=== PATIENT | male | born 1975 | race Caucasian/White ===

== ENCOUNTER → 2019-08-23 10:28 | Outpatient (BNVA) | payer MEDICARE, MEDICAID, SELFPAY | PROVIDERS: Family Provider Family Medicine; PCP Family Medicine; Visit Provider Psychiatry & Neurology Psychiatry | DX: F33.2 Major depressive disorder, recurrent severe without psychotic features (principal); F41.1 Generalized anxiety disorder | CPT/HCPCS: 99214; 99215 ==

== ENCOUNTER → 2019-12-20 08:34 | Outpatient (BNVA) | payer MEDICARE, MEDICAID, SELFPAY | PROVIDERS: Family Provider Family Medicine; PCP Family Medicine; Visit Provider Psychiatry & Neurology Psychiatry | DX: F33.2 Major depressive disorder, recurrent severe without psychotic features (principal); F41.1 Generalized anxiety disorder | CPT/HCPCS: 99213 ==

== ENCOUNTER → 2020-03-25 08:32 | Outpatient (BNVA) | payer MEDICARE, MEDICAID, SELFPAY | PROVIDERS: Family Provider Family Medicine; PCP Family Medicine; Visit Provider Psychiatry & Neurology Psychiatry | DX: F41.1 Generalized anxiety disorder (principal); F33.2 Major depressive disorder, recurrent severe without psychotic features | CPT/HCPCS: 99213 ==

== ENCOUNTER → 2020-06-10 07:44 | Outpatient (BNVA) | payer MEDICARE, MEDICAID, SELFPAY | PROVIDERS: Family Provider Family Medicine; PCP Family Medicine; Visit Provider Psychiatry & Neurology Psychiatry | DX: F41.1 Generalized anxiety disorder (principal); F33.2 Major depressive disorder, recurrent severe without psychotic features | CPT/HCPCS: 99213 ==

== ENCOUNTER → 2020-09-02 09:03 | Outpatient (BNVA) | payer MEDICARE, MEDICAID, SELFPAY | PROVIDERS: Family Provider Family Medicine; PCP Family Medicine; Visit Provider Psychiatry & Neurology Psychiatry | DX: F41.1 Generalized anxiety disorder (principal); F33.2 Major depressive disorder, recurrent severe without psychotic features | CPT/HCPCS: 99213 ==

== ENCOUNTER → 2020-11-25 07:53 | Outpatient (BNVA) | payer MEDICARE, MEDICAID, SELFPAY | PROVIDERS: Family Provider Family Medicine; PCP Family Medicine; Visit Provider Psychiatry & Neurology Psychiatry | DX: F41.1 Generalized anxiety disorder (principal); F33.2 Major depressive disorder, recurrent severe without psychotic features | CPT/HCPCS: 99213 ==

== ENCOUNTER → 2021-02-24 10:33 | Outpatient (BNVA) | payer MEDICARE, MEDICAID, SELFPAY | PROVIDERS: Family Provider Family Medicine; PCP Family Medicine; Visit Provider Psychiatry & Neurology Psychiatry | DX: F41.1 Generalized anxiety disorder (principal); F33.2 Major depressive disorder, recurrent severe without psychotic features | CPT/HCPCS: 99213 ==

== ENCOUNTER → 2021-03-03 07:41 | Outpatient (BNVA) | payer MEDICARE, MEDICAID, SELFPAY | PROVIDERS: Family Provider Family Medicine; PCP Family Medicine; Visit Provider Social Worker | DX: F41.1 Generalized anxiety disorder (principal); F33.2 Major depressive disorder, recurrent severe without psychotic features | CPT/HCPCS: 90834 ==

== ENCOUNTER → 2021-03-17 09:46 | Outpatient (BNVA) | payer MEDICARE, MEDICAID, SELFPAY | PROVIDERS: Family Provider Family Medicine; PCP Family Medicine; Visit Provider Social Worker | DX: F41.1 Generalized anxiety disorder (principal); F33.2 Major depressive disorder, recurrent severe without psychotic features | CPT/HCPCS: 90834 ==

== ENCOUNTER → 2021-03-31 09:35 | Outpatient (BNVA) | payer MEDICARE, MEDICAID, SELFPAY | PROVIDERS: Family Provider Family Medicine; PCP Family Medicine; Visit Provider Social Worker | DX: F41.1 Generalized anxiety disorder (principal); F33.2 Major depressive disorder, recurrent severe without psychotic features | CPT/HCPCS: 90834 ==

== ENCOUNTER → 2021-04-14 09:16 | Outpatient (BNVA) | payer MEDICARE, MEDICAID, SELFPAY | PROVIDERS: Family Provider Family Medicine; PCP Family Medicine; Visit Provider Social Worker | DX: F41.1 Generalized anxiety disorder (principal); F33.2 Major depressive disorder, recurrent severe without psychotic features | CPT/HCPCS: 90834 ==

== ENCOUNTER → 2021-05-12 09:33 | Outpatient (BNVA) | payer MEDICARE, MEDICAID, SELFPAY | PROVIDERS: Family Provider Family Medicine; PCP Family Medicine; Visit Provider Social Worker | DX: F41.1 Generalized anxiety disorder (principal); F33.2 Major depressive disorder, recurrent severe without psychotic features | CPT/HCPCS: 90834 ==

== ENCOUNTER → 2021-05-26 09:48 | Outpatient (BNVA) | payer MEDICARE, MEDICAID, SELFPAY | PROVIDERS: Family Provider Family Medicine; PCP Family Medicine; Visit Provider Social Worker | DX: F41.1 Generalized anxiety disorder (principal); F33.2 Major depressive disorder, recurrent severe without psychotic features | CPT/HCPCS: 90834 ==

== ENCOUNTER → 2021-06-03 11:56 | Outpatient (BNVA) | payer MEDICARE, MEDICAID, SELFPAY | PROVIDERS: Family Provider Family Medicine; PCP Family Medicine; Visit Provider Social Worker | DX: F41.1 Generalized anxiety disorder (principal); F33.2 Major depressive disorder, recurrent severe without psychotic features | CPT/HCPCS: 90834 ==

== ENCOUNTER → 2021-06-17 09:00 | Outpatient (BNVA) | payer MEDICARE, MEDICAID, SELFPAY | PROVIDERS: Family Provider Family Medicine; PCP Family Medicine; Visit Provider Social Worker | DX: F41.1 Generalized anxiety disorder (principal); F33.2 Major depressive disorder, recurrent severe without psychotic features | CPT/HCPCS: 90837; 90834 ==

== ENCOUNTER → 2021-06-24 14:37 | Outpatient (BNVA) | payer MEDICARE, MEDICAID, SELFPAY | PROVIDERS: Family Provider Family Medicine; PCP Family Medicine; Visit Provider Psychiatry & Neurology Psychiatry | DX: F41.1 Generalized anxiety disorder (principal); F33.2 Major depressive disorder, recurrent severe without psychotic features | CPT/HCPCS: 99214 ==

== ENCOUNTER → 2021-07-18 10:02 | Outpatient (BNVA) | payer MEDICARE, MEDICAID, SELFPAY | PROVIDERS: Family Provider Family Medicine; PCP Family Medicine; Visit Provider Social Worker | DX: F41.1 Generalized anxiety disorder (principal); F33.2 Major depressive disorder, recurrent severe without psychotic features | CPT/HCPCS: 90837; 90834 ==

== ENCOUNTER → 2021-08-01 08:27 | Outpatient (BNVA) | payer MEDICARE, MEDICAID, SELFPAY | PROVIDERS: Family Provider Family Medicine; PCP Family Medicine; Visit Provider Social Worker | DX: F41.1 Generalized anxiety disorder (principal); F33.2 Major depressive disorder, recurrent severe without psychotic features | CPT/HCPCS: 90837; 90834 ==

== ENCOUNTER → 2021-08-14 11:19 | Outpatient (BNVA) | payer MEDICARE, MEDICAID, SELFPAY | PROVIDERS: Family Provider Family Medicine; PCP Family Medicine; Visit Provider Social Worker | DX: F41.1 Generalized anxiety disorder (principal); F33.2 Major depressive disorder, recurrent severe without psychotic features | CPT/HCPCS: 90837; 90834 ==

== ENCOUNTER → 2021-08-26 11:21 | Outpatient (BNVA) | payer MEDICARE, MEDICAID, SELFPAY | PROVIDERS: Family Provider Family Medicine; PCP Family Medicine; Visit Provider Social Worker | DX: F41.1 Generalized anxiety disorder (principal); F33.2 Major depressive disorder, recurrent severe without psychotic features | CPT/HCPCS: 90837; 90834 ==

== ENCOUNTER → 2021-09-11 08:57 | Outpatient (BNVA) | payer MEDICARE, MEDICAID, SELFPAY | PROVIDERS: Family Provider Family Medicine; PCP Family Medicine; Visit Provider Social Worker | DX: F41.1 Generalized anxiety disorder (principal); F33.2 Major depressive disorder, recurrent severe without psychotic features | CPT/HCPCS: 90834 ==

== ENCOUNTER → 2021-10-15 07:52 | Outpatient (BNVA) | payer MEDICARE, MEDICAID, SELFPAY | PROVIDERS: Family Provider Family Medicine; PCP Family Medicine; Visit Provider Social Worker | DX: F41.1 Generalized anxiety disorder (principal); F33.2 Major depressive disorder, recurrent severe without psychotic features | CPT/HCPCS: 90834 ==

== ENCOUNTER → 2021-10-29 07:34 | Outpatient (BNVA) | payer MEDICARE, MEDICAID, SELFPAY | PROVIDERS: Family Provider Family Medicine; PCP Family Medicine; Visit Provider Psychiatry & Neurology Psychiatry | DX: F41.1 Generalized anxiety disorder (principal); F33.2 Major depressive disorder, recurrent severe without psychotic features | CPT/HCPCS: 99214 ==

== ENCOUNTER 2021-10-29 13:19 | Inpatient (IN) | payer MEDICARE, MEDICAID, SELFPAY ==
[2021-10-29] VITALS (22 sets, daily range): BP systolic 76–125; BP diastolic 40–82; PULSE 70–153; RESP 12–33; TEMP 36.8; O2SAT 86–96; BMI 65.9
--- NOTE | 2021-10-29 13:41 | ECG_ITS ---
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 Measurements Intervals [place] Rate: 153 P: WA: QRS: 110 QRSD: 110 T: 61 QT: 307 QTc: 490 Interpretive Statements ATRIAL FIBRILLATION WITH RAPID VENTRICULAR RESPONSE POSSIBLE RIGHT VENTRICULAR HYPERTROPHY [SOME/ALL OF: PROMINENT R IN V1, LATE TRANSITION, RAD, RUBINA, SSS] POSSIBLE ANTERIOR MYOCARDIAL INFARCTION , PROBABLY OLD [30 ms Q WAVE IN V3/V4, OR R < 0.2 mV IN V4] No previous ECG available for comparison Electronically Signed On 10-29-2021 18:41:38 CDT by Azeem Weinstein M.D. [id number] allison
[2021-10-29 13:56] LABS: Basophils % 0.5 %; Eosinophils % 0.5 %; Hematocrit 54.4 % (42.0-52.0); Hemoglobin 16.4 g/dL (11.7-16.6); Lymphocytes # 0.9 10^3/uL (0.8-4.8); Lymphocytes % 10.9 %; Mean Corpuscular HGB Conc 30.1 g/dL (30.0-36.0); Mean Corpuscular Volume 102.8 fl (80-94); Mean Platelet Volume 11.7 fL (7.4-10.4); Monocytes # 0.7 10^3/uL (0.2-0.9); Monocytes % 8.7 %; Neutrophils # 6.37 10^3/uL (1.8-7.7); Neutrophils % 79.2 %; Nucleated Red Blood Cells % 0 %; Platelet Count 148 10^3/cmm (130-400); Red Blood Count 5.29 10^6/uL (4.1-5.3); Red Cell Distribution Width 17.9 % (12.1-15.1); White Blood Count 8.1 10^3/uL (4.0-10.0)
--- NOTE | 2021-10-29 14:00 | ED_ITS ---
HPI - Abdominal Pain General: Chief Complaint: Abdominal Pain Stated Complaint: BOWEL OBSTRUCTION Time Seen by Provider: 10/29/21 13:23 Source: patient Mode of arrival: EMS Limitations: no limitations History of Present Illness: 46-year-old male presents emergency room complaining of abdominal pain with distention. Patient is super morbidly obese with a BMI of 66. He is that a large distended abdomen with significant anasarca. He is extremely tachycardic as well he states he has no known history of atrial fibrillation he is not on any anticoagulants. The abdominal pain is been present for 3 months and has had abnormal stools he denies any medication on hematemesis coffee-ground emesis. He is not having any chest pain at this time he is laying flat in bed and is a little bit tachypneic and is requiring 3 L by nasal cannula. He states he normally does not use oxygen but is chronically short of breath. No vomiting. MD elicited complaint: abdominal pain Onset (ago): day(s) Pain Consistency: constant Location: Diffuse Severity: moderate Quality: cramping Radiation: none Migration to: no migration Exacerbating factors: movement Relieving factors: rest Associated Symptoms: Reports bloating, GI cramping, nausea and poor appetite; Denies anorexia, belching, change in bowel habits, change in stool character, chills, coffee ground emesis, constipation, diarrhea, dyspepsia, dysuria, excessive flatus, fever(s), heartburn, hematochezia, hematuria, hematemesis, fecal incontinence, loose stools, melena, syncope and vomiting Review of Systems Const: Denies: fever(s) or chills ENMT: Denies: throat pain, ear or mastoid pain, nasal discharge or nasal congestion Card: Denies: syncope Resp: Denies: dyspnea, productive cough or non-productive cough GI: Reports: abdominal pain, nausea, bloating and GI cramping; Denies: vomiting, hematemesis, coffee ground emesis, heartburn, diarrhea, co nstipation, belching, excessive flatus, fecal incontinence, change in bowel habits, change in stool character, hematochezia or melena : Denies: dysuria or hematuria Skin/Breast: Denies: rash or pruritus PFS ED PFSH: Medical History Anxiety Bipolar 1 disorder Depression Dyslipidemia Gout Hypertension BONITA (obstructive sleep apnea) Psychiatric care Restrictive lung disease Surgical History No significant past surgical history Family History Other Cancer Dementia Diabetes Psychiatric illness Social History Smoking and tobacco status: former smoker Quit status (tobacco): has quit using tobacco Year quit tobacco: 2002 Second hand smoke exposure: No Smoking risk assessment/counseling performed?: No Alcohol intake: current Alcohol intake frequency: holidays/special occasions only Adopted: No 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) Lives independently: Yes Household members: none Housing: Manufactured/Mobile home Marital status: Single Number of children: 0 Number of grandchildren: 0 Highest education level completed: 12th Grade, No Diploma service: No Current occupational status: disabled Current occupational exposures/hazards: No Pets and animals: No History of recent travel: No Leisure activites: reading and other Leisure activities details: watches TV Sexually active: No Current gender identity: Male Jayne/Hoahaoism: None Special jayne needs: No Agree to transfusion: Yes Financial difficulty paying for basics: Somewhat Hard Physical Exam Const: COMMON NORMALS: no acute distress GENERAL APPEARANCE: cooperative and comfortable ORIENTATION/CONSCIOUSNESS: Yes awake, Yes oriented to person, Yes oriented to place and Yes oriented to time HENMT: COMMON NORMALS: normocephalic, atraumatic and hearing grossly normal bilaterally HEAD & SCALP: normocephalic and atraumatic Resp: COMMON NORMALS: No retractions and No use of accessory muscles AUSCULTATION: crackles and wheezes Cardio: RATE: tachycardic RHYTHM: abnormal rhythm irregularly irregular GI: COMMON NORMALS: No hepatosplenomegaly present AUSCULTATION: Yes normoactive bowel sounds PALPATION: Yes Tenderness to palpation present (GI) (Diffuse abdominal pain. Anasarca to the lower portion of the abdomen wall), No Guarding due to palpation present (GI) and Yes No hepatosplenomegaly present OTHER: Examination of the groin crease patient has significant excoriation in the groin and scrotal areas with superficial redness with no induration. Extremity: COMMON NORMALS: normal to inspection, capillary refill normal, no clubbing, cyanosis or edema, no calf tenderness and no pedal edema Neuro: SENSORIUM/ORIENTATION: Yes oriented to person, Yes oriented to place and Yes oriented to time Skin: COMMON NORMALS: no rashes or lesions noted GENERAL SKIN EXAM: no rashes or lesions noted Course Vital Signs: Vital signs: Vital Signs Temperature 96.9 F L 11/03/21 07:07 Pulse Rate 124 H 11/03/21 07:07 Respiratory Rate 18 11/03/21 07:07 Blood Pressure 158/124 11/03/21 07:07 Pulse Oximetry 95 11/03/21 07:07 MDM - Abdominal Pain Medical Decision Making Patient in A. felicity with RVR appears to be in congestive heart failure significant obesity he also has some superficial candidal infection in the groin creases due to poor hygiene. He was given Lasix he is also been started on Cardizem and t hen traded to esmolol for rate control and Cardizem failed. Discussed with hospitalist orders written hospitalist request CTA chest abdomen and pelvis which was negative. Medical Records I reviewed the patient's medical records. Lab Data I reviewed the patient's lab results. : 11/03/21 05:53 11/03/21 05:53 Labs/Radiology: Radiology Impressions Chest/Abdomen/Pelvis CT 10/29/21 16:14 IMPRESSION: 1. Negative for pulmonary embolus. 2. Cardiomegaly. 3. Moderate bilateral right greater left pleural effusions. 4. Bilateral dependent atelectasis versus minimal infiltrate. IMPRESSION: 1. Negative for focal acute inflammatory process in the abdomen or pelvis. 2. Large amount of ascites in the abdomen. 3. Right kidney cyst, negative for follow-up advised. 4. Left kidney lower pole punctate nonobstructing renal calyceal stone. Laboratory Results WBC 8.1 10^3/uL (4.0-10.0) 10/29/21 13:45 RBC 5.29 10^6/uL (4.1-5.3) 10/29/21 13:45 Hgb 16.4 g/dL (11.7-16.6) 10/29/21 13:45 Hct 54.4 % (42.0-52.0) H 10/29/21 13:45 MCV 102.8 fl (80-94) H 10/29/21 13:45 MCH 31.0 pg (28.0-34.0) 10/29/21 13:45 MCHC 30.1 g/dL (30.0-36.0) 10/29/21 13:45 RDW 17.9 % (12.1-15.1) H 10/29/21 13:45 Plt Count 148 10^3/cmm (130-400) 10/29/21 13:45 MPV 11.7 fL (7.4-10.4) H 10/29/21 13:45 Neut % (Auto) 79.2 % 10/29/21 13:45 Lymph % (Auto) 10.9 % 10/29/21 13:45 [place] % (Auto) 8.7 % 10/29/21 13:45 Eos % (Auto) 0.5 % 10/29/21 13:45 Baso % (Auto) 0.5 % 10/29/21 13:45 Neut # (Auto) 6.37 10^3/uL (1.8-7.7) 10/29/21 13:45 Lymph # (Auto) 0.9 10^3/uL (0.8-4.8) 10/29/21 13:45 [place] # (Auto) 0.7 10^3/uL (0.2-0.9) 10/29/21 13:45 Eos # (Auto) 0.0 10^3/uL (0.0-0.8) 10/29/21 13:45 Baso # (Auto) 0.0 10^3/uL (0.0-0.1) 10/29/21 13:45 Nucleated RBC % (auto) 0 % 10/29/21 13:45 Nucleated RBCs # 0.0 /100WBC 10/29/21 13:45 D-Dimer 7.73 ug/mIFEU (0-0.59) H 10/29/21 13:45 Sodium 139 mmol/L (136-145) 10/29/21 13:45 Potassium 3.9 mmol/L (3.5-5.1) 10/29/21 13:45 Chloride 92 mmol/L (98-107) L 10/29/21 13:45 Carbon Dioxide 34 mmol/L (22-29) H 10/29/21 13:45 Anion Gap 16.9 (5-19) 10/29/21 13:45 BUN 23 mg/dL (6-20) H 10/29/21 13:45 Creatinine 1.2 mg/dL (0.7-1.2) 10/29/21 13:45 GFR Calculation 64.9 mL/min (90-130) L 10/29/21 13:45 Glucose 95 mg/dL (65-115) 10/29/21 13:45 Calculated Osmolality 291 mOsm/kg (285-295) 10/29/21 13:45 Lactic Acid 2.0 mmol/L (0.5-2.2) 10/29/21 13:45 Uric Acid 9.4 mg/dL (3.4-7.0) H 10/29/21 13:45 Calcium 9.3 mg/dL (8.5-10.5) 10/29/21 13:45 Total Bilirubin 1.4 mg/dL (0.15-1.2) H 10/29/21 13:45 AST 23 U/L (0-40) 10/29/21 13:45 ALT 14 U/L (0-41) 10/29/21 13:45 Alkaline Phosphatase 86 IU/L (40-130) 10/29/21 13:45 Troponin T Baseline 43 ng/L (0-15) H 10/29/21 13:45 Troponin T 120 Minute 50.29 ng/L (0-15) H 10/29/21 15:38 Delta Troponin T 7.29 ABS# (0-10) 10/29/21 15:38 NT-Pro-B Natriuret Pep 4347 pg/mL (0-125) H 10/29/21 13:45 Total Protein 7.1 g/dL (6.6-8.7) 10/29/21 13:45 Albumin 3.7 g/dL (3.5-5.2) 10/29/21 13:45 Globulin 3.4 g/dL (1.3-4.6) 10/29/21 13:45 Triglycerides 89 mg/dL (0-150) 10/29/21 13:45 TSH 3.85 uIU/mL (0.27-4.20) 10/29/21 13:45 Urine Color Yellow (Yellow) 10/29/21 14:32 Urine Appearance Hazy (CLEAR) A 10/29/21 14:32 Urine pH 5 (5-7) 10/29/21 14:32 Ur Specific [place] 1.020 (1.005-1.030) 10/29/21 14:32 Urine Protein Neg (Negative) 10/29/21 14:32 Urine Glucose (UA) Norm (Normal) 10/29/21 14:32 Urine Ketones Negative (Negative) 10/29/21 14:32 Urine Blood Neg (Negative) 10/29/21 14:32 Urine Nitrate Negative (Negative) 10/29/21 14:32 Urine Bilirubin 1+ (Negative) H 10/29/21 14:32 Urine Urobilinogen 4 mg/dL (Negative) H 10/29/21 14:32 Ur Leukocyte Esterase Negative (Negative) 10/29/21 14:32 Urine RBC 0-4 /hpf (0-2) H 10/29/21 14:32 Urine WBC 0-4 /hpf (0-5) H 10/29/21 14:32 Ur Squamous Epith Cells 0-4 /hpf (0-5) H 10/29/21 14:32 Amorphous Sediment Not Reportable 10/29/21 14:32 Urine Bacteria Trace /hpf (NONE) 10/29/21 14:32 Critical Care Time Critical Care Time: Critical Care Time: Yes Total Critical Care Time: 40 Attestation: The high probability of a clinically significant, sudden or life threatening deterioration of the patient's cardiovascular/respiratory system(s) required my full and direct attention, intervention and personal management. The critical care time is as shown. 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
[2021-10-29 14:31] LABS: Troponin(5th) Baseline 43 ng/L (0-15)
[2021-10-29 14:39] LABS: Alanine Aminotransferase 14 U/L (0-41); Albumin Level 3.7 g/dL (3.5-5.2); Alkaline Phosphatase 86 IU/L (40-130); Anion Gap 16.9 (5-19); Aspartate Amino Transferase 23 U/L (0-40); Blood Urea Nitrogen 23 mg/dL (6-20); Calcium 9.3 mg/dL (8.5-10.5); Carbon Dioxide 34 mmol/L (22-29); Chloride 92 mmol/L (98-107); Creatinine Clr Calc Pharmacy 149.2504; Globulin 3.4 g/dL (1.3-4.6); Glomerular Filtration Rate 64.9 mL/min (90-130); Glucose 95 mg/dL (65-115); NT Pro B Type Natriuretic Pept 4347 pg/mL (0-125); Osmolality Calculated 291 mOsm/kg (285-295); Potassium 3.9 mmol/L (3.5-5.1); Sodium 139 mmol/L (136-145); Total Bilirubin 1.4 mg/dL (0.15-1.2); Total Protein 7.1 g/dL (6.6-8.7)
[2021-10-29 15:39] LABS: Add Urine Microscopic? YES; Bilirubin Urine 1+ (Negative); Blood Urine Neg (Negative); Glucose Urine UA Norm (Normal); Ketones Urine Negative (Negative); Leukocyte Esterase Urine Negative (Negative); Nitrate Urine Negative (Negative); Protein Urine Neg (Negative); RBC Urine 0-4 /hpf (0-2); Squamous Epithelial Cell Urine 0-4 /hpf (0-5); Urine Appearance Hazy (CLEAR); Urine Color Yellow (Yellow); Urobilinogen Urine 4 mg/dL (Negative); WBC Urine 0-4 /hpf (0-5); pH Urine 5 (5-7)
[2021-10-29 15:41] LABS: Bacteria Urine TRACE /hpf
--- NOTE | 2021-10-29 15:41 | ECG_ITS ---
[facility] Test Date: 2021-10-29 Pat Name: Robert Juarez Department: Room: Gender: Male Hospitalist Physician: : 1975 Requested By: Connor Joe Order Number: [id number] Shawanda MD: Azeem Weinstein M.D. Measurements Intervals [place] Rate: P: MT: QRS: QRSD: T: QT: QTc: Interpretive Statements ATRIAL FIBRILLATION Compared to ECG 10/29/2021 12:50:13 Atrial abnormality no longer present Myocardial infarct finding no longer present Electronically Signed On 10-29-2021 18:51:20 CDT by Azeem Weinstein M.D. [id number]
[2021-10-29 16:07] LABS: Troponin 5 2HR 50.29 ng/L (0-15)
[2021-10-29 16:08] LABS: Troponin 5 2HR Delta 7.29 ABS# (0-10)
--- NOTE | 2021-10-29 16:14 | CTR_ITS ---
PROCEDURE INFORMATION: Exam: CTA Chest With Contrast Exam date and time: 10/29/2021 4:14 PM Age: 46 years old Clinical indication: Nausea and vomiting; Shortness of breath; Additional info: Dyspnea/abd pain TECHNIQUE: Imaging protocol: Computed tomographic angiography of the chest with contrast. 3D rendering (Not supervised by radiologist): MIP and/or 3D reconstructed images were created by the technologist. Radiation optimization: All CT scans at this facility use at least one of these dose optimization techniques: automated exposure control; mA and/or kV adjustment per patient size (includes targeted exams where dose is matched to clinical indication); or iterative reconstruction. Contrast material: OMNI 350; Contrast volume: 140 ml; Contrast route: INTRAVENOUS (IV); COMPARISON: CR Chest 2 views* [id number] 04/06/2017 3:17 PM RADIATION DOSE METRICS: Total DLP (mGy-cm): 2500 FINDINGS: Pulmonary arteries: Normal. No pulmonary emboli. Aorta: Unremarkable. No aortic aneurysm. No aortic dissection. Lungs: Bilateral dependent atelectasis versus minimal infiltrate. Pleural spaces: Moderate bilateral right greater left pleural effusions. Heart: Cardiomegaly. Lymph nodes: Unremarkable. No enlarged lymph nodes. Bones/joints: Unremarkable. No acute fracture. Soft tissues: Unremarkable. PROCEDURE INFORMATION: Exam: CT Abdomen And Pelvis With Contrast Exam date and time: 10/29/2021 4:14 PM Age: 46 years old Clinical indication: Nausea and vomiting; Shortness of breath; Additional info: Dyspnea/abd pain TECHNIQUE: Imaging protocol: Computed tomography of the abdomen and pelvis with contrast. Radiation optimization: All CT scans at this facility use at least one of these dose optimization techniques: automated exposure control; mA and/or kV adjustment per patient size (includes targeted exams where dose is matched to clinical indication); or iterative reconstruction. Contrast material: OMNI 350; Contrast volume: 140 ml; Contrast route: INTRAVENOUS (IV); COMPARISON: CR Chest 2 views* [id number] 04/06/2017 3:17 PM RADIATION DOSE METRICS: Total DLP (mGy-cm): 2500 FINDINGS: Liver: Normal. No mass. Gallbladder and bile ducts: Normal. No calcified stones. No ductal dilation. Pancreas: Normal. No ductal dilation. Spleen: Normal. No splenomegaly. Adrenal glands: Normal. No mass. Kidneys and ureters: Right kidney cyst, negative for follow-up advised. Left kidney lower pole punctate nonobstructing renal calyceal stone. Stomach and bowel: Unremarkable. No obstruction. No mucosal thickening. Appendix: No evidence of appendicitis. Intraperitoneal space: Large amount of ascites in the abdomen. Vasculature: Unremarkable. No abdominal aortic aneurysm. Lymph nodes: Unremarkable. No enlarged lymph nodes. Urinary bladder: Unremarkable as visualized. Reproductive: Unremarkable as visualized. Bones/joints: Unremarkable. No acute fracture. Soft tissues: Unremarkable. CT/CT angio chest w abd pel w con IMPRESSION: 1. Negative for pulmonary embolus. 2. Cardiomegaly. 3. Moderate bilateral right greater left pleural effusions. 4. Bilateral dependent atelectasis versus minimal infiltrate. IMPRESSION: 1. Negative for focal acute inflammatory process in the abdomen or pelvis. 2. Large amount of ascites in the abdomen. 3. Right kidney cyst, negative for follow-up advised. 4. Left kidney lower pole punctate nonobstructing renal calyceal stone.
[2021-10-29] MEDS: esmolol drip 2,500 MG/250 ML PREMIX 68.04 MG IV (16:28)
[2021-10-29] MEDS: iohexol 350 mg/mL 100 mL Btl IV ×2 (17:26)
--- NOTE | 2021-10-29 17:53 | P.HP_ITS ---
Providers/Chief Complaint Admitting Physician: Elida Greene MD Primary Care Provider: DOUG Joaquin Chief Complaint: BOWEL OBSTRUCTION History of Present Illness Robert Juarez is a 46 year old male who carries history of hypertension, sleep apnea, does not use CPAP at home oxygen, presented to the hospital for worsening of abdominal bloating or weight gain. Patient is stating that he has never been diagnosed with MD or CHF. He has been experiencing orthopnea, PND sh ortness of breath and excessive weight gain. He has not experienced any chest discomfort, fever, diarrhea. Patient lives alone. Does not smoke or drink alcohol. In the ER he was diagnosed with new onset A. fib RVR with CHF exacerbation. He was started on Cardizem drip which was later changed to esmolol because of RVR. I requested ER physician to change his esmolol to amiodarone because of hypotension at the time of my evaluation. Patient is not experiencing any active chest pain, he is on 3 L nasal cannula Initially he wanted to leave AGAINST MEDICAL ADVICE however decided to stay after counseling I requested CTA chest abdomen pelvis, it did not show any PE or any signs of mesenteric ischemia Review of Systems Const: Reports: body aches and change in appetite Eyes: Denies: change in vision ENMT: Denies: throat pain Card: Reports: palpitations, irregular heart rhythm, swelling of feet/ankles, dyspnea on exertion, orthopnea and acrocyanosis; Denies: chest pain Resp: Reports: dyspnea GI: Reports: abdominal pain, nausea, early satiety and bloating : Reports: difficulty urinating Musc: Denies: neck pain Skin/Breast: Reports: erythema, skin swelling, sores and lesions Neuro: Denies: headache(s) Psych: Reports: anxiety, depression and mood swings Endo: Denies: polyuria Kishan/Lymph: Denies: easy bruising All/Imm: Denies: urticaria Medications/Allergies Home Medications Medication Instructions Recorded Confirmed Last Taken Type indapamide 2.5 mg tablet 2.5 mg PO QAM 06/24/21 10/29/21 10/29/21 History lisinopril 20 mg tablet 20 mg PO DAILY 06/24/21 10/29/21 10/29/21 History duloxetine 30 mg capsule,delayed 30 mg PO DAILY #90 cap 10/29/21 10/29/21 10/29/21 Rx release duloxetine 60 mg capsule,delayed 60 mg PO DAILY #90 cap 10/29/21 10/29/21 10/29/21 Rx release Allergies Allergy/AdvReac Type Severity Reaction Status Date / Time No Known Allergies Allergy Verified 10/29/21 14:55 PFSH Acute PFSH: Medical History Anxiety Bipolar 1 disorder Depression Dyslipidemia Gout Hypertension BONITA (obstructive sleep apnea) Psychiatric care Restrictive lung disease Surgical History No significant past surgical history Family History Other Cancer Dementia Diabetes Psychiatric illness Social History Smoking and tobacco status: former smoker Quit status (tobacco): has quit using tobacco Year quit tobacco: 2002 Second hand smoke exposure: No Smoking risk assessment/counseling performed?: No Alcohol intake: current Alcohol intake frequency: holidays/special occasions only Adopted: No 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) Lives independently: Yes Household members: none Housing: Manufactured/Mobile home Marital status: Single Number of children: 0 Number of grandchildren: 0 Highest education level completed: 12th Grade, No Diploma service: No Current occupational status: disabled Current occupational exposures/hazards: No Pets and animals: No History of recent travel: No Leisure activites: reading and other Leisure activities details: watches TV Sexually active: No Current gender identity: Male Jayne/Rastafari: None Special jayne needs: No Agree to transfusion: Yes Financial difficulty paying for basics: Somewhat Hard Vitals/I&O/Wt Last Vital Signs Temp 98.2 F 10/29/21 13:33 Pulse 152 H 10/29/21 15:36 Resp 20 H 10/29/21 15:36 BP 125/69 10/29/21 15:36 Pulse Ox 96 10/29/21 15:36 10/29/21 10/29/21 10/29/21 06:59 14:59 22:59 Intake Total 4.167 / 4.167 9.833 / 14.000 Balance 4.167 / 4.167 9.833 / 14.000 Weight last 48 hrs Weight 226.796 kg Physical Exam Narrative: Morbid obese male Currently on 3 L cannula Awake and alert Nonfocal neuro exam Generalized anasarca Venous stasis dermatitis Bluish tinge to the skin of anterior mendez No active ischemic ulcers 3+ pitting edema extending up to his abdominal wall Abdominal pannus with nonpurulent cellulitis Fungal rash Abdomen is soft Variable S1-S2 Nonfocal neuro exam Able to cooperate for the exam Urinary Catheter Management: Fisher: Cath Placed During This Visit: yes Urinary Catheter Date of Insertion: 10/29/21 Urinary Catheter Time of Insertion: 14:35 Data : 10/29/21 13:45 10/29/21 13:45 A&P Assessment and plan (1) New onset of congestive heart failure: Status: Acute (2) A-fib: Status: Acute (3) Anasarca: Status: Acute Plan New onset CHF secondary to tachyarrhythmia RVRafib new onset Patient is hypotensive on esmolol We will give amiodarone 150 mg IV push and start amiodarone drip Admit to ICU Check magnesium level Potassium is 3.9 Check TSH D-dimer CTA chest abdomen pelvis unremarkable for acute event Generalized anasarca with congestive hepatopathy Not a candidate to start diuresis because of low blood pressure, will request echo Start diuresis once his pressure is better We will keep him on BiPAP overnight Patient had a history of sleep apnea however does not use CPAP or BiPAP at home We will keep him on clear liquid for now in case he deteriorates further Monitor in ICU Troponin without significant delta Fisher cath was placed in the ER Nystatin for his fungal intertrigo Full code DVT prophylaxis, currently on therapeutic Lovenox Attestations Medical Necessity Statement*: More than 2 midnights anticipated Time Spent in Patient Care: 35min Coding Level of Care Code Acute Pack Changer for Chg Fwd Diagnoses New onset of congestive heart failure I50.9 A-fib I48.91 Anasarca R60.1
--- NOTE | 2021-10-29 19:41 | ECG_ITS ---
[facility] Test Date: 2021-10-29 Pat Name: Robert Juarez Department: Room: ICU02 Gender: Male Patient Case Manager: : 1975 Requested By: Connor Joe Order Number: [id number] Shawanda MD: Azeem Weinstein M.D. Measurements Intervals [place] Rate: 110 P: [place]: QRS: 145 QRSD: 106 T: 0 QT: 371 QTc: 502 Interpretive Statements ATRIAL FLUTTER/TACHYCARDIA WITH RAPID VENTRICULAR RESPONSE POSSIBLE RIGHT VENTRICULAR HYPERTROPHY [SOME/ALL OF: PROMINENT R IN V1, LATE TRANSITION, RAD, RUBINA, SSS] POSSIBLE ANTERIOR MYOCARDIAL INFARCTION , PROBABLY OLD [30 ms Q WAVE IN V3/V4, OR R < 0.2 mV IN V4] Compared to ECG 10/29/2021 14:46:56 Myocardial infarct finding now present Atrial fibrillation no longer present Electronically Signed On 10-29-2021 23:05:59 CDT by Azeem Weinstein M.D. [id number]
[2021-10-29 19:47] LABS: D Dimer 7.73 ug/mIFEU (0-0.59)
[2021-10-29 19:50] LABS: Thyroid Stimulating Hormone 3.85 uIU/mL (0.27-4.20); Triglycerides 89 mg/dL (0-150); Uric Acid 9.4 mg/dL (3.4-7.0)
[2021-10-29 20:21] LABS: Troponin 5 6HR 74.31 ng/L (0-15)
[2021-10-29 20:27] LABS: Troponin 5 6HR Delta 31.31 ng/L (0-12)
[2021-10-29 20:28] LABS: Partial Thromboplastin Time 33.2 SECONDS (23.9-36.7)
[2021-10-29] MEDS: heparin drip 25,000 UNIT/500 ML PREMIX 36 UNIT IV (21:34)
[2021-10-29 22:19] LABS: Glucose Point of Care 91 mg/dL (70-110)
[2021-10-30] VITALS (65 sets, daily range): BP systolic 80–152; BP diastolic 64–107; PULSE 100–142; RESP 11–33; TEMP 36.4–37.2; O2SAT 78–98
--- NOTE | 2021-10-30 00:35 | USCV_ITS ---
Robert Juarez Age: 46 Gender: M : 1975 Exam Date: 10/30/2021 12:30 Ordering Phys: Elida Greene MD Technologist: Ramos Vaughan Exam Location: [facility] – [place] Indication: afib BP: / HR: Rhythm: Sinus Technical Quality: MEASUREMENTS (Male / Female) Normal Values FINDINGS Left Ventricle Right Ventricle Right Atrium Left Atrium Mitral Valve Aortic Valve Tricuspid Valve Pulmonic Valve Pericardium Aorta CONCLUSIONS No echocardiographic windows were found. Unable to assess because of no visualization of cardiac structures. Comparison with prior echocardiogram not possible because of lack of visualization. Azeem Weinstein MD (Electronically Signed) Final Date: 30 October 2021 12:43 S
[2021-10-30] MEDS: digoxin 250 mcg/ml INJ 2 mL IVP ×2 (02:57→13:14)
[2021-10-30 04:13] LABS: Basophils % 0.2 %; Eosinophils % 0.3 %; Hematocrit 50.5 % (42.0-52.0); Hemoglobin 14.5 g/dL (11.7-16.6); Lymphocytes # 0.7 10^3/uL (0.8-4.8); Lymphocytes % 7.2 %; Mean Corpuscular HGB Conc 28.7 g/dL (30.0-36.0); Mean Corpuscular Hemoglobin 30.4 pg (28.0-34.0); Mean Corpuscular Volume 105.9 fl (80-94); Mean Platelet Volume 11.2 fL (7.4-10.4); Monocytes % 10.2 %; Neutrophils # 7.59 10^3/uL (1.8-7.7); Neutrophils % 81.8 %; Nucleated Red Blood Cells % 0 %; Platelet Count 154 10^3/cmm (130-400); Red Blood Count 4.77 10^6/uL (4.1-5.3); White Blood Count 9.3 10^3/uL (4.0-10.0)
[2021-10-30 04:34] LABS: Partial Thromboplastin Time 73.8 SECONDS (23.9-36.7)
[2021-10-30 04:40] LABS: Alanine Aminotransferase 14 U/L (0-41); Albumin Level 3.3 g/dL (3.5-5.2); Alkaline Phosphatase 77 IU/L (40-130); Aspartate Amino Transferase 23 U/L (0-40); Blood Urea Nitrogen 26 mg/dL (6-20); Calcium 8.8 mg/dL (8.5-10.5); Carbon Dioxide 31 mmol/L (22-29); Chloride 94 mmol/L (98-107); Globulin 3.2 g/dL (1.3-4.6); Glomerular Filtration Rate 50.2 mL/min (90-130); Glucose 85 mg/dL (65-115); Magnesium 1.4 mg/dL (1.7-2.3); Osmolality Calculated 288 mOsm/kg (285-295); Sodium 137 mmol/L (136-145); Total Bilirubin 1.4 mg/dL (0.15-1.2); Total Protein 6.5 g/dL (6.6-8.7)
[2021-10-30 05:04] LABS: Anion Gap 16.4 (5-19); Potassium 4.4 mmol/L (3.5-5.1)
[2021-10-30] MEDS: sennosides-docusate Tablet 1 TAB PO (07:57)
[2021-10-30] MEDS: FUROsemide 10 mg/mL SDV 2mL 20 MG IVP (07:58)
[2021-10-30] MEDS: duloxetine 30 mg Capsule PO (07:58)
[2021-10-30] MEDS: magnesium sulfate premix 2 GM/50 ML PIGGYBACK IV (07:59)
[2021-10-30 10:41] LABS: Partial Thromboplastin Time 57.5 SECONDS (23.9-36.7)
[2021-10-30 12:09] LABS: Glucose Point of Care 85 mg/dL (70-110)
[2021-10-30 12:11] LABS: Glucose Point of Care 92 mg/dL (70-110)
--- NOTE | 2021-10-30 12:26 | P.PN_ITS ---
Subjective Subjective: A. fib RVR He was given digoxin last night I have replenish his magnesium with 2 g IV No active chest pain D-dimer 7.7 Currently on 3 L nasal cannula No signs of PE on CTA He refuses BiPAP overnight I will start Lasix today blood pressure is stable Vitals/I&O/Wt Last Vital Signs Temp 97.5 F L 10/30/21 08:00 Pulse 115 H 10/30/21 10:30 Resp 24 H 10/30/21 10:30 BP 134/104 10/30/21 10:30 Pulse Ox 90 10/30/21 10:30 10/29/21 10/30/21 10/30/21 22:59 06:59 14:59 Intake Total 256.163 / 342.742 9666.505 / 1656.835 600 / 600 Output Total 200 / 200 100 / 300 Balance 56.163 / 60.330 1296.505 / 1356.835 600 / 600 Weight last 48 hrs Weight 252.9 kg Weight 226.796 kg Physical Exam Narrative: Morbidly obese male Awake and alert He refuses BiPAP overnight Currently on 3 L nasal cannula Saturating well A. fib RVR Blood pressure stable Nonfocal neuro exam Intertrigo Renasys dermatitis Left leg ulcer without any active signs of infection Venous stasis dermatitis Genital edema Anasarca Knott facies Urinary Catheter Management: Fisher: Cath Placed During This Visit: yes Reason for Continuing Indwelling Catheter: Accurate Measurement of Urinary Output in Critically Ill Patients Urinary Catheter Date of Insertion: 10/29/21 Urinary Catheter Time of Insertion: 14:35 Data : 10/30/21 04:00 10/30/21 04:00 A&P Assessment and plan (1) Anasarca: Status: Acute (2) New onset of congestive heart failure: Status: Acute (3) A-fib: Status: Acute (4) Psychiatric care: Status: Acute (5) Generalized anxiety disorder: Status: Acute (6) Hypomagnesemia: Status: Acute Plan New onset congestive heart failure EF unknown, secondary to tachyarrhythmia Patient will need outpatient sleep study Most likely etiology is underlying sleep apnea Troponin delta noted No active chest pain No signs of ischemic or infarctive changes on EKG We will follow up on echo He might benefit from a stress test once his A. fib RVR is better, target heart rate at least below 110 Currently on amiodarone, switch to p.o. regimen after 24 hours, will give him low-dose of digoxin, he was given albumin, 250 mcg of digoxin overnight I will give him another 250 mcg of digoxin today Continue heparin drip NSTEMI: Continue heparin drip, aspirin, Plavix, atorvastatin Full code Consistent carbohydrate diet CHF exacerbation EF is unknown, started low-dose Lasix, he is diuretic na?ve, blood pressure was soft that is why choosing low-dose for now Anasarca with intertrigo Nystatin powder, doxycycline Attestations Medical Necessity Statement*: Continue medical management Time Spent in Patient Care: 35mins Coding Level of Care Code 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
[2021-10-30 13:04] LABS: Estmated Average Glucose 123; Hemoglobin A1C 5.9 % (4.0-6.0)
[2021-10-30] MEDS: heparin drip 25,000 UNIT/500 ML PREMIX 36 UNIT IV (13:13)
[2021-10-30 16:33] LABS: Partial Thromboplastin Time 68.7 SECONDS (23.9-36.7)
[2021-10-30] MEDS: amiodarone 200 mg Tablet 400 MG PO (17:35)
[2021-10-30] MEDS: doxycycline 100 mg Tablet PO (17:35)
[2021-10-30 17:41] LABS: Glucose Point of Care 86 mg/dL (70-110)
--- NOTE | 2021-10-30 18:08 | PC.NURSE ---
Pt resting in bed, amio and heparin gtts infusing per protocol. PTT orders in for 2200. Pt denies any issues. Remains very edematous. Repositioned q2h and prn. Able to make all needs known. VSS. Will monitor.
--- NOTE | 2021-10-30 19:48 | PC.NURSE ---
Patient was able to tell me his name, but not able to give birthday or answer other questions. When asked different questions like birthday he would say better , or shake head yes. 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 Not able to give thumbs up or follow any other command.
[2021-10-30] MEDS: atorvastatin 40 mg Tablet 80 MG PO (21:03)
[2021-10-30] MEDS: metoprolol tartrate 25 mg Tablet 12.5 MG PO (21:03)
[2021-10-30 22:15] LABS: Partial Thromboplastin Time 61.6 SECONDS (23.9-36.7)
[2021-10-31] VITALS (50 sets, daily range): BP systolic 96–160; BP diastolic 68–136; PULSE 92–130; RESP 9–28; TEMP 36.4–36.8; O2SAT 81–96
[2021-10-31 04:55] LABS: Basophils % 0.5 %; Eosinophils # 0.2 10^3/uL (0.0-0.8); Hematocrit 48.3 % (42.0-52.0); Lymphocytes # 0.7 10^3/uL (0.8-4.8); Lymphocytes % 9.2 %; Mean Corpuscular Hemoglobin 30.8 pg (28.0-34.0); Mean Corpuscular Volume 106.4 fl (80-94); Mean Platelet Volume 11.9 fL (7.4-10.4); Monocytes # 0.8 10^3/uL (0.2-0.9); Monocytes % 10.2 %; Neutrophils # 5.71 10^3/uL (1.8-7.7); Neutrophils % 77.6 %; Nucleated Red Blood Cells % 0.3 %; Platelet Count 133 10^3/cmm (130-400); Red Blood Count 4.54 10^6/uL (4.1-5.3); Red Cell Distribution Width 17.8 % (12.1-15.1); White Blood Count 7.4 10^3/uL (4.0-10.0)
[2021-10-31 05:09] LABS: Partial Thromboplastin Time 55.9 SECONDS (23.9-36.7)
[2021-10-31 05:17] LABS: Anion Gap 12.1 (5-19); Blood Urea Nitrogen 27 mg/dL (6-20); Carbon Dioxide 36 mmol/L (22-29); Chloride 92 mmol/L (98-107); Glomerular Filtration Rate 46.6 mL/min (90-130); Glucose 89 mg/dL (65-115); Osmolality Calculated 287 mOsm/kg (285-295); Potassium 4.1 mmol/L (3.5-5.1); Sodium 136 mmol/L (136-145)
[2021-10-31 05:54] LABS: Slide Review Slide Review Perform
[2021-10-31] MEDS: heparin drip 25,000 UNIT/500 ML PREMIX 36 UNIT IV (06:25)
[2021-10-31] MEDS: FUROsemide 10 mg/mL SDV 2mL 20 MG IVP (06:27)
[2021-10-31] MEDS: amiodarone 200 mg Tablet 400 MG PO ×2 (09:06→17:06)
[2021-10-31] MEDS: apixaban 5 mg Tablet PO ×2 (09:07→20:20)
[2021-10-31] MEDS: doxycycline 100 mg Tablet PO ×2 (09:07→17:06)
[2021-10-31] MEDS: duloxetine 30 mg Capsule PO (09:07)
[2021-10-31] MEDS: clopidogrel 75 mg Tablet PO (09:07)
[2021-10-31] MEDS: metoprolol tartrate 25 mg Tablet 12.5 MG PO ×2 (09:08→20:20)
[2021-10-31] MEDS: sennosides-docusate Tablet 1 TAB PO (09:08)
[2021-10-31 09:31] LABS: Glucose Point of Care 71 mg/dL (70-110)
--- NOTE | 2021-10-31 10:23 | PC.CHAP ---
Pastoral Care Encounter/Spiritual Assessment Type of Contact [] Declined seafood processor visit [] Patient/Family/Request visit [] Outpatient visit [] Follow-up visit [] Physician referral [] Code/Alert [x] Routine visit [] Staff referral [] Actively dying [] Patient sleeping [] Family support [] [] Out of room [] Palliative care [] [] Receiving care in room [] Pre-surgical visit [] Trauma [] Long length of stay [x] ICU visit [] Other: Relational/Emotional Strength [] Patient feels connected with others/family/visitors/staff [] Distress [] Loneliness/isolation [] Abandonment Spirituality of Patient [] Person of Jayne [] Attends Jain of their Jayne [] Believes in Prayer [] Reads Bible or Muslim materials [] There are Spiritual issues to be addressed 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 [x] Prayer [x] Active listening [x] Non-anxious presence [x] Spiritual/emotional support [] Crisis/trauma care [] Spiritual counseling [] Bereavement support [] Provided bereavement packet [] Provided Bible/devotional materials [] Provided toy/stuffed animal, coloring book to patient or family member [] Provided Communion [] Anointing/[place] [] Salvation [x] Completed spiritual assessment [] Other: Impact on Illness or Injury [] Angry [] Fearful [] Anxious [] Often cries [] Exhaustion [] Unable to work [] Unable to attend jew [] Unable to walk/stand [] Unable to read [] Unable to drive [] Unable to eat/drink [] Unable to sleep [] Unable to be with family [] Patient intubated [] Other: Summary prayed for comfort.. and strength Time spent with patient 10 min
[2021-10-31 12:16] LABS: Glucose Point of Care 87 mg/dL (70-110)
--- NOTE | 2021-10-31 13:08 | P.PN_ITS ---
Subjective Subjective: Patient was seen this morning, he tells me that he lives near [place], he lives by himself, he has Blanc at home, he tells me that normally he ambulates by himself, he does not use a walker, does not use a wheelchair, he can help cook and clean for himself, get groceries, he is fairly independent, denies any cardiovascular history, he does have history of sleep apnea, but has not used a sleep machine in some time, no cardiovascular history, no history of COPD, denies any chest pain, no palpitations, currently is on amiodarone drip, continues to have 1+ pitting edema bilateral extremities, has not gotten up out of bed here Vitals/I&O/Wt Last Vital Signs Temp 97.5 F L 10/31/21 09:00 Pulse 100 10/31/21 09:30 Resp 20 H 10/31/21 09:30 BP 138/96 10/31/21 09:30 Pulse Ox 81 L 10/31/21 09:30 10/30/21 10/31/21 10/31/21 22:59 06:59 14:59 Intake Total 338.165 / 1678.165 500 / 2178.165 400 / 400 Output Total 1025 / 1025 250 / 1275 950 / 950 Balance -686.835 / 653.165 250 / 903.165 -550 / -550 Weight last 48 hrs Weight 252.9 kg Weight 226.796 kg Physical Exam Const: COMMON NORMALS: no acute distress and patient oriented x3 Neck/C-Spine: COMMON NORMALS: no JVD Resp: COMMON NORMALS: normal respiratory effort, No retractions, No use of accessory muscles and clear to auscultation bilaterally AUSCULTATION: clear to auscultation bilaterally Cardio: COMMON NORMALS: no JVD, regular rate, regular rhythm, S1 normal heart sound present and S2 normal heart sound present RATE: regular rate RHYTHM: regular rhythm HEART SOUNDS: S1 normal heart sound present and S2 normal heart sound present GI: COMMON NORMALS: Normal to inspection, nondistended, normoactive bowel sounds present, Soft to palpation and non-tender PALPATION: Yes Soft to palpation Extremity: COMMON NORMALS: no pedal edema Neuro: COMMON NORMALS: patient oriented x3 Psych: COMMON NORMALS: mental status grossly normal Urinary Catheter Management: Fisher: Cath Placed During This Visit: yes Reason for Continuing Indwelling Catheter: Accurate Measurement of Urinary Output in Critically Ill Patients Urinary Catheter Date of Insertion: 10/29/21 Urinary Catheter Time of Insertion: 14:35 Data : 10/31/21 04:35 10/31/21 04:35 A&P Assessment and plan (1) Anasarca: Status: Acute (2) New onset of congestive heart failure: Status: Acute (3) A-fib: Status: Acute (4) Psychiatric care: Status: Acute (5) Generalized anxiety disorder: Status: Acute (6) Hypomagnesemia: Status: Acute Plan New onset atrial fibrillation, Eliquis, metoprolol, amiodarone, moved to cardiac stepdown unit New onset congestive heart failure EF unknown, secondary to tachyarrhythmia Patient will need outpatient sleep study Most likely etiology is underlying sleep apnea Troponin delta noted No active chest pain No signs of ischemic or infarctive changes on EKG Echocardiogram poor quality study given body habitus Will consider stress test on Wednesday Transition off amiodarone drip, amiodarone 400 twice daily Metoprolol 12.5 twice daily Has been loaded with full digoxin Transition off heparin drip, to Eliquis NSTEMI: Continue Eliquis, Plavix, atorvastatin Full code Consistent carbohydrate diet BONITA, obesity hypoventilation syndrome, continue CPAP Morbid obesity, PT OT, get up out of bed, normally ambulatory at baseline CHF exacerbation EF is unknown, creatinine up to 1.7, hold off on Lasix for today, continue to mobilize Anasarca with intertrigo Nystatin powder, doxycycline Attestations Medical Necessity Statement*: Patient requires hospitalization for A. 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
--- NOTE | 2021-10-31 15:48 | PC.NURSE ---
At beggining of shift, patient is alert to person, place, time, and situation. Dr guevara at bedside. recieved orders to Hold iv amiodarone for now.
--- NOTE | 2021-10-31 15:49 | PC.NURSE ---
SInce stopping IV amiodarone, patient's heart rate has increased to 130 and is consistently there. Nurse alerted Dr guevara and received order to restart amiodarone.
[2021-10-31] MEDS: TRAMadol 50 mg Tablet PO (15:57)
[2021-10-31 17:58] LABS: Glucose Point of Care 109 mg/dL (70-110)
--- NOTE | 2021-10-31 19:03 | PC.NURSE ---
Shift SUmmary: Overall, uneventful shift. Patient was up to a hair for about 7 hours today. Amiodarone was turned off in the AM since he was switched over to PO yesterday, but due to tachycardia (130's) amiodarone was restarted, see OCT. Patient has complaints of pain to the scrotum due to swelling and excoriation, often times relieved by positioning. ALert and oriented to person, place, time, and situation.
--- NOTE | 2021-10-31 19:05 | PC.NURSE ---
Report given to TERRY connell in CSU. Patient is to be transferred after shift change when nursing staff is available in [facility].
[2021-10-31] MEDS: atorvastatin 40 mg Tablet 80 MG PO (20:20)
[2021-10-31 20:28] LABS: Glucose Point of Care 108 mg/dL (70-110)
--- NOTE | 2021-10-31 22:12 | PC.NURSE ---
[facility] Patient transported via bed to [facility] 105. All patient belongings accounted for and with patient in new room. Receiving nurse at bedside upon moving. Patient tolerated transport well, all vitals stable.
[2021-11-01] VITALS (17 sets, daily range): BP systolic 96–160; BP diastolic 58–118; PULSE 89–121; RESP 18–20; TEMP 36.4–36.7; O2SAT 70–98
[2021-11-01 05:15] LABS: Basophils % 0.3 %; Eosinophils # 0.1 10^3/uL (0.0-0.8); Hematocrit 50.9 % (42.0-52.0); Hemoglobin 14.5 g/dL (11.7-16.6); Lymphocytes # 0.6 10^3/uL (0.8-4.8); Lymphocytes % 8.5 %; Mean Corpuscular HGB Conc 28.5 g/dL (30.0-36.0); Mean Corpuscular Hemoglobin 30.7 pg (28.0-34.0); Mean Corpuscular Volume 107.6 fl (80-94); Monocytes # 0.9 10^3/uL (0.2-0.9); Monocytes % 12.4 %; Neutrophils # 5.56 10^3/uL (1.8-7.7); Neutrophils % 77.1 %; Nucleated Red Blood Cells % 0 %; Platelet Count 118 10^3/cmm (130-400); Red Blood Count 4.73 10^6/uL (4.1-5.3); Red Cell Distribution Width 17.5 % (12.1-15.1); White Blood Count 7.2 10^3/uL (4.0-10.0)
[2021-11-01 05:42] LABS: NT Pro B Type Natriuretic Pept 4468 pg/mL (0-125); Procalcitonin 0.04 ng/mL (0-0.5)
[2021-11-01 05:54] LABS: Alanine Aminotransferase 13 U/L (0-41); Albumin Level 3.5 g/dL (3.5-5.2); Alkaline Phosphatase 79 IU/L (40-130); Anion Gap 13.4 (5-19); Aspartate Amino Transferase 17 U/L (0-40); Blood Urea Nitrogen 27 mg/dL (6-20); C Reactive Protein 16.3 mg/L (0.0-4.9); Calcium 9.4 mg/dL (8.5-10.5); Carbon Dioxide 36 mmol/L (22-29); Chloride 93 mmol/L (98-107); Globulin 3.6 g/dL (1.3-4.6); Glomerular Filtration Rate 54.3 mL/min (90-130); Glucose 101 mg/dL (65-115); Magnesium 1.5 mg/dL (1.7-2.3); Osmolality Calculated 291 mOsm/kg (285-295); Phosphorus 4.6 mg/dL (2.5-4.5); Potassium 4.4 mmol/L (3.5-5.1); Sodium 138 mmol/L (136-145); Total Bilirubin 1.2 mg/dL (0.15-1.2); Total Protein 7.1 g/dL (6.6-8.7)
[2021-11-01 06:22] LABS: Glucose Point of Care 92 mg/dL (70-110)
--- NOTE | 2021-11-01 07:46 | PC.NURSE ---
received report, reviewed poc and assumed care of patient. no needs identified at this time.
[2021-11-01] MEDS: apixaban 5 mg Tablet PO ×2 (08:21→20:40)
[2021-11-01] MEDS: amiodarone 200 mg Tablet 400 MG PO ×2 (08:21→18:44)
[2021-11-01] MEDS: clopidogrel 75 mg Tablet PO (08:21)
[2021-11-01] MEDS: doxycycline 100 mg Tablet PO ×2 (08:21→18:44)
[2021-11-01] MEDS: metoprolol tartrate 25 mg Tablet PO ×2 (08:21→20:39)
[2021-11-01] MEDS: potassium chloride ER 20 mEq Tablet PO (08:21)
[2021-11-01] MEDS: duloxetine 30 mg Capsule PO (08:21)
[2021-11-01] MEDS: FUROsemide 10 mg/mL SDV 4mL 40 MG IVP (08:22)
[2021-11-01] MEDS: sennosides-docusate Tablet 1 TAB PO (08:22)
--- NOTE | 2021-11-01 09:10 | P.PN_ITS ---
Subjective Subjective: Patient was seen this morning, he is currently sitting up in a chair, sleeping, he is awake and, is a bit drowsy, but takes a few seconds before he is alert oriented x3, he tells me that he had a good night, he tolerated the CPAP overnight, still has lower extremity edema, wants to get up and move, remains on amiodarone Vitals/I&O/Wt Last Vital Signs Temp 98.0 F 11/01/21 04:00 Pulse 120 H 11/01/21 08:55 Resp 18 11/01/21 08:55 BP 136/96 11/01/21 04:00 Pulse Ox 98 11/01/21 08:55 10/31/21 11/01/21 11/01/21 22:59 06:59 14:59 Intake Total 400 / 1145.43 150 / 1295.43 265.57 / 265.57 Output Total 250 / 1750 600 / 2350 Balance 150 / -604.57 -450 / -1054.57 265.57 / 265.57 Physical Exam Const: COMMON NORMALS: no acute distress and patient oriented x3 Resp: COMMON NORMALS: normal respiratory effort, No retractions, No use of accessory muscles and clear to auscultation bilaterally AUSCULTATION: clear to auscultation bilaterally Cardio: COMMON NORMALS: regular rate, regular rhythm, S1 normal heart sound pr esent and S2 normal heart sound present RATE: regular rate RHYTHM: regular rhythm HEART SOUNDS: S1 normal heart sound present and S2 normal heart sound present GI: COMMON NORMALS: Normal to inspection, nondistended, normoactive bowel sounds present, Soft to palpation, non-tender and No hepatosplenomegaly present PALPATION: Yes Soft to palpation and Yes No hepatosplenomegaly present Extremity: COMMON NORMALS: no pedal edema Neuro: COMMON NORMALS: patient oriented x3 Psych: COMMON NORMALS: mental status grossly normal Skin: NARRATIVE SKIN EXAM: 2+ pitting edema bilateral Urinary Catheter Management: Fisher: Cath Placed During This Visit: yes Reason for Continuing Indwelling Catheter: Accurate Measurement of Urinary Output in Critically Ill Patients Urinary Catheter Date of Insertion: 10/29/21 Urinary Catheter Time of Insertion: 14:35 Data : 11/01/21 04:50 11/01/21 04:50 A&P Assessment and plan (1) Anasarca: Status: Acute (2) New onset of congestive heart failure: Status: Acute (3) A-fib: Status: Acute (4) Psychiatric care: Status: Acute (5) Generalized anxiety disorder: Status: Acute (6) Hypomagnesemia: Status: Acute Plan New onset atrial fibrillation, Eliquis, increase to 25 mg twice daily m etoprolol, remains on amiodarone drip, transition off amiodarone, to amiodarone 400 twice daily New onset congestive heart failure EF unknown, secondary to tachyarrhythmia Patient will need outpatient sleep study Most likely etiology is underlying sleep apnea Troponin delta noted No active chest pain No signs of ischemic or infarctive changes on EKG Echocardiogram poor quality study given body habitus Will consider stress test on Wednesday Transition off amiodarone drip, amiodarone 400 twice daily Metoprolol 12.5 twice daily Has been loaded with full digoxin Transition off heparin drip, to Eliquis NSTEMI: Continue Eliquis, Plavix, atorvastatin Full code Consistent carbohydrate diet BONITA, obesity hypoventilation syndrome, continue CPAP Morbid obesity, PT OT, get up out of bed, normally ambulatory at baseline CHF exacerbation EF is unknown, creatinine up to 1.4, 40 mg Lasix and potassium placement Anasarca with intertrigo Nystatin powder, doxycycline Attestations Medical Necessity Statement*: Patient requires hospitalization for diastolic CHF exacerbation, bilateral extremity edema, hypomagnesemia, A. 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
[2021-11-01] MEDS: magnesium sulfate premix 4 GM/100 ML PREMIX IV (09:50)
[2021-11-01 11:13] LABS: Glucose Point of Care 114 mg/dL (70-110)
--- NOTE | 2021-11-01 13:02 | PC.SOCIAL ---
IMM Update pg 2 of IMM updated and reviewed w/ patient. Copy provided and Copy placed in chart.
[2021-11-01] MEDS: atorvastatin 40 mg Tablet 80 MG PO (20:39)
[2021-11-01] MEDS: nystatin powder 15 gm Btl 1 APPLIC TOPICAL (20:40)
[2021-11-02] VITALS (15 sets, daily range): BP systolic 119–178; BP diastolic 52–126; PULSE 90–123; RESP 18–26; TEMP 36.1–36.6; O2SAT 91–96
[2021-11-02 04:33] LABS: Basophils % 0.4 %; Eosinophils # 0.1 10^3/uL (0.0-0.8); Eosinophils % 1.7 %; Hematocrit 51.3 % (42.0-52.0); Lymphocytes # 0.6 10^3/uL (0.8-4.8); Lymphocytes % 8.4 %; Mean Corpuscular HGB Conc 29.2 g/dL (30.0-36.0); Mean Corpuscular Hemoglobin 31.6 pg (28.0-34.0); Mean Platelet Volume 11.4 fL (7.4-10.4); Monocytes # 0.8 10^3/uL (0.2-0.9); Monocytes % 11.8 %; Neutrophils # 5.42 10^3/uL (1.8-7.7); Neutrophils % 77.3 %; Nucleated Red Blood Cells % 0 %; Platelet Count 110 10^3/cmm (130-400); Red Blood Count 4.75 10^6/uL (4.1-5.3); Red Cell Distribution Width 17.7 % (12.1-15.1)
[2021-11-02 06:12] LABS: Glucose Point of Care 81 mg/dL (70-110)
--- NOTE | 2021-11-02 06:47 | PC.NURSE ---
pt rested intermittently throughout shift. Pain controlled. VSS. Pt remained in afib. Pt on air mattress and repositioned frequently. Linen changed. Bath and burrell care done. Burrell patent. Adequate UOP. Hourly rounding done. All needs met.
[2021-11-02 07:54] LABS: NT Pro B Type Natriuretic Pept 4384 pg/mL (0-125); Procalcitonin 0.04 ng/mL (0-0.5)
[2021-11-02 08:05] LABS: Alanine Aminotransferase 13 U/L (0-41); Albumin Level 3.4 g/dL (3.5-5.2); Alkaline Phosphatase 78 IU/L (40-130); Aspartate Amino Transferase 18 U/L (0-40); Blood Urea Nitrogen 24 mg/dL (6-20); Calcium 9.7 mg/dL (8.5-10.5); Carbon Dioxide 40 mmol/L (22-29); Chloride 93 mmol/L (98-107); Globulin 3.4 g/dL (1.3-4.6); Glomerular Filtration Rate 64.9 mL/min (90-130); Glucose 92 mg/dL (65-115); Magnesium 1.6 mg/dL (1.7-2.3); Osmolality Calculated 290 mOsm/kg (285-295); Phosphorus 3.3 mg/dL (2.5-4.5); Sodium 138 mmol/L (136-145); Total Bilirubin 1.1 mg/dL (0.15-1.2); Total Protein 6.8 g/dL (6.6-8.7)
[2021-11-02 08:09] LABS: Anion Gap 9.8 (5-19); Potassium 4.8 mmol/L (3.5-5.1)
[2021-11-02] MEDS: FUROsemide 10 mg/mL SDV 4mL 40 MG IVP (08:57)
[2021-11-02] MEDS: duloxetine 30 mg Capsule PO (08:58)
[2021-11-02] MEDS: amiodarone 200 mg Tablet 400 MG PO ×2 (08:58→17:59)
[2021-11-02] MEDS: clopidogrel 75 mg Tablet PO (08:58)
[2021-11-02] MEDS: metOLazone 5 MG Tablet PO ×2 (08:58→10:22)
[2021-11-02] MEDS: doxycycline 100 mg Tablet PO ×2 (08:59→17:59)
[2021-11-02] MEDS: sennosides-docusate Tablet 1 TAB PO (08:59)
[2021-11-02] MEDS: metoprolol tartrate 25 mg Tablet PO (09:02)
[2021-11-02] MEDS: apixaban 5 mg Tablet PO ×2 (09:02→21:48)
[2021-11-02] MEDS: magnesium sulfate premix 4 GM/100 ML PREMIX IV (10:27)
--- NOTE | 2021-11-02 11:09 | PM.PN ---
Vitals/I&O/Wt Last Vital Signs Temp 98 F 11/02/21 06:00 Pulse 116 H 11/02/21 09:28 Resp 18 11/02/21 09:28 BP 129/102 11/02/21 06:00 Pulse Ox 94 11/02/21 09:28 11/01/21 11/02/21 11/02/21 22:59 06:59 14:59 Intake Total 300 / 665.57 100 / 765.57 240 / 240 Output Total 2800 / 2800 950 / 3750 1950 / 1950 Balance -2500 / -2134.43 -850 / -2984.43 -1710 / -1710 Weight last 48 hrs Weight 247.5 kg Physical Exam Const: COMMON NORMALS: no acute distress and patient oriented x3 Resp: COMMON NORMALS: normal respiratory effort, No retractions, No use of accessory muscles and clear to auscultation bilaterally AUSCULTATION: clear to auscultation bilaterally Cardio: COMMON NORMALS: regular rate, regular rhythm, S1 normal heart sound present and S2 normal heart sound present RATE: regular rate RHYTHM: regular rhythm HEART SOUNDS: S1 normal heart sound present and S2 normal heart sound present GI: COMMON NORMALS: Normal to inspection, nondistended, normoactive bowel sounds present, Soft to palpation, non-tender and No hepatosplenomegaly present PALPATION: Yes Soft to palpation and Yes No hepatosplenomegaly present Extremity: NARRATIVE EXTREMITY EXAM: 1+ edema Neuro: COMMON NORMALS: patient oriented x3 Psych: COMMON NORMALS: mental status grossly normal Urinary Catheter Management: Fisher: Cath Placed During This Visit: yes Reason for Continuing Indwelling Catheter: Accurate Measurement of Urinary Output in Critically Ill Patients Urinary Catheter Date of Insertion: 10/29/21 Urinary Catheter Time of Insertion: 14:35 Data : 11/02/21 03:17 11/02/21 07:01 A&P Assessment and plan (1) Anasarca: Status: Acute (2) New onset of congestive heart failure: Status: Acute (3) A-fib: Status: Acute (4) Psychiatric care: Status: Acute (5) Generalized anxiety disorder: Status: Acute (6) Hypomagnesemia: Status: Acute Plan New onset atrial fibrillation, Eliquis, increase to 25 mg twice daily metoprolol, remains on amiodarone drip, increase amiodarone 400 twice daily New onset congestive heart failure EF unknown, secondary to tachyarrhythmia Patient will need outpatient sleep study Most likely etiology is underlying sleep apnea Troponin delta noted No active chest pain No signs of ischemic or infarctive changes on EKG Echocardiogram poor quality study given body habitus N.p.o. midnight, stress test tomorrow morning amiodarone 400 twice daily Metroprolol 25 daily Has been loaded with full digoxin Continue Eliquis NSTEMI: Continue Eliquis, Plavix, atorvastatin Full code Consistent carbohydrate diet BONITA, obesity hypoventilation syndrome, continue CPAP Morbid obesity, PT OT, get up out of bed, normally ambulatory at baseline CHF exacerbation EF is unknown, creatinine up to 1.2, 40 mg Lasix and metolazone Anasarca with intertrigo Nystatin powder, doxycycline Attestations Medical Necessity Statement*: Patient requires hospitalization for fluid overload, pulmonary edema, bilateral from edema Coding 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
[2021-11-02 12:17] LABS: Glucose Point of Care 101 mg/dL (70-110)
[2021-11-02] MEDS: eye irrigation 30 mL Btl EYE-BOTH (13:34)
--- NOTE | 2021-11-02 14:07 | PC.NURSE ---
pt's bp elevated this morning...144/119,178/126...dr amin notified.he instructed to give morning meds and contine to observe.bp did decrease to 152/94
[2021-11-02 16:38] LABS: Glucose Point of Care 99 mg/dL (70-110)
[2021-11-02] MEDS: metoprolol tartrate 50 mg Tablet PO (16:48)
[2021-11-02 19:51] LABS: Glucose Point of Care 149 mg/dL (70-110)
[2021-11-02] MEDS: atorvastatin 40 mg Tablet 80 MG PO (21:47)
[2021-11-03] VITALS (14 sets, daily range): BP systolic 108–158; BP diastolic 79–124; PULSE 72–124; RESP 18–28; TEMP 35.8–36.6; O2SAT 90–95
--- NOTE | 2021-11-03 00:23 | PC.NURSE ---
Pt presents lying in bed resting and talking to staff. Pt on 3 Lpm via NC, increased to 5 Lpm per resp therapy sats from 86 to 91%. Pt refuses c-pap. Pt has episodes of brief resp apnea. Pt education was given on the importance of wearing c-pap. Continues to refuse C-pap. Pts burrell patent and clear. Pts scrotum swollen and red. Pt c/o itching and burning in swollen scrotal area. Swollen area weeping and wet. Pts bed pad around scrotum area changed and pt dried. Nystatin powder applied to Pts scrotal area. Pt had no further c/o pain or discomfort at the present time. No needs voiced further. Call light in reach. Will continue to monitor.
[2021-11-03 06:08] LABS: Basophils % 0.5 %; Eosinophils # 0.2 10^3/uL (0.0-0.8); Eosinophils % 2.5 %; Hematocrit 50.1 % (42.0-52.0); Hemoglobin 14.6 g/dL (11.7-16.6); Lymphocytes # 0.6 10^3/uL (0.8-4.8); Lymphocytes % 8.9 %; Mean Corpuscular HGB Conc 29.1 g/dL (30.0-36.0); Mean Corpuscular Hemoglobin 31.1 pg (28.0-34.0); Mean Corpuscular Volume 106.6 fl (80-94); Mean Platelet Volume 11.3 fL (7.4-10.4); Monocytes # 0.8 10^3/uL (0.2-0.9); Monocytes % 12.5 %; Neutrophils % 75.3 %; Nucleated Red Blood Cells % 0 %; Platelet Count 126 10^3/cmm (130-400); Red Cell Distribution Width 17.5 % (12.1-15.1); White Blood Count 6.4 10^3/uL (4.0-10.0)
[2021-11-03 06:22] LABS: Alanine Aminotransferase 13 U/L (0-41); Albumin Level 3.3 g/dL (3.5-5.2); Alkaline Phosphatase 74 IU/L (40-130); Aspartate Amino Transferase 17 U/L (0-40); Blood Urea Nitrogen 20 mg/dL (6-20); C Reactive Protein 9.7 mg/L (0.0-4.9); Calcium 9.7 mg/dL (8.5-10.5); Chloride 87 mmol/L (98-107); Globulin 3.4 g/dL (1.3-4.6); Glomerular Filtration Rate 80.1 mL/min (90-130); Glucose 92 mg/dL (65-115); Magnesium 1.7 mg/dL (1.7-2.3); Osmolality Calculated 274 mOsm/kg (285-295); Phosphorus 3.7 mg/dL (2.5-4.5); Sodium 131 mmol/L (136-145); Total Bilirubin 1.2 mg/dL (0.15-1.2); Total Protein 6.7 g/dL (6.6-8.7)
[2021-11-03 06:25] LABS: Anion Gap 7.2 (5-19); Carbon Dioxide 41 mmol/L (22-29); Potassium 4.2 mmol/L (3.5-5.1)
[2021-11-03 06:32] LABS: NT Pro B Type Natriuretic Pept 5952 pg/mL (0-125); Procalcitonin 0.04 ng/mL (0-0.5)
[2021-11-03 06:38] LABS: Glucose Point of Care 79 mg/dL (70-110)
[2021-11-03] MEDS: doxycycline 100 mg Tablet PO ×2 (08:00→18:10)
[2021-11-03] MEDS: apixaban 5 mg Tablet PO ×2 (08:01→21:02)
[2021-11-03] MEDS: clopidogrel 75 mg Tablet PO (08:01)
[2021-11-03] MEDS: duloxetine 30 mg Capsule PO (08:01)
[2021-11-03] MEDS: metoprolol tartrate 50 mg Tablet PO ×2 (08:01→09:12)
[2021-11-03] MEDS: sennosides-docusate Tablet 1 TAB PO (08:01)
[2021-11-03] MEDS: amiodarone 200 mg Tablet 400 MG PO ×2 (08:01→18:11)
--- NOTE | 2021-11-03 08:43 | PC.SOCIAL ---
IMM Update Pg. 2 of IMM updated and reviewed with patient, who verbalized understanding. Copy provided.
[2021-11-03] MEDS: FUROsemide 10 mg/mL SDV 4mL 40 MG IVP (09:12)
[2021-11-03] MEDS: dilTIAZem 30 mg Tablet PO ×4 (09:12→21:02)
--- NOTE | 2021-11-03 09:24 | USCV_ITS ---
Robert Juarez Age: 46 Gender: M : 1975 Exam Date: 11/03/2021 09:44 Ordering Phys: Hayden Ayala MD Technologist: Exam Location: [facility] [place] Indication: lt arm swelling PROCEDURES: Venous duplex imaging was performed in only the left upper extremity. The following venous structures were evaluated: internal jugular vein, subclavian vein, axillary vein, and brachial veins. In addition, the basilic vein, cephalic vein, radial vein, and ulnar vein. FINDINGS: No evidence of deep vein thrombosis or superficial thrombophlebitis in the left upper extremity. The veins were found to be easily compressible with spontaneous flow. CONCLUSIONS No evidence of venous thrombosis in the above-mentioned identifiable veins Dr Carmel Darby MD [facility] (Electronically Signed) Final Date: 04 November 2021 23:12 S
[2021-11-03] MEDS: acetaZOLAMIDE 250 mg Tablet PO (10:02)
[2021-11-03 10:09] LABS: Chol HDL Ratio 2.95 mg/dL (1.0-5.00); Cholesterol 115 mg/dL (0-200); HDL Cholesterol 39 mg/dL (60-100); Iron 64 ug/dL (59-158); LDL Cholesterol Calculated 62 mg/dL (50-129); Percent Saturation 19.8 % (20-50); Total Iron Binding Capacity 322 mcg/dl; Triglycerides 71 mg/dL (0-150); Unsaturated Iron Binding 258 ug/dL (112-347); VLDL Cholestrol Calculation 14 mg/dL (0-30)
[2021-11-03 10:25] LABS: Vitamin B12 715 pg/mL (232-1245)
[2021-11-03 11:49] LABS: D Dimer 17.03 ug/mIFEU (0-0.59)
[2021-11-03 12:02] LABS: Folate Level 7.4 ng/mL (4.5-32.2)
--- NOTE | 2021-11-03 13:19 | PM.PN ---
Subjective Subjective: No acute events overnight. Hospital course appreciated. Examination patient lying comfortably in bed. On 2 L nasal cannula saturating 92%. Blood pressure elevated. Heart rate on review has been more than 120s during hospitalization. Patient's denies any palpitations. Complaining of scrotal discomfort because of swelling. States at home he is able to ambulate by himself. Lives by himself. Wants to go back home. Does not want to go to SNF. States he rather wobbly on his feet right now because of scrotal swelling. Vitals/I&O/Wt Last Vital Signs Temp 96.6 F L 11/03/21 12:00 Pulse 87 11/03/21 12:00 Resp 18 11/03/21 12:00 BP 141/95 11/03/21 12:00 Pulse Ox 91 11/03/21 12:00 11/02/21 11/03/21 11/03/21 22:59 06:59 14:59 Intake Total 0 / 340 120 / 120 Output Total 1000 / 3800 1200 / 5000 2700 / 2700 Balance -1000 / -3460 -1200 / -4660 -2580 / -2580 Weight last 48 hrs Weight 243.126 kg Weight 243.398 kg Weight 247.5 kg Physical Exam Const: COMMON NORMALS: no acute distress and patient oriented x3 Neck/C-Spine: COMMON NORMALS: no JVD Resp: COMMON NORMALS: normal respiratory effort, No retractions, No use of accessory muscles and clear to auscultation bilaterally AUSCULTATION: clear to auscultation bilaterally Cardio: COMMON NORMALS: no JVD, regular rate, regular rhythm, S1 normal heart sound present and S2 normal heart sound present RATE: regular rate RHYTHM: regular rhythm HEART SOUNDS: S1 normal heart sound present and S2 normal heart sound present GI: COMMON NORMALS: Normal to inspection, nondistended, normoactive bowel sounds present, Soft to palpation, non-tender and No hepatosplenomegaly present PALPATION: Yes Soft to palpation and Yes No hepatosplenomegaly present Extremity: COMMON NORMALS: no pedal edema NARRATIVE EXTREMITY EXAM: 1+ edema Neuro: COMMON NORMALS: patient oriented x3 Psych: COMMON NORMALS: mental status grossly normal Skin: NARRATIVE SKIN EXAM: 2+ pitting edema bilateral Urinary Catheter Management: Fisher: Cath Placed During This Visit: yes Reason for Continuing Indwelling Catheter: Accurate Measurement of Urinary Output in Critically Ill Patients Urinary Catheter Date of Insertion: 10/29/21 Urinary Catheter Time of Insertion: 14:35 Data : 11/03/21 05:53 11/03/21 05:53 A&P Assessment and plan (1) A-fib: Status: Acute Qualifiers: Atrial fibrillation type: permanent Qualified Code(s): I48.21 - Permanent atrial fibrillation (2) New onset of congestive heart failure: Status: Acute (3) BONITA (obstructive sleep apnea): Status: Acute (4) Anasarca: Status: Acute (5) Psychiatric care: Status: Acute (6) Generalized anxiety disorder: Status: Acute (7) Hypomagnesemia: Status: Acute (8) Morbid obesity with BMI of 70 and over, adult: Status: Acute Plan Atrial fibrillation with rapid ventricular response: Uncontrolled. Continue with amiodarone 400 twice daily. Increase metoprolol to 100 mg twice daily. Add Cardizem 30 mg 4 times daily. Will uptitrate if not able to get to goal heart rate of less than 100. Eliquis 5 mg twice daily for anticoagulation. Check digoxin levels. Congestive heart failure of unknown type: Echocardiogram could not be done because of poor windows. Evidence of cardiomegaly on CT chest. Strict input output charting, daily weights. Patient is net 9 L negative since admission. Given body weight fluid restriction up to 2 L. IV Lasix 40 mg stat. Will redose depending on urine output. Contraction alkalosis: Most likely secondary to diuresis along with baseline obstructive sleep apnea. Start on acetazolamide to 50 mg oral daily. Obstructive sleep apnea: Diagnosed. Chronic. Cannot tolerate BiPAP. Scrotal swelling: Dependent along with secondary to hypervolemia. Diuresis as above. Lymphedema wrap if possible. Frequent repositioning. Out of bed to chair if possible. A1c 5.9. Check lipid panel. Check vitamin B12, folate level. Iron panel. Stop insulin sliding scale. Intertrigo: Fluconazole 100 mg daily for 5 days. Left upper limb swelling: Check D-dimer. Upper limb duplex. Full code. Cardiac diet. Suffice for DVT prophylaxis. Famotidine for PUD prophylaxis PT/OT evaluation again. Discharge planning: Patient wants to go home. Discussed in detail about safe discharge planning. Denied SNF placement. 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
[2021-11-03 14:41] LABS: Digoxin 0.6 ng/mL (0.6-1.2)
[2021-11-03] MEDS: fluconazole 100 mg Tablet PO (14:49)
[2021-11-03] MEDS: atorvastatin 40 mg Tablet 20 MG PO (21:02)
[2021-11-03] MEDS: metoprolol tartrate 50 mg Tablet 100 MG PO (21:02)
[2021-11-04] VITALS (16 sets, daily range): BP systolic 125–148; BP diastolic 84–106; PULSE 72–92; RESP 16–93; TEMP 35.6–36.8; O2SAT 91–97
[2021-11-04 04:02] LABS: Basophils # 0.1 10^3/uL (0.0-0.1); Basophils % 0.8 %; Eosinophils # 0.2 10^3/uL (0.0-0.8); Eosinophils % 3.8 %; Hematocrit 48.5 % (42.0-52.0); Hemoglobin 14.4 g/dL (11.7-16.6); Lymphocytes # 0.5 10^3/uL (0.8-4.8); Lymphocytes % 8.9 %; Mean Corpuscular HGB Conc 29.7 g/dL (30.0-36.0); Mean Corpuscular Hemoglobin 31.2 pg (28.0-34.0); Mean Corpuscular Volume 105.2 fl (80-94); Mean Platelet Volume 11.4 fL (7.4-10.4); Monocytes # 0.8 10^3/uL (0.2-0.9); Monocytes % 13.9 %; Neutrophils # 4.37 10^3/uL (1.8-7.7); Neutrophils % 72.1 %; Nucleated Red Blood Cells % 0 %; Platelet Count 128 10^3/cmm (130-400); Red Blood Count 4.61 10^6/uL (4.1-5.3); Red Cell Distribution Width 17.2 % (12.1-15.1); White Blood Count 6.1 10^3/uL (4.0-10.0)
--- NOTE | 2021-11-04 04:17 | PC.NURSE ---
Pt rested quietly throughout shift. VSS. No complaints of pain. Fisher patent. Adequate UOP. Pt frequently turned self independently. Lymphedema wrap intact with small amount of drainage. Hourly rounding done. All needs med.
[2021-11-04 04:23] LABS: Alanine Aminotransferase 11 U/L (0-41); Albumin Level 3.3 g/dL (3.5-5.2); Alkaline Phosphatase 76 IU/L (40-130); Anion Gap 9.9 (5-19); Aspartate Amino Transferase 20 U/L (0-40); Blood Urea Nitrogen 19 mg/dL (6-20); Calcium 9.8 mg/dL (8.5-10.5); Chloride 91 mmol/L (98-107); Globulin 3.4 g/dL (1.3-4.6); Glomerular Filtration Rate 80.1 mL/min (90-130); Glucose 90 mg/dL (65-115); Osmolality Calculated 296 mOsm/kg (285-295); Potassium 3.9 mmol/L (3.5-5.1); Sodium 142 mmol/L (136-145); Total Bilirubin 1.2 mg/dL (0.15-1.2); Total Protein 6.7 g/dL (6.6-8.7)
[2021-11-04 04:32] LABS: Carbon Dioxide 45 mmol/L (22-29)
[2021-11-04] MEDS: doxycycline 100 mg Tablet PO ×2 (08:37→18:15)
[2021-11-04] MEDS: apixaban 5 mg Tablet PO ×2 (08:37→20:15)
[2021-11-04] MEDS: amiodarone 200 mg Tablet 400 MG PO ×2 (08:37→18:16)
[2021-11-04] MEDS: dilTIAZem 30 mg Tablet PO (08:37)
[2021-11-04] MEDS: acetaZOLAMIDE 250 mg Tablet PO (08:37)
[2021-11-04] MEDS: duloxetine 30 mg Capsule PO (08:38)
[2021-11-04] MEDS: fluconazole 100 mg Tablet PO (08:38)
[2021-11-04] MEDS: metoprolol tartrate 50 mg Tablet 100 MG PO ×2 (08:38→20:15)
[2021-11-04] MEDS: sennosides-docusate Tablet 1 TAB PO (08:38)
[2021-11-04] MEDS: FUROsemide 40 mg Tablet 60 MG PO (09:52)
--- NOTE | 2021-11-04 13:07 | P.PN_ITS ---
Subjective Subjective: No acute events overnight. Patient states he is feeling okay. Laying comfortably in bed. Sat up in chair for most of the day yesterday. Documented urine output of around 4.5 L yesterday with a net negative of 3.7 L. Overall over 10 L negative since admission. Heart rate better controlled. On 2 to 3 L of oxygen supplementation. Vitals/I&O/Wt Last Vital Signs Temp 96.1 F L 11/04/21 07:00 Pulse 84 11/04/21 11:26 Resp 18 11/04/21 11:26 BP 125/84 11/04/21 11:26 Pulse Ox 92 11/04/21 11:26 11/03/21 11/04/21 11/04/21 22:59 06:59 14:59 Intake Total 400 / 620 100 / 720 360 / 360 Output Total 645 / 3345 1100 / 4445 350 / 350 Balance -245 / -2725 -1000 / -3725 10 Weight last 48 hrs Weight 242.536 kg Weight 243.126 kg Weight 243.398 kg Physical Exam Const: COMMON NORMALS: no acute distress and patient oriented x3 Neck/C-Spine: COMMON NORMALS: no JVD Resp: COMMON NORMALS: normal respiratory effort, No retractions, No use of accessory muscles and clear to auscultation bilaterally AUSCULTATION: clear to auscultation bilaterally Cardio: COMMON NORMALS: no JVD, regular rate, regular rhythm, S1 normal heart sound present and S2 normal heart sound present RATE: regular rate RHYTHM: regular rhythm HEART SOUNDS: S1 normal heart sound present and S2 normal heart sound present GI: COMMON NORMALS: Normal to inspection, nondistended, normoactive bowel sounds present, Soft to palpation, non-tender and No hepatosplenomegaly present PALPATION: Yes Soft to palpation and Yes No hepatosplenomegaly present Extremity: COMMON NORMALS: no pedal edema NARRATIVE EXTREMITY EXAM: 1+ edema Neuro: COMMON NORMALS: patient oriented x3 Psych: COMMON NORMALS: mental status grossly normal Skin: NARRATIVE SKIN EXAM: 2+ pitting edema bilateral, scrotal edema present. Urinary Catheter Management: Fisher: Cath Placed During This Visit: yes Reason for Continuing Indwelling Catheter: Accurate Measurement of Urinary Output in Critically Ill Patients Urinary Catheter Date of Insertion: 10/29/21 Urinary Catheter Time of Insertion: 14:35 Data : 11/04/21 03:35 11/04/21 03:35 A&P Assessment and plan (1) A-fib: Status: Acute Qualifiers: Atrial fibrillation type: permanent Qualified Code(s): I48.21 - Permanent atrial fibrillation (2) New onset of congestive heart failure: Status: Acute (3) BONITA (obstructive sleep apnea): Status: Acute (4) Anasarca: Status: Acute (5) Psychiatric care: Status: Acute (6) Generalized anxiety disorder: Status: Acute (7) Hypomagnesemia: Status: Acute (8) Morbid obesity with BMI of 70 and over, adult: Status: Acute Plan Atrial fibrillation with rapid ventricular response: Better controlled today. Continue with amiodarone 400 twice daily. Plan to titrate down weekly with a base dose of 200 mg daily. Continue with metoprolol 100 mg twice daily. Change Cardizem to 180 mg sustained-release. Eliquis 5 mg twice daily for anticoagulation. Congestive heart failure of unknown type: Echocardiogram could not be done b ecause of poor windows. Evidence of cardiomegaly on CT chest. Most likely congestive heart failure with preserved ejection fraction. Strict input output charting, daily weights. Patient is net more than 10 L negative since admission. Given body weight fluid restriction up to 2 L. 60 mg oral Lasix. Contraction alkalosis: Most likely secondary to diuresis along with baseline obstructive sleep apnea. Start on acetazolamide 250 mg oral daily. Oral Lasix as above. Obstructive sleep apnea: Diagnosed. Chronic. Noncompliant with BiPAP. Scrotal swelling: Dependent along with secondary to hypervolemia. Diuresis as above. Lymphedema wrap if possible. Frequent repositioning. Out of bed to chair if possible. A1c 5.9. Lipid panel, B12, folate, iron levels appreciated. Intertrigo: Fluconazole 100 mg daily for 5 days. Left upper limb swelling: Check D-dimer. Upper limb duplex done and results awaited. Full code. Cardiac diet. Eliquis will suffice for DVT prophylaxis. Famotidine for PUD prophylaxis PT/OT evaluation again. Discharge planning: Patient wants to go home. Discussed in detail about safe discharge planning. Denied SNF placement. Plan for discharge in next 24 hours with home health. 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
[2021-11-04] MEDS: dilTIAZem ER (24HR) 180 mg Capsule PO (13:22)
[2021-11-04] MEDS: atorvastatin 40 mg Tablet 20 MG PO (20:15)
[2021-11-05 03:00] VITALS: BP 121/94; PULSE 59; RESP 24; TEMP 36.6; O2SAT 95
[2021-11-05 05:04] VITALS: PULSE 58
[2021-11-05 07:22] VITALS: BP 140/84; PULSE 68; RESP 94; TEMP 36.4; O2SAT 94
--- NOTE | 2021-11-05 07:44 | PM.DCS ---
Discharge Providers Date of Admission: 10/29/21 19:18 Date of Discharge: November 05, 2021 Attending Provider at Admission: Elida Greene MD Attending Provider at Discharge: Hayden Ayala MD Primary Care Provider: DOUG Joaquin Diagnoses at Discharge Discharge Diagnosis (1) A-fib: Status: Acute Qualifiers: Atrial fibrillation type: permanent Qualified Code(s): I48.21 - Permanent atrial fibrillation (2) New onset of congestive heart failure: Status: Acute (3) BONITA (obstructive sleep apnea): Status: Acute (4) Anasarca: Status: Acute (5) Psychiatric care: Status: Acute (6) Generalized anxiety disorder: Status: Acute (7) Hypomagnesemia: Status: Acute (8) Morbid obesity with BMI of 70 and over, adult: Status: Acute Reason for Visit Reason for Visit: BOWEL OBSTRUCTION Brief History: History as per HPI: Robert Juarez is a 46 year old male who carries history of hypertension, sleep apnea, does not use CPAP at home oxygen, presented to the hospital for worsening of abdominal bloating or weight gain.? Patient is stating that he has never been diagnosed with VT or CHF.? He has been experiencing orthopnea, PND shortness of breath and excessive weight gain.? He has not experienced any chest discomfort, fever, diarrhea. Patient lives alone.? Does not smoke or drink alcohol.? In the ER he was diagnosed with new onset A. fib RVR with CHF exacerbation.? He was started on Cardizem drip which was later changed to esmolol because of RVR.? I requested ER physician to change his esmolol to amiodarone because of hypotension at the time of my evaluation. Patient is not experiencing any active chest pain, he is on 3 L nasal cannula Initially he wanted to leave AGAINST MEDICAL ADVICE however decided to stay after counseling Hospital Course Hospital Course Patient was admitted to CCU for further management of atrial fibrillation with rapid ventricular response, generalized anasarca and congestive heart failure. PE was ruled out on admission by negative CTA. His heart rate was difficult to control and required multiple medications. Currently his heart rate has been well controlled on oral amiodarone, metoprolol and Cardizem. He was started on IV diuresis and he is net 11 L negative by the day of discharge. His lower limb swelling and scrotal edema has been improving. During hospitalization while on diuresis he developed contraction alkalosis secondary to combination of diuresis and severe sleep apnea for which he remains noncompliant to CPAP for which acetazolamide was started. Echocardiogram was done but unfortunately because of body habitus no good windows were available. It is believed patient has at least diastolic heart failure given dilated heart on CT chest. Patient had physical therapy evaluation. Safe discharge plan were discussed in detail with the patient and he was adamant on being discharged to home rather than going to SNF for further rehabitation. He is been discharged in hemodynamically stable condition with continued home health services. He is to take Eliquis 5 mg twice daily, Cardizem 240 mg once daily, metoprolol 100 mg twice daily, Lasix 60 mg once daily, acetazolamide 125 mg once daily. He is also to take amiodarone 200 mg twice daily for next 7 days followed by 200 mg daily. Advised to follow-up with his primary care provider within next 1 week. It was discussed in detail multiple times to be more compliant to BiPAP/CPAP given obstructive sleep apnea and morbid obesity. He is to have repeat sleep study as an outpatient if he decides to be compliant. Physical Exam Const: COMMON NORMALS: no acute distress and patient oriented x3 Neck/C-Spine: COMMON NORMALS: no JVD Resp: COMMON NORMALS: normal respiratory effort, No retractions, No use of accessory muscles and clear to auscultation bilaterally AUSCULTATION: clear to auscultation bilaterally Cardio: COMMON NORMALS: no JVD, regular rate, regular rhythm, S1 normal heart sound present and S2 normal heart sound present RATE: regular rate RHYTHM: regular rhythm HEART SOUNDS: S1 normal heart sound present and S2 normal heart sound present GI: COMMON NORMALS: Normal to inspection, nondistended, normoactive bowel sounds present, Soft to palpation, non-tender and No hepatosplenomegaly present PALPATION: Yes Soft to palpation and Yes No hepatosplenomegaly present Extremity: COMMON NORMALS: no pedal edema NARRATIVE EXTREMITY EXAM: 1+ edema Neuro: COMMON NORMALS: patient oriented x3 Psych: COMMON NORMALS: mental status grossly normal Skin: NARRATIVE SKIN EXAM: 2+ pitting edema bilateral, scrotal edema present. Urinary Catheter Management: Fisher: Cath Placed During This Visit: yes Reason for Continuing Indwelling Catheter: Accurate Measurement of Urinary Output in Critically Ill Patients Urinary Catheter Date of Insertion: 10/29/21 Urinary Catheter Time of Insertion: 14:35 Discharge Data Studies Completed and Pending Completed Studies During Hospitalization Category Date Time Status CTA chest CT abdomen pelvis [CT angio chest w abd pel w Cat Scan 10/29/21 16:14 Completed con] Stat CV. echo complete* [id number] Routine Ultrasound 10/30/21 00:35 Completed US venous duplex upper extremity LT [CV venous duplex Ultrasound 11/03/21 09:24 [place] [id number]] Routine Pending at discharge Category Date Time Status Sestamibi Stress Test Request Routine Exams 11/02/21 11:16 Ordered Comprehensive Metabolic Panel Routine Lab 11/05/21 07:44 Ordered Radiology Impressions Chest/Abdomen/Pelvis CT 10/29/21 16:14 IMPRESSION: 1. Negative for pulmonary embolus. 2. Cardiomegaly. 3. Moderate bilateral right greater left pleural effusions. 4. Bilateral dependent atelectasis versus minimal infiltrate. IMPRESSION: 1. Negative for focal acute inflammatory process in the abdomen or pelvis. 2. Large amount of ascites in the abdomen. 3. Right kidney cyst, negative for follow-up advised. 4. Left kidney lower pole punctate nonobstructing renal calyceal stone. Laboratory Results WBC 6.1 10^3/uL (4.0-10.0) 11/04/21 03:35 RBC 4.61 10^6/uL (4.1-5.3) 11/04/21 03:35 Hgb 14.4 g/dL (11.7-16.6) 11/04/21 03:35 Hct 48.5 % (42.0-52.0) 11/04/21 03:35 MCV 105.2 fl (80-94) H 11/04/21 03:35 MCH 31.2 pg (28.0-34.0) 11/04/21 03:35 MCHC 29.7 g/dL (30.0-36.0) L 11/04/21 03:35 RDW 17.2 % (12.1-15.1) H 11/04/21 03:35 Plt Count 128 10^3/cmm (130-400) L 11/04/21 03:35 MPV 11.4 fL (7.4-10.4) H 11/04/21 03:35 Neut % (Auto) 72.1 % 11/04/21 03:35 Lymph % (Auto) 8.9 % 11/04/21 03:35 [place] % (Auto) 13.9 % 11/04/21 03:35 Eos % (Auto) 3.8 % 11/04/21 03:35 Baso % (Auto) 0.8 % 11/04/21 03:35 Neut # (Auto) 4.37 10^3/uL (1.8-7.7) 11/04/21 03:35 Lymph # (Auto) 0.5 10^3/uL (0.8-4.8) L 11/04/21 03:35 [place] # (Auto) 0.8 10^3/uL (0.2-0.9) 11/04/21 03:35 Eos # (Auto) 0.2 10^3/uL (0.0-0.8) 11/04/21 03:35 Baso # (Auto) 0.1 10^3/uL (0.0-0.1) 11/04/21 03:35 Nucleated RBC % (auto) 0 % 11/04/21 03:35 Nucleated RBCs # 0.0 /100WBC 11/04/21 03:35 APTT 55.9 SECONDS (23.9-36.7) H 10/31/21 04:35 D-Dimer 17.03 ug/mIFEU (0-0.59) H 11/03/21 11:00 Sodium 142 mmol/L (136-145) 11/04/21 03:35 Potassium 3.9 mmol/L (3.5-5.1) 11/04/21 03:35 Chloride 91 mmol/L (98-107) L 11/04/21 03:35 Carbon Dioxide 45 mmol/L (22-29) H* 11/04/21 03:35 Anion Gap 9.9 (5-19) 11/04/21 03:35 BUN 19 mg/dL (6-20) 11/04/21 03:35 Creatinine 1.0 mg/dL (0.7-1.2) 11/04/21 03:35 GFR Calculation 80.1 mL/min (90-130) L 11/04/21 03:35 Glucose 90 mg/dL (65-115) 11/04/21 03:35 POC Glucose 79 mg/dL (70-110) 11/03/21 06:32 Estimat Average Glucose 123 10/30/21 04:00 Hemoglobin A1c 5.9 % (4.0-6.0) 10/30/21 04:00 Calculated Osmolality 296 mOsm/kg (285-295) H 11/04/21 03:35 Lactic Acid 2.0 mmol/L (0.5-2.2) 10/29/21 13:45 Uric Acid 9.4 mg/dL (3.4-7.0) H 10/29/21 13:45 Calcium 9.8 mg/dL (8.5-10.5) 11/04/21 03:35 Phosphorus 3.7 mg/dL (2.5-4.5) 11/03/21 05:53 Magnesium 1.7 mg/dL (1.7-2.3) 11/03/21 05:53 Iron 64 ug/dL (59-158) 11/03/21 05:53 TIBC 322 mcg/dl 11/03/21 05:53 % Saturation 19.8 % (20-50) L 11/03/21 05:53 Unsat Iron Binding 258 ug/dL (112-347) 11/03/21 05:53 Total Bilirubin 1.2 mg/dL (0.15-1.2) 11/04/21 03:35 AST 20 U/L (0-40) 11/04/21 03:35 ALT 11 U/L (0-41) 11/04/21 03:35 Alkaline Phosphatase 76 IU/L (40-130) 11/04/21 03:35 Troponin T Baseline 43 ng/L (0-15) H 10/29/21 13:45 Troponin T 120 Minute 50.29 ng/L (0-15) H 10/29/21 15:38 Delta Troponin T 7.29 ABS# (0-10) 10/29/21 15:38 Troponin T Hi Sens 6Hr 74.31 ng/L (0-15) H 10/29/21 19:46 Troponin T Hi Sens 6Hr Delta 31.31 ng/L (0-12) H* 10/29/21 19:46 C-Reactive Protein 9.7 mg/L (0.0-4.9) H 11/03/21 05:53 NT-Pro-B Natriuret Pep 5952 pg/mL (0-125) H 11/03/21 05:53 Total Protein 6.7 g/dL (6.6-8.7) 11/04/21 03:35 Albumin 3.3 g/dL (3.5-5.2) L 11/04/21 03:35 Globulin 3.4 g/dL (1.3-4.6) 11/04/21 03:35 Triglycerides 71 mg/dL (0-150) 11/03/21 05:53 Cholesterol 115 mg/dL (0-200) 11/03/21 05:53 LDL Cholesterol, Calc 62 mg/dL (50-129) 11/03/21 05:53 Total VLDL Cholesterol 14 mg/dL (0-30) 11/03/21 05:53 HDL Cholesterol 39 mg/dL (60-100) L 11/03/21 05:53 Cholesterol/HDL Ratio 2.95 mg/dL (1.0-5.00) 11/03/21 05:53 Vitamin B12 715 pg/mL (232-1245) 11/03/21 05:53 Folate 7.4 ng/mL (4.5-32.2) 11/03/21 11:00 Procalcitonin 0.04 ng/mL (0-0.5) 11/03/21 05:53 TSH 3.85 uIU/mL (0.27-4.20) 10/29/21 13:45 Urine Color Yellow (Yellow) 10/29/21 14:32 Urine Appearance Hazy (CLEAR) A 10/29/21 14:32 Urine pH 5 (5-7) 10/29/21 14:32 Ur Specific [place] 1.020 (1.005-1.030) 10/29/21 14:32 Urine Protein Neg (Negative) 10/29/21 14:32 Urine Glucose (UA) Norm (Normal) 10/29/21 14:32 Urine Ketones Negative (Negative) 10/29/21 14:32 Urine Blood Neg (Negative) 10/29/21 14:32 Urine Nitrate Negative (Negative) 10/29/21 14:32 Urine Bilirubin 1+ (Negative) H 10/29/21 14:32 Urine Urobilinogen 4 mg/dL (Negative) H 10/29/21 14:32 Ur Leukocyte Esterase Negative (Negative) 10/29/21 14:32 Urine RBC 0-4 /hpf (0-2) H 10/29/21 14:32 Urine WBC 0-4 /hpf (0-5) H 10/29/21 14:32 Ur Squamous Epith Cells 0-4 /hpf (0-5) H 10/29/21 14:32 Amorphous Sediment Not Reportable 10/29/21 14:32 Urine Bacteria Trace /hpf (NONE) 10/29/21 14:32 Digoxin 0.6 ng/mL (0.6-1.2) 11/03/21 05:53 Vitals Last Vital Signs Temp 97.6 F 11/05/21 07:22 Pulse 68 11/05/21 07:22 Resp 94 H 11/05/21 07:22 BP 140/84 11/05/21 07:22 Pulse Ox 94 11/05/21 07:22 Discharge Plan Discharge Patient Disposition: Home Health Service Condition: Stable Prescriptions: New fluconazole 100 mg Tablet 100 mg PO DAILY Qty: 3 0RF atorvastatin 40 mg Tablet 20 mg PO BEDTIME Qty: 30 0RF acetazolamide 250 mg Tablet 125 mg PO DAILY Qty: 30 0RF metoprolol tartrate 50 mg Tablet 100 mg PO BID@0900,2100 30 Days Qty: 120 0RF Eliquis 5 mg Tablet 5 mg PO BID@0900,2100 30 Days Qty: 60 0RF Lasix 40 mg tablet 60 mg PO DAILY Qty: 60 0RF Cardizem CD 240 mg capsule,extended release 24hr 240 mg PO DAILY Qty: 30 0RF amiodarone 200 mg tablet 200 mg PO DAILY Qty: 37 0RF Continued duloxetine 30 mg capsule,delayed release(DR/EC) 30 mg PO DAILY Qty: 90 0RF Rx Instructions: To be taken with 60 mg cap for total of 90 mg daily Discontinued indapamide 2.5 mg tablet 2.5 mg PO QAM 0RF lisinopril 20 mg tablet 20 mg PO DAILY 0RF duloxetine 60 mg capsule,delayed release(DR/EC) 60 mg PO DAILY Qty: 90 0RF Discharge Orders: Discharge Order (Routine); Ordered 11/05/21 Ordered By: Hayden Ayala Other Ambulatory Orders: DME: Oxygen (Order) Location: None Selected Ordered By: Hayden Ayala Referrals: [facility] [Outside] Amaris Daniel FNP [Primary Care Provider] - 1 week (Please follow-up with Amaris CAMACHO on November 13 at 10:30A.M. If you have any questions or need to reschedule. Please call ) Discharge Diet: Cardiac Discharge Activity: Resume usual activity and Increase activity as tolerated Patient Instructions: Acetazolamide (By mouth), Metoprolol (By mouth) (Lopressor, Toprol XL), Diltiazem (By mouth) (Cardizem, Cardizem CD, Cardizem LA, Cardizem SR), Furosemide (By mouth) (Lasix), Amiodarone (By mouth) (Cordarone, Pacerone), Fluconazole (By mouth) (Diflucan), Atorvastatin (By mouth) (Lipitor), Apixaban (By mouth) (Eliquis), Heart Failure (DC), A-fib (Atrial Fibrillation) (DC), Edema (DC), CHF Stoplight, Opioid Safety, Obstructive Sleep Apnea Activity Restrictions/Additional Instructions: Please take amiodarone 200 mg twice daily for next 1 week followed by 200 mg daily. Multiple medications have been added. Take metoprolol 100 mg 2 times a day, Eliquis which is a blood thinner 5 mg 2 times a day, Cardizem to 40 mg 1 times a day. You are on 2 diuretics/water pills. Take Lasix 60 mg daily and acetazolamide 125 mg oral daily. BMP should be repeated in the next 1 week. To be followed up with primary care provider. Fluid restriction up to 2 L. Restrict salt intake up to 2 g. Discharge Attestations Time Spent in Discharge Care*: greater than 30 min Specific Discharge Activities: educating patient, discussing with rn case management/social workers/dc planners, documenting/other paperwork and evaluating patient/reviewing data Status at Discharge: Cognitive status at discharge: cognitively intact, Behavioral status at discharge: cooperative, Functional status at discharge: other assisted ambulation, Overall status at discharge: patient is back to baseline Quality Metrics Clinical Quality Measures [ No reported AMI, CVA or VTE this stay] Coding Level of Care Code Acute Chg FW DC note History Comprehensive Exam Detailed Medical Decision Making High Complexity Diagnoses A-fib I48.21 Atrial fibrillation type: permanent New onset of congestive heart failure I50.9 BONITA (obstructive sleep apnea) G47.33 Anasarca R60.1 Psychiatric care Generalized anxiety disorder F41.1 Hypomagnesemia E83.42 Morbid obesity with BMI of 70 and over, adult E66.01; Z68.45
--- NOTE | 2021-11-05 07:45 | US_ITS ---
WS: [id number] SCROTAL ULTRASOUND EXAMINATION CLINICAL INFORMATION: swelling COMPARISON: None. FINDINGS: TESTES Normal in size and echotexture, without focal lesion. Color Doppler: Normal color Doppler flow pattern. Right testes size: 3.6 cm x 2.6 cm x 1.9 cm. Left testes size: 3.5 cm x 2.4 cm x 2.5 cm. EPIDIDYMIDES Normal in size and echotexture, without focal lesion. Color Doppler: Normal color Doppler flow pattern. Right epididymis size: 4.3 cm x 1.5 cm x 1.5 cm. Left epididymitis size: 3.4 cm x 1.5 cm x 1.4 cm. HYDROCELE Moderate bilateral hydroceles Additional lobulated fluid collection in the RIGHT scrotal skin inferior to the hydrocele measuring 2 .3 x 1.2 x 2.3 cm likely benign. VARICOCELE None. OTHER FINDINGS None. US/US scrotum [id number] IMPRESSION: 1. Diffuse scrotal skin thickening. 2. Moderate bilateral hydroceles measuring approximately 10 cc. 3. Testicles are normal in size and echotexture. Normal vascularity. 4. Additional lobulated fluid collection in the RIGHT scrotal skin inferior an d separate from the hydrocele measuring 2.3 x 1.2 x 2.3 cm likely benign fluid.
[2021-11-05 08:41] VITALS: O2SAT 86; O2SAT 94
[2021-11-05 08:45] LABS: Alanine Aminotransferase 13 U/L (0-41); Albumin Level 3.3 g/dL (3.5-5.2); Alkaline Phosphatase 80 IU/L (40-130); Anion Gap 8.6 (5-19); Aspartate Amino Transferase 17 U/L (0-40); Blood Urea Nitrogen 22 mg/dL (6-20); Calcium 9.4 mg/dL (8.5-10.5); Chloride 91 mmol/L (98-107); Globulin 3.3 g/dL (1.3-4.6); Glomerular Filtration Rate 90.4 mL/min (90-130); Glucose 101 mg/dL (65-115); Osmolality Calculated 295 mOsm/kg (285-295); Potassium 3.6 mmol/L (3.5-5.1); Sodium 141 mmol/L (136-145); Total Protein 6.6 g/dL (6.6-8.7)
[2021-11-05 08:48] LABS: Carbon Dioxide 45 mmol/L (22-29)
[2021-11-05] MEDS: duloxetine 30 mg Capsule PO (08:55)
[2021-11-05] MEDS: amiodarone 200 mg Tablet 400 MG PO (08:55)
[2021-11-05] MEDS: acetaZOLAMIDE 250 mg Tablet PO (08:55)
[2021-11-05] MEDS: doxycycline 100 mg Tablet PO (08:55)
[2021-11-05] MEDS: sennosides-docusate Tablet 1 TAB PO (08:56)
[2021-11-05] MEDS: apixaban 5 mg Tablet PO (08:56)
[2021-11-05] MEDS: fluconazole 100 mg Tablet PO (08:56)
[2021-11-05] MEDS: dilTIAZem ER (24HR) 180 mg Capsule PO (08:56)
[2021-11-05] MEDS: metoprolol tartrate 50 mg Tablet 100 MG PO (08:58)
--- NOTE | 2021-11-05 09:07 | PC.SOCIAL ---
IMM Update Pg. 2 of IMM updated and reviewed with patient, who verbalized understanding. Copy provided.
[2021-11-05 12:00] VITALS: BP 130/88; PULSE 79; RESP 18; TEMP 36.7; O2SAT 93
[2021-11-05 14:00] VITALS: PULSE 80
== END 2021-11-05 15:00 | disposition home or self-care (01) | DRG 291 ==
LOC: ER 14:26 → ICU 18:02 → CSU 10-31 22:06
PROVIDERS: Family Medicine; Internal Medicine; Admitting Provider Internal Medicine; Emergency Provider Family Medicine; PCP Nurse Practitioner; Visit Provider Student in an Organized Health Care Education/Training Program
DX: I11.0 Hypertensive heart disease with heart failure (principal); I50.31 Acute diastolic (congestive) heart failure; I48.21 Permanent atrial fibrillation; Z68.44 Body mass index [BMI] 60.0-69.9, adult; E66.2 Morbid (severe) obesity with alveolar hypoventilation; E87.3 Alkalosis; I95.9 Hypotension, unspecified; F41.1 Generalized anxiety disorder; E83.42 Hypomagnesemia; E78.5 Hyperlipidemia, unspecified; B37.2 Candidiasis of skin and nail; M79.89 Other specified soft tissue disorders; Z91.19 Patient's noncompliance with other medical treatment and regimen; Z87.891 Personal history of nicotine dependence
CPT/HCPCS: 36415; 36416; 51702; 71275; 74177; 76870; 80048; 80053; 80061; 80162; 81001; 82607; 82746; 82962; 83036; 83540; 83550; 83605; 83735; 83880; 84100; 84145; 84443; 84478; 84484; 84550; 85025; 85378; 85730; 86140; 93005; 93306; 93971; 94660; 94760; 96365; 96366; 96367; 96375; 96376; 97110; 97161; 97165; 97530; 99214; 99285; J0282; J1160; J1644; J1940; J3475; J3490; J7060; Q9967

== ENCOUNTER 2021-11-06 16:12 | Emergency (ER) | payer MEDICARE, MEDICAID, SELFPAY ==
[2021-11-06 16:26] VITALS: BP 139/105; PULSE 91; RESP 16; TEMP 36.4; O2SAT 94; BMI 77.8
[2021-11-06 16:35] VITALS: BP 139/105; PULSE 91; RESP 16; TEMP 36.4; O2SAT 94
--- NOTE | 2021-11-06 17:00 | W.ED.MALEGU ---
Documented by User: Oli Munson 11/06/21 17:13 HPI - Male Genitourinary General: Chief complaint: Urogenital-Male Stated complaint: GENERAL WEAKNESS, INCONTINENCE Time Seen by Provider: 11/06/21 16:31 History of Present Illness: 46-year-old male presents emergency department chief complaint of incontinence and voiding difficulty patient was recently released in the hospital had a Fisher catheter placed approximately last 1 week. He reports upon removal of Fisher catheter he has been incontinent he reports he does not require Fisher catheter past. The patient reports no history of back or other issues reports that he has had no pre-existing urinary tract infections he does have a known onset of atrial fibrillation and new onset congestive heart failure, as well as morbid obesity. Associated symptoms: Reports urinary incontinence; Deny nausea or vomiting Review of Systems General: Reports: 10 or more systems reviewed and unremarkable except in HPI and below Const: Denies: fever(s), chills, fatigue or malaise Eyes: Denies: change in vision or blurry vision Card: Denies: chest pain or palpitations Resp: Denies: dyspnea or productive cough GI: Denies: abdominal pain, nausea or vomiting : Reports: difficulty urinating, urinary frequency and urinary incontinence Musc: Denies: extremity pain or extremity swelling Skin/Breast: Denies: rash or pruritus Neuro: Denies: headache(s) Psych: Denies: anxiety or depression Kishan/Lymph: Denies: easy bleeding All/Imm: Denies: urticaria, throat swelling or facial swelling PFSH ED PFSH: Medical History (Updated 11/06/21 @ 21:22 by Genaro Padron MD) Anxiety Bipolar 1 disorder Candidal skin infection Depression Dyslipidemia Generalized anxiety disorder Gout Hypertension Major depressive disorder, recurrent severe without psychotic features Morbid obesity with BMI of 70 and over, adult BONITA (obstructive sleep apnea) Psychiatric care Restrictive lung disease Surgical History No significant past surgical history Family History Other Cancer Dementia Diabetes Psychiatric illness Social History Smoking and tobacco status: former smoker Quit status (tobacco): has quit using tobacco Year quit tobacco: 2002 Second hand smoke exposure: No Smoking risk assessment/counseling performed?: No Alcohol intake: current Alcohol intake frequency: holidays/special occasions only Adopted: No Caregiver/support person: Yes ([facility] care chaplain) Lives independently: Yes Household members: none Housing: Manufactured/Mobile home Marital status: Single Number of children: 0 Number of grandchildren: 0 Highest education level completed: 12th Grade, No Diploma service: No Current occupational status: disabled Current occupational exposures/hazards: No Pets and animals: No History of recent travel: No Leisure activites: reading and other Leisure activities details: watches TV Sexually active: No Current gender identity: Male Jayne/Roman Catholic: None Special jayne needs: No Agree to transfusion: Yes Financial difficulty paying for basics: Somewhat Hard Physical Exam Const: COMMON NORMALS: no acute distress, patient oriented x3 and healthy appearing HENMT: COMMON NORMALS: normocephalic and atraumatic HEAD & SCALP: normocephalic and atraumatic Eye: COMMON NORMALS: Equal, round and reactive pupils present and EOMs intact bilaterally PUPIL: Yes Equal, round and reactive pupils present Neck/C-Spine: COMMON NORMALS: full ROM, supple and no JVD Lymph: LYMPHATIC: no lymphadenopathy noted Chest: COMMONS NORMALS: normal inspection of the chest and normal palpation of entire chest wall Resp: COMMON NORMALS: normal respiratory effort, No retractions and clear to auscultation bilaterally EFFORT & INSPECTION: Yes able to speak in complete sentences and Yes symmetric chest movement AUSCULTATION: clear to auscultation bilaterally Cardio: COMMON NORMALS: no JVD, regular rate and regular rhythm RATE: regular rate RHYTHM: regular rhythm GI: COMMON NORMALS: Normal to inspection, nondistended, normoactive bowel sounds present, Soft to palpation and non-tender INSPECTION: Yes normal to inspection PALPATION: Yes Soft to palpation : COMMON NORMALS: Yes no CVA tenderness BLADDER/KIDNEY EXAM: Yes no CVA tenderness OTHER: No obvious external trauma injury noted to the meatus or to the penis. Back/Pelvis: COMMON NORMALS: no CVA tenderness Extremity: COMMON NORMALS: normal to inspection and full ROM Neuro: COMMON NORMALS: patient oriented x3, CN's II-XII intact bilaterally, moves all extremities and no focal motor deficits OTHER: No focal neuro deficits appreciated no foot drop or muscle weakness to either leg noted Psych: COMMON NORMALS: mental status grossly normal, Normal thought process present, cooperative and normal affect THOUGHT PROCESS: Normal thought process present Skin: COMMON NORMALS: no rashes or lesions noted GENERAL SKIN EXAM: no rashes or lesions noted Course Vital Signs: Vital signs: Vital Signs Temperature 97.5 F L 11/06/21 16:35 Pulse Rate 83 11/06/21 21:48 Respiratory Rate 16 11/06/21 21:48 Blood Pressure 142/99 11/06/21 21:48 Pulse Oximetry 95 11/06/21 21:28 MDM - Male Medical Decision Making Due to the patient's symptom condition lab work and imaging will be obtained we will continue to follow will attempt to do a bladder scanner to see if he is having any overflow incontinence. Lab Data : 11/06/21 17:03 11/06/21 17:03 Radiology Impressions Abdomen/Pelvis CT 11/06/21 18:09 IMPRESSION: 1. 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 This is considered age indeterminate but favored more subacute or chronic in etiology. 2. Small volume abdominal/pelvic ascites. Moderate volume right and small volume left pleural effusions. 3. There is a 5.7 cm low-attenuation lesion noted off the inferior pole of the right kidney. This is suspected to represent a cyst with the attenuation measurements do not measure simple fluid. Would suggest follow-up ultrasound to ensure cystic nature. 4. Punctate nonobstructing stone noted in the inferior pole of the left kidney. 5. Skin thickening and subcutaneous edema noted along the lower abdominal wall suggestive of cellulitis. COMMENTS: Consistent with the [employer]'s Incidental Findings Committee white paper (J Am Danica Radiol 2018): Any incidental renal lesion less than 1 cm or classified as too small to characterize, or any incidental cystic renal lesion characterized as simple-appearing, is likely benign. No follow-up imaging is recommended for these lesions per consensus recommendations based on imaging criteria. ADDENDUM: 11/06/212029 Findings were discussed with Dr. Padron at 11/06/2021 8:28 PM CDT. Lumbar Spine CT 11/06/21 18:09 IMPRESSION: Degenerative disc disease at L2-L3 and L3-L4. There is disc protrusion at L3-L4 and what appears to be severe spinal canal stenosis at this level. MRI would help further delineate the degree of spinal canal stenosis and signs of any nerve root compression. Laboratory Results WBC 7.5 10^3/uL (4.0-10.0) 11/06/21 17:03 RBC 5.11 10^6/uL (4.1-5.3) 11/06/21 17:03 Hgb 15.9 g/dL (11.7-16.6) 11/06/21 17:03 Hct 53.0 % (42.0-52.0) H 11/06/21 17:03 MCV 103.7 fl (80-94) H 11/06/21 17:03 MCH 31.1 pg (28.0-34.0) 11/06/21 17:03 MCHC 30.0 g/dL (30.0-36.0) 11/06/21 17:03 RDW 16.8 % (12.1-15.1) H 11/06/21 17:03 Plt Count 147 10^3/cmm (130-400) 11/06/21 17:03 MPV 11.0 fL (7.4-10.4) H 11/06/21 17:03 Neut % (Auto) 78.9 % 11/06/21 17:03 Lymph % (Auto) 9.3 % 11/06/21 17:03 Elmore % (Auto) 10.1 % 11/06/21 17:03 Eos % (Auto) 0.9 % 11/06/21 17:03 Baso % (Auto) 0.5 % 11/06/21 17:03 Neut # (Auto) 5.94 10^3/uL (1.8-7.7) 11/06/21 17:03 Lymph # (Auto) 0.7 10^3/uL (0.8-4.8) L 11/06/21 17:03 Elmore # (Auto) 0.8 10^3/uL (0.2-0.9) 11/06/21 17:03 Eos # (Auto) 0.1 10^3/uL (0.0-0.8) 11/06/21 17:03 Baso # (Auto) 0.0 10^3/uL (0.0-0.1) 11/06/21 17:03 Nucleated RBC % (auto) 0 % 11/06/21 17:03 Nucleated RBCs # 0.0 /100WBC 11/06/21 17:03 PT 21.00 SECONDS (12.1-14.9) H 11/06/21 20:58 INR 1.77 (0.8-1.2) H 11/06/21 20:58 Sodium 142 mmol/L (136-145) 11/06/21 17:03 Potassium 3.6 mmol/L (3.5-5.1) 11/06/21 17:03 Chloride 89 mmol/L (98-107) L 11/06/21 17:03 Carbon Dioxide 43 mmol/L (22-29) H* 11/06/21 17:03 Anion Gap 13.6 (5-19) 11/06/21 17:03 BUN 21 mg/dL (6-20) H 11/06/21 17:03 Creatinine 0.9 mg/dL (0.7-1.2) 11/06/21 17:03 GFR Calculation 90.4 mL/min (90-130) 11/06/21 17:03 Glucose 87 mg/dL (65-115) 11/06/21 17:03 Calculated Osmolality 296 mOsm/kg (285-295) H 11/06/21 17:03 Calcium 9.9 mg/dL (8.5-10.5) 11/06/21 17:03 Total Bilirubin 1.1 mg/dL (0.15-1.2) 11/06/21 17:03 AST 24 U/L (0-40) 11/06/21 17:03 ALT 16 U/L (0-41) 11/06/21 17:03 Alkaline Phosphatase 87 IU/L (40-130) 11/06/21 17:03 Total Protein 7.7 g/dL (6.6-8.7) 11/06/21 17:03 Albumin 3.5 g/dL (3.5-5.2) 11/06/21 17:03 Globulin 4.2 g/dL (1.3-4.6) 11/06/21 17:03 Discharge Plan Discharge Patient Disposition: Home Clinical Impression: Urinary bladder incontinence, Aneurysm artery, iliac common Condition: Stable Prescriptions: No Action duloxetine 30 mg capsule,delayed release(DR/EC) 30 mg PO DAILY Qty: 90 0RF Rx Instructions: To be taken with 60 mg cap for total of 90 mg daily fluconazole 100 mg Tablet 100 mg PO DAILY Qty: 3 0RF atorvastatin 40 mg Tablet 20 mg PO BEDTIME Qty: 30 0RF acetazolamide 250 mg Tablet 125 mg PO DAILY Qty: 30 0RF metoprolol tartrate 50 mg Tablet 100 mg PO BID@0900,2100 30 Days Qty: 120 0RF Eliquis 5 mg Tablet 5 mg PO BID@0900,2100 30 Days Qty: 60 0RF furosemide [Lasix] 40 mg tablet 60 mg PO DAILY Qty: 60 0RF diltiazem HCl [Cardizem CD] 240 mg capsule,extended release 24hr 240 mg PO DAILY Qty: 30 0RF amiodarone 200 mg tablet 200 mg PO DAILY Qty: 37 0RF indapamide 2.5 mg tablet 2.5 mg PO DAILY 0RF lisinopril 20 mg tablet 20 mg PO DAILY 0RF duloxetine 60 mg capsule,delayed release(DR/EC) 60 mg PO DAILY 0RF Discharge Orders: Discharge ED (Routine); Ordered 11/06/21 Ordered By: Genaro Padron Referrals: morgan rosado [Other] - 1-3 days Erickson Crenshaw MD [Physician] - 1-3 days Amaris Daniel FNP [Primary Care Provider] - Discharge Diet: Advance as tolerated Discharge Activity: Resume usual activity Patient Instructions: Urinary Incontinence (ED) Coding Level of Care Code ED Electronics Research Engineer for Chg Fwd Exam Comprehensive Documented by User: Genaro Padron MD 11/06/21 22:01 HPI - Male Genitourinary General: Chief complaint: Urogenital-Male Stated complaint: GENERAL WEAKNESS, INCONTINENCE Time Seen by Provider: 11/06/21 16:31 PFS ED PFSH: Medical History (Updated 11/06/21 @ 21:22 by Genaro Padron MD) Anxiety Bipolar 1 disorder Candidal skin infection Depression Dyslipidemia Generalized anxiety disorder Gout Hypertension Major depressive disorder, recurrent severe without psychotic features Morbid obesity with BMI of 70 and over, adult BONITA (obstructive sleep apnea) Psychiatric care Restrictive lung disease Surgical History No significant past surgical history Family History Other Cancer Dementia Diabetes Psychiatric illness Social History Smoking and tobacco status: former smoker Quit status (tobacco): has quit using tobacco Year quit tobacco: 2002 Second hand smoke exposure: No Smoking risk assessment/counseling performed?: No Alcohol intake: current Alcohol intake frequency: holidays/special occasions only Adopted: No Caregiver/support person: Yes ([facility] home care chaplain) Lives independently: Yes Household members: none Housing: Manufactured/Mobile home Marital status: Single Number of children: 0 Number of grandchildren: 0 Highest education level completed: 12th Grade, No Diploma service: No Current occupational status: disabled Current occupational exposures/hazards: No Pets and animals: No History of recent travel: No Leisure activites: reading and other Leisure activities details: watches TV Sexually active: No Current gender identity: Male Jayne/Roman Catholic: None Special jayne needs: No Agree to transfusion: Yes Financial difficulty paying for basics: Somewhat Hard Course Vital Signs: Vital signs: Vital Signs Temperature 97.5 F L 11/06/21 16:35 Pulse Rate 83 11/06/21 21:48 Respiratory Rate 16 11/06/21 21:48 Blood Pressure 142/99 11/06/21 21:48 Pulse Oximetry 95 11/06/21 21:28 MDM - Male Medical Decision Making Due to the patient's symptom condition lab work and imaging will be obtained we will continue to follow will attempt to do a bladder scanner to see if he is having any overflow incontinence. Patient presents with incontinence he has no signs of cord compression no weakness in his extremities. He did have incidental finding of common iliac dissection with an aneurysm I spoke to vascular surgeon at [facility] he does not require emergent transfer he is going to follow him up in clinic in 2 to 4 days he is return if worsening. Lab Data : 11/06/21 17:03 11/06/21 17:03 Radiology Impressions Abdomen/Pelvis CT 11/06/21 18:09 IMPRESSION: 1. 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 This is considered age indeterminate but favored more subacute or chronic in etiology. 2. Small volume abdominal/pelvic ascites. Moderate volume right and small volume left pleural effusions. 3. There is a 5.7 cm low-attenuation lesion noted off the inferior pole of the right kidney. This is suspected to represent a cyst with the attenuation measurements do not measure simple fluid. Would suggest follow-up ultrasound to ensure cystic nature. 4. Punctate nonobstructing stone noted in the inferior pole of the left kidney. 5. Skin thickening and subcutaneous edema noted along the lower abdominal wall suggestive of cellulitis. COMMENTS: Consistent with the [employer]'s Incidental Findings Committee white paper (J Am Danica Radiol 2018): Any incidental renal lesion less than 1 cm or classified as too small to characterize, or any incidental cystic renal lesion characterized as simple-appearing, is likely benign. No follow-up imaging is recommended for these lesions per consensus recommendations based on imaging criteria. ADDENDUM: 11/06/21 2030 Findings were discussed with Dr. Padron at 11/06/2021 8:28 PM CDT. Lumbar Spine CT 11/06/21 18:09
[2021-11-06 17:12] LABS: Basophils % 0.5 %; Eosinophils # 0.1 10^3/uL (0.0-0.8); Eosinophils % 0.9 %; Hemoglobin 15.9 g/dL (11.7-16.6); Lymphocytes # 0.7 10^3/uL (0.8-4.8); Lymphocytes % 9.3 %; Mean Corpuscular Hemoglobin 31.1 pg (28.0-34.0); Mean Corpuscular Volume 103.7 fl (80-94); Monocytes # 0.8 10^3/uL (0.2-0.9); Monocytes % 10.1 %; Neutrophils # 5.94 10^3/uL (1.8-7.7); Neutrophils % 78.9 %; Nucleated Red Blood Cells % 0 %; Platelet Count 147 10^3/cmm (130-400); Red Blood Count 5.11 10^6/uL (4.1-5.3); Red Cell Distribution Width 16.8 % (12.1-15.1); White Blood Count 7.5 10^3/uL (4.0-10.0)
[2021-11-06 17:27] VITALS: BP 144/103; PULSE 83; RESP 16; O2SAT 94
[2021-11-06 17:34] LABS: Alanine Aminotransferase 16 U/L (0-41); Albumin Level 3.5 g/dL (3.5-5.2); Alkaline Phosphatase 87 IU/L (40-130); Anion Gap 13.6 (5-19); Aspartate Amino Transferase 24 U/L (0-40); Blood Urea Nitrogen 21 mg/dL (6-20); Calcium 9.9 mg/dL (8.5-10.5); Chloride 89 mmol/L (98-107); Globulin 4.2 g/dL (1.3-4.6); Glomerular Filtration Rate 90.4 mL/min (90-130); Glucose 87 mg/dL (65-115); Osmolality Calculated 296 mOsm/kg (285-295); Potassium 3.6 mmol/L (3.5-5.1); Sodium 142 mmol/L (136-145); Total Bilirubin 1.1 mg/dL (0.15-1.2); Total Protein 7.7 g/dL (6.6-8.7)
[2021-11-06 17:36] LABS: Carbon Dioxide 43 mmol/L (22-29)
--- NOTE | 2021-11-06 18:09 | CTR_ITS ---
PROCEDURE INFORMATION: Exam: CT Lumbar Spine Without Contrast Exam date and time: 11/06/2021 6:47 PM Age: 46 years old Clinical indication: Low back pain; Additional info: Incontinence TECHNIQUE: Imaging protocol: Computed tomography images of the lumbar spine without contrast. Radiation optimization: All CT scans at this facility use at least one of these dose optimization techniques: automated exposure control; mA and/or kV adjustment per patient size (includes targeted exams where dose is matched to clinical indication); or iterative reconstruction. COMPARISON: CR Lumbar Spine 2-3 views* [id number] 04/16/2015 11:00 AM RADIATION DOSE METRICS: Total DLP (mGy-cm): 1981.63 FINDINGS: Vertebrae: No acute fracture. Normal alignment. Discs/Spinal canal/Neural foramina: Degenerative disc disease seen L2-L3 and L3-L4. There is disc protrusion at L3-L4 and significant spinal canal stenosis at this level. Soft tissues: Unremarkable. CT/CT lumbar spine wo con* [id number] IMPRESSION: Degenerative disc disease at L2-L3 and L3-L4. There is disc protrusion at L3-L4 and what appears to be severe spinal canal stenosis at this level. MRI would help further delineate the degree of spinal canal stenosis and signs of any nerve root compression.
--- NOTE | 2021-11-06 18:09 | CTR_ITS ---
PROCEDURE INFORMATION: Exam: CT Abdomen And Pelvis With Contrast Exam date and time: 11/06/2021 6:56 PM Age: 46 years old Clinical indication: Abdominal pain; Localized; Lower; Additional info: Incontinence TECHNIQUE: Imaging protocol: Computed tomography of the abdomen and pelvis with contrast. Radiation optimization: All CT scans at this facility use at least one of these dose optimization techniques: automated exposure control; mA and/or kV adjustment per patient size (includes targeted exams where dose is matched to clinical indication); or iterative reconstruction. Contrast material: OMNI 350; Contrast volume: 140 ml; Contrast route: INTRAVENOUS (IV); COMPARISON: CT angio chest w abd pel w con 10/29/2021 5:06 PM RADIATION DOSE METRICS: Total DLP (mGy-cm): 1955.5 FINDINGS: Pleural spaces: Moderate volume right and small volume left pleural effusion. Liver: Normal. No mass. Gallbladder and bile ducts: Normal. No calcified stones. No ductal dilation. Pancreas: Normal. No ductal dilation. Spleen: Normal. No splenomegaly. Adrenal glands: Normal. No mass. Kidneys and ureters: 5.7 cm low-attenuation lesion noted off of the inferior pole of the right kidney. This appears cystic but does not measure simple fluid. 2 cm cyst noted off of the inferior pole of the left kidney. Punctate nonobstructing stone in the lower pole the left kidney best seen on series 6 image 53. No hydronephrosis. Stomach and bowel: No obstruction. No mucosal thickening. Appendix: No evidence of appendicitis. Intraperitoneal space: Small volume abdominal/pelvic ascites. No free air. Vasculature: Appearance of a small focal dissection flap within the left common iliac artery as best seen on coronal sequences series 6, image 49. 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 This is age indeterminate but suspected to be more subacute or chronic. No aortic dissection or aneurysm. Lymph nodes: No enlarged lymph nodes. Urinary bladder: Unremarkable as visualized. Reproductive: Unremarkable as visualized. Bones/joints: No acute fracture. Soft tissues: Skin thickening noted along the lower abdominal wall with subcutaneous edema. CT/CT abdomen pelvis w con* [id number] IMPRESSION: 1. 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 This is considered age indeterminate but favored more subacute or chronic in etiology. 2. Small volume abdominal/pelvic ascites. Moderate volume right and small volume left pleural effusions. 3. There is a 5.7 cm low-attenuation lesion noted off the inferior pole of the right kidney. This is suspected to represent a cyst with the attenuation measurements do not measure simple fluid. Would suggest follow-up ultrasound to ensure cystic nature. 4. Punctate nonobstructing stone noted in the inferior pole of the left kidney. 5. Skin thickening and subcutaneous edema noted along the lower abdominal wall suggestive of cellulitis. COMMENTS: Consistent with the [employer]'s Incidental Findings Committee white paper (J Am Danica Radiol 2018): Any incidental renal lesion less than 1 cm or classified as too small to characterize, or any incidental cystic renal lesion characterized as simple-appearing, is likely benign. No follow-up imaging is recommended for these lesions per consensus recommendations based on imaging criteria.
--- NOTE | 2021-11-06 19:11 | PC.NURSE ---
assumed care of pt at this time, pt resting at this time
[2021-11-06] MEDS: iodixanol 320 mg/mL 100mL Btl IV (19:26)
[2021-11-06] MEDS: iohexol 350 mg/mL 100 mL Btl IV (19:31)
[2021-11-06 21:21] LABS: INR 1.77 (0.8-1.2)
[2021-11-06 21:28] VITALS: BP 142/99; O2SAT 95
[2021-11-06 21:48] VITALS: BP 142/99; PULSE 83; RESP 16
--- NOTE | 2021-11-07 10:24 | DCPLANNER ---
Addendum entered by Mag Morales 12/04/21 12:43: Patient had a follow up appointment scheduled for 11.24.[address] Crenshaw - patient did not attend appointment. Addendum entered by Mag Morales 11/10/21 08:48: Patient has a follow up appointment scheduled for Wednesday, November 24, 2021 at 7:45 with Claudia Drew in the office of Dr. Crenshaw. Clinic will call patient with appointment information. Original Note: games manager had message to schedule a follow up appointment for patient with Dr. Crenshaw. games manager sent patients information to the office of Dr. Crenshaw thru [employer] system. Patients information will be printed and reviewed. Clinic will call patient with appointment information.
== END 2021-11-06 21:52 | disposition home or self-care (01) ==
PROVIDERS: Emergency Medicine; Emergency Provider Emergency Medicine; PCP Nurse Practitioner
DX: R32 Unspecified urinary incontinence (principal); I72.3 Aneurysm of iliac artery; Z79.01 Long term (current) use of anticoagulants; E78.5 Hyperlipidemia, unspecified; I10 Essential (primary) hypertension; Z87.891 Personal history of nicotine dependence
CPT/HCPCS: 72131; 74177; 80053; 85025; 85610; 99284; Q9967

== ENCOUNTER → 2021-12-08 07:43 | Outpatient (BNVA) | payer MEDICARE, MEDICAID, SELFPAY | PROVIDERS: PCP Nurse Practitioner; Visit Provider Social Worker | DX: F41.1 Generalized anxiety disorder (principal); F33.2 Major depressive disorder, recurrent severe without psychotic features | CPT/HCPCS: 90837; 90834 ==

== ENCOUNTER → 2022-01-29 12:43 | Outpatient (BNVA) | payer MEDICARE, MEDICAID, SELFPAY | PROVIDERS: PCP Nurse Practitioner Family; Visit Provider Internal Medicine Cardiovascular Disease | DX: I48.21 Permanent atrial fibrillation (principal); I11.0 Hypertensive heart disease with heart failure; I50.9 Heart failure, unspecified; E78.5 Hyperlipidemia, unspecified; G47.33 Obstructive sleep apnea (adult) (pediatric); E66.01 Morbid (severe) obesity due to excess calories; Z68.43 Body mass index [BMI] 50.0-59.9, adult; Z91.89 Other specified personal risk factors, not elsewhere classified | CPT/HCPCS: 80053; 83735; 83880; 84439; 84443; 84481; 85025; 99204 ==

== ENCOUNTER → 2022-02-03 08:13 | Outpatient (BNVA) | payer MEDICARE, MEDICAID, SELFPAY | PROVIDERS: PCP Nurse Practitioner Family; Visit Provider Social Worker | DX: F43.12 Post-traumatic stress disorder, chronic (principal); F31.9 Bipolar disorder, unspecified; F32.A Depression, unspecified | CPT/HCPCS: 90837; 90834 ==

== ENCOUNTER → 2022-04-02 13:54 | Outpatient (BNVA) | payer MEDICARE, MEDICAID, SELFPAY | PROVIDERS: PCP Family Medicine; Visit Provider Internal Medicine Cardiovascular Disease | DX: I48.21 Permanent atrial fibrillation (principal); Z79.01 Long term (current) use of anticoagulants; I11.0 Hypertensive heart disease with heart failure; I50.9 Heart failure, unspecified; E78.5 Hyperlipidemia, unspecified; E66.01 Morbid (severe) obesity due to excess calories; Z68.45 Body mass index [BMI] 70 or greater, adult; Z87.891 Personal history of nicotine dependence | CPT/HCPCS: 99214 ==

== ENCOUNTER → 2022-07-14 10:25 | Outpatient (BNVA) | payer OTHER, SELFPAY | PROVIDERS: PCP Family Medicine; Visit Provider Psychiatry & Neurology Psychiatry | DX: F41.1 Generalized anxiety disorder (principal) | CPT/HCPCS: 80061; 83036 ==

== ENCOUNTER → 2022-10-07 15:00 | Outpatient (BNVA) | payer MEDICARE, MEDICAID, OTHER, SELFPAY ==
[2022-07-30 15:39] VITALS: BP 132/87; BMI 60.8
== END ==
PROVIDERS: PCP Family Medicine; Visit Provider Nurse Practitioner Family
DX: I48.91 Unspecified atrial fibrillation (principal); I11.0 Hypertensive heart disease with heart failure; I50.9 Heart failure, unspecified; Z87.891 Personal history of nicotine dependence
CPT/HCPCS: 99214

== ENCOUNTER 2022-11-25 20:00 | Outpatient (CLI) | payer MEDICARE, SELFPAY ==
[2022-07-30 15:39] VITALS: BP 132/87; BMI 60.8
[2022-10-22 14:48] VITALS: BP 132/87; BMI 60.8
== END 2022-11-25 20:01 | disposition home or self-care (01) ==
LOC: SLEEP 11-26 05:43
PROVIDERS: PCP Family Medicine; Visit Provider Internal Medicine Cardiovascular Disease
DX: G47.33 Obstructive sleep apnea (adult) (pediatric) (principal)
CPT/HCPCS: 95811

== ENCOUNTER 2023-09-16 23:23 | Inpatient (IN) | payer MEDICARE, MEDICAID, SELFPAY ==
[2023-07-12 08:16] VITALS: BP 132/87; BMI 60.8
[2023-09-16 23:24] VITALS: BP 165/109; PULSE 143; RESP 24; TEMP 37.1; O2SAT 90; BMI 69.7
--- NOTE | 2023-09-16 23:28 | XRR_ITS ---
PROCEDURE INFORMATION: Exam: XR Chest Exam date and time: 09/16/2023 11:44 PM Age: 47 years old Clinical indication: Tachypnea; Additional info: Tachycardia TECHNIQUE: Imaging protocol: Radiologic exam of the chest. Views: 1 view. COMPARISON: CT angio chest w abd pel w con 10/29/2021 5:06 PM FINDINGS: Lungs: Unremarkable. No consolidation. Pleural spaces: Unremarkable. No pleural effusion. No pneumothorax. Heart/Mediastinum: Cardiomegaly and pulmonary vascular congestion with patchy ground-glass airspace opacities greatest in the left upper lobe may reflect alveolar edema and/or pneumonic infiltrates. Bones/joints: Unremarkable. XR/XR chest 1V portable [id number] IMPRESSION: Cardiomegaly and pulmonary vascular congestion with patchy ground-glass airspace opacities greatest in the left upper lobe may reflect alveolar edema and/or pneumonic infiltrates.
--- NOTE | 2023-09-16 23:28 | ECG_ITS ---
[facility] Test Date: 2023-09-16 Pat Name: Robert Juarez Department: Room: 105 Gender: Male Chief Technician: : 1975 Requested By: Joshua Graham Order Number: [id number] [place] MD: Azeem Weinstein M.D. Measurements Intervals [place] Rate: 135 P: 0 [place]: 0 QRS: 120 QRSD: 145 T: -9 QT: 360 QTc: 540 Interpretive Statements ATRIAL FIBRILLATION WITH RAPID VENTRICULAR RESPONSE INTRAVENTRICULAR CONDUCTION DELAY [130+ ms QRS DURATION] Compared to ECG 10/29/2021 20:53:15 Intraventricular conduction delay now present Atrial flutter no longer present Atrial abnormality no longer present Myocardial infarct finding no longer present Electronically Signed On 09-18-2023 23:17:51 LIVING COACH by Azeem Weinstein M.D. [id number]
--- NOTE | 2023-09-16 23:31 | ED_ITS ---
HPI - Arrhythmia/Palpitations 2 General: Chief Complaint: Arrhythmia/Palpitations Stated Complaint: resp distress Time Seen by Provider: 09/16/23 23:28 History of Present Illness: Patient presents to the ER with complaints of fast heart rate and shortness of breath. Patient states this been going on for about 4 days. Patient does have a history of A-fib, hypertension, does wear 3 L of oxygen at all times. Patient states he is noncompliant with his medicine. Patient used to see Dr. Khalil but is trying to get into see Dr. Darby now. Patient does have a history of A-fib and should be on amiodarone and Eliquis. Upon further questioning patient says he ran out of his amiodarone a couple weeks ago. Patient denies any chest pain, nausea vomiting, diaphoresis, Review of Systems 2 General: Reports: 10 or more systems reviewed and unremarkable except in HPI and below PFSH ED 2 PFSH: Medical History Lower urinary tract symptoms (LUTS) Morbid obesity with BMI of 70 and over, adult Candidal skin infection BONITA (obstructive sleep apnea) Hypertension Depression Anxiety Bipolar 1 disorder Restrictive lung disease Gout Dyslipidemia Psychiatric care Generalized anxiety disorder Major depressive disorder, recurrent severe without psychotic features Surgical History No significant past surgical history Family History Mother Myocardial infarct Stroke Father Myocardial infarct Diabetes Other Cancer Dementia Hypertension Psychiatric illness Social History Smoking and tobacco/nicotine status: former use of tobacco/nicotine Quit status (tobacco/nicotine): has quit using Year quit tobacco: 2002 Second hand smoke exposure: No Alcohol intake: former Year of sobriety/quit date alcohol: 2019 Substance/Drug Use: never Adopted: No Caregiver/support person: Yes ([facility] at in home caregiver 3 days per week 2.5 hours and a nurse once per week) Lives independently: No Household members: significant other Housing: Manufactured/Mobile home Marital status: Life Partner Number of children: 0 Number of grandchildren: 0 Highest education level completed: 12th Grade, No Diploma service: No Current occupational status: disabled Current occupational exposures/hazards: No Pets and animals: No Leisure activites: music, reading and other Leisure activities details: watches TV Sexually active: No Do you think of yourself as: Lesbian/Jacobsen/Homosexual Current gender identity: Male Jayne/Roman Catholic: None Special jayne needs: No Agree to transfusion: No Physical Exam 2 Const: COMMON NORMALS: no acute distress, average body habitus, patient oriented x3, no limitations, healthy appearing, alert and well nourished HENMT: COMMON NORMALS: normocephalic, atraumatic, hearing grossly normal bilaterally, external ears normal, Normal external nose present, moist oral mucous membranes and oropharynx normal HEAD & SCALP: normocephalic and atraumatic NOSE: Normal external nose present EXTERNAL EAR: Yes external ears normal Eye: COMMON NORMALS: Equal, round and reactive pupils present, EOMs intact bilaterally, conjunctivae normal and no scleral icterus CONJUNCTIVA: Yes conjunctivae normal PUPIL: Yes Equal, round and reactive pupils present Neck/C-Spine: COMMON NORMALS: full ROM, no lymphadenopathy, supple, no meningeal signs, no JVD and Thyroid normal THYROID: Thyroid normal Chest: COMMONS NORMALS: normal inspection of the chest and normal palpation of entire chest wall Resp: COMMON NORMALS: normal respiratory effort, No retractions, No use of accessory muscles and clear to auscultation bilaterally AUSCULTATION: clear to auscultation bilaterally Cardio: COMMON NORMALS: no JVD, S1 normal heart sound present, S2 normal heart sound present, No gallops present (Cardio), No clicks present (Cardio), No murmurs present (Cardio) and No rub (Cardio); negative for regular rate (Irregularly irregular tachycardic rhythm) and negative for regular rhythm RATE: abnormal rate (Irregularly irregular tachycardic rhythm) RHYTHM: abnormal rhythm HEART SOUNDS: S1 normal heart sound present and S2 normal heart sound present GI: COMMON NORMALS: Normal to inspection, nondistended, normoactive bowel sounds present, Soft to palpation, non-tender, No hepatosplenomegaly present and no masses PALPATION: Yes Soft to palpation and Yes No hepatosplenomegaly present Extremity: NARRATIVE EXTREMITY EXAM: Venous stasis, 1+ pitting edema bilateral lower extremities Neuro: COMMON NORMALS: patient oriented x3 SENSORIUM/ORIENTATION: Yes alert MENINGEAL SIGNS: Yes no meningeal signs Course 2 Vital Signs: Vital signs: Vital Signs Temperature 98.7 F 09/16/23 23:24 Pulse Rate 117 H 09/17/23 00:26 Respiratory Rate 29 H 09/17/23 00:26 Blood Pressure 122/87 09/17/23 00:26 Pulse Oximetry 90 09/17/23 00:26 Oxygen Delivery Me thod Nasal Cannula 09/17/23 00:26 Oxygen Flow Rate 4 09/16/23 23:38 MDM - Arrhythmia/Palpitations Medical Decision Making Patient appeared quite tachycardic and hypoxic. Patient was placed on 6 L of oxygen to keep sat above 90% or more patient's heart rate was approximate 140 beats a minute EKG was obtained showed A-fib with RVR. Patient blood pressure was stable. Patient was given a 20 mg dose of Cardizem IVP which slowed his heart rate down about 20 bpm but then it started going right back up. Patient was giving a loading dose of amiodarone and placed on amiodarone drip. Lab work was obtained as well as chest x-ray. Chest x-ray showed pulmonary vascular congestion and possible left upper lobe infiltrate or edema. BNP is slightly elevated at 2631, BUN/creatinine 17 and 1.3. Patient was given [address] Decker was consulted who agreed to place patient in [facility] for further evaluation and treatment. He did request an ABG. Which was ordered. Differential Diagnosis Likely artial fibrillation Medical Records I reviewed the patient's medical records. Lab Data I reviewed the patient's lab results. 09/16/23 23:31 09/16/23 23:31 Radiology Impressions Chest X-Ray 09/16/23 23:28 IMPRESSION: Cardiomegaly and pulmonary vascular congestion with patchy ground-glass airspace opacities greatest in the left upper lobe may reflect alveolar edema and/or pneumonic infiltrates. Laboratory Results WBC 11.21 10^3/uL (3.29-11.43) 09/16/23 23:31 RBC 4.50 10^6/uL (3.85-5.65) 09/16/23 23:31 Hgb 13.40 g/dL (11.27-16.99) 09/16/23 23:31 Hct 44.5 % (37-53) 09/16/23 23:31 MCV 98.9 fl (82-101) 09/16/23 23: MCH 29.8 pg (27-33) 09/16/23 23: MCHC 30.1 g/dL (30-55) 09/16/23 23: RDW 13.9 % (12.1-15.1) 09/16/23 23: Plt Count 283 10^3/cmm (157-399) 09/16/23 23: MPV 10.5 fL (7.4-10.4) H 09/16/23 23:31 Neut % (Auto) 76.3 % 09/16/23 23: Lymph % (Auto) 13.0 % 09/16/23 23:31 [place] % (Auto) 9.4 % 09/16/23 23: Eos % (Auto) 0.5 % 09/16/23 23: Baso % (Auto) 0.4 % 09/16/23 23: Neut # (Auto) 8.56 10^3/uL (1.8-7.7) H 09/16/23 23: Lymph # (Auto) 1.5 10^3/uL (0.8-4.8) 09/16/23 23:31 [place] # (Auto) 1.1 10^3/uL (0.2-0.9) H 09/16/23 23:31 Eos # (Auto) 0.1 10^3/uL (0.0-0.8) 09/16/23 23: Baso # (Auto) 0.0 10^3/uL (0.0-0.1) 09/16/23 23: Nucleated RBC % (auto) 0.2 % 09/16/23 23: Nucleated RBCs # 0.0 /100WBC 09/16/23 23:31 PT 18.50 SECONDS (12.1-14.9) H 09/16/23 23:31 INR 1.49 (0.8-1.2) H 09/16/23 23:31 Sodium 138 mmol/L (136-145) 09/16/23 23:31 Potassium 3.7 mmol/L (3.5-5.1) 09/16/23 23: Chloride 96 mmol/L (98-107) L 02/01/24 23:31 Carbon Dioxide 30 mmol/L (22-29) H 09/16/23 23:31 Anion Gap 15.7 (5-19) 09/16/23 23:31 BUN 17 mg/dL (6-20) 09/16/23 23:31 Creatinine 1.3 mg/dL (0.7-1.2) H 09/16/23 23:31 GFR Calculation 58.9 mL/min (90-130) L 09/16/23 23:31 Glucose 116 mg/dL (65-115) H 09/16/23 23:31 Calculated Osmolality 289 mOsm/kg (285-295) 09/16/23 23:31 Calcium 9.6 mg/dL (8.5-10.5) 09/16/23 23:31 Magnesium 1.9 mg/dL (1.7-2.3) 09/16/23 23:31 Total Bilirubin 0.7 mg/dL (0.15-1.2) 09/16/23 23:31 AST 22 U/L (0-40) 09/16/23 23:31 ALT 16 U/L (0-41) 09/16/23 23:31 Alkaline Phosphatase 84 U/L (40-130) 09/16/23 23:31 Troponin T Baseline 25 ng/L (0-15) H 09/16/23 23:31 NT-Pro-B Natriuret Pep 2631 pg/mL (0-125) H 09/16/23 23:31 Total Protein 7.6 g/dL (6.6-8.7) 09/16/23 23:31 Albumin 3.8 g/dL (3.5-5.2) 09/16/23 23:31 Globulin 3.8 g/dL (1.3-4.6) 09/16/23 23:31 TSH 1.03 uIU/mL (0.27-4.20) 09/16/23 23:31 All radiology interpretation(s) finalized by discharge EKG Data EKG 1: I personally reviewed and interpreted this EKG as follows: EKG interpretation date: 09/16/23 EKG interpretation time: 23:27 Prior EKG tracings: available for review Interpretation: EKG showed ventricular rate 135 beats minute, QRS duration 145, QTc of 439, atrial fibrillation with rapid ventricular response, intraventricular conduction delay Other EKG comments: Chest X-Ray 09/16/23 23:28 IMPRESSION: Cardiomegaly and pulmonary vascular congestion with patchy ground-glass airspace opacities greatest in the left upper lobe may reflect alveolar edema and/or pneumonic infiltrates. Discharge Plan Discharge Patient Disposition: Admitted As Inpatient Clinical Impression: Non-compliance, Atrial fibrillation with rapid ventricular response Acute CHF Qualifiers: Heart failure type: unspecified Qualified Code(s): I50.9 - Heart failure, unspecified Acute respiratory failure Qualifiers: Respiratory failure complication: unspecified whether with hypoxia or hypercapnia Qualified Code(s): J96.00 - Acute respiratory failure, unspecified whether with hypoxia or hypercapnia Pulmonary edema Qualifiers: Chronicity: acute Qualified Code(s): J81.0 - Acute pulmonary edema Condition: Stable Coding Level of Care Code ED Skip Locator for Francisco Javier Ely
[2023-09-16] MEDS: dilTIAZem 5 mg/mL SDV 5 mL 20 MG IVP (23:37)
[2023-09-16 23:38] VITALS: BP 144/110; PULSE 122; RESP 21; O2SAT 89
[2023-09-16 23:40] LABS: Basophils % 0.4 %; Eosinophils # 0.1 10^3/uL (0.0-0.8); Eosinophils % 0.5 %; Hematocrit 44.5 % (37-53); Lymphocytes # 1.5 10^3/uL (0.8-4.8); Mean Corpuscular HGB Conc 30.1 g/dL (30-55); Mean Corpuscular Hemoglobin 29.8 pg (27-33); Mean Corpuscular Volume 98.9 fl (82-101); Mean Platelet Volume 10.5 fL (7.4-10.4); Monocytes # 1.1 10^3/uL (0.2-0.9); Monocytes % 9.4 %; Neutrophils # 8.56 10^3/uL (1.8-7.7); Neutrophils % 76.3 %; Nucleated Red Blood Cells % 0.2 %; Platelet Count 283 10^3/cmm (157-399); Red Cell Distribution Width 13.9 % (12.1-15.1); White Blood Count 11.21 10^3/uL (3.29-11.43)
[2023-09-17] VITALS (13 sets, daily range): BP systolic 122–168; BP diastolic 87–134; PULSE 113–134; RESP 18–33; TEMP 36.4–37.4; O2SAT 90–96
[2023-09-17 00:05] LABS: Troponin(5th) Baseline 25 ng/L (0-15)
[2023-09-17] MEDS: amiodarone 150 MG/100 ML PREMIX 400 MG IV (00:06)
[2023-09-17 00:08] LABS: INR 1.49 (0.8-1.2)
[2023-09-17] MEDS: FUROsemide 10 mg/mL SDV 10mL 60 MG IVP (00:23)
[2023-09-17 00:30] LABS: Alanine Aminotransferase 16 U/L (0-41); Albumin Level 3.8 g/dL (3.5-5.2); Alkaline Phosphatase 84 U/L (40-130); Anion Gap 15.7 (5-19); Aspartate Amino Transferase 22 U/L (0-40); Blood Urea Nitrogen 17 mg/dL (6-20); Calcium 9.6 mg/dL (8.5-10.5); Carbon Dioxide 30 mmol/L (22-29); Chloride 96 mmol/L (98-107); Globulin 3.8 g/dL (1.3-4.6); Glomerular Filtration Rate 58.9 mL/min (90-130); Glucose 116 mg/dL (65-115); Magnesium 1.9 mg/dL (1.7-2.3); NT Pro B Type Natriuretic Pept 2631 pg/mL (0-125); Osmolality Calculated 289 mOsm/kg (285-295); Potassium 3.7 mmol/L (3.5-5.1); Sodium 138 mmol/L (136-145); Thyroid Stimulating Hormone 1.03 uIU/mL (0.27-4.20); Total Bilirubin 0.7 mg/dL (0.15-1.2); Total Protein 7.6 g/dL (6.6-8.7)
[2023-09-17 01:11] LABS: ABG PCO2 51.1 mmHg (35-45); Arterial Blood Gas Hematocrit 42.7 % (42-52); Blood Gas Allen Test Pos; Blood Gas Sample Site Radial, right; Blood Gas Sample Type Arterial; Carboxyhemoglobin 1.6 %THgb (0.4-20.1); HCO3 ABG 31.2 mmol/L (22-26); HGB O2 Sat 92.7 % (95-100); Ionized Calcium Level - ABG 1.2 mmol/L (1.1-1.4); Methemoglobin 0.4 % (0.4-1.5); Oxygen Device NC; Oxygen Saturation ABG 94.6; PO2 ABG 71.9 mmHg (80.0-100.0); Potassium Level - ABG 4.1 mmol/L (3.5-5.0); Total Hemoglobin 13.9 g/dL (14-18)
--- NOTE | 2023-09-17 01:36 | P.HP_ITS ---
Providers/Chief Complaint 2 Admitting Physician: Zander Manriquez MD Primary Care Provider: Cornel Fuentes MD Chief Complaint: resp distress History of Present Illness Robert Juarez is a 47 year old male with a past medical history of atrial fibrillation, hypertension, hyperlipidemia, morbid obesity, who presents to [facility] due to chest palpitations and shortness of breath. Patient tells me that he has been developing increased bilateral extremity, increased shortness of breath with exertion, he is missed his amiodarone doses, for the last week as he ran out of his medication for years using his Eliquis and his Lasix medication, no chest pain, no fevers, no cough Review of Systems 2 Card: Denies: chest pain Resp: Reports: dyspnea Medications/Allergies Home Medications Medication Instructions Recorded Confirmed Last Taken Type amiodarone 200 mg tablet 200 mg PO DAILY #37 tabs 11/05/21 08/23/23 11/06/21 Rx atorvastatin 40 mg tablet 20 mg (1/2 x 40 mg) PO BEDTIME #30 11/05/21 08/23/23 11/06/21 Rx tabs diltiazem HCl 240 mg 240 mg PO DAILY #30 caps 11/05/21 08/23/23 11/06/21 Rx capsule,extended release 24 hr (Cardizem CD) apixaban 5 mg tablet (Eliquis) 5 mg PO BID 01/29/22 08/23/23 Unknown History magnesium oxide 400 mg PO DAILY 01/29/22 08/23/23 Unknown History metoprolol tartrate 100 mg tablet 100 mg PO BID 01/29/22 08/23/23 Unknown History melatonin 5 mg tablet 5 mg PO .HS PRN sleep 02/17/22 08/23/23 Unknown History potassium gluconate 600 mg (99 mg) 600 mg PO DAILY 04/02/22 08/23/23 Unknown History tablet furosemide 40 mg tablet (Lasix) 40 mg PO DAILY #60 tabs 10/07/22 08/23/23 Unknown Rx lisinopril 20 mg tablet 20 mg PO DAILY 10/07/22 08/23/23 Unknown History multivitamin with minerals-folic tab PO 10/07/22 08/23/23 Unknown History acid 120 mcg chewable tablet (Centrum Adult 50 Plus Fresh-Fruity) spironolactone 25 mg tablet 12.5 mg (1/2 x 25 mg) PO DAILY #90 10/07/22 08/23/23 Unknown Rx tabs buspirone 30 mg tablet 30 mg PO BID #60 tabs 11/06/22 08/23/23 Unknown Rx duloxetine 60 mg capsule,delayed 120 mg (2 x 60 mg) PO DAILY #180 11/06/22 08/23/23 Unknown Rx release caps metolazone 2.5 mg tablet 2.5 mg PO .every other day #3 tabs 11/30/22 08/23/23 Unknown Rx potassium chloride 20 mEq 20 meq PO .every other day #3 tabs 11/30/22 08/23/23 Unknown Rx tablet,extended release(part/cryst) (Klor-Con M) Allergies Allergy/AdvReac Type Severity Reaction Status Date / Time No Known Allergies Allergy Verified 11/16/22 10:44 PFSH Acute 2 PFSH: Medical History Lower urinary tract symptoms (LUTS) Morbid obesity with BMI of 70 and over, adult Candidal skin infection BONITA (obstructive sleep apnea) Hypertension Depression Anxiety Bipolar 1 disorder Restrictive lung disease Gout Dyslipidemia Psychiatric care Generalized anxiety disorder Major depressive disorder, recurrent severe without psychotic features Surgical History No significant past surgical history Family History Mother Myocardial infarct Stroke Father Myocardial infarct Diabetes Other Cancer Dementia Hypertension Psychiatric illness Social History Smoking and tobacco/nicotine status: former use of tobacco/nicotine Quit status (tobacco/nicotine): has quit using Year quit tobacco: 2002 Second hand smoke exposure: No Alcohol intake: former Year of sobriety/quit date alcohol: 2019 Substance/Drug Use: never Adopted: No Caregiver/support person: Yes ([facility] at home health clinician 3 days per week 2.5 hours and a nurse once per week) Lives independently: No Household members: significant other Housing: Manufactured/Mobile home Marital status: Life Partner Number of children: 0 Number of grandchildren: 0 Highest education level completed: 12th Grade, No Diploma service: No Current occupational status: disabled Current occupational exposures/hazards: No Pets and animals: No Leisure activites: music, reading and other Leisure activities details: watches TV Sexually active: No Do you think of yourself as: Lesbian/Jacobsen/Homosexual Current gender identity: Male Jayne/Oriental Orthodox: None Special jayne needs: No Agree to transfusion: No Vitals/I&O/Wt Last Vital Signs Temp 98.7 F 09/16/23 23:24 Pulse 117 H 09/17/23 00:26 Resp 29 H 09/17/23 00:26 BP 122/87 09/17/23 00:26 Pulse Ox 90 09/17/23 00:26 O2 Del Method Nasal Cannula 09/17/23 00:26 O2 Flow Rate 4 09/16/23 23:38 09/16/23 09/16/23 09/17/23 14:59 22:59 06:59 Intake Total 100 / 100 Balance 100 / 100 Weight last 48 hrs Weight 226.796 kg Physical Exam 2 Const: COMMON NORMALS: no acute distress and patient oriented x3 HENMT: COMMON NORMALS: normocephalic HEAD & SCALP: normocephalic Eye: COMMON NORMALS: Equal, round and reactive pupils present and EOMs intact bilaterally Neck/C-Spine: COMMON NORMALS: no JVD Lymph: LYMPHATIC: no lymphadenopathy noted Resp: COMMON NORMALS: normal respiratory effort, No retractions and No use of accessory muscles OTHER: Crackles in all lung cotter Cardio: COMMON NORMALS: regular rate, regular rhythm, S1 normal heart sound present and S2 normal heart sound present RATE: tachycardic RHYTHM: a bnormal rhythm irregularly irregular HEART SOUNDS: S1 normal heart sound present and S2 normal heart sound present GI: COMMON NORMALS: Normal to inspection, nondistended, normoactive bowel sounds present, Soft to palpation and non-tender Extremity: NARRATIVE EXTREMITY EXAM: 2+ pitting edema Neuro: COMMON NORMALS: patient oriented x3 Psych: COMMON NORMALS: mental status grossly normal Data 09/16/23 23:31 09/16/23 23:31 A&P Assessment and plan (1) Atrial fibrillation with rapid ventricular response: (2) Acute hypoxemic respiratory failure: (3) Morbid obesity with BMI of 70 and over, adult: (4) Acute CHF: Qualifiers: Heart failure type: unspecified Qualified Code(s): I50.9 - Heart failure, unspecified Plan Acute hypoxic respiratory failure, likely secondary to acute systolic diastolic CHF exacerbation ? Secondary to fluid overload, ? Lasix 40 mg IV twice daily ? Monitor creatinine, traumatic, monitor potassium ? Fluid restrictions at 1000 cc ?cardiac echo ? Chest x-ray mentioned patchy groundglass opacities in the left upper lobe, CRP, Pro-Matthew, respiratory viral panel, denies any fevers, no chills, no cough A-fib with RVR, ? Continue amiodarone drip, ? Metoprolol 50 twice daily, next ?Eliquis 5 mg twice daily Full code Eliquis for DVT prophylaxis Attestations 2 Medical Necessity Statement*: Patient requires hospitalization, inpatient, greater than 2 midnights, for acute hypoxic respiratory failure, acute CHF, morbid obesity, A-fib with RVR Diagnoses Atrial fibrillation with rapid ventricular response I48.91 Acute hypoxemic respiratory failure J96.01 Morbid obesity with BMI of 70 and over, adult E66.01; Z68.45 Acute CHF I50.9 Heart failure type: unspecified
--- NOTE | 2023-09-17 01:36 | USCV_ITS ---
Robert Juarez Age: 47 Gender: M : 1975 Exam Date: 09/17/2023 15:52 Ordering Phys: Zander Manriquez MD Technologist: Vazquez Martinez [place] [facility] [place]: sob BP: 154 / 107 HR: Rhythm: Sinus Technical Quality: Poor because of body habitus MEASUREMENTS (Male / Female) Normal Values DOPPLER Right Atrial Pressure 8.0 mmHg FINDINGS Left Ventricle Right Ventricle Right Atrium Left Atrium Mitral Valve Aortic Valve Tricuspid Valve Pulmonic Valve Pericardium Aorta IVC CONCLUSIONS This is very limited quality echocardiogram. Cardiac structures are not well-visualized. Azeem Weinstein MD (Electronically Signed) Final Date: 18 September 2023 12:44 S
[2023-09-17 02:35] LABS: Add Urine Microscopic? NO; Charge for UA Resulting for Rev
[2023-09-17 02:40] LABS: Bilirubin Urine Neg (Negative); Blood Urine Neg (Negative); Glucose Urine UA Norm (Normal); Ketones Urine Negative (Negative); Leukocyte Esterase Urine Negative (Negative); Nitrate Urine Negative (Negative); Protein Urine Neg (Negative); Specific Gravity, Urine 1.015 (1.005-1.030); Urine Appearance Clear (CLEAR); Urine Color Colorless (Yellow); Urobilinogen Urine Neg (Negative); pH Urine 6 (5-7)
[2023-09-17 02:50] LABS: Estmated Average Glucose 120; Hemoglobin A1C 5.8 % (4.0-6.0)
[2023-09-17 02:53] LABS: Lactic Sepsis W/Reflex 1.5 mmol/L (0.5-2.2); Troponin 5 2HR 22.32 ng/L (0-15)
[2023-09-17 02:54] LABS: Troponin 5 2HR Delta -2.68 ABS# (0-10)
[2023-09-17 03:07] LABS: Procalcitonin 0.04 ng/mL (0-0.5); Thyroid Stimulating Hormone 0.76 uIU/mL (0.27-4.20)
[2023-09-17 03:18] LABS: Chol HDL Ratio 3.16 mg/dL (1.0-5.00); Cholesterol 117 mg/dL (0-200); HDL Cholesterol 37 mg/dL (60-100); LDL Cholesterol Calculated 62 mg/dL (50-129); LDL HDL Ratio 1.68 RATIO (0.00-3.22); Triglycerides 88 mg/dL (0-150)
[2023-09-17 04:39] LABS: Adenovirus Not Detected (NOT DETECT); Chlamydia Pneumoniae Not Detected (NOT DETECT); Coronavirus 229E,HKU1,NL63,OC4 Not Detected (NOT DETECT); Human Metapneumovirus Not Detected (NOT DETECT); Human Rhinovirus/Enterovirus Not Detected (NOT DETECT); Influenza A Not Detected (NOT DETECT); Influenza A H1 Not Detected (NOT DETECT); Influenza A H1-2009 Not Detected (NOT DETECT); Influenza A H3 Not Detected (NOT DETECT); Influenza B Not Detected (NOT DETECT); Mycoplasma Pneumoniae Not Detected (NOT DETECT); Parainfluenza Virus Type 1 Not Detected (NOT DETECT); Parainfluenza Virus Type 2 Not Detected (NOT DETECT); Parainfluenza Virus Type 3 Not Detected (NOT DETECT); Parainfluenza Virus Type 4 Not Detected (NOT DETECT); Respiratory Syncytial Virus A Not Detected (NOT DETECT); Respiratory Syncytial Virus B Not Detected (NOT DETECT); SARS-COV-2 Not Detected (NOT DETECT)
--- NOTE | 2023-09-17 05:28 | ECG_ITS ---
[facility] Test Date: 2023-09-17 Pat Name: Robert Juarez Department: Room: 105 Gender: Male Skiver Blockers: : 1975 Requested By: Joshua Graham Order Number: [id number] [place] MD: Azeem Weinstein M.D. Measurements Intervals [place] Rate: 122 P: 0 SD: 0 QRS: 144 QRSD: 162 T: 43 QT: 385 QTc: 551 Interpretive Statements ATRIAL FIBRILLATION WITH RAPID VENTRICULAR RESPONSE RIGHT AXIS DEVIATION [QRS AXIS > 100] INTRAVENTRICULAR CONDUCTION DELAY [130+ ms QRS DURATION] Compared to ECG 09/16/2023 23:27:31 Right-axis deviation now present Electronically Signed On 09-18-2023 23:28:40 SOFA BACK UPHOLSTERER by Azeem Weinstein M.D. [id number]
[2023-09-17 07:36] LABS: Troponin 5 6HR 21.33 ng/L (0-15)
[2023-09-17 07:39] LABS: Anion Gap 14.1 (5-19); Blood Urea Nitrogen 16 mg/dL (6-20); Calcium 9.5 mg/dL (8.5-10.5); Carbon Dioxide 33 mmol/L (22-29); Chloride 96 mmol/L (98-107); Glomerular Filtration Rate 54.1 mL/min (90-130); Glucose 117 mg/dL (65-115); Osmolality Calculated 290 mOsm/kg (285-295); Potassium 4.1 mmol/L (3.5-5.1); Sodium 139 mmol/L (136-145); Troponin 5 6HR Delta -3.67 ng/L (0-12)
[2023-09-17] MEDS: apixaban 5 mg Tablet PO ×2 (09:45→18:21)
[2023-09-17] MEDS: FUROsemide 10 mg/mL SDV 4mL 40 MG IVP ×2 (09:45→20:56)
[2023-09-17] MEDS: metoprolol tartrate 50 mg Tablet PO ×2 (09:45→18:21)
[2023-09-17] MEDS: amiodarone 200 mg Tablet PO (09:46)
[2023-09-17] MEDS: spironolactone 25 mg Tablet 12.5 MG PO (09:46)
[2023-09-17] MEDS: duloxetine 60 mg Capsule 120 MG PO (09:47)
[2023-09-17] MEDS: aspirin 81 mg EC Tablet PO (09:47)
[2023-09-17] MEDS: pantoprazole 40 mg SDV IVP (09:53)
--- NOTE | 2023-09-17 13:03 | PM.MISC ---
Miscellaneous Note Note: Seen this morning. Continue plan as per assessment plan at this time. Patient is comfortable. Currently on amiodarone drip. Takes Eliquis at home. Does not offer any complaints at this time says he is feeling slightly better than yesterday.
[2023-09-17] MEDS: BuSPIRONE 10 mg Tablet 30 MG PO ×2 (13:06→18:21)
[2023-09-17] MEDS: atorvastatin 40 mg Tablet 20 MG PO (20:56)
[2023-09-18] VITALS (8 sets, daily range): BP systolic 122–166; BP diastolic 91–105; PULSE 92–110; RESP 17–24; TEMP 36.5–37; O2SAT 93–100
[2023-09-18 05:57] LABS: Basophils # 0.1 10^3/uL (0.0-0.1); Basophils % 0.4 %; Eosinophils # 0.1 10^3/uL (0.0-0.8); Eosinophils % 0.5 %; Hematocrit 43.5 % (37-53); Lymphocytes # 1.1 10^3/uL (0.8-4.8); Lymphocytes % 8.9 %; Mean Corpuscular HGB Conc 29.2 g/dL (30-55); Mean Corpuscular Hemoglobin 29.3 pg (27-33); Mean Corpuscular Volume 100.5 fl (82-101); Monocytes # 1.1 10^3/uL (0.2-0.9); Monocytes % 8.9 %; Neutrophils # 9.63 10^3/uL (1.8-7.7); Neutrophils % 80.9 %; Nucleated Red Blood Cells % 0 %; Platelet Count 254 10^3/cmm (157-399); Red Blood Count 4.33 10^6/uL (3.85-5.65); Red Cell Distribution Width 13.7 % (12.1-15.1); White Blood Count 11.91 10^3/uL (3.29-11.43)
[2023-09-18 06:17] LABS: Anion Gap 11.2 (5-19); Blood Urea Nitrogen 20 mg/dL (6-20); Calcium 8.9 mg/dL (8.5-10.5); Carbon Dioxide 34 mmol/L (22-29); Chloride 99 mmol/L (98-107); Glomerular Filtration Rate 54.1 mL/min (90-130); Glucose 109 mg/dL (65-115); Osmolality Calculated 293 mOsm/kg (285-295); Potassium 4.2 mmol/L (3.5-5.1); Sodium 140 mmol/L (136-145)
[2023-09-18] MEDS: apixaban 5 mg Tablet PO ×2 (07:56→17:42)
[2023-09-18] MEDS: BuSPIRONE 10 mg Tablet 30 MG PO ×2 (07:56→17:42)
[2023-09-18] MEDS: aspirin 81 mg EC Tablet PO (07:56)
[2023-09-18] MEDS: amiodarone 200 mg Tablet PO (07:57)
[2023-09-18] MEDS: duloxetine 60 mg Capsule 120 MG PO (07:57)
[2023-09-18] MEDS: metoprolol tartrate 50 mg Tablet PO ×2 (07:57→17:42)
[2023-09-18] MEDS: spironolactone 25 mg Tablet 12.5 MG PO (07:57)
[2023-09-18] MEDS: FUROsemide 10 mg/mL SDV 4mL 40 MG IVP (07:58)
[2023-09-18] MEDS: pantoprazole 40 mg SDV IVP (08:04)
[2023-09-18] MEDS: dilTIAZem 60 mg Tablet PO ×3 (09:39→21:32)
[2023-09-18] MEDS: FUROsemide 40 mg Tablet PO (17:42)
[2023-09-18] MEDS: atorvastatin 40 mg Tablet 20 MG PO (21:32)
[2023-09-19] VITALS: BP 98/66; PULSE 98; RESP 17; O2SAT 89
[2023-09-19 03:54] LABS: Basophils % 0.3 %; Eosinophils # 0.1 10^3/uL (0.0-0.8); Eosinophils % 0.7 %; Hematocrit 43.1 % (37-53); Lymphocytes # 0.9 10^3/uL (0.8-4.8); Lymphocytes % 7.7 %; Mean Corpuscular HGB Conc 28.8 g/dL (30-55); Mean Corpuscular Volume 100.9 fl (82-101); Mean Platelet Volume 11.1 fL (7.4-10.4); Monocytes % 8.5 %; Neutrophils # 9.83 10^3/uL (1.8-7.7); Neutrophils % 82.3 %; Nucleated Red Blood Cells % 0 %; Platelet Count 228 10^3/cmm (157-399); Red Blood Count 4.27 10^6/uL (3.85-5.65); Red Cell Distribution Width 13.7 % (12.1-15.1); White Blood Count 11.94 10^3/uL (3.29-11.43)
[2023-09-19 04:00] VITALS: BP 136/96; PULSE 96; RESP 17; TEMP 36.4; O2SAT 94
[2023-09-19 04:10] LABS: Blood Urea Nitrogen 24 mg/dL (6-20); Calcium 8.9 mg/dL (8.5-10.5); Carbon Dioxide 37 mmol/L (22-29); Chloride 100 mmol/L (98-107); Glomerular Filtration Rate 58.9 mL/min (90-130); Glucose 135 mg/dL (65-115); Magnesium 2.1 mg/dL (1.7-2.3); Osmolality Calculated 300 mOsm/kg (285-295); Sodium 142 mmol/L (136-145)
[2023-09-19 04:11] LABS: Anion Gap 9.4 (5-19); Potassium 4.4 mmol/L (3.5-5.1)
[2023-09-19] MEDS: dilTIAZem 60 mg Tablet PO ×2 (04:22→10:51)
[2023-09-19 04:51] VITALS: PULSE 91
[2023-09-19 07:18] VITALS: BP 135/102; PULSE 99; RESP 17; TEMP 36.4; O2SAT 94
[2023-09-19] MEDS: BuSPIRONE 10 mg Tablet 30 MG PO (08:42)
[2023-09-19] MEDS: duloxetine 60 mg Capsule 120 MG PO (08:42)
[2023-09-19] MEDS: apixaban 5 mg Tablet PO (08:43)
[2023-09-19] MEDS: spironolactone 25 mg Tablet 12.5 MG PO (08:43)
[2023-09-19] MEDS: metoprolol tartrate 50 mg Tablet PO (08:44)
[2023-09-19] MEDS: aspirin 81 mg EC Tablet PO (08:44)
[2023-09-19] MEDS: FUROsemide 40 mg Tablet PO (08:44)
[2023-09-19] MEDS: pantoprazole 40 mg SDV IVP (10:51)
[2023-09-19 11:12] VITALS: BP 108/88; PULSE 90; RESP 20; TEMP 36.7; O2SAT 97
--- NOTE | 2023-09-19 12:21 | P.DS_ITS ---
Discharge Providers Date of Admission: 09/17/23 00:58 Date of Discharge: September 19, 2023 Attending Provider at Admission: Zander Manriquez MD Attending Provider at Discharge: Nicole Stephens MD Primary Care Provider: Cornel Fuentes MD Diagnoses at Discharge Discharge Diagnosis (1) Atrial fibrillation with rapid ventricular response: Status: Acute (2) Acute hypoxemic respiratory failure: Status: Acute (3) Morbid obesity with BMI of 70 and over, adult: Status: Acute (4) Acute CHF: Status: Acute Qualifiers: Heart failure type: unspecified Qualified Code(s): I50.9 - Heart failure, unspecified Reason for Visit Reason for Visit: resp distress Hospital Course Hospital Course Patient was admitted for mild fluid overload increasing shortness of breath and A-fib with RVR. He stated that he ran out of his medication that he has been using for years. There is also history of noncompliance of medication listed in chart otherwise. Patient remained on amiodarone drip and was diuresed with Lasix. He was transition back to his home medications and now on 4 L nasal cannula. He also states at home he is supposed to be on 3 but does better when he is on a little bit of higher oxygen. He states he does wear his BiPAP at night however takes marijuana to help keep it on otherwise he gets too anxious. Patient was sent home with newly increased oxygen requirements with refill of all his home medications. He was also set up with cardiology as an outpatient. We have requested for appointment with cardiology. 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 Patient verbalized understanding of above and will be discharged home in stable condition today. All questions answered to patient satisfaction. He states he is feeling that he is back to baseline. Physical Exam Const: COMMON NORMALS: no acute distress and patient oriented x3 HENMT: COMMON NORMALS: normocephalic HEAD & SCALP: normocephalic Eye: COMMON NORMALS: Equal, round and reactive pupils present and EOMs intact bilaterally PUPIL: Yes Equal, round and reactive pupils present Neck/C-Spine: COMMON NORMALS: no JVD Lymph: LYMPHATIC: no lymphadenopathy noted Resp: COMMON NORMALS: normal respiratory effort, No retractions and No use of accessory muscles OTHER: Crackles in all lung cotter Cardio: COMMON NORMALS: no JVD, regular rate, regular rhythm, S1 normal heart sound present and S2 normal heart sound present RATE: regular rate and tachycardic RHYTHM: regular rhythm and abnormal rhythm irregularly irregular HEART SOUNDS: S1 normal heart sound present and S2 normal heart sound present GI: COMMON NORMALS: Normal to inspection, nondistended, normoactive bowel sounds present, Soft to palpation and non-tender PALPATION: Yes Soft to palpation Extremity: NARRATIVE EXTREMITY EXAM: 1+ pitting edema Neuro: COMMON NORMALS: patient oriented x3 Psych: COMMON NORMALS: mental status grossly normal Urinary Catheter Management: Fisher: Cath Placed During This Visit: yes Reason for Continuing Indwelling Catheter: Acute Urinary Retention or Obstruction Urinary Catheter Date of Insertion: 09/17/23 Urinary Catheter Time of Insertion: 02:08 Discharge Data Studies Completed and Pending Completed Studies During Hospitalization Category Date Time Status XR chest 1V portable [id number] Stat Exams 09/16/23 23:28 Completed CV. echo complete* [id number] Routine Ultrasound 09/17/23 01:36 Completed Radiology Impressions Chest X-Ray 09/16/23 23:28 IMPRESSION: Cardiomegaly and pulmonary vascular congestion with patchy ground-glass airspace opacities greatest in the left upper lobe may reflect alveolar edema and/or pneumonic infiltrates. Laboratory Results WBC 11.94 10^3/uL (3.29-11.43) H 09/19/23 03:25 RBC 4.27 10^6/uL (3.85-5.65) 09/19/23 03:25 Hgb 12.40 g/dL (11.27-16.99) 09/19/23 03:25 Hct 43.1 % (37-53) 09/19/23 03:25 MCV 100.9 fl (82-101) 09/19/23 03:25 MCH 29.0 pg (27-33) 09/19/23 03:25 MCHC 28.8 g/dL (30-55) L 09/19/23 03:25 RDW 13.7 % (12.1-15.1) 09/19/23 03:25 Plt Count 228 10^3/cmm (157-399) 09/19/23 03:25 MPV 11.1 fL (7.4-10.4) H 09/19/23 03:25 Neut % (Auto) 82.3 % 09/19/23 03:25 Lymph % (Auto) 7.7 % 09/19/23 03:25 [place] % (Auto) 8.5 % 09/19/23 03:25 Eos % (Auto) 0.7 % 09/19/23 03:25 Baso % (Auto) 0.3 % 09/19/23 03:25 Neut # (Auto) 9.83 10^3/uL (1.8-7.7) H 09/19/23 03:25 Lymph # (Auto) 0.9 10^3/uL (0.8-4.8) 09/19/23 03:25 [place] # (Auto) 1.0 10^3/uL (0.2-0.9) H 09/19/23 03:25 Eos # (Auto) 0.1 10^3/uL (0.0-0.8) 09/19/23 03:25 Baso # (Auto) 0.0 10^3/uL (0.0-0.1) 09/19/23 03:25 Nucleated RBC % (auto) 0 % 09/19/23 03:25 Nucleated RBCs # 0.0 /100WBC 09/19/23 03:25 PT 18.50 SECONDS (12.1-14.9) H 09/16/23 23:31 INR 1.49 (0.8-1.2) H 09/16/23 23:31 Specimen Type Arterial 09/17/23 01:00 Sample Site Radial, right 09/17/23 01:00 ABG pH 7.40 (7.35-7.45) 09/17/23 01:00 ABG pCO2 51.1 mmHg (35-45) H 09/17/23 01:00 ABG pO2 71.9 mmHg (80.0-100.0) L 09/17/23 01:00 ABG HCO3 31.2 mmol/L (22-26) H 09/17/23 01:00 ABG O2 Saturation 94.6 09/17/23 01:00 ABG Base Excess 5.0 mmol/L (-2.0-2.0) H 09/17/23 01:00 Joseph Test Pos 09/17/23 01:00 A-a O2 Gradient 2.0 mmHg (5-10) L 09/17/23 01:00 Hematocrit 42.7 % (42-52) 09/17/23 01:00 Hgb O2 Saturation 92.7 % (95-100) L 09/17/23 01:00 Carboxyhemoglobin 1.6 %THgb (0.4-20.1) 09/17/23 01:00 Methemoglobin 0.4 % (0.4-1.5) 09/17/23 01:00 Total Hemoglobin 13.9 g/dL (14-18) L 09/17/23 01:00 Sodium 140.0 mmol/L (131-143) 09/17/23 01:00 Potassium 4.1 mmol/L (3.5-5.0) 09/17/23 01:00 Glucose 124.0 mg/dL (70-115) H 09/17/23 01:00 Ionized Calcium 1.2 mmol/L (1.1-1.4) 09/17/23 01:00 O2 Delivery Device Nc 09/17/23 01:00 O2 Liters/Min 5.0 % 09/17/23 01:00 Credit Clerk ID [email or web address] 09/17/23 01:00 Sodium 142 mmol/L (136-145) 09/19/23 03:25 Potassium 4.4 mmol/L (3.5-5.1) 09/19/23 03:25 Chloride 100 mmol/L (98-107) 09/19/23 03:25 Carbon Dioxide 37 mmol/L (22-29) H 09/19/23 03:25 Anion Gap 9.4 (5-19) 09/19/23 03:25 BUN 24 mg/dL (6-20) H 09/19/23 03:25 Creatinine 1.3 mg/dL (0.7-1.2) H 09/19/23 03:25 GFR Calculation 58.9 mL/min (90-130) L 09/19/23 03:25 Glucose 135 mg/dL (65-115) H 09/19/23 03:25 Estimat Average Glucose 120 09/17/23 02:26 Hemoglobin A1c 5.8 % (4.0-6.0) 09/17/23 02:26 Calculated Osmolality 300 mOsm/kg (285-295) H 09/19/23 03:25 Lactic Acid 1.5 mmol/L (0.5-2.2) 09/17/23 02:26 Calcium 8.9 mg/dL (8.5-10.5) 09/19/23 03:25 Magnesium 2.1 mg/dL (1.7-2.3) 09/19/23 03:25 Total Bilirubin 0.7 mg/dL (0.15-1.2) 09/16/23 23:31 AST 22 U/L (0-40) 09/16/23 23:31 ALT 16 U/L (0-41) 09/16/23 23:31 Alkaline Phosphatase 84 U/L (40-130) 09/16/23 23:31 Troponin T Baseline 25 ng/L (0-15) H 09/16/23 23:31 Troponin T 120 Minute 22.32 ng/L (0-15) H 09/17/23 02:26 Delta Troponin T -2.68 ABS# (0-10) L 09/17/23 02:26 Troponin T Hi Sens 6Hr 21.33 ng/L (0-15) H 09/17/23 06:51 Troponin T Hi Sens 6Hr Delta -3.67 ng/L (0-12) L 09/17/23 06:51 NT-Pro-B Natriuret Pep 2631 pg/mL (0-125) H 09/16/23 23:31 Total Protein 7.6 g/dL (6.6-8.7) 09/16/23 23:31 Albumin 3.8 g/dL (3.5-5.2) 09/16/23 23:31 Globulin 3.8 g/dL (1.3-4.6) 09/16/23 23:31 Triglycerides 88 mg/dL (0-150) 09/17/23 02:26 Cholesterol 117 mg/dL (0-200) 09/17/23 02:26 LDL Cholesterol, Calc 62 mg/dL (50-129) 09/17/23 02:26 HDL Cholesterol 37 mg/dL (60-100) L 09/17/23 02:26 LDL/HDL Ratio 1.68 RATIO (0.00-3.22) 09/17/23 02: Cholesterol/HDL Ratio 3.16 mg/dL (1.0-5.00) 09/17/23 02:26 Procalcitonin 0.04 ng/mL (0-0.5) 09/17/23: TSH 0.76 uIU/mL (0.27-4.20) 09/17/23: Urine Color Colorless (Yellow) 09/17/23 02: Urine Appearance Clear (CLEAR) 09/17/23 02:25 Urine pH 6 (5-7) 09/17/23 02: Ur Specific [place] 1.015 (1.005-1.030) 09/17/23: Urine Protein Neg (Negative) 09/17/23:25 Urine Glucose (UA) Norm (Normal) 09/17/23 02: Urine Ketones Negative (Negative) 09/17/23: Urine Blood Neg (Negative) 09/17/23: Urine Nitrate Negative (Negative) 09/17/23: Urine Bilirubin Neg (Negative) 09/17/23: Urine Urobilinogen Neg mg/dL (Negative) 09/17/23: Ur Leukocyte Esterase Negative (Negative) 09/17/23:25 Adenovirus (PCR) Not detected (NOT DETECT) 09/17/23 02:25 C. pneumoniae DNA (PCR) Not detected (NOT DETECT) 09/17/23 02: Coronavirus 229E (PCR) Not detected (NOT DETECT) 09/17/23 02: Human Metapneumovir PCR Not detected (NOT DETECT) 09/17/23 02:25 Influenza A (H1) PCR Not detected (NOT DETECT) 09/17/23 02: Influ A (H1/09) PCR Not detected (NOT DETECT) 09/17/23: Influenza A (H3) PCR Not detected (NOT DETECT) 09/17/23 02:25 Influenza Type A (PCR) Not detected (NOT DETECT) 09/17/23 02:25 Influenza Type B (PCR) Not detected (NOT DETECT) 09/17/23:25 M. pneumoniae (PCR) Not detected (NOT DETECT) 09/17/23: Parainfluenza 1 (PCR) Not detected (NOT DETECT) 09/17/23 02:25 Parainfluenza 2 (PCR) Not detected (NOT DETECT) 09/17/23: Parainfluenza 3 (PCR) Not detected (NOT DETECT) 09/17/23 02:25 Parainfluenza 4 (PCR) Not detected (NOT DETECT) 09/17/23 02:25 RSV Type A (PCR) Not detected (NOT DETECT) 09/17/23 02:25 RSV Type B (PCR) Not detected (NOT DETECT) 09/17/23 02:25 Entero/Rhino (PCR) Not detected (NOT DETECT) 09/17/23 02:25 SARS-CoV-2 (PCR) Not detected (NOT DETECT) 09/17/23 02:25 Vitals Last Vital Signs Temp 98.0 F 09/19/23 11:12 Pulse 90 09/19/23 11:12 Resp 20 H 09/19/23 11:12 BP 108/88 09/19/23 11:12 Pulse Ox 97 09/19/23 11:12 O2 Del Method Nasal Cannula 09/19/23 11:12 O2 Flow Rate 5 09/19/23 04:00 Discharge Plan Discharge Patient Disposition: Home Condition: Stable Prescriptions: New doxycycline hyclate 100 mg capsule 100 mg PO Q12H 7 Days Qty: 14 0RF Continued potassium gluconate 600 mg (99 mg) tablet 600 mg PO DAILY potassium chloride [Klor-Con M20] 20 mEq tablet,ER particles/crystals 20 meq PO .every other day Qty: 3 0RF Rx Instructions: take only on days with metolazone Centrum Adult 50 Fresh-Fruity 120 mcg tablet,chewable 1 tab PO DAILY melatonin 5 mg tablet 5 mg PO .HS PRN (Reason: sleep) atorvastatin 40 mg Tablet 20 mg PO BEDTIME Qty: 30 0RF metoprolol tartrate 100 mg tablet 100 mg PO BID Qty: 60 0RF amiodarone 200 mg tablet 200 mg PO DAILY Qty: 37 0RF diltiazem HCl [Cardizem CD] 240 mg capsule,extended release 24hr 240 mg PO DAILY Qty: 30 0RF spironolactone 25 mg tablet 12.5 mg PO DAILY Qty: 90 3RF buspirone 30 mg tablet 30 mg PO BID Qty: 60 2RF furosemide 20 mg tablet 40 mg PO BID Qty: 120 0RF duloxetine 60 mg capsule,delayed release(DR/EC) 120 mg PO DAILY Qty: 180 0RF magnesium oxide 400 mg magnesium capsule 400 mg PO DAILY Qty: 30 0RF Eliquis 5 mg tablet 5 mg PO BID Qty: 60 0RF Held lisinopril 20 mg tablet 20 mg PO DAILY Hold Instructions: see pcp Discharge Orders: Discharge Order (Routine); Ordered 09/19/23 Ordered By: Nicole Stephens Referrals: Carmel Darby MD [Physician] - 7-10 days (We have notified your physician's clinic of the need for a follow-up appointment to be scheduled. If you have not heard from them within the next 2 business days, please call them directly. ) Kinjal Ornelas DO [Referring] - 1 week (Please call for for follow-up appointment within 4 to 7 days. ) Discharge Diet: Cardiac Discharge Activity: Resume usual activity and Oxygen as instructed Patient Instructions: Doxycycline (By mouth), A-fib (Atrial Fibrillation) (DC), Pulmonary Edema (DC), Acute Respiratory Failure (GEN), CHF Stoplight, Opioid Safety Discharge Attestations Time Spent in Discharge Care*: greater than 30 min Status at Discharge: Cognitive status at discharge: cognitively intact , Behavioral status at discharge: cooperative , Quality Metrics Clinical Quality Measures [ No reported AMI, CVA or VTE this stay] Coding Level of Care Code 89709 Total time (in minutes) for Discharge: 35 Diagnoses Atrial fibrillation with rapid ventricular response I48.91 Acute hypoxemic respiratory failure J96.01 Morbid obesity with BMI of 70 and over, adult E66.01; Z68.45 Acute CHF I50.9 Heart failure type: unspecified
[2023-09-19 13:58] VITALS: O2SAT 84; O2SAT 93
== END 2023-09-19 16:29 | disposition home or self-care (01) | DRG 308 ==
LOC: ER 09-17 00:51 → CSU 09-17 00:59
PROVIDERS: Admitting Provider Family Medicine; Emergency Provider Emergency Medicine; PCP Family Medicine; Visit Provider Internal Medicine
DX: I48.91 Unspecified atrial fibrillation (principal); I50.21 Acute systolic (congestive) heart failure; J96.01 Acute respiratory failure with hypoxia; Z68.45 Body mass index [BMI] 70 or greater, adult; F33.2 Major depressive disorder, recurrent severe without psychotic features; I11.0 Hypertensive heart disease with heart failure; E78.5 Hyperlipidemia, unspecified; E66.01 Morbid (severe) obesity due to excess calories; G47.33 Obstructive sleep apnea (adult) (pediatric); F41.1 Generalized anxiety disorder; M10.9 Gout, unspecified; Z79.01 Long term (current) use of anticoagulants; Z87.891 Personal history of nicotine dependence; Z91.128 Patient's intentional underdosing of medication regimen for other reason; Z11.52 Encounter for screening for COVID-19; Z99.81 Dependence on supplemental oxygen
CPT/HCPCS: 36415; 36600; 51702; 71045; 80048; 80051; 80053; 80061; 81003; 82330; 82805; 83036; 83605; 83735; 83880; 84145; 84443; 84484; 85025; 85610; 87486; 87581; 87633; 93005; 93306; 94760; 96365; 96366; 96375; 96376; 99285; C9113; J0283; J1940; J3490

== ENCOUNTER → 2023-11-02 16:15 | Outpatient (BNVA) | payer MEDICARE, SELFPAY ==
[2023-07-12 08:16] VITALS: BP 132/87; BMI 60.8
== END ==
PROVIDERS: PCP Family Medicine; Visit Provider Internal Medicine Cardiovascular Disease
DX: R06.02 Shortness of breath (principal)
CPT/HCPCS: 80048; 83880; 99214

== ENCOUNTER 2024-05-06 18:18 | Inpatient (IN) | payer MEDICARE, MEDICAID, SELFPAY ==
[2023-07-12 08:16] VITALS: BP 132/87; BMI 60.8
[2024-05-06] VITALS (10 sets, daily range): BP systolic 122–138; BP diastolic 88–107; PULSE 99–122; RESP 18–28; TEMP 36.4–37.1; O2SAT 91–99; BMI 64.6
--- NOTE | 2024-05-06 18:36 | XRR_ITS ---
PROCEDURE INFORMATION: Exam: XR Chest Exam date and time: 05/06/2024 6:55 PM Age: 48 years old Clinical indication: Chest pressure; Patient HX: C/O chest pain TECHNIQUE: Imaging protocol: Radiologic exam of the chest. Views: 1 view. COMPARISON: CR XR chest 1V portable [id number] 09/16/2023 11:44 PM FINDINGS: Lungs: Increased bronchovascular markings and possible airspace opacity in the lower lung cotter without focal consolidation. Pleural spaces: No pneumothorax or pleural effusion. Heart/Mediastinum: Cardiomegaly, likely accentuated by portable technique. Bones/joints: Regional osseous structures are unremarkable. XR/XR chest 1V portable [id number] IMPRESSION: 1. Nonspecific bronchovascular prominence and mild opacity in the lower lungs. This may be artifactual from low lung volume with bronchovascular crowding or this could represent congestion/mild edema, less likely infiltrate. No focal consolidation suggested.
--- NOTE | 2024-05-06 18:40 | ECG_ITS ---
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 Measurements Intervals [place] Rate: 122 P: 0 SC: 0 QRS: 112 QRSD: 168 T: -25 QT: 366 QTc: 522 Interpretive Statements ATRIAL FIBRILLATION WITH RAPID VENTRICULAR RESPONSE INTRAVENTRICULAR CONDUCTION DELAY [130+ ms QRS DURATION] Compared to ECG 09/17/2023 06:04:52 Right-axis deviation no longer present Electronically Signed On 05-06-2024 20:06:33 CDT by Carmel Darby M.D. [id number]
[2024-05-06 18:46] LABS: Basophils # 0.1 10^3/uL (0.0-0.1); Basophils % 0.5 %; Eosinophils % 0.3 %; Hematocrit 42.7 % (37-53); Lymphocytes # 0.9 10^3/uL (0.8-4.8); Lymphocytes % 8.4 %; Mean Corpuscular HGB Conc 28.3 g/dL (30-55); Mean Corpuscular Hemoglobin 25.7 pg (27-33); Mean Corpuscular Volume 90.7 fl (82-101); Mean Platelet Volume 11.4 fL (7.4-10.4); Monocytes # 1.7 10^3/uL (0.2-0.9); Monocytes % 15.5 %; Neutrophils # 8.04 10^3/uL (1.8-7.7); Neutrophils % 74.7 %; Nucleated Red Blood Cells # 0.1 /100WBC; Nucleated Red Blood Cells % 1.2 %; Platelet Count 155 10^3/cmm (157-399); Red Blood Count 4.71 10^6/uL (3.85-5.65); Red Cell Distribution Width 14.7 % (12.1-15.1); White Blood Count 10.74 10^3/uL (3.29-11.43)
--- NOTE | 2024-05-06 18:46 | ECG_ITS ---
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 Measurements Intervals [place] Rate: 116 P: 0 [place]: 0 QRS: 112 QRSD: 170 T: -34 QT: 357 QTc: 497 Interpretive Statements ATRIAL FIBRILLATION WITH RAPID VENTRICULAR RESPONSE INTRAVENTRICULAR CONDUCTION DELAY [130+ ms QRS DURATION] Compared to ECG 05/06/2024 18:40:27 No significant changes Electronically Signed On 05-06-2024 19:54:09 CDT by Carmel Darby M.D. [id number]
[2024-05-06] MEDS: dilTIAZem 5 mg/mL SDV 5 mL 20 MG IVP (19:00)
[2024-05-06 19:01] LABS: INR 2.08 (0.8-1.2)
[2024-05-06 19:02] LABS: Partial Thromboplastin Time 35.1 SECONDS (23.9-36.7)
[2024-05-06 19:08] LABS: Troponin(5th) Baseline 35 ng/L (0-15)
[2024-05-06 19:16] LABS: Alanine Aminotransferase 491 U/L (0-41); Albumin Level 3.9 g/dL (3.5-5.2); Alkaline Phosphatase 164 U/L (40-130); Anion Gap 17.8 (5-19); Aspartate Amino Transferase 295 U/L (0-40); Blood Urea Nitrogen 28 mg/dL (6-20); Calcium 8.9 mg/dL (8.5-10.5); Carbon Dioxide 25 mmol/L (22-29); Chloride 96 mmol/L (98-107); Globulin 3.1 g/dL (1.3-4.6); Glomerular Filtration Rate 43.1 mL/min (90-130); Glucose 100 mg/dL (65-115); Lipase 32 U/L (13-60); NT Pro B Type Natriuretic Pept 2574 pg/mL (0-125); Osmolality Calculated 286 mOsm/kg (285-295); Potassium 3.8 mmol/L (3.5-5.1); Sodium 135 mmol/L (136-145); Total Bilirubin 1.3 mg/dL (0.15-1.2)
[2024-05-06 19:17] LABS: Creatinine Clr Calc Pharmacy 101.7386
[2024-05-06] MEDS: dilTIAZem 5 mg/mL SDV 5 mL 10 MG IVP (19:41)
--- NOTE | 2024-05-06 19:42 | ED_ITS ---
HPI - Chest Pain 2 General: Chief Complaint: Chest Pain Stated Complaint: chest pain Time Seen by Provider: 05/06/24 18:19 History of Present Illness: 48-year-old male presents to the emergen cy department chief complaint having intermittent chest pain with palpitations he has a known history of atrial fibrillation and that he is supposed be taking Cardizem Eliquis and amiodarone for there is concerns of compliance issues that he has not been taking his Cardizem as prescribed patient Dors that he has had some midsternal chest pain with no radiation he denies any recent swelling in the legs or edema more than normal patient endorses also no recent water weight gain he does report that the pain is midsternal unrelated activity or exertion or breathing patient presents to the ER for further assessment and management. Associated symptoms: Reports palpitations; Deny abdominal pain, dyspnea, fever(s), nausea or vomiting Related Data Home Medications Medication Instructions Recorded Confirmed multivitamin with minerals-folic 1 tab PO DAILY 10/07/22 09/17/23 acid 120 mcg chewable tablet (Centrum Adult 50 Plus Fresh-Fruity) acetazolamide 250 mg tablet 250 mg PO DAILY 11/02/23 Previous Rx's Medication Instructions Recorded diltiazem HCl 240 mg 240 mg PO DAILY #30 caps 09/19/23 capsule,extended release 24 hr (Cardizem CD) duloxetine 60 mg capsule,delayed 120 mg (2 x 60 mg) PO DAILY #180 09/19/23 release caps furosemide 20 mg tablet 40 mg (2 x 20 mg) PO BID #120 tabs 09/19/23 spironolactone 25 mg tablet 12.5 mg (1/2 x 25 mg) PO DAILY #90 11/19/23 tabs amiodarone 200 mg tablet See Rx Instructions .Route 02/14/24 .COMPLEX #37 tabs atorvastatin 40 mg tablet See Rx Instructions .Route 02/23/24 .COMPLEX #30 tabs apixaban 5 mg tablet (Eliquis) See Rx Instructions .Route 04/18/24 .COMPLEX #180 tabs Allergies Allergy/AdvReac Type Severity Reaction Status Date / Time No Known Allergies Allergy Verified 11/02/23 14:55 Review of Systems 2 General: Reports: 10 or more systems reviewed and unremarkable except in HPI and below Const: Denies: fever(s), chills, fatigue or malaise Eyes: Denies: change in vision or blurry vision Card: Reports: chest pain, palpitations and irregular heart rhythm Resp: Denies: dyspnea or productive cough GI: Denies: abdominal pain, nausea or vomiting : Denies: flank pain Musc: Denies: extremity pain or extremity swelling Skin/Breast: Denies: rash or pruritus Neuro: Denies: headache(s) Psych: Denies: anxiety or depression Kishan/Lymph: Denies: easy bleeding All/Imm: Denies: urticaria, throat swelling or facial swelling PFSH ED 2 PFSH: Medical History Lower urinary tract symptoms (LUTS) Morbid obesity with BMI of 70 and over, adult Candidal skin infection BONITA (obstructive sleep apnea) Hypertension Depression Anxiety Bipolar 1 disorder Restrictive lung disease Gout Dyslipidemia Psychiatric care Generalized anxiety disorder Major depressive disorder, recurrent severe without psychotic features Surgical History No significant past surgical history Family History Mother Myocardial infarct Stroke Father Myocardial infarct Diabetes Other Cancer Dementia Hypertension Psychiatric illness Social History Smoking and tobacco/nicotine status: former use of tobacco/nicotine Quit status (tobacco/nicotine): has quit using Year quit tobacco: 2002 Second hand smoke exposure: No Alcohol intake: former Year of sobriety/quit date alcohol: 2019 Substance/Drug Use: never Adopted: No Caregiver/support person: Yes ([employer] 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 hours and a nurse once per week) Lives independently: No Household members: significant other Housing: Manufactured/Mobile home Marital status: Life Partner Number of children: 0 Number of grandchildren: 0 Highest education level completed: 12th Grade, No Diploma service: No Current occupational status: disabled Current occupational exposures/hazards: No Pets and animals: No Leisure activites: music, reading and other Leisure activities details: watches TV Sexually active: No Do you think of yourself as: Lesbian/Jacobsen/Homosexual Current gender identity: Male Jayne/Congregational: None Special jayne needs: No Agree to transfusion: No Physical Exam 2 Const: COMMON NORMALS: no acute distress, patient oriented x3 and healthy appearing OTHER: Appears somewhat anxious on exam however appears in no obvious acute distress. HENMT: COMMON NORMALS: normocephalic and atraumatic HEAD & SCALP: n ormocephalic and atraumatic Eye: COMMON NORMALS: Equal, round and reactive pupils present and EOMs intact bilaterally PUPIL: Yes Equal, round and reactive pupils present Neck/C-Spine: COMMON NORMALS: full ROM, supple and no JVD Lymph: LYMPHATIC: no lymphadenopathy noted Chest: COMMONS NORMALS: normal inspection of the chest and normal palpation of entire chest wall Resp: COMMON NORMALS: normal respiratory effort, No retractions and clear to auscultation bilaterally EFFORT & INSPECTION: Yes able to speak in complete sentences and Yes symmetric chest movement AUSCULTATION: clear to auscultation bilaterally Cardio: COMMON NORMALS: no JVD; negative for regular rate and negative for regular rhythm RATE: abnormal rate RHYTHM: abnormal rhythm OTHER: Patient found to be in A-fib with RVR with a ventricular rate of 120-130 GI: COMMON NORMALS: Normal to inspection, nondistended, normoactive bowel sounds present, Soft to palpation and non-tender INSPECTION: Yes normal to inspection PALPATION: Yes Soft to palpation : COMMON NORMALS: Yes no CVA tenderness BLADDER/KIDNEY EXAM: Yes no CVA tenderness Back/Pelvis: COMMON NORMALS: no CVA tenderness Extremity: COMMON NORMALS: normal to inspection and full ROM Neuro: COMMON NORMALS: patient oriented x3, CN's II-XII intact bilaterally, moves all extremities and no focal motor deficits Psych: COMMON NORMALS: mental status grossly normal, Normal thought process present, cooperative and normal affect THOUGHT PROCESS: Normal thought process present Skin: COMMON NORMALS: no rashes or lesions noted GENERAL SKIN EXAM: no rashes or lesions noted Course 2 Vital Signs: Vital signs: Vital Signs Temperature 98.7 F 05/06/24 18:20 Pulse Rate 101 H 05/06/24 20:21 Respiratory Rate 20 H 05/06/24 19:46 Blood Pressure 136/91 05/06/24 20:21 Pulse Oximetry 94 05/06/24 20:21 Oxygen Delivery Me thod Nasal Cannula 05/06/24 20:21 Oxygen Flow Rate 4 05/06/24 20:21 MDM - Chest Pain Medical Decision Making Due to patient's symptoms and condition Cardizem will be provided will continue to follow anticipate probable need for admission underlying concerns of possible heart failure is prominent. Discussed the patient's case with Dr. Manriquez on-call hospitalist is granted acceptance however pending CT angiogram the chest to further rule out pulmonary embolism as well as a CTA of the abdomen pelvis due to concerns of elevated liver enzymes. Currently this test is pending patient will be signed out to my colleague Dr. Padron at 2200 Lab Data 05/06/24 18:05 05/06/24 18:05 Radiology Impressions Chest X-Ray 05/06/24 18:36 IMPRESSION: 1. Nonspecific bronchovascular prominence and mild opacity in the lower lungs. This may be artifactual from low lung volume with bronchovascular crowding or this could represent congestion/mild edema, less likely infiltrate. No focal consolidation suggested. Laboratory Results WBC 10.74 10^3/uL (3.29-11.43) 05/06/24 18:05 RBC 4.71 10^6/uL (3.85-5.65) 05/06/24 18:05 Hgb 12.10 g/dL (11.27-16.99) 05/06/24 18:05 Hct 42.7 % (37-53) 05/06/24 18:05 MCV 90.7 fl (82-101) 05/06/24 18:05 MCH 25.7 pg (27-33) L 05/06/24 18:05 MCHC 28.3 g/dL (30-55) L 05/06/24 18:05 RDW 14.7 % (12.1-15.1) 05/06/24 18:05 Plt Count 155 10^3/cmm (157-399) L 05/06/24 18:05 MPV 11.4 fL (7.4-10.4) H 05/06/24 18:05 Neut % (Auto) 74.7 % 05/06/24 18:05 Lymph % (Auto) 8.4 % 05/06/24 18:05 [place] % (Auto) 15.5 % 05/06/24 18:05 Eos % (Auto) 0.3 % 05/06/24 18:05 Baso % (Auto) 0.5 % 05/06/24 18:05 Neut # (Auto) 8.04 10^3/uL (1.8-7.7) H 05/06/24 18:05 Lymph # (Auto) 0.9 10^3/uL (0.8-4.8) 05/06/24 18:05 [place] # (Auto) 1.7 10^3/uL (0.2-0.9) H 05/06/24 18:05 Eos # (Auto) 0.0 10^3/uL (0.0-0.8) 05/06/24 18:05 Baso # (Auto) 0.1 10^3/uL (0.0-0.1) 05/06/24 18:05 Nucleated RBC % (auto) 1.2 % 05/06/24 18:05 Nucleated RBCs # 0.1 /100WBC 05/06/24 18:05 PT 24.20 SECONDS (12.1-14.9) H 05/06/24 18:05 INR 2.08 (0.8-1.2) H 05/06/24 18:05 APTT 35.1 SECONDS (23.9-36.7) 05/06/24 18:05 Sodium 135 mmol/L (136-145) L 05/06/24 18:05 Potassium 3.8 mmol/L (3.5-5.1) 05/06/24 18:05 Chloride 96 mmol/L (98-107) L 05/06/24 18:05 Carbon Dioxide 25 mmol/L (22-29) 05/06/24 18:05 Anion Gap 17.8 (5-19) 05/06/24 18:05 BUN 28 mg/dL (6-20) H 05/06/24 18:05 Creatinine 1.7 mg/dL (0.7-1.2) H 05/06/24 18:05 GFR Calculation 43.1 mL/min (90-130) L 05/06/24 18:05 Glucose 100 mg/dL (65-115) 05/06/24 18:05 Calculated Osmolality 286 mOsm/kg (285-295) 05/06/24 18:05 Calcium 8.9 mg/dL (8.5-10.5) 05/06/24 18:05 Total Bilirubin 1.3 mg/dL (0.15-1.2) H 05/06/24 18:05 AST 295 U/L (0-40) H 05/06/24 18:05 ALT 491 U/L (0-41) H 05/06/24 18:05 Alkaline Phosphatase 164 U/L (40-130) H 05/06/24 18:05 Troponin T Baseline 35 ng/L (0-15) H 05/06/24 18:05 Troponin T 120 Minute 31.77 ng/L (0-15) H 05/06/24 20:05 Delta Troponin T -3.23 ABS# (0-10) L 05/06/24 20:05 NT-Pro-B Natriuret Pep 2574 pg/mL (0-125) H 05/06/24 18:05 Total Protein 7.0 g/dL (6.6-8.7) 05/06/24 18:05 Albumin 3.9 g/dL (3.5-5.2) 05/06/24 18:05 Globulin 3.1 g/dL (1.3-4.6) 05/06/24 18:05 Lipase 32 U/L (13-60) 05/06/24 18:05 All radiology interpretation(s) finalized by discharge Discharge Plan Discharge Patient Disposition: Admitted As Inpatient Clinical Impression: Atrial fibrillation with RVR, Acute exacerbation of CHF (congestive heart failure), Chest pain, pleuritic, Elevated liver enzymes Condition: Stable Prescriptions: No Action Centrum Adult 50 Fresh-Fruity 120 mcg tablet,chewable 1 tab PO DAILY acetazolamide 250 mg tablet 250 mg PO DAILY Patient Comments: 1/2 tab daily spironolactone 25 mg tablet 12.5 mg PO DAILY Qty: 90 3RF amiodarone 200 mg tablet See Rx Instructions .ROUTE .COMPLEX Qty: 37 6RF Dose Instruction: Take 1 tablet by mouth once daily Rx Instructions: Take 1 tablet by mouth once daily atorvastatin 40 mg tablet See Rx Instructions .ROUTE .COMPLEX Qty: 30 0RF Dose Instruction: TAKE ONE-HALF TABLET BY MOUTH AT BEDTIME Rx Instructions: TAKE ONE-HALF TABLET BY MOUTH AT BEDTIME Eliquis 5 mg tablet See Rx Instructions .ROUTE .COMPLEX Qty: 180 3RF Dose Instruction: Take 1 tablet by mouth twice daily Rx Instructions: Take 1 tablet by mouth twice daily Cardizem CD 240 mg capsule,extended release 24hr 240 mg PO DAILY Qty: 30 0RF furosemide 20 mg tablet 40 mg PO BID Qty: 120 0RF duloxetine 60 mg capsule,delayed release(DR/EC) 120 mg PO DAILY Qty: 180 0RF Referrals: Cornel Fuentes MD [Primary Care Provider] - Coding Level of Care Code ED Airport Representative for [facility] Ely
[2024-05-06] MEDS: dilTIAZem 100 MG in sodium chloride 0.9% (add-van) 100 ML IV (19:43)
[2024-05-06] MEDS: FUROsemide 10 mg/mL SDV 10mL 60 MG IVP (20:19)
--- NOTE | 2024-05-06 20:28 | CTR_ITS ---
PROCEDURE INFORMATION: Exam: CTA Chest With Contrast Exam date and time: 05/06/2024 9:10 PM Age: 48 years old Clinical indication: Pain and abnormal findings; Abnormal lab test; Elevated liver enzymes; Other: N/a; Shortness of breath; Chest pressure; Patient HX: C/O chest pain with SOB and hypoxia. Afib on monitor. Elevated lfts. History of chf and left iliac aterial aneurysm. ; Additional info: Pleuritic chest pain with afib/elevated lfts TECHNIQUE: Imaging protocol: Computed tomographic angiography of the chest with contrast. Exam focused on the arteries. 3D rendering (Not supervised by radiologist): MIP and/or 3D reconstructed images were created by the technologist. Radiation optimization: All CT scans at this facility use at least one of these dose optimization techniques: automated exposure control; mA and/or kV adjustment per patient size (includes targeted exams where dose is matched to clinical indication); or iterative reconstruction. Contrast material: OMNI 350; Contrast volume: 100 ml; Contrast route: INTRAVENOUS (IV); COMPARISON: CT angio chest w abd pel w con 10/29/2021 5:06 PM RADIATION DOSE METRICS: Total DLP (mGy-cm): 2032.28 FINDINGS: Pulmonary arteries: There is a filling defect suggesting a pulmonary embolism within a left lower lobe segmental pulmonary artery (image 68, series 11) no additional discrete pulmonary emboli are seen. Aorta: Unremarkable thoracic aorta without aneurysm. Lungs: There is patchy opacity concerning for infiltrate in the left lower lobe and minimally in the right lung base. The opacity in the left lung base has a somewhat masslike quality measuring approximately 3 cm. Incidental granulomatous calcification in the left lung base. Pleural spaces: Bilateral pleural effusions, right greater than left. No pneumothorax. Heart: Cardiomegaly. No pericardial effusion. No evidence of right heart strain. With RV/LV ratio of approximately 0.9. Lymph nodes: Small mediastinal lymph nodes without pathologic enlargement. Bones/joints: Mild scattered degenerative changes of the visualized spine. No aggressive osseous lesion or fracture is seen. Soft tissues: Moderate bilateral gynecomastia. DARRELL WHEATLEY at 9:58 PM CDT on 05/06/2024. The findings were acknowledged and understood. PROCEDURE INFORMATION: Exam: CT Abdomen And Pelvis With Contrast Exam date and time: 05/06/2024 9:10 PM Age: 48 years old Clinical indication: Pain and abnormal findings; Abnormal lab test; Elevated liver enzymes; Other: N/a; Shortness of breath; Chest pressure; Patient HX: C/O chest pain with SOB and hypoxia. Afib on monitor. Elevated lfts. History of chf and left iliac aterial aneurysm. ; Additional info: Pleuritic chest pain with afib/elevated lfts TECHNIQUE: Imaging protocol: Computed tomography of the abdomen and pelvis with contrast. Radiation optimization: All CT scans at this facility use at least one of these dose optimization techniques: automated exposure control; mA and/or kV adjustment per patient size (includes targeted exams where dose is matched to clinical indication); or iterative reconstruction. Contrast material: OMNI 350; Contrast volume: 100 ml; Contrast route: INTRAVENOUS (IV); COMPARISON: CT abdomen pelvis w con* [id number] 11/06/2021 6:56 PM RADIATION DOSE METRICS: Total DLP (mGy-cm): FINDINGS: Liver: Normal appearance of the liver. Gallbladder and biliary ducts: Normal appearance of the gallbladder. No radiopaque cholelithiasis. Pancreas: Normal appearance of the pancreas. No ductal dilation. Spleen: Normal appearance of the spleen. Small splenule. Adrenal glands: Normal appearance of both adrenal glands. Kidneys and ureters: Bilateral simple renal cysts, largest on the lower pole of the right kidney measuring approximately 5.3 cm. Incidental punctate nonobstructing stone in the lower pole of the left kidney. No hydronephrosis or obstructing stone bilaterally. Stomach and bowel: Normal appearance of the stomach. Normal appearance of the small bowel without luminal dilation suggested. Minimal proximal colonic stool. Appendix: No evidence of appendicitis. Intraperitoneal space: Minimal nonspecific mesenteric ground-glass opacity in the central abdomen on right (image 58, series 5 and image 58 series 14). Vasculature: There is aneurysmal dilation of the left common iliac artery measuring approximately 3 cm in diameter. Minimal aortic and iliac atherosclerosis. Lymph nodes: Unremarkable. No enlarged lymph nodes. Urinary bladder: Normal appearance of the urinary bladder. No intravesicular stone. Reproductive: Unremarkable as visualized. Bones/joints: Moderate degenerative changes of the visualized spine. No fracture or aggressive osseous lesion is seen. Soft tissues: Tiny fatty right inguinal hernia suggested. There is dermal thickening along the lower anterior abdominal wall. CT/CT angio chest w abd pel w con IMPRESSION: 1. Segmental pulmonary embolism in the left lower lobe anteriorly. No additional pulmonary emboli are seen. No evidence of right heart strain. 2. Bilateral pleural effusions. 3. Patchy opacity in the left greater than right lung bases concerning for pneumonia. Note, the left lung base opacity does have a somewhat masslike appearance. Recommend follow-up imaging following treatment to ensure resolution. 4. Other chronic findings as above. THIS REPORT CONTAINS FINDINGS THAT MAY BE CRITICAL TO PATIENT CARE. The findings were verbally communicated by me via telephone conference to IMPRESSION: 1. No evidence of acute intra-abdominal or pelvic pathology. 2. Nonspecific focal ground-glass opacity in the mid right abdominal mesentery. This could represent a focal area of inflammation. A small mesenteric mass is not excluded. No evidence of mass effect or desmoplastic reaction to suggest a carcinoid. Consider follow-up at the same time as above recommended CT chest following treatment to ensure resolution or document stability. 3. 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 4. Other chronic and incidental findings as above. COMMENTS: Consistent with the [employer]'s Incidental Findings Committee white paper (J Am Danica Radiol 2018): Any incidental renal lesion less than 1 cm or classified as too small to characterize, or any incidental cystic renal lesion characterized as simple-appearing, is likely benign. No follow-up imaging is recommended for these lesions per consensus recommendations based on imaging criteria. THIS REPORT CONTAINS FINDINGS THAT MAY BE CRITICAL TO PATIENT CARE. The findings were verbally communicated by me via telephone conference to DARRELL WHEATLEY at 9:58 PM CDT on 05/06/2024. The findings were acknowledged and understood.
[2024-05-06 20:32] LABS: Troponin 5 2HR 31.77 ng/L (0-15)
[2024-05-06 20:34] LABS: Troponin 5 2HR Delta -3.23 ABS# (0-10)
--- NOTE | 2024-05-06 20:53 | ECG_ITS ---
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 Measurements Intervals [place] Rate: 112 P: 0 AR: 0 QRS: 114 QRSD: 167 T: -26 QT: 393 QTc: 537 Interpretive Statements ATRIAL FIBRILLATION WITH RAPID VENTRICULAR RESPONSE INTRAVENTRICULAR CONDUCTION DELAY [130+ ms QRS DURATION] Compared to ECG 05/06/2024 18:46:30 No significant changes Electronically Signed On 05-07-2024 19:32:46 CDT by Carmel Darby M.D. [id number]
[2024-05-06] MEDS: iohexol 350 mg/mL 500 mL Btl (per mL) IV (21:12)
[2024-05-06 21:51] LABS: ABG PH Result 7.34 (7.35-7.45); Alveolar-Arterial Oxygen Gradi 3.5 mmHg (5-10); Arterial Blood Gas Hematocrit 37.2 % (42-52); Base Excess ABG -0.7 mmol/L (-2.0-2.0); Blood Gas Allen Test Pos; Blood Gas Operator Identificat SAM; Blood Gas Sample Site Radial, right; Blood Gas Sample Type Arterial; Carboxyhemoglobin 1.7 %THgb (0.4-20.1); HCO3 ABG 25.4 mmol/L (22-26); HGB O2 Sat 88.6 % (95-100); Ionized Calcium Level - ABG 1.2 mmol/L (1.1-1.4); Oxygen Device NC; Oxygen Saturation ABG 90.1; PO2 ABG 64.6 mmHg (80.0-100.0); Potassium Level - ABG 3.5 mmol/L (3.5-5.0); Total Hemoglobin 12.1 g/dL (14-18)
[2024-05-06 22:37] LABS: Bilirubin Urine Negative (Negative); Blood Urine Negative (Negative); Glucose Urine UA Negative (Normal); Ketones Urine Negative (Negative); Leukocyte Esterase Urine Negative (Negative); Nitrate Urine Negative (Negative); Protein Urine Negative (Negative); Specific Gravity, Urine 1.023 (1.005-1.030); Urine Appearance Clear (CLEAR); Urine Color Yellow (Yellow)
--- NOTE | 2024-05-06 22:37 | P.HP_ITS ---
Providers/Chief Complaint 2 Primary Care Provider: Cornel Fuentes MD Chief Complaint: chest pain History of Present Illness Robert Juarez is a 48 year old male Review of Systems 2 Const: Reports: fatigue; Denies: fever(s) or chills Card: Denies: chest pain Resp: Reports: dyspnea and non-productive cough GI: Denies: abdominal pain Neuro: Denies: headache(s) Medications/Allergies Home Medications Medication Instructions Recorded Confirmed Last Taken Type multivitamin with minerals-folic 1 tab PO DAILY 10/07/22 09/17/23 Unknown History acid 120 mcg chewable tablet (Centrum Adult 50 Plus Fresh-Fruity) diltiazem HCl 240 mg 240 mg PO DAILY #30 caps 09/19/23 Unknown Rx capsule,extended release 24 hr (Cardizem CD) duloxetine 60 mg capsule,delayed 120 mg (2 x 60 mg) PO DAILY #180 09/19/23 Unknown Rx release caps furosemide 20 mg tablet 40 mg (2 x 20 mg) PO BID #120 tabs 09/19/23 Unknown Rx acetazolamide 250 mg tablet 250 mg PO DAILY 11/02/23 Unknown History spironolactone 25 mg tablet 12.5 mg (1/2 x 25 mg) PO DAILY #90 11/19/23 Unknown Rx tabs amiodarone 200 mg tablet See Rx Instructions .Route 02/14/24 Unknown Rx .COMPLEX #37 tabs atorvastatin 40 mg tablet See Rx Instructions .Route 02/23/24 Unknown Rx .COMPLEX #30 tabs apixaban 5 mg tablet (Eliquis) See Rx Instructions .Route 04/18/24 Unknown Rx .COMPLEX #180 tabs Allergies Allergy/AdvReac Type Severity Reaction Status Date / Time No Known Allergies Allergy Verified 11/02/23 14:55 PFSH Acute 2 PFSH: Medical History Lower urinary tract symptoms (LUTS) Morbid obesity with BMI of 70 and over, adult Candidal skin infection BONITA (obstructive sleep apnea) Hypertension Depression Anxiety Bipolar 1 disorder Restrictive lung disease Gout Dyslipidemia Psychiatric care Generalized anxiety disorder Major depressive disorder, recurrent severe without psychotic features Surgical History No significant past surgical history Family History Mother Myocardial infarct Stroke Father Myocardial infarct Diabetes Other Cancer Dementia Hypertension Psychiatric illness Social History Smoking and tobacco/nicotine status: former use of tobacco/nicotine Quit status (tobacco/nicotine): has quit using Year quit tobacco: 2002 Second hand smoke exposure: No Alcohol intake: former Year of sobriety/quit date alcohol: 2019 Substance/Drug Use: never Adopted: No Caregiver/support person: Yes (Blanc at [facility] 3 days per week 2.5 hours and a nurse once per week) Lives independently: No Household members: significant other Housing: Manufactured/Mobile home Marital status: Life Partner Number of children: 0 Number of grandchildren: 0 Highest education level completed: 12th Grade, No Diploma service: No Current occupational status: disabled Current occupational exposures/hazards: No Pets and animals: No Leisure activites: music, reading and other Leisure activities details: watches TV Sexually active: No Do you think of yourself as: Lesbian/Jacobsen/Homosexual Current gender identity: Male Jayne/Mormonism: None Special jayne needs: No Agree to transfusion: No Vitals/I&O/Wt Last Vital Signs Temp 98.7 F 05/06/24 18:20 Pulse 116 H 05/06/24 22:28 Resp 20 H 05/06/24 22:28 BP 122/91 05/06/24 22:28 Pulse Ox 93 05/06/24 22:28 O2 Del Method Nasal Cannula 05/06/24 22:28 O2 Flow Rate 4 05/06/24 22:28 05/06/24 05/06/24 05/06/24 06:59 14:59 22:59 Intake Total 2.583 / 2.583 Balance 2.583 / 2.583 Weight last 48 hrs Weight 222.26 kg Physical Exam 2 Const: COMMON NORMALS: no acute distress and patient oriented x3 Resp: COMMON NORMALS: normal respiratory effort, No retractions, No use of accessory muscles and clear to auscultation bilaterally AUSCULTATION: c rackles and rales Cardio: COMMON NORMALS: no JVD, regular rate, regular rhythm, S1 normal heart sound present and S2 normal heart sound present RATE: tachycardic RHYTHM: abnormal rhythm HEART SOUNDS: S1 normal heart sound present and S2 normal heart sound present GI: COMMON NORMALS: Normal to inspection, nondistended, normoactive bowel sounds present, Soft to palpation and non-tender Extremity: NARRATIVE EXTREMITY EXAM: 1+ edema Neuro: COMMON NORMALS: patient oriented x3, CN's II-XII intact bilaterally and moves all extremities Psych: COMMON NORMALS: mental status grossly normal Data 05/06/24 18:05 05/06/24 18:05 A&P Assessment and plan (1) Acute exacerbation of CHF (congestive heart failure): Qualifiers: Heart failure type: systolic Qualified Code(s): I50.23 - Acute on chronic systolic (congestive) heart failure (2) Atrial fibrillation with RVR: (3) Morbid obesity with BMI of 70 and over, adult: (4) Elevated liver enzymes: (5) Acute hypoxemic respiratory failure: (6) Chest pain, pleuritic: (7) BONITA (obstructive sleep apnea): (8) PNA (pneumonia): (9) DILLAN (acute kidney injury): Plan Acute hypoxic respiratory failure ? Multifactorial - Secondary to CHF ? Pulmonary embolism ? Pneumonia 1. Segmental pulmonary embolism in the left lower lobe anteriorly. No additional pulmonary emboli are seen. No evidence of right heart strain. 2. Bilateral pleural effusions. 3. Patchy opacity in the left greater than right lung bases concerning for pneumonia. Note, the left lung base opacity does have a somewhat masslike appearance. Recommend follow-up imaging following treatment to ensure resolution. Plan ? Monitor in CSU ? BiPAP therapy ? Heparin drip, question of failure of anticoagulation as patient is on Eliquis? Question about compliance ? Continue Rocephin ? Continue Zithromycin ? Has received Lasix in the emergency room, start Lasix 40 mg IV push every 24 hours ? Place Fisher catheter -Monitor urine output -Monitor creatinine, A-fib with RVR -Continue heparin drip -Continue Cardizem drip -Monitor in CCU Transaminitis -Potentially related to heart failure -CT scan no acute findings -Acute hep panel CT scan shows 2. Nonspecific focal ground-glass opacity in the mid right abdominal mesentery. This could represent a focal area of inflammation. A small mesenteric mass is not excluded. No evidence of mass effect or desmoplastic reaction to suggest a carcinoid. Consider follow-up at the same time as above recommended CT chest following treatment to ensure resolution or document stability. ? No abdominal pain complaints ? Monitor Chest pain, NSTEMI -Likely related to segmental PE as above -Serial EKGs, serial troponins, telemetry monitoring Morbid obesity Full code Heparin drip for DVT prophylaxis Protonix for GI prophylaxis Attestations 2 Medical Necessity Statement*: Patient requires hospitalization, inpatient, greater than 2 midnights, for acute hypoxic respiratory failure secondary to pulmonary embolism, CHF, atrial fibrillation, pneumonia, transaminitis, NSTEMI Diagnoses Acute exacerbation of CHF (congestive heart failure) I50.23 Heart failure type: systolic Atrial fibrillation with RVR I48.91 Morbid obesity with BMI of 70 and over, adult E66.01; Z68.45 Elevated liver enzymes R74.8 Acute hypoxemic respiratory failure J96.01 Chest pain, pleuritic R07.81 BONITA (obstructive sleep apnea) G47.33 PNA (pneumonia) J18.9 DILLAN (acute kidney injury) N17.9
[2024-05-06 22:42] LABS: Add Urine Microscopic? YES; Bacteria Urine None Seen /hpf; Hyaline Casts Urine 10.73 /lpf; RBC Urine 0-2 /hpf (0-2); Squamous Epithelial Cell Urine 0-5 /hpf (0-5); Universal Test for UA Present (0); WBC Urine 0-5 /hpf (0-5)
[2024-05-06] MEDS: azithromycin 250 MG in sodium chloride 0.9% 250 ML IV (23:08)
[2024-05-06] MEDS: cefTRIAXone 1,000 mg SDV 1000 MG IVP (23:09)
[2024-05-06 23:22] LABS: Covid PCR NEGATIVE (Negative); Influenza A NEGATIVE (Negative); Influenza B NEGATIVE (Negative); Respiratory Syncytial Virus Ce NEGATIVE (Negative)
[2024-05-06 23:23] LABS: Hepatitis A Antibody IgM Non-Reactive (Nonreactive); Hepatitis B Core IgM Non-Reactive (Nonreactive); Hepatitis B Surface Antigen Non-Reactive (Nonreactive); Hepatitis C Virus Antibody Non-Reactive (Nonreactive)
[2024-05-06] MEDS: heparin drip 25,000 UNIT/500 ML PREMIX 57 UNIT IV (23:50)
[2024-05-06] MEDS: heparin 5,000 unit/mL INJ 1 mL IVP (23:51)
[2024-05-07] VITALS (32 sets, daily range): BP systolic 97–176; BP diastolic 77–121; PULSE 92–122; RESP 14–33; TEMP 35.8–37.1; O2SAT 88–99
[2024-05-07 00:13] LABS: Chol HDL Ratio 2.96 mg/dL (1.0-5.00); Cholesterol 77 mg/dL (0-200); HDL Cholesterol 26 mg/dL (60-100); LDL Cholesterol Calculated 38 mg/dL (50-129); LDL HDL Ratio 1.46 RATIO (0.00-3.22); Triglycerides 64 mg/dL (0-150)
[2024-05-07 00:21] LABS: Estmated Average Glucose 137; Hemoglobin A1C 6.4 % (4.0-6.0)
--- NOTE | 2024-05-07 00:25 | ECG_ITS ---
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 Measurements Intervals [place] Rate: 102 P: 0 [place]: 0 QRS: 127 QRSD: 177 T: -7 QT: 440 QTc: 574 Interpretive Statements ATRIAL FIBRILLATION WITH RAPID VENTRICULAR RESPONSE RIGHT AXIS DEVIATION [QRS AXIS > 100] INTRAVENTRICULAR CONDUCTION DELAY [130+ ms QRS DURATION] Compared to ECG 05/06/2024 20:53:21 Right-axis deviation now present Electronically Signed On 05-07-2024 19:32:37 CDT by Carmel Darby M.D. [email or web address] Networksummc holmes countyCylene Pharmaceuticalsbrecksville va [facility].[email or web address]/store/OM/[id number]
[2024-05-07] MEDS: pantoprazole 40 mg SDV IVP ×2 (00:34→23:04)
[2024-05-07 01:16] LABS: Troponin 5 6HR 29.79 ng/L (0-15); Troponin 5 6HR Delta -5.21 ng/L (0-12)
[2024-05-07] MEDS: dilTIAZem 100 MG in sodium chloride 0.9% (add-van) 100 ML 15 MG IV ×3 (02:58→16:40)
[2024-05-07 07:10] LABS: Basophils % 0.2 %; Eosinophils % 0.1 %; Hematocrit 39.8 % (37-53); Lymphocytes # 0.6 10^3/uL (0.8-4.8); Lymphocytes % 5.4 %; Mean Corpuscular HGB Conc 28.9 g/dL (30-55); Mean Platelet Volume 11.3 fL (7.4-10.4); Monocytes # 1.4 10^3/uL (0.2-0.9); Monocytes % 11.9 %; Neutrophils # 9.63 10^3/uL (1.8-7.7); Neutrophils % 81.8 %; Nucleated Red Blood Cells # 0.1 /100WBC; Nucleated Red Blood Cells % 0.8 %; Platelet Count 258 10^3/cmm (157-399); Red Blood Count 4.42 10^6/uL (3.85-5.65); Red Cell Distribution Width 14.8 % (12.1-15.1); White Blood Count 11.77 10^3/uL (3.29-11.43)
[2024-05-07 07:36] LABS: Alanine Aminotransferase 399 U/L (0-41); Albumin Level 3.5 g/dL (3.5-5.2); Alkaline Phosphatase 146 U/L (40-130); Anion Gap 15.7 (5-19); Aspartate Amino Transferase 226 U/L (0-40); Blood Urea Nitrogen 28 mg/dL (6-20); Carbon Dioxide 27 mmol/L (22-29); Chloride 96 mmol/L (98-107); Creatinine Clr Calc Pharmacy 106.4634; Globulin 3.4 g/dL (1.3-4.6); Glomerular Filtration Rate 46.2 mL/min (90-130); Glucose 105 mg/dL (65-115); NT Pro B Type Natriuretic Pept 1892 pg/mL (0-125); Osmolality Calculated 286 mOsm/kg (285-295); Potassium 3.7 mmol/L (3.5-5.1); Sodium 135 mmol/L (136-145); Total Bilirubin 1.2 mg/dL (0.15-1.2); Total Protein 6.9 g/dL (6.6-8.7)
[2024-05-07 07:38] LABS: Partial Thromboplastin Time > 250.0 SECONDS (23.9-36.7)
[2024-05-07] MEDS: duloxetine 60 mg Capsule 120 MG PO (08:07)
[2024-05-07] MEDS: acetaZOLAMIDE 250 mg Tablet PO (08:07)
[2024-05-07] MEDS: FUROsemide 10 mg/mL SDV 4mL 40 MG IVP ×2 (09:41→16:04)
--- NOTE | 2024-05-07 10:09 | P.PN_ITS ---
Subjective 2 Subjective: The patient continues to have shortness of breath, but feels that it is improved compared to admission. His chest pains are improving as well. He asked about the status of his blood clot. He states that he has not been missing any doses of the Eliquis. He had been on Eliquis for A-fib. He sees Dr. Darby for this. Vitals/I&O/Wt Last Vital Signs Temp 97.9 F 05/07/24 08:00 Pulse 95 05/07/24 08:00 Resp 22 H 05/07/24 08:00 BP 143/99 05/07/24 08:00 Pulse Ox 95 05/07/24 07:16 O2 Del Method Nasal Cannula 05/07/24 07:16 O2 Flow Rate 4 05/07/24 00:56 FiO2 40 05/07/24 03:36 05/06/24 05/07/24 05/07/24 22:59 06:59 14:59 Intake Total 2.583 / 2.583 309.583 / 727.915 0458.35 / 1029.35 Output Total 850 / 850 Balance 2.583 / 2.583 -540.417 / -761.982 4067.35 / 1029.35 Weight last 48 hrs Weight 478 lb 9.6 oz Weight 478 lb 3.2 oz Weight 490 lb Physical Exam 2 Narrative: General: Alert and oriented x 3. Sitting in chair at bedside. Eyes: PERRLA, EOM intact, no discharge. Mouth: No erythema or tonsilar enlargement. No masses noted. Neck: No thyromegaly. No lymphadenopathy. Heart: Irregularly irregular heart rate and rhythm. No murmurs appreciated. Lungs: Decreased air entry bilaterally. No significant crackles, wheezes or rhonchi appreciated. Dyspneic at rest. Abdomen: Soft, non-tender. Extremities: Trace edema in the bilateral lower extremities. No significant calf pain. Urinary Catheter Management: Fisher: Cath Placed During This Visit: yes Reason for Continuing Indwelling Catheter: Acute Urinary Retention or Obstruction Urinary Catheter Date of Insertion: 05/06/24 Data 05/07/24 06:58 05/07/24 06:58 Micro: Microbiology 05/06/24 22:35 Blood Culture - Preliminary Blood SPECIMEN COLLECTED 05/06/24 22:32 Blood Culture - Preliminary Blood SPECIMEN COLLECTED A&P Assessment and plan (1) PNA (pneumonia): The patient has signs of a pneumonia on CT scan and we will continue with treatment with Rocephin and azithromycin. (2) Atrial fibrillation with RVR: The patient is currently maxed out on Cardizem. His heart rate is in the 100- 110 range. The patient states that his last dose of oral Cardizem was on the morning of 05/06/2024. He denies missing any doses. We will plan to titrate his Cardizem drip down as possible and add oral medications when we are able. (3) Acute exacerbation of CHF (congestive heart failure): We will continue with Lasix 40 mg IV daily. Creatinine is showing signs of improvement so far. Qualifiers: Heart failure type: systolic Qualified Code(s): I50.23 - Acute on chronic systolic (congestive) heart failure (4) Pulmonary embolism: The patient has a small pulmonary embolism. He does not have any history of this. We will continue with the heparin drip. His PTT is elevated so we will plan to decrease the dose after results return. The patient denies missing any doses of Eliquis. This could be a treatment failure. We may need to consider other treatment options. Continue with heparin for now due to his kidney function with creatinine of 1.6. If this continues to improve, we may be able to switch medications. (5) BONITA (obstructive sleep apnea): Continue with BiPAP while in the hospital. (6) DILLAN (acute kidney injury): The patient's creatinine is showing signs of improvement from 1.7 down to 1.6. We will continue to follow this. (7) Morbid obesity with BMI of 70 and over, adult: (8) Hypertension: Continue with home medications for now and consider adjustment if needed. Qualifiers: Hypertension type: primary hypertension Qualified Code(s): I10 - Essential (primary) hypertension Attestations 2 Medical Necessity Statement*: The patient has multiple medical issues needing hospitalization and his stay will cross 2 midnights. Coding Level of Care Code Acute Code for [facility] Diagnoses PNA (pneumonia) J18.9 Atrial fibrillation with RVR I48.91 Acute exacerbation of CHF (congestive heart failure) I50.23 Heart failure type: systolic Pulmonary embolism I26.99 BONITA (obstructive sleep apnea) G47.33 DILLAN (acute kidney injury) N17.9 Morbid obesity with BMI of 70 and over, adult E66.01; Z68.45 Primary hypertension I10 Hypertension type: primary hypertension
[2024-05-07] MEDS: heparin drip 25,000 UNIT/500 ML PREMIX 45 UNIT IV (13:11)
--- NOTE | 2024-05-07 14:48 | ECG_ITS ---
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 Measurements Intervals [place] Rate: 108 P: 0 [place]: 0 QRS: 125 QRSD: 176 T: -22 QT: 430 QTc: 578 Interpretive Statements ATRIAL FIBRILLATION WITH RAPID VENTRICULAR RESPONSE RIGHT AXIS DEVIATION [QRS AXIS > 100] INTRAVENTRICULAR CONDUCTION DELAY [130+ ms QRS DURATION] Compared to ECG 05/07/2024 00:25:13 No significant changes Electronically Signed On 05-07-2024 19:22:20 CDT by Carmel Darby M.D. [id number]
[2024-05-07 14:52] LABS: Glucose Point of Care 133 mg/dL (70-110)
[2024-05-07] MEDS: cefTRIAXone 1,000 mg SDV 1000 MG IVP (21:37)
[2024-05-07] MEDS: atorvastatin 40 mg Tablet 20 MG PO (21:37)
[2024-05-07] MEDS: amiodarone 200 mg Tablet PO (21:37)
[2024-05-07] MEDS: azithromycin 500 MG in sodium chloride 0.9% 250 ML 250 MG IV (21:40)
[2024-05-07] MEDS: dilTIAZem 100 MG in sodium chloride 0.9% (add-van) 100 ML 10 MG IV (23:09)
[2024-05-08] VITALS (17 sets, daily range): BP systolic 98–138; BP diastolic 83–108; PULSE 80–108; RESP 18–28; TEMP 35.9–37.1; O2SAT 86–96
[2024-05-08 01:20] LABS: Basophils % 0.3 %; Eosinophils % 0.1 %; Hematocrit 40.5 % (37-53); Lymphocytes # 0.5 10^3/uL (0.8-4.8); Lymphocytes % 4.1 %; Mean Corpuscular HGB Conc 28.6 g/dL (30-55); Mean Corpuscular Hemoglobin 25.6 pg (27-33); Mean Corpuscular Volume 89.4 fl (82-101); Mean Platelet Volume 11.2 fL (7.4-10.4); Monocytes # 1.7 10^3/uL (0.2-0.9); Monocytes % 14.3 %; Neutrophils # 9.71 10^3/uL (1.8-7.7); Neutrophils % 80.8 %; Nucleated Red Blood Cells # 0.3 /100WBC; Nucleated Red Blood Cells % 2.1 %; Platelet Count 265 10^3/cmm (157-399); Red Blood Count 4.53 10^6/uL (3.85-5.65); Red Cell Distribution Width 14.7 % (12.1-15.1)
[2024-05-08 01:38] LABS: Alanine Aminotransferase 510 U/L (0-41); Albumin Level 3.6 g/dL (3.5-5.2); Alkaline Phosphatase 148 U/L (40-130); Anion Gap 15.9 (5-19); Aspartate Amino Transferase 352 U/L (0-40); Blood Urea Nitrogen 32 mg/dL (6-20); Calcium 8.7 mg/dL (8.5-10.5); Carbon Dioxide 26 mmol/L (22-29); Chloride 96 mmol/L (98-107); Globulin 3.1 g/dL (1.3-4.6); Glomerular Filtration Rate 40.3 mL/min (90-130); Glucose 120 mg/dL (65-115); Magnesium 2.1 mg/dL (1.7-2.3); Osmolality Calculated 286 mOsm/kg (285-295); Potassium 3.9 mmol/L (3.5-5.1); Sodium 134 mmol/L (136-145); Total Bilirubin 1.2 mg/dL (0.15-1.2); Total Protein 6.7 g/dL (6.6-8.7)
[2024-05-08 01:40] LABS: Creatinine Clr Calc Pharmacy 94.6341
[2024-05-08 01:44] LABS: Partial Thromboplastin Time 113.3 SECONDS (23.9-36.7)
[2024-05-08] MEDS: heparin drip 25,000 UNIT/500 ML PREMIX 21 UNIT IV (01:48)
[2024-05-08] MEDS: duloxetine 60 mg Capsule 120 MG PO (08:04)
[2024-05-08] MEDS: acetaZOLAMIDE 250 mg Tablet PO (08:04)
[2024-05-08 08:22] LABS: Partial Thromboplastin Time 50.2 SECONDS (23.9-36.7)
[2024-05-08] MEDS: dilTIAZem 100 MG in sodium chloride 0.9% (add-van) 100 ML 10 MG IV ×2 (09:33→19:31)
[2024-05-08] MEDS: heparin 5,000 unit/mL INJ 1 mL IVP ×2 (09:33→22:27)
--- NOTE | 2024-05-08 10:05 | PC.CHAP ---
Pastoral Care Encounter/Spiritual Assessment Type of Contact [] Declined water control supervisor visit [] Patient/Family/Request visit [] Outpatient visit [] Follow-up visit [] Physician referral [] Code/Alert [x] Routine visit [] Staff referral [] Actively dying [] Patient sleeping [] Family support [] [] Out of room [] Palliative care [] [] Receiving care in room [] Pre-surgical visit [] Trauma [] Long length of stay [] ICU visit [] Other: Relational/Emotional Strength [x] Patient feels connected with others/family/visitors/staff [] Distress [] Loneliness/isolation [] Abandonment Spirituality of Patient [x] Person of Jayne [] Attends Latter Day of their Jayne [x] Believes in Prayer [] Reads Bible or Adventism materials [] There are Spiritual issues to be addressed Basic Acoustic Analyst 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 [x] Prayer [x] Active listening [] Non-anxious presence [x] Spiritual/emotional support [] Crisis/trauma care [] Spiritual counseling [] Bereavement support [] Provided bereavement packet [] Provided Bible/devotional materials [] Provided toy/stuffed animal, coloring book to patient or family member [] Provided Communion [] Anointing/[facility] [] Salvation [x] Completed spiritual assessment [] Other: Impact on Illness or Injury [] Angry [] Fearful [] Anxious [] Often cries [] Exhaustion [] Unable to work [] Unable to attend mormonism [] Unable to walk/stand [] Unable to read [] Unable to drive [] Unable to eat/drink [] Unable to sleep [] Unable to be with family [] Patient intubated [] Other: Summary Time spent with patient 5 min
--- NOTE | 2024-05-08 12:31 | P.PN_ITS ---
Subjective 2 Subjective: Patient continues to look short of breath but feels has been improved since admission. He does not use CPAP at home but had CPAP overnight and felt better. Has been able to eat and drink well, denies any complaint of chest pain or palpitations at this time. Medications: Reviewed: Yes Vitals/I&O/Wt Last Vital Signs Temp 98.2 F 05/08/24 12:06 Pulse 101 H 05/08/24 12:06 Resp 28 H 05/08/24 12:06 BP 116/96 05/08/24 12:06 Pulse Ox 96 05/08/24 12:06 O2 Del Method Nasal Cannula 05/08/24 11:30 O2 Flow Rate 5 05/08/24 11:30 FiO2 40 05/08/24 00:00 05/07/24 05/08/24 05/08/24 22:59 06:59 14:59 Intake Total 698.75 / 1778.75 230.433 / 2009.183 1158.9 / 1158.9 Output Total 900 / 1400 350 / 1750 Balance -201.25 / 378.75 -119.567 / 753.544 6074.9 / 1158.9 Weight last 48 hrs Weight 219.992 kg Weight 217.089 kg Weight 216.908 kg Weight 222.26 kg Physical Exam 2 Narrative: General: Alert and oriented x 3. Sitting in chair at bedside. Morbidly obese Eyes: PERRLA, EOM intact, no discharge. Mouth: No erythema or tonsilar enlargement. No masses noted. Neck: No thyromegaly. No lymphadenopathy. Heart: Irregularly irregular heart rate and rhythm. No murmurs appreciated. Lungs: Decreased air entry bilaterally. No significant crackles, wheezes or rhonchi appreciated. Dyspneic at rest. Abdomen: Soft, non-tender. Extremities: Trace edema in the bilateral lower extremities. No significant calf pain. Urinary Catheter Management: Fisher: Cath Placed During This Visit: yes Reason for Continuing Indwelling Catheter: Acute Urinary Retention or Obstruction Urinary Catheter Date of Insertion: 05/06/24 Data 05/08/24 01:14 05/08/24 01:14 Micro: Microbiology 05/06/24 22:35 Blood Culture - Preliminary Blood NEGATIVE TO DATE 05/06/24 22:32 Blood Culture - Preliminary Blood NEGATIVE TO DATE A&P Assessment and plan (1) PNA (pneumonia): Continue IV ceftriaxone and azithromycin for now, it is day 3 of IV antibiotics Leukocytosis trending up to 12.0, will monitor for now since he is afebrile and no signs of worsening infection. (2) Atrial fibrillation with RVR: Cardizem drip discontinued. Heart rate is still in high 90s. Continue p.o. amiodarone 200 mg daily. (3) Acute exacerbation of CHF (congestive heart failure): He was receiving IV Lasix 40 mg daily but creatinine trending up to 1.8 Will discontinue Lasix for now Qualifiers: Heart failure type: systolic Qualified Code(s): I50.23 - Acute on chronic systolic (congestive) heart failure (4) Pulmonary embolism: The patient has a small pulmonary embolism. He does not have any history of this. We will continue with the heparin drip. His PTT is elevated so we will plan to decrease the dose after results return. The patient denies missing any doses of Eliquis. This could be a treatment failure. We may need to consider other treatment options. (5) BONITA (obstructive sleep apnea): Continue with BiPAP while in the hospital. Counseled and educated about regular use of CPAP at home (6) DILLAN (acute kidney injury): Creatinine trending up again to 1.8, IV Lasix on hold Continue Diamox (7) Morbid obesity with BMI of 70 and over, adult: (8) Hypertension: Continue with home medications for now and consider adjustment if needed. Qualifiers: Hypertension type: primary hypertension Qualified Code(s): I10 - Essential (primary) hypertension Attestations 2 Medical Necessity Statement*: He needs continued hospitalization crossing 2 midnights for management of atrial fibrillation with rapid ventricular rate and acute PE with heparin drip, and worsening DILLAN Time Spent in Patient Care: 25 minutes Coding Level of Care Code Acute Code for [facility] Diagnoses PNA (pneumonia) J18.9 Atrial fibrillation with RVR I48.91 Acute exacerbation of CHF (congestive heart failure) I50.23 Heart failure type: systolic Pulmonary embolism I26.99 BONITA (obstructive sleep apnea) G47.33 DILLAN (acute kidney injury) N17.9 Morbid obesity with BMI of 70 and over, adult E66.01; Z68.45 Primary hypertension I10 Hypertension type: primary hypertension Time Spent (min) 25
--- NOTE | 2024-05-08 14:47 | PC.SOCIAL ---
IMM Updated Updated pt on IMM. No questions voiced. Provided pt a copy. Initialed, dated, & timed a copy & placed in chart.
[2024-05-08 15:09] LABS: Partial Thromboplastin Time 56.4 SECONDS (23.9-36.7)
[2024-05-08] MEDS: atorvastatin 40 mg Tablet 20 MG PO (20:26)
[2024-05-08] MEDS: amiodarone 200 mg Tablet PO (20:27)
[2024-05-08] MEDS: cefTRIAXone 1,000 mg SDV 1000 MG IVP (21:43)
[2024-05-08] MEDS: azithromycin 500 MG in sodium chloride 0.9% 250 ML 250 MG IV (21:52)
[2024-05-08 22:04] LABS: Partial Thromboplastin Time 39.8 SECONDS (23.9-36.7)
[2024-05-08] MEDS: pantoprazole 40 mg SDV IVP (23:37)
[2024-05-08] MEDS: heparin drip 25,000 UNIT/500 ML PREMIX 33 UNIT IV (23:43)
[2024-05-09] VITALS (14 sets, daily range): BP systolic 93–138; BP diastolic 65–103; PULSE 80–117; RESP 12–26; TEMP 36.3–36.7; O2SAT 93–99
[2024-05-09 05:11] LABS: Basophils % 0.3 %; Eosinophils % 0.4 %; Hematocrit 38.9 % (37-53); Lymphocytes # 0.7 10^3/uL (0.8-4.8); Lymphocytes % 7.3 %; Mean Corpuscular Volume 89.2 fl (82-101); Mean Platelet Volume 12.5 fL (7.4-10.4); Monocytes # 1.3 10^3/uL (0.2-0.9); Monocytes % 12.5 %; Neutrophils # 8.07 10^3/uL (1.8-7.7); Neutrophils % 79.1 %; Nucleated Red Blood Cells # 0.1 /100WBC; Platelet Count 132 10^3/cmm (157-399); Red Blood Count 4.36 10^6/uL (3.85-5.65); Red Cell Distribution Width 14.9 % (12.1-15.1)
[2024-05-09 05:28] LABS: Blood Urea Nitrogen 29 mg/dL (6-20); Calcium 8.7 mg/dL (8.5-10.5); Carbon Dioxide 29 mmol/L (22-29); Chloride 94 mmol/L (98-107); Creatinine Clr Calc Pharmacy 108.0113; Glomerular Filtration Rate 46.2 mL/min (90-130); Glucose 108 mg/dL (65-115); Osmolality Calculated 278 mOsm/kg (285-295); Sodium 131 mmol/L (136-145)
[2024-05-09 05:34] LABS: Partial Thromboplastin Time 95.5 SECONDS (23.9-36.7)
[2024-05-09] MEDS: acetaZOLAMIDE 250 mg Tablet PO (08:30)
[2024-05-09] MEDS: duloxetine 60 mg Capsule 120 MG PO (08:30)
--- NOTE | 2024-05-09 10:23 | PC.NURSE ---
Physician Orders: Cardizem 60mg BID
[2024-05-09] MEDS: dilTIAZem 60 mg Tablet PO (10:46)
--- NOTE | 2024-05-09 11:35 | PM.PN ---
Subjective Subjective: Seen at bedside this morning. Denies any complaint of chest pain and shortness of breath has been improving gradually since admission. Overnight again had an episode of A-fib with RVR and was started on Cardizem drip again. This morning heart rate seems in high 90s. But denied any chest pain or palpitations. Medications: Reviewed: Yes Vitals/I&O/Wt Last Vital Signs Temp 98.0 F 05/09/24 11:20 Pulse 104 H 05/09/24 11:20 Resp 26 H 05/09/24 11:20 BP 132/93 05/09/24 11:20 Pulse Ox 97 05/09/24 11:20 O2 Del Method Nasal Cannula 05/09/24 11:20 O2 Flow Rate 5 05/09/24 09:00 FiO2 40 05/09/24 04:00 05/08/24 05/09/24 05/09/24 22:59 06:59 14:59 Intake Total 465.434 / 1556.054 5042.9 / 3044.234 507.833 / 507.833 Output Total 700 / 700 400 / 1100 Balance -234.566 / 1044.334 899.9 / 1944.234 507.833 / 507.833 Weight last 48 hrs Weight 221.988 kg Weight 219.992 kg Physical Exam Narrative: General: Alert and oriented x 3. Sitting in chair at bedside. Morbidly obese Eyes: PERRLA, EOM intact, no discharge. Mouth: No erythema or tonsilar enlargement. No masses noted. Neck: No thyromegaly. No lymphadenopathy. Heart: Irregularly irregular heart rate and rhythm. No murmurs appreciated. Lungs: Decreased air entry bilaterally. No significant crackles, wheezes or rhonchi appreciated. Dyspneic at rest. Abdomen: Soft, non-tender. Extremities: Trace edema in the bilateral lower extremities. No significant calf pain. Urinary Catheter Management: Fisher: Cath Placed During This Visit: yes Reason for Continuing Indwelling Catheter: Acute Urinary Retention or Obstruction Urinary Catheter Date of Insertion: 05/06/24 Data 05/09/24 05:00 05/09/24 05:00 A&P Assessment and plan (1) PNA (pneumonia): Continue IV ceftriaxone and azithromycin for now, it is day 4 of IV antibiotics Leukocytosis resolved. (2) Atrial fibrillation with RVR: Cardizem drip discontinued this morning. Heart rate is still in high 90s. Continue p.o. amiodarone 200 mg daily. Will add p.o. Cardizem 60 mg twice daily Cardiology consult (3) Acute exacerbation of CHF (congestive heart failure): He was receiving IV Lasix 40 mg daily but creatinine trending down to 1.6 Will discontinue Lasix for now Qualifiers: Heart failure type: systolic Qualified Code(s): I50.23 - Acute on chronic systolic (congestive) heart failure (4) Pulmonary embolism: The patient has a small pulmonary embolism. He does not have any history of this. He is already on p.o. Eliquis twice daily for atrial fibrillation. Platelets trending down from 2 65-1 32 today. Will follow-up CBC in a.m. Spoke with church communications administrator Dr. Yo, after discussing different anticoagulation options, he is a better candidate for p.o. Xarelto 15 mg twice a day with repeat CT chest PE protocol in 4 weeks. Will give referral for hematology clinic in 2 weeks. Hold off on any further workup in terms of hypercoagulable state. Discontinue heparin drip. (5) BONITA (obstructive sleep apnea): Continue with BiPAP while in the hospital. Counseled and educated about regular use of CPAP at home (6) DILLAN (acute kidney injury): Improving, Lasix on hold Continue Diamox (7) Morbid obesity with BMI of 70 and over, adult: (8) Hypertension: Continue with home medications for now and consider adjustment if needed. Qualifiers: Hypertension type: primary hypertension Qualified Code(s): I10 - Essential (primary) hypertension Plan Anticipating discharge in a.m. Attestations Medical Necessity Statement*: He needs continued hospitalization for management of A-fib with RVR and pulmonary embolism. Cardizem drip and heparin drip discontinued switch to p.o. Cardizem and Xarelto for anticoagulation. Need cardiology consult for further recommendations. Anticipating discharge in a.m. Time Spent in Patient Care: 20 minutes Coding Level of Care Code Acute Code for [facility] Diagnoses PNA (pneumonia) J18.9 Atrial fibrillation with RVR I48.91 Acute exacerbation of CHF (congestive heart failure) I50.23 Heart failure type: systolic Pulmonary embolism I26.99 BONITA (obstructive sleep apnea) G47.33 DILLAN (acute kidney injury) N17.9 Morbid obesity with BMI of 70 and over, adult E66.01; Z68.45 Primary hypertension I10 Hypertension type: primary hypertension Time Spent (min) 20
[2024-05-09] MEDS: rivaroxaban 10 mg Tablet 15 MG PO ×2 (12:11→17:54)
[2024-05-09 12:40] LABS: Partial Thromboplastin Time 44.2 SECONDS (23.9-36.7)
--- NOTE | 2024-05-09 16:54 | PM.CONSULT ---
Providers/Reason For Consult Consulting Physician/Specialty*: ELIO Darby MD/cardiology Reason for Consult*: Patient with atrial fibrillation , admitted with complaints of chest pain. Found to have pulmonary embolism. Currently the ventricular rate is uncontrolled. Requesting Physician: Dr. Lentz Attending Physician: Myra Lentz MD Primary Care Provider: Cornel Fuentes MD History of Present Illness History of Present Illness Robert Juarez is a 48 year old male with a history of chronic intermittent atrial fibrillation, morbid obesity with BMI greater than 70, chronic recurrent diastolic heart failure, obstructive sleep apnea with recurrent hypoxic respiratory failure, history of hypertension, dyslipidemia, with questionable compliance to medications, he is admitted to the hospital through the emergency room where he presented with complaints of chest pain and some palpitation. According the patient, he was resting at home and all of a sudden, started having pain in the upper substernal region. The pain was radiating across the chest. He had his baseline shortness of breath. No other associated symptoms or radiation of pain. Apparently the symptoms persisted. Intensity was moderate. For the persistence of the symptoms, he was brought to the emergency room. The CT of the chest revealed subsegmental PE, in the left lower lobe region. He was placed on a heparin. Apparently he has been taking Eliquis 5 mg p.o. twice daily at home. According the patient, he has been fairly compliant with medications. He was found to be in atrial fibrillation with rapid ventricular rate. He has been on IV Cardizem for rate control. He also is on amiodarone. Patient also is being treated for possible pneumonia. At the time of my examination, patient has no chest pain. His ventricular rate is in the 110s on monitor. No unusual shortness of breath. No fever or chills. He may have occasional cough. No other specific complaints. Review of Systems Narrative: CONSTITUTIONAL: No fever or chills. EYES: No blurring of vision or other visual disturbances lately. ENT: No hoarseness of voice, auditory disturbances or sore throat. CARDIOVASCULAR: As mentioned above. RESPIRATORY: Baseline shortness of breath with activities GASTROINTESTINAL: No hematemesis or melena. GENITOURINARY: No dysuria or hematuria. INTEGUMENTARY: Features of chronic venous stasis in the lower extremities NEURO: No transient ischemic attacks or amaurosis. PSYCHIATRIC: No history of psychosis or major depression. HEMATOLOGIC: On long-term oral anticoagulation for the atrial fibrillation ENDOCRINE: No history of polyuria or polydipsia. MUSCULOSKELETAL: No recent joint pain or swelling. ALLERGY/IMMUNOLOGY: As mentioned above. Medications/Allergies Home Medications Medication Instructions Recorded Confirmed Last Taken Type multivitamin with minerals-folic 1 tab PO DAILY 10/07/22 05/07/24 05/06/24 History acid 120 mcg chewable tablet (Centrum Adult 50 Plus Fresh-Fruity) diltiazem HCl 240 mg 240 mg PO DAILY #30 caps 09/19/23 05/07/24 05/06/24 Rx capsule,extended release 24 hr (Cardizem CD) acetazolamide 250 mg tablet 125 mg PO DAILY 11/02/23 05/07/24 05/06/24 History spironolactone 25 mg tablet 12.5 mg (1/2 x 25 mg) PO DAILY #90 11/19/23 05/07/24 05/06/24 Rx tabs amiodarone 200 mg tablet 200 mg PO DAILY 05/07/24 05/07/24 05/06/24 History apixaban 5 mg tablet (Eliquis) 5 mg PO 2XD 05/07/24 05/07/24 05/06/24 History atorvastatin 40 mg tablet 40 mg PO BEDTIME 05/07/24 05/07/24 05/05/24 History dicyclomine 20 mg tablet 20 mg PO QID 05/07/24 05/07/24 05/06/24 History duloxetine 60 mg capsule,delayed 60 mg PO BID 05/07/24 05/07/24 05/06/24 History release emtricitabine 200 mg-tenofovir 1 tab PO DAILY 05/07/24 05/07/24 05/06/24 History alafenamide fumarate 25 mg tablet furosemide 20 mg tablet 20 mg PO DAILY 05/07/24 05/07/24 05/06/24 History Allergies Allergy/AdvReac Type Severity Reaction Status Date / Time No Known Allergies Allergy Verified 11/02/23 14:55 Current Medications Generic Name Dose Route Start Last Admin Trade Name Freq PRN Reason Stop Dose Admin Acetazolamide 250 mg 05/07/24 09:00 05/09/24 08:30 Acetazolamide 250 Mg Tablet PO 250 mg DAILY NANETTE Administration Amiodarone HCl 200 mg 05/07/24 21:15 05/08/24 20:27 Amiodarone 200 Mg Tablet PO 200 mg Q24H NANETTE Administration Atorvastatin Calcium 20 mg 05/06/24 23:43 05/08/24 20:26 Atorvastatin 40 Mg Tablet PO 20 mg BEDTIME NANETTE Administration Ceftriaxone Sodium 1,000 mg 05/07/24 22:00 05/08/24 21:43 Ceftriaxone 1,000 Mg Sdv IVP 1,000 mg Q24H NANETTE Administration Protocol Diltiazem HCl 60 mg 05/09/24 10:23 05/09/24 10:46 Diltiazem 60 Mg Tablet PO 60 mg BID NANETTE Administration Duloxetine HCl 120 mg 05/07/24 09:00 05/09/24 08:30 Duloxetine 60 Mg Capsule PO 120 mg DAILY NANETTE Administration Heparin Sodium (Porcine) 0 unit 05/06/24 22:12 05/08/24 22:27 Heparin 5,000 Unit/Ml Inj 1 Ml IVP 5,000 unit PRN PRN Administration Heparin Weight Based Protocol -Subsequent Bolus Protocol Azithromycin 500 mg/ Sodium 250 mls @ 250 mls/hr 05/07/24 22:30 05/08/24 23:45 Chloride IV Infused Q24H NANETTE Infusion Protocol Pantoprazole Sodium 40 mg 05/06/24 23:43 05/08/24 23:37 Pantoprazole 40 Mg Sdv IVP 40 mg Q24H NANETTE Administration Rivaroxaban 15 mg 05/09/24 12:05 05/09/24 12:11 Rivaroxaban 10 Mg Tablet PO 15 mg BID NANETTE Administration PFSH Acute PFSH: Medical History Lower urinary tract symptoms (LUTS) Morbid obesity with BMI of 70 and over, adult Candidal skin infection BONITA (obstructive sleep apnea) Hypertension Depression Anxiety Bipolar 1 disorder Restrictive lung disease Gout Dyslipidemia Psychiatric care Generalized anxiety disorder Major depressive disorder, recurrent severe without psychotic features Surgical History No significant past surgical history Family History Mother Myocardial infarct Stroke Father Myocardial infarct Diabetes Other Cancer Dementia Hypertension Psychiatric illness Social History Smoking and tobacco/nicotine status: former use of tobacco/nicotine Quit status (tobacco/nicotine): has quit using Year quit tobacco: 2002 Second hand smoke exposure: No Alcohol intake: former Year of sobriety/quit date alcohol: 2019 Substance/Drug Use: never Adopted: No Caregiver/support person: Yes (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 2.5 hours and a nurse once per week) Lives independently: No Household members: significant other Housing: Manufactured/Mobile home Marital status: Life Partner Number of children: 0 Number of grandchildren: 0 Highest education level completed: 12th Grade, No Diploma service: No Current occupational status: disabled Current occupational exposures/hazards: No Pets and animals: No Leisure activites: music, reading and other Leisure activities details: watches TV Sexually active: No Do you think of yourself as: Lesbian/Jacobsen/Homosexual Current gender identity: Male Jayne/Amish: None Special jayne needs: No Agree to transfusion: No Vitals/I&O/Wt Last Vital Signs Temp 97.8 F 05/09/24 16:00 Pulse 116 H 05/09/24 16:00 Resp 24 H 05/09/24 16:00 BP 138/103 05/09/24 16:00 Pulse Ox 95 05/09/24 16:00 O2 Del Method Nasal Cannula 05/09/24 16:00 O2 Flow Rate 3 05/09/24 16:00 FiO2 40 05/09/24 04:00 05/09/24 05/09/24 05/09/24 06:59 14:59 22:59 Intake Total 1299.9 / 3044.234 878.733 / 878.733 Output Total 400 / 1100 450 / 450 Balance 899.9 / 1944.234 428.733 / 428.733 Weight last 48 hrs Weight 489 lb 6.4 oz Weight 485 lb Physical Exam Narrative: GENERAL: The patient is alert and oriented times three. Not in any acute distress. Morbidly obese HEENT: No significant pallor, icterus or lymphadenopathy.Oral cavity: There are no mucous membrane lesions. NECK: Trachea appears to be central. No masses noted. No JVD or thyromegaly appreciated. RESPIRATORY: Chest is symmetrical. No intercostals muscle retraction or any accessory muscle activation. There is no chest wall tenderness. Breath sounds are heard bilaterally. No rales or rhonchi heard. No evidence of any consolidation. BREASTS: Deferred. HEART: The heart sounds are somewhat distant no S3 or S4. No significant murmurs. No pericardial rub ABDOMEN: No vessel pulsations or distention. No tenderness. No organomegaly appreciated. Bowel sounds are normally heard. : Deferred. RECTAL: Deferred. LYMPHATIC: No lymphadenopathy noted in the neck. EXTREMITIES: No edema or cyanosis. No clubbing. MUSCULOSKELETAL: No acute joint deformities or swelling SKIN: Features of chronic venous stasis and 1-2+ edema both lower extremities. NEUROPSYCHIATRIC: The patient is alert and oriented x3. Appears to be in a good mood. No tremors or rigidity noted. Urinary Catheter Management: Fisher: Cath Placed During This Visit: yes Reason for Continuing Indwelling Catheter: Acute Urinary Retention or Obstruction Urinary Catheter Date of Insertion: 05/06/24 Data 05/09/24 05:00 05/09/24 05:00 Other Labs: Laboratory Last Values WBC 10.20 10^3/uL (3.29-11.43) 05/09/24 05:00 RBC 4.36 10^6/uL (3.85-5.65) 05/09/24 05:00 Hgb 10.90 g/dL (11.27-16.99) L 05/09/24 05:00 Hct 38.9 % (37-53) 05/09/24 05:00 MCV 89.2 fl (82-101) 05/09/24 05:00 MCH 25.0 pg (27-33) L 05/09/24 05:00 MCHC 28.0 g/dL (30-55) L 05/09/24 05:00 RDW 14.9 % (12.1-15.1) 05/09/24 05:00 Plt Count 132 10^3/cmm (157-399) L D 05/09/24 05:00 MPV 12.5 fL (7.4-10.4) H 05/09/24 05:00 Neut % (Auto) 79.1 % 05/09/24 05:00 Lymph % (Auto) 7.3 % 05/09/24 05:00 [place] % (Auto) 12.5 % 05/09/24 05:00 Eos % (Auto) 0.4 % 05/09/24 05:00 Baso % (Auto) 0.3 % 05/09/24 05:00 Neut # (Auto) 8.07 10^3/uL (1.8-7.7) H 05/09/24 05:00 Lymph # (Auto) 0.7 10^3/uL (0.8-4.8) L 05/09/24 05:00 [place] # (Auto) 1.3 10^3/uL (0.2-0.9) H 05/09/24 05:00 Eos # (Auto) 0.0 10^3/uL (0.0-0.8) 05/09/24 05:00 Baso # (Auto) 0.0 10^3/uL (0.0-0.1) 05/09/24 05:00 Nucleated RBC % (auto) 1.0 % 05/09/24 05:00 Nucleated RBCs # 0.1 /100WBC 05/09/24 05:00 PT 24.20 SECONDS (12.1-14.9) H 05/06/24 18:05 INR 2.08 (0.8-1.2) H 05/06/24 18:05 APTT 44.2 SECONDS (23.9-36.7) H D 05/09/24 12:01 Specimen Type Arterial 05/06/24 21:39 Sample Site Radial, right 05/06/24 21:39 ABG pH 7.34 (7.35-7.45) L 05/06/24 21:39 ABG pCO2 47.0 mmHg (35-45) H 05/06/24 21:39 ABG pO2 64.6 mmHg (80.0-100.0) L 05/06/24 21:39 ABG HCO3 25.4 mmol/L (22-26) 05/06/24 21:39 ABG O2 Saturation 90.1 05/06/24 21:39 ABG Base Excess -0.7 mmol/L (-2.0-2.0) 05/06/24 21:39 Joseph Test Pos 05/06/24 21:39 A-a O2 Gradient 3.5 mmHg (5-10) L 05/06/24 21:39 Hematocrit 37.2 % (42-52) L 05/06/24 21:39 Hgb O2 Saturation 88.6 % (95-100) L 05/06/24 21:39 Carboxyhemoglobin 1.7 %THgb (0.4-20.1) 05/06/24 21:39 Methemoglobin 0.0 % (0.4-1.5) L 05/06/24 21:39 Total Hemoglobin 12.1 g/dL (14-18) L 05/06/24 21:39 Sodium 136.0 mmol/L (131-143) 05/06/24 21:39 Potassium 3.5 mmol/L (3.5-5.0) 05/06/24 21:39 Glucose 98.0 mg/dL (70-115) 05/06/24 21:39 Ionized Calcium 1.2 mmol/L (1.1-1.4) 05/06/24 21:39 O2 Delivery Device Nc 05/06/24 21:39 O2 Liters/Min 4.0 % 05/06/24 21:39 Kettle Firer ID [place] 05/06/24 21:39 Sodium 131 mmol/L (136-145) L 05/09/24 05:00 Potassium 4.0 mmol/L (3.5-5.1) 05/09/24 05:00 Chloride 94 mmol/L (98-107) L 05/09/24 05:00 Carbon Dioxide 29 mmol/L (22-29) 05/09/24 05:00 Anion Gap 12.0 (5-19) 05/09/24 05:00 BUN 29 mg/dL (6-20) H 05/09/24 05:00 Creatinine 1.6 mg/dL (0.7-1.2) H 05/09/24 05:00 GFR Calculation 46.2 mL/min (90-130) L 05/09/24 05:00 Glucose 108 mg/dL (65-115) 05/09/24 05:00 POC Glucose 133 mg/dL (70-110) H 05/07/24 14:48 Estimat Average Glucose 137 05/06/24 18:05 Hemoglobin A1c 6.4 % (4.0-6.0) H 05/06/24 18:05 Calculated Osmolality 278 mOsm/kg (285-295) L 05/09/24 05:00 Calcium 8.7 mg/dL (8.5-10.5) 05/09/24 05:00 Phosphorus 5.0 mg/dL (2.5-4.5) H 05/08/24 01:14 Magnesium 2.1 mg/dL (1.7-2.3) 05/08/24 01:14 Total Bilirubin 1.2 mg/dL (0.15-1.2) 05/08/24 01:14 AST 352 U/L (0-40) H 05/08/24 01:14 ALT 510 U/L (0-41) H 05/08/24 01:14 Alkaline Phosphatase 148 U/L (40-130) H 05/08/24 01:14 Troponin T Baseline 35 ng/L (0-15) H 05/06/24 18:05 Troponin T 120 Minute 31.77 ng/L (0-15) H 05/06/24 20:05 Delta Troponin T -3.23 ABS# (0-10) L 05/06/24 20:05 Troponin T Hi Sens 6Hr 29.79 ng/L (0-15) H 05/07/24 00:50 Troponin T Hi Sens 6Hr Delta -5.21 ng/L (0-12) L 05/07/24 00:50 NT-Pro-B Natriuret Pep 1892 pg/mL (0-125) H 05/07/24 06:58 Total Protein 6.7 g/dL (6.6-8.7) 05/08/24 01:14 Albumin 3.6 g/dL (3.5-5.2) 05/08/24 01:14 Globulin 3.1 g/dL (1.3-4.6) 05/08/24 01:14 Triglycerides 64 mg/dL (0-150) 05/06/24 18:05 Cholesterol 77 mg/dL (0-200) 05/06/24 18:05 LDL Cholesterol, Calc 38 mg/dL (50-129) L 05/06/24 18:05 HDL Cholesterol 26 mg/dL (60-100) L 05/06/24 18:05 LDL/HDL Ratio 1.46 RATIO (0.00-3.22) 05/06/24 18:05 Cholesterol/HDL Ratio 2.96 mg/dL (1.0-5.00) 05/06/24 18:05 Lipase 32 U/L (13-60) 05/06/24 18:05 TSH 2.20 uIU/mL (0.27-4.20) 05/06/24 18:05 Urine Color Yellow (Yellow) 05/06/24 22:28 Urine Appearance Clear (CLEAR) 05/06/24 22:28 Urine pH 5.0 (5-7) 05/06/24 22:28 Ur Specific [place] 1.023 (1.005-1.030) 05/06/24 22:28 Urine Protein Negative (Negative) 05/06/24 22:28 Urine Glucose (UA) Negative (Normal) 05/06/24 22:28 Urine Ketones Negative (Negative) 05/06/24 22:28 Urine Blood Negative (Negative) 05/06/24 22: Urine Nitrate Negative (Negative) 05/06/24 22: Urine Bilirubin Negative (Negative) 05/06/24 22: Urine Urobilinogen 1.0 mg/dL (Negative) 05/06/24 22:28 Ur Leukocyte Esterase Negative (Negative) 05/06/24 22:28 Urine RBC 0-2 /hpf (0-2) 05/06/24 22:28 Urine WBC 0-5 /hpf (0-5) 05/06/24 22:28 Ur Squamous Epith Cells 0-5 /hpf (0-5) 05/06/24 22:28 Amorphous Sediment Not Reportable 05/06/24 22:28 Urine Bacteria None seen /hpf (NONE) 05/06/24 22:28 Hyaline Casts 10.73 /lpf 05/06/24 22:28 Coronavirus (PCR) Negative (Negative) 05/06/24 22:35 Hepatitis A IgM Ab Non-reactive (Nonreactive) 05/06/24 18:55 Hep Bs Antigen Non-reactive (Nonreactive) 05/06/24 18:55 Hep B Core IgM Ab Non-reactive (Nonreactive) 05/06/24 18:55 Hepatitis C Antibody Non-reactive (Nonreactive) 05/06/24 18:55 Influenza A (PCR) Negative (Negative) 05/06/24 22:35 Influenza Type B (PCR) Negative (Negative) 05/06/24 22:35 RSV (PCR) Negative (Negative) 05/06/24 22:35 EKG 1: My Interpretation: Atrial fibrillation with rapid ventricular rate of 112 bpm. Nonspecific IVCD. Right axis deviation. Features of RVH. Nonspecific ST-T changes. Other data: CT of the chest abdomen and pelvis 1. Segmental pulmonary embolism in the left lower lobe anteriorly. No additional pulmonary emboli are seen. No evidence of right heart strain. 2. Bilateral pleural effusions. 3. Patchy opacity in the left greater than right lung bases concerning for pneumonia. Note, the left lung base opacity does have a somewhat masslike appearance. Recommend follow-up imaging following treatment to ensure resolution. 4. Other chronic findings as above. A&P Assessment and plan (1) Chest pain: Most likely from the pulmonary embolism. So the treatment should be focused on the management of pulmonary embolism. Since he already been on Eliquis, and also in view of the extreme obesity, Coumadin might be a better choice. However because of the compliance issue it was decided to start him on DOAC. Qualifiers: Chest pain type: other chest pain Qualified Code(s): R07.89 - Other chest pain (2) Atrial fibrillation with RVR: I will discontinue the Cardizem. He may be started on metoprolol 50 mg p.o. twice daily. Based on the clinical progress, further recommendations will be made. He is on amiodarone 200 mg p.o. daily. Because of the liver enzymes trending upwards, I may hold off on any increase in the dose of the amiodarone. (3) Pulmonary embolism: Management of pulmonary embolism as mentioned above. Qualifiers: Pulmonary embolism type: unspecified Chronicity: acute Acute cor pulmonale presence: unspecified Qualified Code(s): I26.99 - Other pulmonary embolism without acute cor pulmonale (4) Acute on chronic diastolic heart failure: Patient may be carefully treated with IV diuretics on a as needed basis. (5) Morbid obesity with BMI of 70 and over, adult: (6) DILLAN (acute kidney injury): Kidney function seems to be stable. This needs to be closely monitored. Plan Other problems are Obstructive sleep apnea Essential benign hypertension Dyslipidemia Elevated liver enzyme Mild thrombocytopenia May hold off on the atorvastatin because of the liver enzymes Based on the clinical progress, further recommendations will be made Consult Attestations Medical Necessity Statement: Patient requires continued hospital stay for close monitoring and further management .Thank you for the opportunity to evaluate this patient and make these recommendations Coding Level of Care Code 23493 Diagnoses Other chest pain R07.89 Chest pain type: other chest pain Atrial fibrillation with RVR I48.91 Acute pulmonary embolism, unspecified pulmonary embolism type, unspecified whether acute cor pulmonale present I26.99 Pulmonary embolism type: unspecified Chronicity: acute Acute cor pulmonale presence: unspecified Acute on chronic diastolic heart failure I50.33 Morbid obesity with BMI of 70 and over, adult E66.01; Z68.45 DILLAN (acute kidney injury) N17.9
[2024-05-09] MEDS: amiodarone 200 mg Tablet PO (21:08)
[2024-05-09] MEDS: metoprolol tartrate 50 mg Tablet PO (21:08)
[2024-05-09] MEDS: cefTRIAXone 1,000 mg SDV 1000 MG IVP (21:09)
[2024-05-09] MEDS: azithromycin 500 MG in sodium chloride 0.9% 250 ML 250 MG IV (21:55)
[2024-05-09] MEDS: pantoprazole 40 mg SDV IVP (23:40)
[2024-05-10] VITALS (7 sets, daily range): BP systolic 96–115; BP diastolic 65–95; PULSE 78–101; RESP 16–22; TEMP 36.3–36.6; O2SAT 93–99
[2024-05-10 04:19] LABS: Basophils % 0.3 %; Eosinophils % 0.4 %; Hematocrit 39.8 % (37-53); Lymphocytes # 0.5 10^3/uL (0.8-4.8); Lymphocytes % 5.2 %; Mean Corpuscular HGB Conc 27.9 g/dL (30-55); Mean Corpuscular Hemoglobin 25.2 pg (27-33); Mean Corpuscular Volume 90.5 fl (82-101); Mean Platelet Volume 12.5 fL (7.4-10.4); Monocytes # 1.3 10^3/uL (0.2-0.9); Monocytes % 13.5 %; Neutrophils # 7.85 10^3/uL (1.8-7.7); Neutrophils % 80.2 %; Nucleated Red Blood Cells # 0.3 /100WBC; Nucleated Red Blood Cells % 3.2 %; Platelet Count 91 10^3/cmm (157-399); Red Cell Distribution Width 14.9 % (12.1-15.1); White Blood Count 9.79 10^3/uL (3.29-11.43)
[2024-05-10 04:53] LABS: Slide Review Slide Review Perform
[2024-05-10] MEDS: acetaZOLAMIDE 250 mg Tablet PO (09:15)
[2024-05-10] MEDS: duloxetine 60 mg Capsule 120 MG PO (09:15)
[2024-05-10] MEDS: metoprolol tartrate 50 mg Tablet PO (09:15)
[2024-05-10] MEDS: rivaroxaban 10 mg Tablet 15 MG PO (09:15)
--- NOTE | 2024-05-10 11:24 | P.DS_ITS ---
Discharge Providers Date of Admission: 05/06/24 22:01 Date of Discharge: May 10, 2024 Attending Provider at Admission: Zander Manriquez MD Attending Provider at Discharge: Myra Lentz MD Primary Care Provider: Cornel Fuentes MD Diagnoses at Discharge Discharge Diagnosis (1) Chest pain: Status: Acute Qualifiers: Chest pain type: other chest pain Qualified Code(s): R07.89 - Other chest pain (2) Atrial fibrillation with RVR: Status: Acute (3) Pulmonary embolism: Status: Acute Qualifiers: Pulmonary embolism type: unspecified Chronicity: acute Acute cor pulmonale presence: unspecified Qualified Code(s): I26.99 - Other pulmonary embolism without acute cor pulmonale (4) Acute on chronic diastolic heart failure: Status: Acute (5) Morbid obesity with BMI of 70 and over, adult: Status: Acute (6) DILLAN (acute kidney injury): Status: Acute Reason for Visit Reason for Visit: chest pain Hospital Course Hospital Course 05/06 Acute hypoxic respiratory failure ? Multifactorial - Secondary to CHF ? Pulmonary embolism ? Pneumonia Plan ? Monitor in [facility]SU ? BiPAP therapy ? Heparin drip, question of failure of anticoagulation as patient is on Eliquis? Question about compliance ? Continue Rocephin ? Continue Zithromycin ? Has received Lasix in the emergency room, start Lasix 40 mg IV push every 24 hours ? Place Fisher catheter -Monitor urine output -Monitor creatinine, A-fib with RVR -Continue heparin drip -Continue Cardizem drip -Monitor in CCU Transaminitis -Potentially related to heart failure -CT scan no acute findings -Acute hep panel Chest pain, NSTEMI -Likely related to segmental PE as above -Serial EKGs, serial troponins, telemetry monitoring 05/07-----he was still continued on heparin and Cardizem drip for rate control. Shortness of breath gradually improving. He was feeling better as compared to admission. Was able to sleep well on BiPAP at night while in the hospital. Edu cated about CPAP use at home at night. DILLAN resolved, Lasix on hold due to worsening renal functions. 05/09-he felt much better to go home. But was still on Cardizem drip hence Cardizem drip discontinued and was started on p.o. metoprolol 50 mg twice daily along with p.o. amiodarone. He was rate controlled all day with a heart rate in 75 to 90s. Also discontinued heparin drip and he was switched to p.o. Xarelto 15 mg twice daily for 3 weeks. Eliquis discontinued given history of PE on Eliquis. Spoke with heme-onc about anticoagulation therapy and was decided to continue with Xarelto and repeat CT chest in 4 weeks to follow-up PE. 05/10-he is feeling better and doing better. Off Cardizem and heparin drip. Rate controlled. Received 5 days of IV ceftriaxone and azithromycin. Will DC home with 5 days of p.o. azithromycin. Physical Exam Narrative: General: Alert and oriented x 3. Sitting in chair at bedside. Morbidly obese Eyes: PERRLA, EOM intact, no discharge. Mouth: No erythema or tonsilar enlargement. No masses noted. Neck: No thyromegaly. No lymphadenopathy. Heart: Irregularly irregular heart rate and rhythm. No murmurs appreciated. Lungs: Decreased air entry bilaterally. No significant crackles, wheezes or rhonchi appreciated. Dyspneic at rest. Abdomen: Soft, non-tender. Extremities: Trace edema in the bilateral lower extremities. No significant calf pain. Urinary Catheter Management: Fsiher: Cath Placed During This Visit: yes Reason for Continuing Indwelling Catheter: Acute Urinary Retention or Obstruction Urinary Catheter Date of Insertion: 05/06/24 Discharge Data Studies Completed and Pending Completed Studies During Hospitalization Category Date Time Status CT angio chest w abd pel w con Stat Cat Scan 05/06/24 20:28 Completed XR chest 1V portable [id number] Stat Exams 05/06/24 18:36 Completed Pending at discharge Category Date Time Status Blood Culture Stat Lab 05/06/24 22:35 Results Radiology Impressions Chest X-Ray 05/06/24 18:36 IMPRESSION: 1. Nonspecific bronchovascular prominence and mild opacity in the lower lungs. This may be artifactual from low lung volume with bronchovascular crowding or this could represent congestion/mild edema, less likely infiltrate. No focal consolidation suggested. Chest/Abdomen/Pelvis CT 05/06/24 20:28 IMPRESSION: 1. Segmental pulmonary embolism in the left lower lobe anteriorly. No additional pulmonary emboli are seen. No evidence of right heart strain. 2. Bilateral pleural effusions. 3. Patchy opacity in the left greater than right lung bases concerning for pneumonia. Note, the left lung base opacity does have a somewhat masslike appearance. Recommend follow-up imaging following treatment to ensure resolution. 4. Other chronic findings as above. THIS REPORT CONTAINS FINDINGS THAT MAY BE CRITICAL TO PATIENT CARE. The findings were verbally communicated by me via telephone conference to IMPRESSION: 1. No evidence of acute intra-abdominal or pelvic pathology. 2. Nonspecific focal ground-glass opacity in the mid right abdominal mesentery. This could represent a focal area of inflammation. A small mesenteric mass is not excluded. No evidence of mass effect or desmoplastic reaction to suggest a carcinoid. Consider follow-up at the same time as above recommended CT chest following treatment to ensure resolution or document stability. 3. 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 4. Other chronic and incidental findings as above. COMMENTS: Consistent with the [employer]'s Incidental Findings Committee white paper (J Am Danica Radiol 2018): Any incidental renal lesion less than 1 cm or classified as too small to characterize, or any incidental cystic renal lesion characterized as simple-appearing, is likely benign. No follow-up imaging is recommended for these lesions per consensus recommendations based on imaging criteria. THIS REPORT CONTAINS FINDINGS THAT MAY BE CRITICAL TO PATIENT CARE. The findings were verbally communicated by me via telephone conference to DARRELL WHEATLEY at 9:58 PM CDT on 05/06/2024. The findings were acknowledged and understood. Laboratory Results WBC 9.79 10^3/uL (3.29-11.43) 05/10/24 03:47 RBC 4.40 10^6/uL (3.85-5.65) 05/10/24 03:47 Hgb 11.10 g/dL (11.27-16.99) L 05/10/24 03:47 Hct 39.8 % (37-53) 05/10/24 03:47 MCV 90.5 fl (82-101) 05/10/24 03:47 MCH 25.2 pg (27-33) L 05/10/24 03:47 MCHC 27.9 g/dL (30-55) L 05/10/24 03:47 RDW 14.9 % (12.1-15.1) 05/10/24 03:47 Plt Count 91 10^3/cmm (157-399) L D 05/10/24 03:47 MPV 12.5 fL (7.4-10.4) H 05/10/24 03:47 Neut % (Auto) 80.2 % 05/10/24 03:47 Lymph % (Auto) 5.2 % 05/10/24 03:47 Norman % (Auto) 13.5 % 05/10/24 03:47 Eos % (Auto) 0.4 % 05/10/24 03:47 Baso % (Auto) 0.3 % 05/10/24 03:47 Neut # (Auto) 7.85 10^3/uL (1.8-7.7) H 05/10/24 03:47 Lymph # (Auto) 0.5 10^3/uL (0.8-4.8) L 05/10/24 03:47 Norman # (Auto) 1.3 10^3/uL (0.2-0.9) H 05/10/24 03:47 Eos # (Auto) 0.0 10^3/uL (0.0-0.8) 05/10/24 03:47 Baso # (Auto) 0.0 10^3/uL (0.0-0.1) 05/10/24 03:47 Nucleated RBC % (auto) 3.2 % 05/10/24 03:47 Nucleated RBCs # 0.3 /100WBC 05/10/24 03:47 PT 24.20 SECONDS (12.1-14.9) H 05/06/24 18:05 INR 2.08 (0.8-1.2) H 05/06/24 18:05 APTT 44.2 SECONDS (23.9-36.7) H D 05/09/24 12:01 Specimen Type Arterial 05/06/24 21:39 Sample Site Radial, right 05/06/24 21:39 ABG pH 7.34 (7.35-7.45) L 05/06/24 21:39 ABG pCO2 47.0 mmHg (35-45) H 05/06/24 21:39 ABG pO2 64.6 mmHg (80.0-100.0) L 05/06/24 21:39 ABG HCO3 25.4 mmol/L (22-26) 05/06/24 21:39 ABG O2 Saturation 90.1 05/06/24 21:39 ABG Base Excess -0.7 mmol/L (-2.0-2.0) 05/06/24 21:39 Joseph Test Pos 05/06/24 21:39 A-a O2 Gradient 3.5 mmHg (5-10) L 05/06/24 21:39 Hematocrit 37.2 % (42-52) L 05/06/24 21:39 Hgb O2 Saturation 88.6 % (95-100) L 05/06/24 21:39 Carboxyhemoglobin 1.7 %THgb (0.4-20.1) 05/06/24 21:39 Methemoglobin 0.0 % (0.4-1.5) L 05/06/24 21:39 Total Hemoglobin 12.1 g/dL (14-18) L 05/06/24 21:39 Sodium 136.0 mmol/L (131-143) 05/06/24 21:39 Potassium 3.5 mmol/L (3.5-5.0) 05/06/24 21:39 Glucose 98.0 mg/dL (70-115) 05/06/24 21:39 Ionized Calcium 1.2 mmol/L (1.1-1.4) 05/06/24 21:39 O2 Delivery Device Nc 05/06/24 21:39 O2 Liters/Min 4.0 % 05/06/24 21:39 Chief Design Engineer ID Matheus 05/06/24 21:39 Sodium 131 mmol/L (136-145) L 05/09/24 05:00 Potassium 4.0 mmol/L (3.5-5.1) 05/09/24 05:00 Chloride 94 mmol/L (98-107) L 05/09/24 05:00 Carbon Dioxide 29 mmol/L (22-29) 05/09/24 05:00 Anion Gap 12.0 (5-19) 05/09/24 05:00 BUN 29 mg/dL (6-20) H 05/09/24 05:00 Creatinine 1.6 mg/dL (0.7-1.2) H 05/09/24 05:00 GFR Calculation 46.2 mL/min (90-130) L 05/09/24 05:00 Glucose 108 mg/dL (65-115) 05/09/24 05:00 POC Glucose 133 mg/dL (70-110) H 05/07/24 14:48 Estimat Average Glucose 137 05/06/24 18:05 Hemoglobin A1c 6.4 % (4.0-6.0) H 05/06/24 18:05 Calculated Osmolality 278 mOsm/kg (285-295) L 05/09/24 05:00 Calcium 8.7 mg/dL (8.5-10.5) 05/09/24 05:00 Phosphorus 5.0 mg/dL (2.5-4.5) H 05/08/24 01:14 Magnesium 2.1 mg/dL (1.7-2.3) 05/08/24 01:14 Total Bilirubin 1.2 mg/dL (0.15-1.2) 05/08/24 01:14 AST 352 U/L (0-40) H 05/08/24 01:14 ALT 510 U/L (0-41) H 05/08/24 01:14 Alkaline Phosphatase 148 U/L (40-130) H 05/08/24 01:14 Troponin T Baseline 35 ng/L (0-15) H 05/06/24 18:05 Troponin T 120 Minute 31.77 ng/L (0-15) H 05/06/24 20:05 Delta Troponin T -3.23 ABS# (0-10) L 05/06/24 20:05 Troponin T Hi Sens 6Hr 29.79 ng/L (0-15) H 05/07/24 00:50 Troponin T Hi Sens 6Hr Delta -5.21 ng/L (0-12) L 05/07/24 00:50 NT-Pro-B Natriuret Pep 1892 pg/mL (0-125) H 05/07/24 06:58 Total Protein 6.7 g/dL (6.6-8.7) 05/08/24 01:14 Albumin 3.6 g/dL (3.5-5.2) 05/08/24 01:14 Globulin 3.1 g/dL (1.3-4.6) 05/08/24 01:14 Triglycerides 64 mg/dL (0-150) 05/06/24 18:05 Cholesterol 77 mg/dL (0-200) 05/06/24 18:05 LDL Cholesterol, Calc 38 mg/dL (50-129) L 05/06/24 18:05 HDL Cholesterol 26 mg/dL (60-100) L 05/06/24 18:05 LDL/HDL Ratio 1.46 RATIO (0.00-3.22) 05/06/24 18:05 Cholesterol/HDL Ratio 2.96 mg/dL (1.0-5.00) 05/06/24 18:05 Lipase 32 U/L (13-60) 05/06/24 18:05 TSH 2.20 uIU/mL (0.27-4.20) 05/06/24 18:05 Urine Color Yellow (Yellow) 05/06/24 22:28 Urine Appearance Clear (CLEAR) 05/06/24 22: Urine pH 5.0 (5-7) 05/06/24 22: Ur Specific [place] 1.023 (1.005-1.030) 05/06/24 22:28 Urine Protein Negative (Negative) 05/06/24 22:28 Urine Glucose (UA) Negative (Normal) 05/06/24 22:28 Urine Ketones Negative (Negative) 05/06/24 22:28 Urine Blood Negative (Negative) 05/06/24 22:28 Urine Nitrate Negative (Negative) 05/06/24 22:28 Urine Bilirubin Negative (Negative) 05/06/24 22:28 Urine Urobilinogen 1.0 mg/dL (Negative) 05/06/24 22:28 Ur Leukocyte Esterase Negative (Negative) 05/06/24 22:28 Urine RBC 0-2 /hpf (0-2) 05/06/24 22:28 Urine WBC 0-5 /hpf (0-5) 05/06/24 22:28 Ur Squamous Epith Cells 0-5 /hpf (0-5) 05/06/24 22:28 Amorphous Sediment Not Reportable 05/06/24 22:28 Urine Bacteria None seen /hpf (NONE) 05/06/24 22:28 Hyaline Casts 10.73 /lpf 05/06/24 22:28 Coronavirus (PCR) Negative (Negative) 05/06/24 22:35 Hepatitis A IgM Ab Non-reactive (Nonreactive) 05/06/24 18:55 Hep Bs Antigen Non-reactive (Nonreactive) 05/06/24 18:55 Hep B Core IgM Ab Non-reactive (Nonreactive) 05/06/24 18:55 Hepatitis C Antibody Non-reactive (Nonreactive) 05/06/24 18:55 Influenza A (PCR) Negative (Negative) 05/06/24 22:35 Influenza Type B (PCR) Negative (Negative) 05/06/24 22:35 RSV (PCR) Negative (Negative) 05/06/24 22:[address] Chest: Radiologist's impression: FINDINGS: Pulmonary arteries: There is a filling defect suggesting a pulmonary embolism within a left lower lobe segmental pulmonary artery (image 68, series 11) no additional discrete pulmonary emboli are seen. Aorta: Unremarkable thoracic aorta without aneurysm. Lungs: There is patchy opacity concerning for infiltrate in the left lower lobe and minimally in the right lung base. The opacity in the left lung base has a somewhat masslike quality measuring approximately 3 cm. Incidental granulomatous calcification in the left lung base. Pleural spaces: Bilateral pleural effusions, right greater than left. No pneumothorax. Heart: Cardiomegaly. No pericardial effusion. No evidence of right heart strain. With RV/LV ratio of approximately 0.9. Lymph nodes: Small mediastinal lymph nodes without pathologic enlargement. Bones/joints: Mild scattered degenerative changes of the visualized spine. No aggressive osseous lesion or fracture is seen. Soft tissues: Moderate bilateral gynecomastia. IMPRESSION: 1. No evidence of acute intra-abdominal or pelvic pathology. 2. Nonspecific focal ground-glass opacity in the mid right abdominal mesentery. This could represent a focal area of inflammation. A small mesenteric mass is not excluded. No evidence of mass effect or desmoplastic reaction to suggest a carcinoid. Consider follow-up at the same time as above recommended CT chest following treatment to ensure resolution or document stability. 3. 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 4. Other chronic and incidental findings as above. Vitals Last Vital Signs Temp 97.6 F 05/10/24 07:15 Pulse 78 05/10/24 08:22 Resp 16 05/10/24 08:22 BP 98/65 05/10/24 07:15 Pulse Ox 95 05/10/24 08:22 O2 Del Method Nasal Cannula 05/10/24 08:22 O2 Flow Rate 3 05/10/24 08:22 FiO2 40 05/10/24 03:33 Discharge Plan Discharge Patient Disposition: Home Condition: Stable Prescriptions: New metoprolol tartrate 50 mg Tablet 50 mg PO BID@0900,2100 21 Days Qty: 42 0RF Xarelto 10 mg Tablet 15 mg PO BID 21 Days Qty: 63 0RF azithromycin 500 mg tablet 500 mg PO DAILY 5 Days Qty: 5 0RF Continued Centrum Adult 50 Fresh-Fruity 120 mcg tablet,chewable 1 tab PO DAILY acetazolamide 250 mg tablet 125 mg PO DAILY Patient Comments: 1/2 tab daily spironolactone 25 mg tablet 12.5 mg PO DAILY Qty: 90 3RF atorvastatin 40 mg tablet 40 mg PO BEDTIME amiodarone 200 mg tablet 200 mg PO DAILY dicyclomine 20 mg Tablet 20 mg PO QID Rx Instructions: before meals and at bedtime duloxetine 60 mg Capsule,Delayed Release(Dr/Ec) 60 mg PO BID emtricitabine-tenofovir alafen 200-25 mg Tablet 1 tab PO DAILY furosemide 20 mg tablet 20 mg PO DAILY Discontinued diltiazem HCl [Cardizem CD] 240 mg capsule,extended release 24hr 240 mg PO DAILY Qty: 30 0RF Eliquis 5 mg tablet 5 mg PO 2XD Discharge Orders: Discharge Order (Routine); Ordered 05/10/24 Ordered By: Myra Lentz Referrals: Cornel Fuentes MD [Primary Care Provider] - Theresa Lowry FNP [Nurse Practitioner] - (Follow up) Ramses Yo MD [Hospitalist] - (Follow up) Discharge Diet: Cardiac Discharge Activity: Increase activity as tolerated Patient Instructions: Opioid Safety Plan of Treatment: Needs to repeat CTA chest in 4 weeks to follow up for pulmonary embolism. Follow up [facility] outpatient clinic in 2 weeks Discharge Attestations Time Spent in Discharge Care*: less than 30 min Status at Discharge: Cognitive status at discharge: cognitively intact , Behavioral status at discharge: cooperative , Quality Metrics Clinical Quality Measures [ No reported AMI, CVA or VTE this stay] Coding Level of Care Code Acute Code for Chg Fwd Diagnoses Other chest pain R07.89 Chest pain type: other chest pain Atrial fibrillation with RVR I48.91 Acute pulmonary embolism, unspecified pulmonary embolism type, unspecified whether acute cor pulmonale present I26.99 Pulmonary embolism type: unspecified Chronicity: acute Acute cor pulmonale presence: unspecified Acute on chronic diastolic heart failure I50.33 Morbid obesity with BMI of 70 and over, adult E66.01; Z68.45 DILLAN (acute kidney injury) N17.9 Time Spent (min) 20
--- NOTE | 2024-05-10 12:13 | PC.SOCIAL ---
IMM Updated IMM dated and initialed and placed in chart and copy given to patient.
--- NOTE | 2024-05-10 12:25 | PC.NURSE ---
Patient was discharged at 1220 out the surgical services door to his father waiting in the car. All discharge medications gone over and were sent to pharmacy. Patient verbalized understanding of all discharge instructions.
--- NOTE | 2024-05-11 10:54 | PC.NURSE ---
physician notified on pt's discharge medication Pharmacy in [facility] would like to speak to the hospitalist in regards to the dosing of his xarelto and prior authorization for the insurance on this med. spoke and relayed this questions to dr Lentz and provided her the [facility] pharmacy phone number.
== END 2024-05-10 12:25 | disposition home or self-care (01) | DRG 280 ==
LOC: ER 22:39 → CSU 22:56
PROVIDERS: Family Medicine; Admitting Provider Family Medicine; Emergency Provider Emergency Medicine; PCP Family Medicine; Visit Provider Internal Medicine
DX: I11.0 Hypertensive heart disease with heart failure (principal); I26.99 Other pulmonary embolism without acute cor pulmonale; I21.4 Non-ST elevation (NSTEMI) myocardial infarction; J96.01 Acute respiratory failure with hypoxia; J18.9 Pneumonia, unspecified organism; I50.33 Acute on chronic diastolic (congestive) heart failure; N17.9 Acute kidney failure, unspecified; Z68.44 Body mass index [BMI] 60.0-69.9, adult; I48.20 Chronic atrial fibrillation, unspecified; E66.01 Morbid (severe) obesity due to excess calories; R74.8 Abnormal levels of other serum enzymes; G47.33 Obstructive sleep apnea (adult) (pediatric); E78.5 Hyperlipidemia, unspecified; F41.1 Generalized anxiety disorder; F31.9 Bipolar disorder, unspecified; Z68.25 Body mass index [BMI] 25.0-25.9, adult; Z79.899 Other long term (current) drug therapy; Z79.01 Long term (current) use of anticoagulants; Z82.49 Family history of ischemic heart disease and other diseases of the circulatory system; Z82.3 Family history of stroke; Z87.891 Personal history of nicotine dependence
CPT/HCPCS: 0241U; 36415; 36416; 36600; 51702; 71045; 71275; 74177; 80048; 80051; 80053; 80061; 80074; 81001; 82330; 82805; 82962; 83036; 83690; 83735; 83880; 84100; 84443; 84484; 85025; 85610; 85730; 87040; 93005; 94660; 94664; 96365; 96375; 96376; 99285; A9270; J0456; J0696; J1644; J1940; J2470; J3490; J7050

== ENCOUNTER 2024-05-23 15:56 | Inpatient (IN) | payer MEDICARE, MEDICAID, SELFPAY ==
[2023-07-12 08:16] VITALS: BP 132/87; BMI 60.8
[2024-05-23] VITALS (13 sets, daily range): BP systolic 106–132; BP diastolic 80–113; PULSE 87–113; RESP 20–24; TEMP 36.8; O2SAT 94–100; BMI 52.9
--- NOTE | 2024-05-23 16:00 | ECG_ITS ---
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
--- NOTE | 2024-05-23 16:00 | XRR_ITS ---
PROCEDURE INFORMATION: Exam: XR Chest Exam date and time: 05/23/2024 4:09 PM Age: 48 years old Clinical indication: Shortness of breath TECHNIQUE: Imaging protocol: Radiologic exam of the chest. Views: 1 view. COMPARISON: 1. CT angio chest PE protcl [id number] 05/06/2024 9:10 PM 2. CR (CHEST, ) 05/06/2024 6:55 PM FINDINGS: Limitations: Study is limited due to patient body habitus. The study is made with less than full inspiration. Lungs: There is no pulmonary venous congestion. Pleural spaces: There are bilateral pleural effusions possibly smaller than on 05/06/2024. Heart/Mediastinum: The heart is moderately enlarged. Bones/joints: Unremarkable. XR/XR chest 1V portable [id number] IMPRESSION: Bilateral pleural effusions right greater than left
[2024-05-23 16:32] LABS: ABG PCO2 42.7 mmHg (35-45); ABG PH Result 7.36 (7.35-7.45); Alveolar-Arterial Oxygen Gradi 11.6 mmHg (5-10); Arterial Blood Gas Hematocrit 38.5 % (42-52); Base Excess ABG -1.6 mmol/L (-2.0-2.0); Blood Gas Allen Test Pos; Blood Gas Operator Identificat glc; Blood Gas Sample Site Radial, right; Blood Gas Sample Type Arterial; Carboxyhemoglobin 1.5 %THgb (0.4-20.1); HGB O2 Sat 97.3 % (95-100); Ionized Calcium Level - ABG 1.2 mmol/L (1.1-1.4); Methemoglobin 0.1 % (0.4-1.5); Oxygen Device NC; Oxygen Saturation ABG 98.9; PO2 FiO2 Ratio Arterial Blood 316; Potassium Level - ABG 4.1 mmol/L (3.5-5.0); Total Hemoglobin 12.5 g/dL (14-18)
--- NOTE | 2024-05-23 16:42 | ED_ITS ---
HPI - SOB/Dyspnea 2 General: Chief Complaint: Shortness of Breath/Dyspnea Stated Complaint: SOB, Edema Time Seen by Provider: 05/23/24 15:57 History of Present Illness: HPI Narrative: 48-year-old man with a history of morbid obesity, obstructive sleep apnea, hypertension, depression and anxiety, and recently diagnosed pulmonary embolism on Xarelto who presents to the emergency room with worsening swelling. He says his legs and his abdomen are all swollen. He is a little bit more short of breath than usual. He has been taking his Eliquis as instructed. No known fevers. No chest pain. No abdominal pain. No nausea or vomiting. No altered mental status. No focal motor deficits. Related Data Home Medications Medication Instructions Recorded Confirmed multivitamin with minerals-folic 1 tab PO DAILY 10/07/22 05/07/24 acid 120 mcg chewable tablet (Centrum Adult 50 Plus Fresh-Fruity) acetazolamide 250 mg tablet 125 mg PO DAILY 11/02/23 05/07/24 amiodarone 200 mg tablet 200 mg PO DAILY 05/07/24 05/07/24 atorvastatin 40 mg tablet 40 mg PO BEDTIME 05/07/24 05/07/24 dicyclomine 20 mg tablet 20 mg PO QID 05/07/24 05/07/24 duloxetine 60 mg capsule,delayed 60 mg PO BID 05/07/24 05/07/24 release emtricitabine 200 mg-tenofovir 1 tab PO DAILY 05/07/24 05/07/24 alafenamide fumarate 25 mg tablet furosemide 20 mg tablet 20 mg PO DAILY 05/07/24 05/07/24 Previous Rx's Medication Instructions Recorded spironolactone 25 mg tablet 12.5 mg (1/2 x 25 mg) PO DAILY #90 11/19/23 tabs metoprolol tartrate 50 mg tablet 50 mg PO BID@0900,2100 21 days #42 05/10/24 tabs rivaroxaban 10 mg tablet (Xarelto) 15 mg (1.5 x 10 mg) PO BID 21 days 05/10/24 #63 tabs Allergies Allergy/AdvReac Type Severity Reaction Status Date / Time No Known Allergies Allergy Verified 11/02/23 14:55 Review of Systems 2 Narrative: Constitutional symptoms: Negative except as documented in HPI. Skin symptoms: Negative except as documented in HPI. Eye symptoms: Negative except as documented in HPI. ENMT symptoms: Negative except as documented in HPI. Respiratory symptoms: Negative except as documented in HPI. Cardiovascular symptoms: Negative except as documented in HPI. Gastrointestinal symptoms: Negative except as documented in HPI. Genitourinary symptoms: Negative except as documented in HPI. Musculoskeletal symptoms: Negative except as documented in HPI. Neurologic symptoms: Negative except as documented in HPI. Psychiatric symptoms: Negative except as documented in HPI. Endocrine symptoms: Negative except as documented in HPI. PFSH ED 2 PFSH: Medical History Lower urinary tract symptoms (LUTS) Morbid obesity with BMI of 70 and over, adult Candidal skin infection BONITA (obstructive sleep apnea) Hypertension Depression Anxiety Bipolar 1 disorder Restrictive lung disease Gout Dyslipidemia Psychiatric care Generalized anxiety disorder Major depressive disorder, recurrent severe without psychotic features Surgical History No significant past surgical history Family History Mother Myocardial infarct Stroke Father Myocardial infarct Diabetes Other Cancer Dementia Hypertension Psychiatric illness Social History Smoking and tobacco/nicotine status: former use of tobacco/nicotine Quit status (tobacco/nicotine): has quit using Year quit tobacco: 2002 Second hand smoke exposure: No Alcohol intake: former Year of sobriety/quit date alcohol: 2019 Substance/Drug Use: never Adopted: No Caregiver/support person: Yes ([employer]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 and a nurse once per week) Lives independently: No Household members: significant other Housing: Manufactured/Mobile home Marital status: Life Partner Number of children: 0 Number of grandchildren: 0 Highest education level completed: 12th Grade, No Diploma service: No Current occupational status: disabled Current occupational exposures/hazards: No Pets and animals: No Leisure activites: music, reading and other Leisure activities details: watches TV Sexually active: No Do you think of yourself as: Lesbian/Jacobsen/Homosexual Current gender identity: Male Jayne/Gnosticist: None Special jayne needs: No Agree to transfusion: No Physical Exam 2 Narrative: EXAM NARRATIVE: General: Alert, no acute distress. Skin: Warm, dry. Head: Normocephalic, atraumatic. Neck: Supple, trachea midline. Eye: Extraocular movements are intact. Ears, nose, mouth and throat: mucosa moist. Cardiovascular: Regular, Normal peripheral perfusion. Diffuse edema of the legs and abdominal wall. Respiratory: Coarse breath sounds, mild tachypnea, diminished breath sounds at the lung bases. Difficult to auscultate secondary to body habitus. Gastrointestinal: Soft, Nontender, Non distended Musculoskeletal: Normal ROM, no deformity. Neurological: Alert and oriented, No focal neurological deficit observed. Psychiatric: Cooperative, appropriate mood & affect. Course 2 Vital Signs: Vital signs: Vital Signs Temperature 98.2 F 05/23/24 15:57 Pulse Rate 106 H 05/23/24 19:30 Respiratory Rate 24 H 05/23/24 18:00 Blood Pressure 129/80 05/23/24 19:30 Pulse Oximetry 100 05/23/24 19:30 Oxygen Delivery Me thod Nasal Cannula 05/23/24 19:30 Oxygen Flow Rate 4 05/23/24 19:30 MDM - SOB/Dyspnea Medical Decision Making Differential diagnosis for patient with shortness of breath includes but is not limited to and based on the above HPI, review of systems and physical exam: Pneumonia. Bronchitis. Asthma or COPD with acute exacerbation. Acute coronary syndrome / [place]. Pulmonary embolism. Anxiety. Congestive heart failure. Viral infections including influenza and Covid-19. Atrial fibrillation. Anxiety. Pleural effusion. Pneumothorax. Orders placed to evaluate differential diagnosis based on the above differential, HPI and physical exam Lab Review: Laboratory results were reviewed and interpreted by myself the emergency room physician. No leukocytosis. No anemia. Platelets are 144. BUN and creatinine are 42 and 2.1 which is slightly above his baseline recently which was about 1.6. proBNP is slightly elevated over recent measurements at 2500 Chest x-ray: Bilateral effusions. This was reviewed and interpreted by myself the ER physician. I reviewed the patient's medical record. Consultation: I spoke with Dr. Doe who is on-call for the hospitalist service and agrees to admission. Assessment and plan: Anasarca Acute on chronic renal insufficiency Acute on chronic hypoxemic respiratory failure Pulmonary embolism Morbid obesity ?IV Lasix given in the emergency room. -I discussed the patient with the hospitalist on-call who is admitting the patient. - Discussed findings and plan with patient. Answered any questions. - All laboratory values were reviewed and interpreted personally by myself, the ER physician - All imaging was reviewed and interpreted personally by myself, the ER physician. - Evaluation and treatment of this problem were appropriate in the emergency setting Lab Data 05/23/24 16:31 05/23/24 16: Labs/Radiology: Radiology Impressions Chest X-Ray 05/23/24 16:00 IMPRESSION: Bilateral pleural effusions right greater than left Laboratory Results WBC 6.50 10^3/uL (3.29-11.43) 05/23/24 16: RBC 4.87 10^6/uL (3.85-5.65) 05/23/24 16: Hgb 12.50 g/dL (11.27-16.99) 05/23/24 16: Hct 44.2 % (37-53) 05/23/24 16: MCV 90.8 fl (82-101) 05/23/24 16: MCH 25.7 pg (27-33) L 05/23/24 16: MCHC 28.3 g/dL (30-55) L 05/23/24 16: RDW 16.2 % (12.1-15.1) H 05/23/24 16: Plt Count 144 10^3/cmm (157-399) L 05/23/24 16: MPV 11.7 fL (7.4-10.4) H 05/23/24 16: Neut % (Auto) 68.9 % 05/23/24 16: Lymph % (Auto) 11.8 % 05/23/24 16: [place] % (Auto) 17.4 % 05/23/24 16:31 Eos % (Auto) 0.5 % 05/23/24 16: Baso % (Auto) 0.8 % 05/23/24 16: Neut # (Auto) 4.48 10^3/uL (1.8-7.7) 05/23/24 16: Lymph # (Auto) 0.8 10^3/uL (0.8-4.8) 05/23/24 16: [place] # (Auto) 1.1 10^3/uL (0.2-0.9) H 05/23/24 16:31 Eos # (Auto) 0.0 10^3/uL (0.0-0.8) 05/23/24 16:31 Baso # (Auto) 0.1 10^3/uL (0.0-0.1) 05/23/24 16:31 Nucleated RBC % (auto) 0.8 % 05/23/24 16:31 Nucleated RBCs # 0.1 /100WBC 05/23/24 16:31 Specimen Type Arterial 05/23/24 16:20 Sample Site Radial, right 05/23/24 16:20 ABG pH 7.36 (7.35-7.45) 05/23/24 16:20 ABG pCO2 42.7 mmHg (35-45) 05/23/24 16:20 ABG pO2 114.0 mmHg (80.0-100.0) H 05/23/24 16:20 ABG PO2/FiO2 Ratio 316 05/23/24 16:20 ABG HCO3 24.0 mmol/L (22-26) 05/23/24 16:20 ABG O2 Saturation 98.9 05/23/24 16:20 ABG Base Excess -1.6 mmol/L (-2.0-2.0) 05/23/24 16:20 Joseph Test Pos 05/23/24 16:20 A-a O2 Gradient 11.6 mmHg (5-10) H 05/23/24 16:20 Hematocrit 38.5 % (42-52) L 05/23/24 16:20 Hgb O2 Saturation 97.3 % (95-100) 05/23/24 16:20 Carboxyhemoglobin 1.5 %THgb (0.4-20.1) 05/23/24 16:20 Methemoglobin 0.1 % (0.4-1.5) L 05/23/24 16:20 Total Hemoglobin 12.5 g/dL (14-18) L 05/23/24 16:20 Sodium 134.0 mmol/L (131-143) 05/23/24 16:20 Potassium 4.1 mmol/L (3.5-5.0) 05/23/24 16:20 Glucose 88.0 mg/dL (70-115) 05/23/24 16:20 Ionized Calcium 1.2 mmol/L (1.1-1.4) 05/23/24 16:20 O2 Delivery Device Nc 05/23/24 16:20 O2 Liters/Min 4.0 % 05/23/24 16:20 FiO2 36.0 % 05/23/24 16:20 Dealer Support Technician ID glc 05/23/24 16:20 Sodium 137 mmol/L (136-145) 05/23/24 16:31 Potassium 4.6 mmol/L (3.5-5.1) 05/23/24 16:31 Chloride 101 mmol/L (98-107) 05/23/24 16:31 Carbon Dioxide 27 mmol/L (22-29) 05/23/24 16:31 Anion Gap 13.6 (5-19) 05/23/24 16:31 BUN 42 mg/dL (6-20) H 05/23/24 16:31 Creatinine 2.1 mg/dL (0.7-1.2) H 05/23/24 16:31 GFR Calculation 33.7 mL/min (90-130) L 05/23/24 16:31 Glucose 85 mg/dL (65-115) 05/23/24 16:31 Calculated Osmolality 294 mOsm/kg (285-295) 05/23/24 16:31 Lactic Acid 1.6 mmol/L (0.5-2.2) 05/23/24 16:31 Calcium 8.7 mg/dL (8.5-10.5) 05/23/24 16:31 Total Bilirubin 1.1 mg/dL (0.15-1.2) 05/23/24 16:31 AST 49 U/L (0-40) H 05/23/24 16:31 ALT 100 U/L (0-41) H 05/23/24 16:31 Alkaline Phosphatase 131 U/L (40-130) H 05/23/24 16:31 Troponin T Baseline 24 ng/L (0-15) H 05/23/24 16:31 Troponin T 120 Minute 25.86 ng/L (0-15) H 05/23/24 18:34 Delta Troponin T 1.86 ABS# (0-10) 05/23/24 18:34 NT-Pro-B Natriuret Pep 2825 pg/mL (0-125) H 05/23/24 16:31 Total Protein 6.4 g/dL (6.6-8.7) L 05/23/24 16:31 Albumin 3.6 g/dL (3.5-5.2) 05/23/24 16:31 Globulin 2.8 g/dL (1.3-4.6) 05/23/24 16:31 All radiology interpretation(s) finalized by discharge Discharge Plan Discharge Patient Disposition: Admitted As Inpatient Clinical Impression: Anasarca, Morbid obesity, Pulmonary embolism, Acute on chronic renal insufficiency, Pleural effusion, bilateral Condition: Stable Coding Level of Care Code ED Waistline Joiner for Francisco Javier Ely
[2024-05-23 17:11] LABS: Troponin(5th) Baseline 24 ng/L (0-15)
[2024-05-23 17:13] LABS: Lactic Sepsis W/Reflex 1.6 mmol/L (0.5-2.2)
[2024-05-23 17:15] LABS: Basophils # 0.1 10^3/uL (0.0-0.1); Basophils % 0.8 %; Eosinophils % 0.5 %; Hematocrit 44.2 % (37-53); Lymphocytes # 0.8 10^3/uL (0.8-4.8); Lymphocytes % 11.8 %; Mean Corpuscular HGB Conc 28.3 g/dL (30-55); Mean Corpuscular Hemoglobin 25.7 pg (27-33); Mean Corpuscular Volume 90.8 fl (82-101); Mean Platelet Volume 11.7 fL (7.4-10.4); Monocytes # 1.1 10^3/uL (0.2-0.9); Monocytes % 17.4 %; Neutrophils # 4.48 10^3/uL (1.8-7.7); Neutrophils % 68.9 %; Nucleated Red Blood Cells # 0.1 /100WBC; Nucleated Red Blood Cells % 0.8 %; Platelet Count 144 10^3/cmm (157-399); Red Blood Count 4.87 10^6/uL (3.85-5.65); Red Cell Distribution Width 16.2 % (12.1-15.1)
[2024-05-23 17:29] LABS: Alanine Aminotransferase 100 U/L (0-41); Albumin Level 3.6 g/dL (3.5-5.2); Alkaline Phosphatase 131 U/L (40-130); Anion Gap 13.6 (5-19); Aspartate Amino Transferase 49 U/L (0-40); Blood Urea Nitrogen 42 mg/dL (6-20); Calcium 8.7 mg/dL (8.5-10.5); Carbon Dioxide 27 mmol/L (22-29); Chloride 101 mmol/L (98-107); Creatinine Clr Calc Pharmacy 70.6095; Globulin 2.8 g/dL (1.3-4.6); Glomerular Filtration Rate 33.7 mL/min (90-130); Glucose 85 mg/dL (65-115); NT Pro B Type Natriuretic Pept 2825 pg/mL (0-125); Osmolality Calculated 294 mOsm/kg (285-295); Potassium 4.6 mmol/L (3.5-5.1); Sodium 137 mmol/L (136-145); Total Bilirubin 1.1 mg/dL (0.15-1.2); Total Protein 6.4 g/dL (6.6-8.7)
--- NOTE | 2024-05-23 17:55 | CTR_ITS ---
PROCEDURE INFORMATION: Exam: CT Chest Without Contrast; Diagnostic Exam date and time: 05/23/2024 8:01 PM Age: 48 years old Clinical indication: Shortness of breath; Additional info: Abnormal chest xray TECHNIQUE: Imaging protocol: Diagnostic computed tomography of the chest without contrast. Radiation optimization: All CT scans at this facility use at least one of these dose optimization techniques: automated exposure control; mA and/or kV adjustment per patient size (includes targeted exams where dose is matched to clinical indication); or iterative reconstruction. COMPARISON: CT angio chest PE protcl [id number] 05/06/2024 9:10 PM RADIATION DOSE METRICS: Total DLP (mGy-cm): 1029 FINDINGS: Limitations: Study is limited due to patient body habitus. Increased noise/quantum mottle, which may be secondary to causes such as low to output for a given body size versus increased amount overlying soft tissues. Lungs: There is some compressive atelectasis both lung bases. There is some mild ground-glass opacity and focal densities posterior lower lobes on both sides most likely due to hypoventilation however mild infectious or inflammatory disease not excluded. Please correlate with clinical findings. There is a small calcified granuloma left lower lobe Pleural spaces: There is small left and moderate right pleural effusion. These are similar to 05/06/2024. Heart: The heart is mildly enlarged. Coronary arteries: There is no evidence of atherosclerotic coronary artery calcifications. Lymph nodes: There is no evidence of lymphadenopathy. Vasculature: There is no thoracic aortic aneurysm. Intraperitoneal space: There is a least moderate ascites in the upper abdomen which is new finding compared with 05/06/2024. Bones/joints: Unremarkable. No acute fracture. Soft tissues: There is moderate nonspecific gynecomastia. CT/CT chest wo con [id number] IMPRESSION: 1. Bilateral pleural effusions 2. Mild basilar atelectasis. Superimposed infectious or inflammatory disease not excluded 3. Ascites in the upper abdomen
[2024-05-23 17:59] LABS: Slide Review Slide Review Perform
--- NOTE | 2024-05-23 18:05 | ECG_ITS ---
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: : 1975 Requested By: Patricia Joe Order Number: [id number] Reading MD: BUSTER ODONNELL Measurements Intervals [place] Rate: 109 P: 0 WI: 0 QRS: 134 QRSD: 190 T: -34 QT: 432 QTc: 584 Interpretive Statements ATRIAL FIBRILLATION WITH RAPID VENTRICULAR RESPONSE INTRAVENTRICULAR CONDUCTION DELAY [130+ ms QRS DURATION] Compared to ECG 05/23/2024 16:04:21 No significant changes Electronically Signed On 05-24-2024 20:12:36 CDT by BUSTER ODONNELL [email or web address] hospital [id number]
[2024-05-23 18:55] LABS: Troponin 5 2HR 25.86 ng/L (0-15); Troponin 5 2HR Delta 1.86 ABS# (0-10)
[2024-05-23] MEDS: FUROsemide 10 mg/mL SDV 10mL 80 MG IVP (19:46)
--- NOTE | 2024-05-23 20:29 | P.HP_ITS ---
Providers/Chief Complaint 2 Primary Care Provider: Cornel Fuentes MD Chief Complaint: SOB, Edema History of Present Illness Pleasant 48-year-old gentleman living at home with family, usually on 2 L nasal cannula oxygen, nightly CPAP for BONITA, recently hospitalized and assessed and treated for respiratory failure, congestive heart failure exacerbation, found to have PE, also treated for pneumonia, A-fib with RVR, NSTEMI secondary to PE, on anticoagulation with Xarelto, returns to the hospital due to limiting exertional intolerance, lacking energy, running out of breath very easily even trying to get to the bathroom from his room he has to lean on the washing machine to regain his energy and catch his breath before continuing on and let lightheadedness resolved. States previously he used to be able to ambulate independently. He has also noticed worsening lower extremity edema. In ER he is found to require 4 L nasal cannula oxygen NT-proBNP 2825 back on 05/07 was 1892. Chest x-ray with bilateral pleural effusions right greater than left. Sodium 137 potassium 4.6, bicarb 27, anion gap 13.6, BUN 42, creatinine 2.1. Lactic acid 1.6. T. bili 1.1, AST 49, ALT 100, alk phos 131. Baseline troponin 24, 2-hour troponin 26. Albumin 3.6. Review of Systems 2 Eyes: Denies: change in vision ENMT: Denies: throat pain, oral sores or ear or mastoid pain Card: Reports: edema, swelling of feet/ankles, lightheadedness and dyspnea on exertion Resp: Reports: dyspnea; Denies: productive cough or non-productive cough GI: Denies: abdominal pain, nausea, vomiting, diarrhea, constipation, hematochezia or melena : Denies: flank pain, difficulty urinating, urinary frequency or hematuria Musc: Denies: back pain, joint swelling or joint redness Skin/Breast: Denies: rash or new lesions Neuro: Denies: headache(s) or confusion Medications/Allergies Home Medications Medication Instructions Recorded Confirmed Last Taken Type multivitamin with minerals-folic 1 tab PO DAILY 10/07/22 05/07/24 05/06/24 History acid 120 mcg chewable tablet (Centrum Adult 50 Plus Fresh-Fruity) acetazolamide 250 mg tablet 125 mg PO DAILY 11/02/23 05/07/24 05/06/24 History spironolactone 25 mg tablet 12.5 mg (1/2 x 25 mg) PO DAILY #90 11/19/23 05/07/24 05/06/24 Rx tabs amiodarone 200 mg tablet 200 mg PO DAILY 05/07/24 05/07/24 05/06/24 History atorvastatin 40 mg tablet 40 mg PO BEDTIME 05/07/24 05/07/24 05/05/24 History dicyclomine 20 mg tablet 20 mg PO QID 05/07/24 05/07/24 05/06/24 History duloxetine 60 mg capsule,delayed 60 mg PO BID 05/07/24 05/07/24 05/06/24 History release emtricitabine 200 mg-tenofovir 1 tab PO DAILY 05/07/24 05/07/24 05/06/24 History alafenamide fumarate 25 mg tablet furosemide 20 mg tablet 20 mg PO DAILY 05/07/24 05/07/24 05/06/24 History metoprolol tartrate 50 mg tablet 50 mg PO BID@0900,2100 21 days #42 05/10/24 Unknown Rx tabs rivaroxaban 10 mg tablet (Xarelto) 15 mg (1.5 x 10 mg) PO BID 21 days 05/10/24 Unknown Rx #63 tabs Allergies Allergy/AdvReac Type Severity Reaction Status Date / Time No Known Allergies Allergy Verified 11/02/23 14:55 PFSH Acute 2 PFSH: Medical History (Updated 05/23/24 @ 20:34 by Ezekiel Doe MD) PTSD (post-traumatic stress disorder) Lower urinary tract symptoms (LUTS) Morbid obesity with BMI of 70 and over, adult Candidal skin infection BONITA (obstructive sleep apnea) Hypertension Depression Anxiety Bipolar 1 disorder Restrictive lung disease Gout Dyslipidemia Psychiatric care Generalized anxiety disorder Major depressive disorder, recurrent severe without psychotic features Surgical History No significant past surgical history Family History Mother Myocardial infarct Stroke Father Myocardial infarct Diabetes Other Cancer Dementia Hypertension Psychiatric illness Social History Smoking and tobacco/nicotine status: former use of tobacco/nicotine Quit status (tobacco/nicotine): has quit using Year quit tobacco: 2002 Second hand smoke exposure: No Alcohol intake: former Year of sobriety/quit date alcohol: 2019 Substance/Drug Use: never Adopted: No Caregiver/support person: Yes ([employer]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 and a nurse once per week) Lives independently: No Household members: significant other Housing: Manufactured/Mobile home Marital status: Life Partner Number of children: 0 Number of grandchildren: 0 Highest education level completed: 12th Grade, No Diploma service: No Current occupational status: disabled Current occupational exposures/hazards: No Pets and animals: No Leisure activites: music, reading and other Leisure activities details: watches TV Sexually active: No Do you think of yourself as: Lesbian/Jacobsen/Homosexual Current gender identity: Male Jayne/Zoroastrianism: None Special jayne needs: No Agree to transfusion: No Vitals/I&O/Wt Last Vital Signs Temp 98.2 F 05/23/24 15:57 Pulse 106 H 05/23/24 19:30 Resp 24 H 05/23/24 18:00 BP 129/80 05/23/24 19:30 Pulse Ox 100 05/23/24 19:30 O2 Del Method Nasal Cannula 05/23/24 19:30 O2 Flow Rate 4 05/23/24 19:30 Weight last 48 hrs Weight 176.901 kg Physical Exam 2 Const: COMMON NORMALS: patient oriented x3 and alert GENERAL APPEARANCE: c ooperative NUTRITIONAL APPEARANCE: obese morbidly obese O RIENTATION/CONSCIOUSNESS: Yes awake HENMT: COMMON NORMALS: oropharynx normal Neck/C-Spine: COMMON NORMALS: no JVD Resp: AUSCULTATION: diminished lung sounds Cardio: COMMON NORMALS: no JVD, regular rhythm, S1 normal heart sound present, S2 normal heart sound present and No murmurs present (Cardio) RHYTHM: a bnormal rhythm irregularly irregular HEART SOUNDS: S1 normal heart sound present and S2 normal heart sound present GI: COMMON NORMALS: Normal to inspection, nondistended, normoactive bowel sounds present, Soft to palpation and non-tender PALPATION: Yes Soft to palpation Extremity: COMMON NORMALS: no joint enlargement GENERAL: Yes edema Neuro: COMMON NORMALS: patient oriented x3 and moves all extremities S ENSORIUM/ORIENTATION: Yes alert Skin: COMMON NORMALS: no rashes or lesions noted GENERAL SKIN EXAM: no rashes or lesions noted Data 05/23/24 16:31 05/23/24 16:31 A&P Assessment and plan (1) Heart failure with acute decompensation, type unknown: With dyspnea on exertion, lower extreme edema, bilateral pleural effusions, elevated NT proBNP, recently with PE, treated with anticoagulation with Xarelto. Increased oxygen requirement from 2 to 4 L with tachypnea 24, tachycardia 106. With major comorbidity, DILLAN on CKD creatinine up to 2.1. Reviewed vitals, CBC, ABG, CMP, baseline and 2-hour troponin, EKG, and monitor potation atrial fibrillation with intraventricular conduction delay without acute CT, pending official read, reviewed ER provider note, discussed with ER provider. With exacerbation of underlying heart failure. He is started on IV Lasix 80 mg, continue IV diuretic, monitor kidney function with risk of kidney injury, although do suspect possibly acute right heart failure decompensation following PE, with congestive nephropathy may suspect improvement with improved volume status, monitor electrolytes with risk of deficiency. Reassess volume status. Check magnesium. Reviewed last echocardiogram, study was nondiagnostic. BMI 53. Consider reaching out to cardiology tomorrow for approval of contrast-enhanced study or consider MUGA scan. Bilateral pleural effusions, reviewed CT chest, mild bibasilar atelectasis, superimposed infectious or inflammatory disease not excluded, was recently treated for pneumonia. He denies new cough, he is afebrile, leukocytosis for now lower suspicion for infectious etiology, but monitor condition. Add incentive spirometer. Consider thoracentesis, will switch to Lovenox for now. Monitor for risk of bleeding. With thrombocytopenia, reassess platelet level. CHF education. Dietitian consultation. He will need his cardiology appointment rescheduled. (2) Acute on chronic renal insufficiency: Suspect may be secondary to right-sided heart failure as above. Diuretics as above. Will obtain urine urea, urine creatinine. Reassess kidney function. (3) Physical deconditioning: Significant exertional intolerance with dyspnea, getting short of breath, dizzy, extremely fatigued with walking short distances like trying to make it to the bathroom from his room. Suspect secondary to decompensated congestive heart failure as above, pleural effusions, recent PE, atelectasis. (4) Declining functional status: Treat congestive heart failure as above. Oxygen support. Will obtain PT assessment as well. He may potentially consider going to rehabilitation after discharge. Would benefit from cardiac rehab. Plan A-fib: With recent RVR. Continue amiodarone. Continue anticoagulation for stroke risk reduction. Recent PE: Continue to coagulation. He was referred for follow-up with heme- onc, may need his appointment rescheduled. BONITA: On nightly CPAP at home. Continue. Morbid obesity: Follow-up with primary provider regarding weight loss options. Heart healthy diet. Dietitian consultation. HTN: Continue spironolactone HLD: Continue statin Bipolar Attestations 2 Medical Necessity Statement*: Admission of over 2 midnights is going to be needed for assessment management of decompensated congestive heart failure, suspected right sided heart failure with comorbidity of acute kidney injury on chronic kidney disease, with increased oxygen requirement with tachypnea, tachycardia, requiring 4 L nasal cannula oxygen as opposed to 2 L usually, with severe exertional intolerance getting tired walking out from his room to his bathroom, and a gentleman with morbid obesity, atrial fibrillation, on anticoagulation after recent PE, sleep apnea, additional comorbidities as above. Diagnoses Heart failure with acute decompensation, type unknown I50.9 Acute on chronic renal insufficiency N28.9; N18.9 Physical deconditioning R53.81 Declining functional status R53.81
--- NOTE | 2024-05-23 21:09 | PC.NURSE ---
CSU nurse to call back to take report. [id number].
--- NOTE | 2024-05-23 22:00 | ECG_ITS ---
[facility] Test Date: 2024-05-24 Pat Name: Robert Juarez Department: Room: 108 Gender: Male [employer]: : 1975 Requested By: Patricia Joe Order Number: [id number] Shawanda MD: BUSTER ODONNELL Measurements Intervals [place] Rate: 92 P: 0 NV: 0 QRS: 165 QRSD: 189 T: 1 QT: 460 QTc: 572 Interpretive Statements ATRIAL FIBRILLATION RIGHT AXIS DEVIATION [QRS AXIS > 100] INTRAVENTRICULAR CONDUCTION DELAY [130+ ms QRS DURATION] Compared to ECG 05/23/2024 18:05:29 Right-axis deviation now present Electronically Signed On 05-24-2024 20:11:52 CDT by BUSTER ODONNELL [email or web address]
[2024-05-23] MEDS: enoxaparin 100 mg/mL Syringe 150 MG SUBCUT (23:12)
[2024-05-23] MEDS: dicyclomine 20 mg Tablet PO (23:13)
[2024-05-23] MEDS: metoprolol tartrate 50 mg Tablet PO (23:13)
[2024-05-23] MEDS: atorvastatin 40 mg Tablet PO (23:13)
[2024-05-23 23:23] LABS: Troponin 5 6HR 25.05 ng/L (0-15); Troponin 5 6HR Delta 1.05 ng/L (0-12)
[2024-05-24] VITALS (11 sets, daily range): BP systolic 90–133; BP diastolic 68–101; PULSE 77–103; RESP 18–28; TEMP 36.4–36.7; O2SAT 85–99
[2024-05-24 04:49] LABS: Magnesium 1.9 mg/dL (1.7-2.3)
[2024-05-24] MEDS: FUROsemide 10 mg/mL SDV 4mL 40 MG IVP ×2 (05:42→16:11)
--- NOTE | 2024-05-24 08:29 | PC.PHAR ---
Patient states he still uses siome meds with old fill dates but he also states he uses mail order on some medication in which we don't have record of .
[2024-05-24] MEDS: spironolactone 25 mg Tablet 12.5 MG PO (08:49)
[2024-05-24] MEDS: acetaZOLAMIDE 250 mg Tablet 125 MG PO (08:50)
[2024-05-24] MEDS: duloxetine 60 mg Capsule PO ×2 (08:50→17:46)
[2024-05-24] MEDS: dicyclomine 20 mg Tablet PO ×4 (08:50→21:16)
[2024-05-24] MEDS: metoprolol tartrate 50 mg Tablet PO ×2 (08:51→21:15)
[2024-05-24] MEDS: amiodarone 200 mg Tablet PO (08:51)
[2024-05-24 09:18] LABS: Urine Creatinine 30 mg/dL (39-259)
[2024-05-24 10:23] LABS: Urea Nitrogen,Urine Random 236 mg/dL
[2024-05-24] MEDS: enoxaparin 150 mg/mL Syringe SUBCUT ×2 (10:28→21:15)
--- NOTE | 2024-05-24 16:11 | P.PN_ITS ---
Subjective 2 Subjective: Patient was seen this morning, continues to complain of lower extreme edema, shortness of breath, no nausea, no vomiting, no abdominal pain, does report abdominal bloating, he has a history of HIV, discussed with him to have his family bring in his HIV medications as we do not carry it in the hospital Vitals/I&O/Wt Last Vital Signs Temp 97.7 F 05/24/24 15:58 Pulse 96 05/24/24 15:58 Resp 23 H 05/24/24 15:58 BP 107/78 05/24/24 15:58 Pulse Ox 85 L 05/24/24 15:58 O2 Del Method Room Air 05/24/24 15:58 O2 Flow Rate 3.5 05/24/24 13:41 FiO2 30 05/23/24 23:45 05/24/24 05/24/24 05/24/24 06:59 14:59 22:59 Intake Total 480 / 480 240 / 240 Output Total 250 / 250 300 / 300 200 / 500 Balance 230 / 230 -60 / -60 -200 / -260 Weight last 48 hrs Weight 225.2 kg Weight 225.2 kg Weight 176.901 kg Physical Exam 2 Const: COMMON NORMALS: no acute distress and patient oriented x3 Resp: COMMON NORMALS: normal respiratory effort, No retractions, No use of accessory muscles and clear to auscultation bilaterally AUSCULTATION: clear to auscultation bilaterally Cardio: COMMON NORMALS: regular rate, regular rhythm, S1 normal heart sound present and S2 normal heart sound present RATE: regular rate RHYTHM: r egular rhythm HEART SOUNDS: S1 normal heart sound present and S2 normal heart sound present GI: COMMON NORMALS: Normal to inspection, nondistended, normoactive bowel sounds present and non-tender Extremity: NARRATIVE EXTREMITY EXAM: 2+ pitting edema bilateral extremity Neuro: COMMON NORMALS: patient oriented x3 Psych: COMMON NORMALS: mental status grossly normal Data 05/23/24 16:31 05/23/24 16:31 A&P Assessment and plan (1) Heart failure with acute decompensation, type unknown: Lasix 40 IV twice daily Monitor urine output, monitor creatinine Monitor for shortness of breath Continue therapeutic Lovenox, switched from Xarelto, just in case patient needs thoracocentesis CHF education. Dietitian consultation. He will need his cardiology appointment rescheduled. (2) Acute on chronic renal insufficiency: Suspect may be secondary to right-sided heart failure as above. Diuretics as above. Will obtain urine urea, urine creatinine. Reassess kidney function. (3) Physical deconditioning: Significant exertional intolerance with dyspnea, getting short of breath, dizzy, extremely fatigued with walking short distances like trying to make it to the bathroom from his room. Suspect secondary to decompensated congestive heart failure as above, pleural effusions, recent PE, atelectasis. (4) Declining functional status: Treat congestive heart failure as above. Oxygen support. Will obtain PT assessment as well. He may potentially consider going to rehabilitation after discharge. Would benefit from cardiac rehab. Plan A-fib: With recent RVR. Continue amiodarone. Continue anticoagulation for stroke risk reduction. Recent PE: Continue to coagulation. He was referred for follow-up with heme- onc, may need his appointment rescheduled. BONITA: On nightly CPAP at home. Continue. Morbid obesity: Follow-up with primary provider regarding weight loss options. Heart healthy diet. Dietitian consultation. HTN: Continue spironolactone HLD: Continue statin Bipolar Attestations 2 Medical Necessity Statement*: Patient requires hospitalization for CHF exacerbation Diagnoses Heart failure with acute decompensation, type unknown I50.9 Acute on chronic renal insufficiency N28.9; N18.9 Physical deconditioning R53.81 Declining functional status R53.81
[2024-05-24] MEDS: atorvastatin 40 mg Tablet PO (21:15)
[2024-05-24] MEDS: magnesium sulfate premix 1 GM/100 ML PIGGYBACK IV (22:31)
[2024-05-25] VITALS: BP 98/75; PULSE 102; RESP 26; TEMP 36.4; O2SAT 92
[2024-05-25 04:00] VITALS: BP 99/66; PULSE 103; RESP 25; TEMP 36.6; O2SAT 90
[2024-05-25] MEDS: FUROsemide 10 mg/mL SDV 4mL 40 MG IVP ×2 (04:33→16:33)
[2024-05-25 04:53] LABS: Basophils % 0.6 %; Eosinophils # 0.1 10^3/uL (0.0-0.8); Hematocrit 41.2 % (37-53); Lymphocytes # 0.8 10^3/uL (0.8-4.8); Lymphocytes % 12.6 %; Mean Corpuscular HGB Conc 27.7 g/dL (30-55); Mean Corpuscular Hemoglobin 24.9 pg (27-33); Monocytes # 1.2 10^3/uL (0.2-0.9); Monocytes % 18.1 %; Neutrophils % 67.3 %; Nucleated Red Blood Cells # 0.1 /100WBC; Nucleated Red Blood Cells % 1.2 %; Platelet Count 152 10^3/cmm (157-399); Red Blood Count 4.58 10^6/uL (3.85-5.65); Red Cell Distribution Width 16.1 % (12.1-15.1); White Blood Count 6.69 10^3/uL (3.29-11.43)
[2024-05-25 05:13] LABS: Anion Gap 12.3 (5-19); Blood Urea Nitrogen 43 mg/dL (6-20); Calcium 8.4 mg/dL (8.5-10.5); Carbon Dioxide 29 mmol/L (22-29); Chloride 100 mmol/L (98-107); Glucose 108 mg/dL (65-115); Osmolality Calculated 295 mOsm/kg (285-295); Potassium 4.3 mmol/L (3.5-5.1); Sodium 137 mmol/L (136-145)
--- NOTE | 2024-05-25 06:29 | PC.NURSE ---
Patient stated that he was having muscle cramps in legs. Dr Doe notified and new orders placed.
[2024-05-25 07:41] VITALS: BP 118/84; PULSE 105; RESP 20; TEMP 36.4; O2SAT 95
[2024-05-25] MEDS: spironolactone 25 mg Tablet 12.5 MG PO (07:42)
[2024-05-25] MEDS: metoprolol tartrate 50 mg Tablet PO ×2 (07:42→21:25)
[2024-05-25] MEDS: acetaZOLAMIDE 250 mg Tablet 125 MG PO (07:42)
[2024-05-25] MEDS: dicyclomine 20 mg Tablet PO ×4 (07:43→21:25)
[2024-05-25] MEDS: duloxetine 60 mg Capsule PO ×2 (07:43→16:33)
[2024-05-25] MEDS: amiodarone 200 mg Tablet PO (07:43)
[2024-05-25] MEDS: enoxaparin 150 mg/mL Syringe SUBCUT ×2 (09:55→21:45)
[2024-05-25 12:00] VITALS: BP 97/69; PULSE 98; RESP 24
[2024-05-25 16:41] VITALS: BP 104/74; PULSE 85; RESP 26; TEMP 36.3; O2SAT 100
--- NOTE | 2024-05-25 17:02 | P.PN_ITS ---
Subjective 2 Subjective: Patient was seen this morning, continues to complain of lower extremity edema, weakness, fatigue, Vitals/I&O/Wt Last Vital Signs Temp 97.3 F L 05/25/24 16:41 Pulse 85 05/25/24 16:41 Resp 26 H 05/25/24 16:41 BP 104/74 05/25/24 16:41 Pulse Ox 100 05/25/24 16:41 O2 Del Method Nasal Cannula 05/25/24 16:41 O2 Flow Rate 3 05/25/24 16:41 FiO2 30 05/23/24 23:45 05/25/24 05/25/24 05/25/24 06:59 14:59 22:59 Intake Total 100 / 460 480 / 480 Output Total 300 / 1200 Balance -200 / -740 480 / 480 Weight last 48 hrs Weight 225.2 kg Weight 225.2 kg Weight 225.2 kg Physical Exam 2 Const: COMMON NORMALS: no acute distress and patient oriented x3 Resp: COMMON NORMALS: normal respiratory effort, No retractions, No use of accessory muscles and clear to auscultation bilaterally AUSCULTATION: clear to auscultation bilaterally Cardio: COMMON NORMALS: regular rate, regular rhythm, S1 normal heart sound present and S2 normal heart sound present RATE: regular rate RHYTHM: r egular rhythm HEART SOUNDS: S1 normal heart sound present and S2 normal heart sound present GI: COMMON NORMALS: Normal to inspection, nondistended, normoactive bowel sounds present and non-tender Extremity: NARRATIVE EXTREMITY EXAM: 2+ pitting edema Neuro: COMMON NORMALS: patient oriented x3 Psych: COMMON NORMALS: mental status grossly normal Data 05/25/24 04:42 05/25/24 04:42 A&P Assessment and plan (1) Heart failure with acute decompensation, type unknown: Lasix 40 IV twice daily Urine output has been a bit lackluster, will give a dose of metolazone in addition to Lasix Monitor urine output, monitor creatinine Monitor for shortness of breath Continue therapeutic Lovenox, switched from Xarelto, just in case patient needs thoracocentesis CHF education. Dietitian consultation. He will need his cardiology appointment rescheduled. (2) Acute on chronic renal insufficiency: Suspect may be secondary to right-sided heart failure as above. Diuretics as above. Will obtain urine urea, urine creatinine. Reassess kidney function. (3) Physical deconditioning: Significant exertional intolerance with dyspnea, getting short of breath, dizzy, extremely fatigued with walking short distances like trying to make it to the bathroom from his room. Suspect secondary to decompensated congestive heart failure as above, pleural effusions, recent PE, atelectasis. (4) Declining functional status: Treat congestive heart failure as above. Oxygen support. Will obtain PT assessment as well. He may potentially consider going to rehabilitation after discharge. Would benefit from cardiac rehab. Plan A-fib: With recent RVR. Continue amiodarone. Continue anticoagulation for stroke risk reduction. Recent PE: Continue to coagulation. He was referred for follow-up with heme- onc, may need his appointment rescheduled. BONITA: On nightly CPAP at home. Continue. Morbid obesity: Follow-up with primary provider regarding weight loss options. Heart healthy diet. Dietitian consultation. HTN: Continue spironolactone HLD: Continue statin Bipolar Attestations 2 Medical Necessity Statement*: Requires hospitalization for fluid overload, CHF Diagnoses Heart failure with acute decompensation, type unknown I50.9 Acute on chronic renal insufficiency N28.9; N18.9 Physical deconditioning R53.81 Declining functional status R53.81
[2024-05-25] MEDS: metOLazone 5 MG Tablet PO (17:27)
[2024-05-25] MEDS: potassium chloride ER 20 mEq Tablet PO (17:27)
[2024-05-25 20:10] VITALS: BP 104/74; PULSE 78; TEMP 36.8; O2SAT 90
[2024-05-25] MEDS: atorvastatin 40 mg Tablet PO (21:25)
[2024-05-26] VITALS (7 sets, daily range): BP systolic 100–145; BP diastolic 75–93; PULSE 63–106; RESP 17–25; TEMP 36.6–36.9; O2SAT 92–97; BMI 67.1
[2024-05-26 04:47] LABS: Blood Urea Nitrogen 39 mg/dL (6-20); Calcium 8.3 mg/dL (8.5-10.5); Carbon Dioxide 30 mmol/L (22-29); Chloride 99 mmol/L (98-107); Glucose 107 mg/dL (65-115); NT Pro B Type Natriuretic Pept 3672 pg/mL (0-125); Osmolality Calculated 294 mOsm/kg (285-295); Sodium 137 mmol/L (136-145)
[2024-05-26] MEDS: FUROsemide 10 mg/mL SDV 4mL 40 MG IVP ×2 (05:29→17:06)
[2024-05-26 05:58] LABS: Basophils % 0.5 %; Eosinophils # 0.1 10^3/uL (0.0-0.8); Eosinophils % 0.8 %; Hematocrit 39.3 % (37-53); Lymphocytes # 0.6 10^3/uL (0.8-4.8); Lymphocytes % 10.1 %; Mean Corpuscular HGB Conc 27.5 g/dL (30-55); Mean Corpuscular Hemoglobin 24.8 pg (27-33); Mean Corpuscular Volume 90.3 fl (82-101); Mean Platelet Volume 11.8 fL (7.4-10.4); Monocytes # 1.1 10^3/uL (0.2-0.9); Monocytes % 17.5 %; Neutrophils # 4.25 10^3/uL (1.8-7.7); Neutrophils % 70.8 %; Nucleated Red Blood Cells # 0.1 /100WBC; Platelet Count 71 10^3/cmm (157-399); Red Blood Count 4.35 10^6/uL (3.85-5.65); White Blood Count 6.01 10^3/uL (3.29-11.43)
[2024-05-26 06:16] LABS: Slide Review Slide Review Perform
[2024-05-26] MEDS: potassium chloride ER 20 mEq Tablet PO (07:26)
[2024-05-26] MEDS: spironolactone 25 mg Tablet 12.5 MG PO (07:26)
[2024-05-26] MEDS: duloxetine 60 mg Capsule PO ×2 (07:26→17:06)
[2024-05-26] MEDS: metOLazone 5 MG Tablet PO (07:26)
[2024-05-26] MEDS: amiodarone 200 mg Tablet PO (07:27)
[2024-05-26] MEDS: metoprolol tartrate 50 mg Tablet PO ×2 (07:27→21:51)
[2024-05-26] MEDS: dicyclomine 20 mg Tablet PO ×4 (07:27→21:51)
[2024-05-26] MEDS: acetaZOLAMIDE 250 mg Tablet 125 MG PO (07:29)
[2024-05-26] MEDS: enoxaparin 150 mg/mL Syringe SUBCUT ×2 (11:26→21:50)
--- NOTE | 2024-05-26 14:00 | P.PN_ITS ---
Subjective 2 Subjective: Patient was seen this morning, patient voices frustration, as his lower extremity edema persists, he does me that he has been urinating a lot, no fevers, no chills, shortness of breath is improving Vitals/I&O/Wt Last Vital Signs Temp 97.8 F 05/26/24 12:00 Pulse 106 H 05/26/24 12:00 Resp 19 H 05/26/24 12:00 BP 145/89 05/26/24 12:00 Pulse Ox 92 05/26/24 04:00 O2 Del Method Nasal Cannula 05/26/24 04:00 O2 Flow Rate 3 05/26/24 04:00 FiO2 30 05/23/24 23:45 05/25/24 05/26/24 05/26/24 22:59 06:59 14:59 Intake Total 480 / 960 480 / 1440 460 / 460 Output Total 500 / 500 Balance 480 / 960 -20 / 940 460 / 460 Weight last 48 hrs Weight 224.698 kg Weight 225.2 kg Physical Exam 2 Const: COMMON NORMALS: no acute distress and patient oriented x3 Resp: COMMON NORMALS: normal respiratory effort, No retractions, No use of accessory muscles and clear to auscultation bilaterally AUSCULTATION: clear to auscultation bilaterally Cardio: COMMON NORMALS: regular rate, regular rhythm, S1 normal heart sound present and S2 normal heart sound present RATE: regular rate RHYTHM: r egular rhythm HEART SOUNDS: S1 normal heart sound present and S2 normal heart sound present GI: COMMON NORMALS: Normal to inspection, nondistended, normoactive bowel sounds present and non-tender Extremity: NARRATIVE EXTREMITY EXAM: 1+ pitting edema Neuro: COMMON NORMALS: patient oriented x3 Psych: COMMON NORMALS: mental status grossly normal Data 05/26/24 05:39 05/26/24 03:52 A&P Assessment and plan (1) Heart failure with acute decompensation, type unknown: Lasix 40 IV twice daily 1 dose metolazone today Creatinine 2.2 Monitor urine output, monitor creatinine Monitor for shortness of breath Continue therapeutic Lovenox, switched from Xarelto, just in case patient needs thoracocentesis CHF education. Dietitian consultation. He will need his cardiology appointment rescheduled. (2) Acute on chronic renal insufficiency: Suspect may be secondary to right-sided heart failure as above. Diuretics as above. Will obtain urine urea, urine creatinine. Reassess kidney function. (3) Physical deconditioning: Significant exertional intolerance with dyspnea, getting short of breath, dizzy, extremely fatigued with walking short distances like trying to make it to the bathroom from his room. Suspect secondary to decompensated congestive heart failure as above, pleural effusions, recent PE, atelectasis. (4) Declining functional status: Treat congestive heart failure as above. Oxygen support. Will obtain PT assessment as well. He may potentially consider going to rehabilitation after discharge. Would benefit from cardiac rehab. Plan A-fib: With recent RVR. Continue amiodarone. Continue anticoagulation for stroke risk reduction. Recent PE: Continue to coagulation. He was referred for follow-up with heme- onc, may need his appointment rescheduled. BONITA: On nightly CPAP at home. Continue. Morbid obesity: Follow-up with primary provider regarding weight loss options. Heart healthy diet. Dietitian consultation. HTN: Continue spironolactone HLD: Continue statin Bipolar Attestations 2 Medical Necessity Statement*: Patient requires hospitalization for CHF exacerbation Diagnoses Heart failure with acute decompensation, type unknown I50.9 Acute on chronic renal insufficiency N28.9; N18.9 Physical deconditioning R53.81 Declining functional status R53.81
[2024-05-26] MEDS: atorvastatin 40 mg Tablet PO (21:51)
[2024-05-27] VITALS (7 sets, daily range): BP systolic 98–133; BP diastolic 65–83; PULSE 85–103; RESP 19–30; TEMP 36.4–37; O2SAT 91–98
[2024-05-27 02:39] LABS: Basophils # 0.1 10^3/uL (0.0-0.1); Basophils % 0.8 %; Eosinophils # 0.1 10^3/uL (0.0-0.8); Eosinophils % 1.9 %; Hematocrit 40.4 % (37-53); Lymphocytes # 0.9 10^3/uL (0.8-4.8); Lymphocytes % 15.4 %; Mean Corpuscular HGB Conc 27.5 g/dL (30-55); Mean Corpuscular Hemoglobin 25.1 pg (27-33); Mean Corpuscular Volume 91.2 fl (82-101); Monocytes % 17.6 %; Neutrophils # 3.76 10^3/uL (1.8-7.7); Neutrophils % 63.8 %; Nucleated Red Blood Cells % 0 %; Platelet Count 31 10^3/cmm (157-399); Red Blood Count 4.43 10^6/uL (3.85-5.65); Red Cell Distribution Width 16.2 % (12.1-15.1)
[2024-05-27 03:03] LABS: Slide Review Slide Review Perform
[2024-05-27 03:22] LABS: Blood Urea Nitrogen 36 mg/dL (6-20); Calcium 8.2 mg/dL (8.5-10.5); Carbon Dioxide 29 mmol/L (22-29); Chloride 99 mmol/L (98-107); Creatinine Clr Calc Pharmacy 82.1162; Glomerular Filtration Rate 33.7 mL/min (90-130); Glucose 90 mg/dL (65-115); NT Pro B Type Natriuretic Pept 4069 pg/mL (0-125); Osmolality Calculated 300 mOsm/kg (285-295); Sodium 141 mmol/L (136-145)
[2024-05-27 03:25] LABS: Anion Gap 17.3 (5-19); Potassium 4.3 mmol/L (3.5-5.1)
[2024-05-27] MEDS: FUROsemide 10 mg/mL SDV 4mL 40 MG IVP ×2 (05:01→16:46)
[2024-05-27 05:37] LABS: LAB Peripheral Smear Sent for Review
[2024-05-27 05:41] LABS: Hematocrit 41.3 % (37-53); Retic Production Index 2.37; Reticulocyte % 2.3 % (0.5-2.0)
[2024-05-27 05:47] LABS: Lactate Dehydrogenase 368 U/L (135-225)
[2024-05-27] MEDS: metoprolol tartrate 50 mg Tablet PO ×2 (08:23→21:31)
[2024-05-27] MEDS: acetaZOLAMIDE 250 mg Tablet 125 MG PO (08:23)
[2024-05-27] MEDS: duloxetine 60 mg Capsule PO ×2 (08:24→17:43)
[2024-05-27] MEDS: spironolactone 25 mg Tablet 12.5 MG PO (08:24)
[2024-05-27] MEDS: dicyclomine 20 mg Tablet PO ×4 (08:24→21:31)
[2024-05-27] MEDS: amiodarone 200 mg Tablet PO (08:24)
[2024-05-27 08:42] LABS: Lactate Dehydrogenase 367 U/L (135-225)
[2024-05-27] MEDS: DESCOVY 1 EACH PO (11:25)
--- NOTE | 2024-05-27 13:07 | P.PN_ITS ---
Subjective 2 Subjective: Patient was seen this morning, he is sitting up in a chair, we discussed his thrombocytopenia, we will recheck his bili This afternoon, denies any metabolic symptoms, no headache, blurry vision, new cough, he tells me that he stopped taking his HIV medications for the last few days, as is more than this was the cause of his blood clot, advised the importance of compliance with his HIV medications, his family members will bring it and he should resume his HIV medications, he voiced understanding, all questions answered, -Recheck platelet count this afternoon 09 04, will stop therapeutic Lovenox, resume his Xarelto, monitor closely Vitals/I&O/Wt Last Vital Signs Temp 97.8 F 05/27/24 11:51 Pulse 85 05/27/24 11:51 Resp 24 H 05/27/24 11:51 BP 129/73 05/27/24 11:51 Pulse Ox 98 05/27/24 11:51 O2 Del Method Nasal Cannula 05/27/24 11:51 O2 Flow Rate 3 05/27/24 11:51 FiO2 30 05/23/24 23:45 05/26/24 05/27/24 05/27/24 22:59 06:59 14:59 Intake Total 220 / 680 480 / 480 Output Total Balance 220 / 680 - 480 / 480 Weight last 48 hrs Weight 99.926 kg Weight 224.698 kg Physical Exam 2 Const: COMMON NORMALS: no acute distress and patient oriented x3 Resp: COMMON NORMALS: normal respiratory effort, No retractions, No use of accessory muscles and clear to auscultation bilaterally AUSCULTATION: clear to auscultation bilaterally Cardio: COMMON NORMALS: regular rate, regular rhythm, S1 normal heart sound present and S2 normal heart sound present RATE: regular rate RHYTHM: r egular rhythm HEART SOUNDS: S1 normal heart sound present and S2 normal heart sound present GI: COMMON NORMALS: Normal to inspection, nondistended, normoactive bowel sounds present and non-tender Extremity: COMMON NORMALS: no pedal edema Neuro: COMMON NORMALS: patient oriented x3 Psych: COMMON NORMALS: mental status grossly normal Data 05/27/24 14:06 05/27/24 02:00 A&P Assessment and plan (1) Heart failure with acute decompensation, type unknown: Lasix 40 IV twice daily 1 dose metolazone today Creatinine 2.2 Monitor urine output, monitor creatinine Monitor for shortness of breath Continue therapeutic Lovenox, switched from Xarelto, just in case patient needs thoracocentesis CHF education. Dietitian consultation. He will need his cardiology appointment rescheduled. (2) Acute on chronic renal insufficiency: Suspect may be secondary to right-sided heart failure as above. Diuretics as above. Will obtain urine urea, urine creatinine. Reassess kidney function. (3) Physical deconditioning: Significant exertional intolerance with dyspnea, getting short of breath, dizzy, extremely fatigued with walking short distances like trying to make it to the bathroom from his room. Suspect secondary to decompensated congestive heart failure as above, pleural effusions, recent PE, atelectasis. (4) Declining functional status: Treat congestive heart failure as above. Oxygen support. Will obtain PT assessment as well. He may potentially consider going to rehabilitation after discharge. Would benefit from cardiac rehab. Plan A-fib: With recent RVR. Continue amiodarone. Continue anticoagulation for stroke risk reduction. Recent PE: Continue to coagulation. He was referred for follow-up with heme- onc, may need his appointment rescheduled. BONITA: On nightly CPAP at home. Continue. Morbid obesity: Follow-up with primary provider regarding weight loss options. Heart healthy diet. Dietitian consultation. HTN: Continue spironolactone HLD: Continue statin Bipolar Plan for today, monitor platelet count, resume Xarelto, IV diuresis Attestations 2 Medical Necessity Statement*: Patient requires hospitalization for thrombocytopenia, fluid overload Diagnoses Heart failure with acute decompensation, type unknown I50.9 Acute on chronic renal insufficiency N28.9; N18.9 Physical deconditioning R53.81 Declining functional status R53.81
[2024-05-27 14:17] LABS: Basophils % 0.7 %; Eosinophils # 0.1 10^3/uL (0.0-0.8); Eosinophils % 1.5 %; Hematocrit 39.4 % (37-53); Lymphocytes # 0.6 10^3/uL (0.8-4.8); Lymphocytes % 10.7 %; Mean Corpuscular HGB Conc 27.2 g/dL (30-55); Mean Corpuscular Hemoglobin 24.8 pg (27-33); Mean Corpuscular Volume 91.4 fl (82-101); Mean Platelet Volume 10.9 fL (7.4-10.4); Monocytes % 18.9 %; Neutrophils # 3.74 10^3/uL (1.8-7.7); Neutrophils % 67.8 %; Nucleated Red Blood Cells % 0.7 %; Platelet Count 120 10^3/cmm (157-399); Red Blood Count 4.31 10^6/uL (3.85-5.65); Red Cell Distribution Width 16.3 % (12.1-15.1); White Blood Count 5.51 10^3/uL (3.29-11.43)
[2024-05-27] MEDS: rivaroxaban 10 mg Tablet 20 MG PO (17:43)
[2024-05-27] MEDS: atorvastatin 40 mg Tablet PO (21:31)
[2024-05-28] VITALS (7 sets, daily range): BP systolic 87–149; BP diastolic 60–100; PULSE 89–107; RESP 15–24; TEMP 36.3–36.8; O2SAT 95–100
[2024-05-28] MEDS: FUROsemide 10 mg/mL SDV 4mL 40 MG IVP ×2 (03:42→16:07)
[2024-05-28 04:01] LABS: Basophils % 0.7 %; Eosinophils # 0.1 10^3/uL (0.0-0.8); Eosinophils % 1.4 %; Hematocrit 38.1 % (37-53); Lymphocytes # 0.6 10^3/uL (0.8-4.8); Lymphocytes % 10.2 %; Mean Corpuscular HGB Conc 27.6 g/dL (30-55); Mean Corpuscular Hemoglobin 25.7 pg (27-33); Mean Corpuscular Volume 93.4 fl (82-101); Mean Platelet Volume 11.3 fL (7.4-10.4); Monocytes # 1.1 10^3/uL (0.2-0.9); Monocytes % 18.6 %; Neutrophils # 3.98 10^3/uL (1.8-7.7); Neutrophils % 68.6 %; Nucleated Red Blood Cells % 0.5 %; Platelet Count 99 10^3/cmm (157-399); Red Blood Count 4.08 10^6/uL (3.85-5.65); Red Cell Distribution Width 16.3 % (12.1-15.1)
[2024-05-28 04:25] LABS: Anion Gap 13.4 (5-19); Blood Urea Nitrogen 33 mg/dL (6-20); Calcium 8.2 mg/dL (8.5-10.5); Carbon Dioxide 35 mmol/L (22-29); Chloride 96 mmol/L (98-107); Creatinine Clr Calc Pharmacy 54.6824; Glomerular Filtration Rate 35.7 mL/min (90-130); Glucose 106 mg/dL (65-115); NT Pro B Type Natriuretic Pept 3797 pg/mL (0-125); Osmolality Calculated 300 mOsm/kg (285-295); Potassium 3.4 mmol/L (3.5-5.1); Sodium 141 mmol/L (136-145)
[2024-05-28 04:39] LABS: Slide Review Slide Review Perform
[2024-05-28] MEDS: metoprolol tartrate 50 mg Tablet PO ×2 (08:45→22:03)
[2024-05-28] MEDS: metOLazone 5 MG Tablet PO (08:45)
[2024-05-28] MEDS: potassium chloride ER 20 mEq Tablet 40 MEQ PO (08:45)
[2024-05-28] MEDS: rivaroxaban 10 mg Tablet 20 MG PO (08:46)
[2024-05-28] MEDS: duloxetine 60 mg Capsule PO ×2 (08:46→17:51)
[2024-05-28] MEDS: dicyclomine 20 mg Tablet PO ×4 (08:46→22:04)
[2024-05-28] MEDS: amiodarone 200 mg Tablet PO (08:46)
[2024-05-28] MEDS: spironolactone 25 mg Tablet 12.5 MG PO (08:46)
[2024-05-28] MEDS: DESCOVY 1 EACH PO (08:50)
[2024-05-28] MEDS: acetaZOLAMIDE 250 mg Tablet 125 MG PO (09:00)
--- NOTE | 2024-05-28 11:07 | P.PN_ITS ---
Subjective 2 Subjective: Patient was seen this morning, he shortness of breath is improving continues to have edema, but improving, Vitals/I&O/Wt Last Vital Signs Temp 97.6 F 05/28/24 07:34 Pulse 100 05/28/24 07:34 Resp 24 H 05/28/24 07:34 BP 149/100 05/28/24 07:34 Pulse Ox 98 05/28/24 07:34 O2 Del Method Nasal Cannula 05/28/24 07:34 O2 Flow Rate 3 05/28/24 07:34 FiO2 30 05/23/24 23:45 05/27/24 05/28/24 05/28/24 22:59 06:59 14:59 Intake Total 480 / 1440 240 / 240 Balance 480 / 1440 240 / 240 Weight last 48 hrs Weight 218.4 kg Weight 99.926 kg Physical Exam 2 Const: COMMON NORMALS: no acute distress and patient oriented x3 Resp: COMMON NORMALS: normal respiratory effort, No retractions, No use of accessory muscles and clear to auscultation bilaterally AUSCULTATION: clear to auscultation bilaterally Cardio: COMMON NORMALS: regular rate, regular rhythm, S1 normal heart sound present and S2 normal heart sound present RATE: regular rate RHYTHM: r egular rhythm HEART SOUNDS: S1 normal heart sound present and S2 normal heart sound present GI: COMMON NORMALS: Normal to inspection, nondistended, normoactive bowel sounds present and non-tender Extremity: NARRATIVE EXTREMITY EXAM: 1+ edema Neuro: COMMON NORMALS: patient oriented x3 Psych: COMMON NORMALS: mental status grossly normal Data 05/28/24 03:25 05/28/24 03:25 A&P Assessment and plan (1) Heart failure with acute decompensation, type unknown: Lasix 40 IV twice daily 1 dose metolazone today Creatinine 2.0 Monitor urine output, monitor creatinine Monitor for shortness of breath Continue Xarelto CHF education. Dietitian consultation. He will need his cardiology appointment rescheduled. (2) Acute on chronic renal insufficiency: Monitor creatinine (3) Physical deconditioning: Monitor (4) Declining functional status: Treat congestive heart failure as above. Oxygen support. Will obtain PT assessment as well. He may potentially consider going to rehabilitation after discharge. Would benefit from cardiac rehab. Plan A-fib: With recent RVR. Continue amiodarone. Continue anticoagulation for stroke risk reduction. Recent PE: Continue Xarelto. He was referred for follow-up with heme-onc, may need his appointment rescheduled. BONITA: On nightly CPAP at home. Continue. Morbid obesity: Follow-up with primary provider regarding weight loss options. Heart healthy diet. Dietitian consultation. HTN: Continue spironolactone HLD: Continue statin # Thrombocytopenia, platelet count down to 30,000, HIT panel ordered, likely platelet clumping, as repeat platelet count was 120,000, Lovenox was stopped, switched to Xarelto, no bloody or black stools, no new rashes ? HIV: Resume home medication Bipolar Plan for today, continue to diurese, continue to monitor clinically, likely discharge tomorrow 1 dose of metolazone Attestations 2 Medical Necessity Statement*: Patient requires hospitalization for CHF exacerbation requiring IV diuresis Diagnoses Heart failure with acute decompensation, type unknown I50.9 Acute on chronic renal insufficiency N28.9; N18.9 Physical deconditioning R53.81 Declining functional status R53.81
[2024-05-28] MEDS: atorvastatin 40 mg Tablet PO (22:03)
--- NOTE | 2024-05-28 23:30 | PC.NURSE ---
Pt fell while in the bathroom. Jenny from [facility] called for us to help. Before lifting pt, nurse asked pt if he was hurt or hit anything. Pt denied injury or pain. Nurses assisted pt up from floor and on to the bed. Instructed pt to let nursing know if anything changes. Will continue to monitor pt through the shift.
[2024-05-29] VITALS (9 sets, daily range): BP systolic 110–148; BP diastolic 76–102; PULSE 90–100; RESP 20–24; TEMP 36.3–36.7; O2SAT 93–100
--- NOTE | 2024-05-29 04:30 | PC.NURSE ---
pt had lasix ordered. iv bad with a large bruise. pt to be dc today. dr agreed to change dose to po. will dc lasix iv
[2024-05-29] MEDS: FUROsemide 40 mg Tablet 60 MG PO (05:31)
[2024-05-29] MEDS: spironolactone 25 mg Tablet 12.5 MG PO (07:47)
[2024-05-29] MEDS: DESCOVY 1 EACH PO (07:47)
[2024-05-29] MEDS: dicyclomine 20 mg Tablet PO ×2 (07:47→12:23)
[2024-05-29] MEDS: amiodarone 200 mg Tablet PO (07:48)
[2024-05-29] MEDS: rivaroxaban 10 mg Tablet 20 MG PO (07:48)
[2024-05-29] MEDS: duloxetine 60 mg Capsule PO (07:48)
[2024-05-29] MEDS: metoprolol tartrate 50 mg Tablet PO (07:48)
[2024-05-29] MEDS: acetaZOLAMIDE 250 mg Tablet 125 MG PO (07:55)
[2024-05-29 10:26] LABS: Basophils % 0.6 %; Eosinophils # 0.1 10^3/uL (0.0-0.8); Hematocrit 38.3 % (37-53); Lymphocytes # 0.5 10^3/uL (0.8-4.8); Lymphocytes % 10.4 %; Mean Corpuscular HGB Conc 27.2 g/dL (30-55); Mean Corpuscular Hemoglobin 25.3 pg (27-33); Mean Corpuscular Volume 93.2 fl (82-101); Mean Platelet Volume 11.4 fL (7.4-10.4); Monocytes # 1.1 10^3/uL (0.2-0.9); Monocytes % 20.5 %; Neutrophils # 3.51 10^3/uL (1.8-7.7); Neutrophils % 67.3 %; Nucleated Red Blood Cells % 0.6 %; Platelet Count 114 10^3/cmm (157-399); Red Blood Count 4.11 10^6/uL (3.85-5.65); Red Cell Distribution Width 16.4 % (12.1-15.1); White Blood Count 5.21 10^3/uL (3.29-11.43)
[2024-05-29 10:57] LABS: Alanine Aminotransferase 40 U/L (0-41); Albumin Level 3.4 g/dL (3.5-5.2); Alkaline Phosphatase 110 U/L (40-130); Anion Gap 13.5 (5-19); Aspartate Amino Transferase 34 U/L (0-40); Blood Urea Nitrogen 29 mg/dL (6-20); Calcium 8.5 mg/dL (8.5-10.5); Carbon Dioxide 34 mmol/L (22-29); Chloride 95 mmol/L (98-107); Creatinine Clr Calc Pharmacy 98.8212; Glomerular Filtration Rate 43.1 mL/min (90-130); Glucose 107 mg/dL (65-115); Osmolality Calculated 294 mOsm/kg (285-295); Potassium 3.5 mmol/L (3.5-5.1); Sodium 139 mmol/L (136-145); Total Bilirubin 1.1 mg/dL (0.15-1.2); Total Protein 6.4 g/dL (6.6-8.7)
[2024-05-29 11:08] LABS: Slide Review Slide Review Perform
--- NOTE | 2024-05-29 12:12 | PM.DCS ---
Discharge Providers Date of Admission: 05/23/24 20:36 Date of Discharge: May 29, 2024 Attending Provider at Admission: Ezekiel Doe Attending Provider at Discharge: Hayden Ayala MD Primary Care Provider: Cornel Fuentes MD Diagnoses at Discharge Discharge Diagnosis (1) Heart failure with acute decompensation, type unknown: Status: Acute (2) Acute on chronic renal insufficiency: Status: Acute (3) Physical deconditioning: Status: Acute (4) Declining functional status: Status: Acute Reason for Visit Reason for Visit: SOB, Edema Brief History: History as per HPI: Pleasant 48-year-old gentleman living at home with family, usually on 2 L nasal cannula oxygen, nightly CPAP for BONITA, recently hospitalized and assessed and treated for respiratory failure, congestive heart failure exacerbation, found to have PE, also treated for pneumonia, A-fib with RVR, NSTEMI secondary to PE, on anticoagulation with Xarelto, returns to the hospital due to limiting exertional intolerance, lacking energy, running out of breath very easily even trying to get to the bathroom from his room he has to lean on the washing machine to regain his energy and catch his breath before continuing on and let lightheadedness resolved. States previously he used to be able to ambulate independently. He has also noticed worsening lower extremity edema. In ER he is found to require 4 L nasal cannula oxygen NT-proBNP 2825 back on 05/07 was 1892. Chest x-ray with bilateral pleural effusions right greater than left. Sodium 137 potassium 4.6, bicarb 27, anion gap 13.6, BUN 42, creatinine 2.1. Lactic acid 1.6. T. bili 1.1, AST 49, ALT 100, alk phos 131. Baseline troponin 24, 2-hour troponin 26. Albumin 3.6. Hospital Course Hospital Course Patient was admitted to cardiac stepdown unit for further evaluation and management of acute decompensated heart failure. He was started on IV diuresis. Due to concern for recent pulmonary embolism he was switched over to Lovenox from Xarelto. Patient had prolonged hospitalization because of gradual diuresis being on a dose of IV diuretics given concern for chronic kidney disease. Patient though responded to the treatment and gradually has been back to her baseline oxygen supplementation. During hospitalization patient did have an episode of mechanical fall which was thought to be in relation to noncompliance to CPAP. Patient did not have any episode of arrhythmia, chest pain during hospitalization. He has been discharged in hemodynamically stable condition on diuretics, lifestyle modification as per congestive heart failure. He was found to have type 2 diabetes mellitus for which Farxiga has been started. He is to follow-up with his primary care provider within next 1 week. Physical Exam Const: COMMON NORMALS: no acute distress, patient oriented x3 and alert GENERAL APPEARANCE: cooperative NUTRITIONAL APPEARANCE: obese morbidly obese ORIENTATION/CONSCIOUSNESS: Yes awake HENMT: COMMON NORMALS: oropharynx normal Neck/C-Spine: COMMON NORMALS: no JVD Resp: COMMON NORMALS: normal respiratory effort, No retractions, No use of accessory muscles and clear to auscultation bilaterally AUSCULTATION: clear to auscultation bilaterally and diminished lung sounds Cardio: COMMON NORMALS: no JVD, regular rate, regular rhythm, S1 normal heart sound present, S2 normal heart sound present and No murmurs present (Cardio) RATE: regular rate RHYTHM: regular rhythm and abnormal rhythm irregularly irregular HEART SOUNDS: S1 normal heart sound present and S2 normal heart sound present GI: COMMON NORMALS: Normal to inspection, nondistended, normoactive bowel sounds present, Soft to palpation and non-tender PALPATION: Yes Soft to palpation Extremity: COMMON NORMALS: no joint enlargement and no pedal edema NARRATIVE EXTREMITY EXAM: 1+ edema GENERAL: Yes edema Neuro: COMMON NORMALS: patient oriented x3 and moves all extremities SENSORIUM/ORIENTATION: Yes alert Psych: COMMON NORMALS: mental status grossly normal Skin: COMMON NORMALS: no rashes or lesions noted GENERAL SKIN EXAM: no rashes or lesions noted Discharge Data Studies Completed and Pending Completed Studies During Hospitalization Category Date Time Status CT chest wo con [id number] Stat Cat Scan 05/23/24 17:55 Completed XR chest 1V portable [id number] Stat Exams 05/23/24 16:00 Completed Pending at discharge Category Date Time Status Complete Blood Count w/Auto AM LABS Lab 05/30/24 04:00 Ordered Comprehensive Metabolic Panel AM LABS Lab 05/30/24 04:00 Ordered Heparin Induced Thrombocytopen Stat Lab 05/27/24 14:06 Received Magnesium AM LABS Lab 05/30/24 04:00 Ordered Phosphorus AM LABS Lab 05/30/24 04:00 Ordered Radiology Impressions Chest X-Ray 05/23/24 16:00 IMPRESSION: Bilateral pleural effusions right greater than left Chest CT 05/23/24 17:55 IMPRESSION: 1. Bilateral pleural effusions 2. Mild basilar atelectasis. Superimposed infectious or inflammatory disease not excluded 3. Ascites in the upper abdomen Laboratory Results WBC 5.21 10^3/uL (3.29-11.43) 05/29/24 10:15 Corrected WBC Cancelled 05/26/24 03:52 RBC 4.11 10^6/uL (3.85-5.65) 05/29/24 10:15 Hgb 10.40 g/dL (11.27-16.99) L 05/29/24 10:15 Hct 38.3 % (37-53) 05/29/24 10:15 MCV 93.2 fl (82-101) 05/29/24 10:15 MCH 25.3 pg (27-33) L 05/29/24 10:15 MCHC 27.2 g/dL (30-55) L 05/29/24 10:15 RDW 16.4 % (12.1-15.1) H 05/29/24 10:15 Plt Count 114 10^3/cmm (157-399) L 05/29/24 10:15 MPV 11.4 fL (7.4-10.4) H 05/29/24 10:15 Gran % Cancelled 05/26/24 03:52 Neut % (Auto) 67.3 % 05/29/24 10:15 Lymph % (Auto) 10.4 % 05/29/24 10:15 [place] % (Auto) 20.5 % 05/29/24 10:15 Eos % (Auto) 1.0 % 05/29/24 10:15 Baso % (Auto) 0.6 % 05/29/24 10:15 Reticulocyte % (Auto) 2.3 % (0.5-2.0) H 05/27/24 02:00 Neut # (Auto) 3.51 10^3/uL (1.8-7.7) 05/29/24 10:15 Lymph # (Auto) 0.5 10^3/uL (0.8-4.8) L 05/29/24 10:15 [place] # (Auto) 1.1 10^3/uL (0.2-0.9) H 05/29/24 10:15 Eos # (Auto) 0.1 10^3/uL (0.0-0.8) 05/29/24 10:15 Baso # (Auto) 0.0 10^3/uL (0.0-0.1) 05/29/24 10:15 Absolute Gran (auto) Cancelled 05/26/24 03:52 Nucleated RBC % (auto) 0.6 % 05/29/24 10:15 Nucleated RBCs # 0.0 /100WBC 05/29/24 10:15 Peripher Smr Path Cons Cancelled 05/27/24 02:00 Peripher Smr Path Cons Sent for review 05/27/24 02:00 Retic Production Index 2.37 05/27/24 02:00 Haptoglobin 80.0 mg/L (30-200) 05/27/24 02:00 Haptoglobin Cancelled 05/27/24 02:00 Specimen Type Arterial 05/23/24 16:20 Sample Site Radial, right 05/23/24 16:20 ABG pH 7.36 (7.35-7.45) 05/23/24 16:20 ABG pCO2 42.7 mmHg (35-45) 05/23/24 16:20 ABG pO2 114.0 mmHg (80.0-100.0) H 05/23/24 16:20 ABG PO2/FiO2 Ratio 316 05/23/24 16:20 ABG HCO3 24.0 mmol/L (22-26) 05/23/24 16:20 ABG O2 Saturation 98.9 05/23/24 16:20 ABG Base Excess -1.6 mmol/L (-2.0-2.0) 05/23/24 16:20 Joseph Test Pos 05/23/24 16:20 A-a O2 Gradient 11.6 mmHg (5-10) H 05/23/24 16:20 Hematocrit 38.5 % (42-52) L 05/23/24 16:20 Hgb O2 Saturation 97.3 % (95-100) 05/23/24 16:20 Carboxyhemoglobin 1.5 %THgb (0.4-20.1) 05/23/24 16:20 Methemoglobin 0.1 % (0.4-1.5) L 05/23/24 16:20 Total Hemoglobin 12.5 g/dL (14-18) L 05/23/24 16:20 Sodium 134.0 mmol/L (131-143) 05/23/24 16:20 Potassium 4.1 mmol/L (3.5-5.0) 05/23/24 16:20 Glucose 88.0 mg/dL (70-115) 05/23/24 16:20 Ionized Calcium 1.2 mmol/L (1.1-1.4) 05/23/24 16:20 O2 Delivery Device Nc 05/23/24 16:20 O2 Liters/Min 4.0 % 05/23/24 16:20 FiO2 36.0 % 05/23/24 16:20 Software Development Engineer ID [email or web address] 05/23/24 16:20 Sodium 139 mmol/L (136-145) 05/29/24 10:15 Potassium 3.5 mmol/L (3.5-5.1) 05/29/24 10:15 Chloride 95 mmol/L (98-107) L 05/29/24 10:15 Carbon Dioxide 34 mmol/L (22-29) H 05/29/24 10:15 Anion Gap 13.5 (5-19) 05/29/24 10:15 BUN 29 mg/dL (6-20) H 05/29/24 10:15 Creatinine 1.7 mg/dL (0.7-1.2) H 05/29/24 10:15 GFR Calculation 43.1 mL/min (90-130) L 05/29/24 10:15 Glucose 107 mg/dL (65-115) 05/29/24 10:15 Calculated Osmolality 294 mOsm/kg (285-295) 05/29/24 10:15 Lactic Acid 1.6 mmol/L (0.5-2.2) 05/23/24 16:31 Calcium 8.5 mg/dL (8.5-10.5) 05/29/24 10:15 Magnesium 1.9 mg/dL (1.7-2.3) 05/24/24 04:12 Total Bilirubin 1.1 mg/dL (0.15-1.2) 05/29/24 10:15 AST 34 U/L (0-40) 05/29/24 10:15 ALT 40 U/L (0-41) 05/29/24 10:15 Alkaline Phosphatase 110 U/L (40-130) 05/29/24 10:15 Lactate Dehydrogenase 367 U/L (135-225) H 05/27/24 02:00 Lactate Dehydrogenase 368 U/L (135-225) H 05/27/24 02:00 Troponin T Baseline 24 ng/L (0-15) H 05/23/24 16:31 Troponin T 120 Minute 25.86 ng/L (0-15) H 05/23/24 18:34 Delta Troponin T 1.86 ABS# (0-10) 05/23/24 18:34 Troponin T Hi Sens 6Hr 25.05 ng/L (0-15) H 05/23/24 22:52 Troponin T Hi Sens 6Hr Delta 1.05 ng/L (0-12) 05/23/24 22:52 NT-Pro-B Natriuret Pep 3797 pg/mL (0-125) H 05/28/24 03:25 Total Protein 6.4 g/dL (6.6-8.7) L 05/29/24 10:15 Albumin 3.4 g/dL (3.5-5.2) L 05/29/24 10:15 Globulin 3.0 g/dL (1.3-4.6) 05/29/24 10:15 Ur Random Urea Nitrogn 236 mg/dL 05/24/24 08:45 Urine Creatinine 30 mg/dL (39-259) L 05/24/24 08:45 Vitals Last Vital Signs Temp 97.8 F 05/29/24 07:35 Pulse 90 05/29/24 11:04 Resp 20 H 05/29/24 07:35 BP 110/76 05/29/24 10:18 Pulse Ox 98 05/29/24 09:42 O2 Del Method Nasal Cannula 05/29/24 09:42 O2 Flow Rate 3 05/29/24 09:42 FiO2 30 05/23/24 23:45 Discharge Plan Discharge Patient Disposition: Home Condition: Stable Prescriptions: New Xarelto 10 mg Tablet 20 mg PO DAILY 30 Days Qty: 30 3RF metolazone 5 mg tablet 5 mg PO EVERY OTHER DAY Qty: 30 0RF dapagliflozin propanediol [Farxiga] 10 mg tablet 10 mg PO DAILY Qty: 30 0RF Continued Centrum Adult 50 Fresh-Fruity 120 mcg tablet,chewable 1 tab PO DAILY acetazolamide 250 mg tablet 125 mg PO DAILY Patient Comments: 1/2 tab daily atorvastatin 40 mg tablet 40 mg PO BEDTIME amiodarone 200 mg tablet 200 mg PO DAILY dicyclomine 20 mg Tablet 20 mg PO QID Rx Instructions: before meals and at bedtime duloxetine 60 mg Capsule,Delayed Release(Dr/Ec) 60 mg PO BID metoprolol tartrate 50 mg Tablet 50 mg PO BID@0900,2100 21 Days Qty: 42 0RF Changed furosemide 20 mg tablet 40 mg PO DAILY 30 Days Qty: 60 0RF Discontinued spironolactone 25 mg tablet 12.5 mg PO DAILY Qty: 90 3RF Xarelto 10 mg Tablet 15 mg PO BID 21 Days Qty: 63 0RF Discharge Orders: Discharge Order (Routine); Ordered 05/29/24 Ordered By: Hayden Ayala Other Ambulatory Orders: DME: [facility] (Order) Location: None Selected Ordered By: Zander Manriquez Referrals: Margarita Britt FNP [Referring] - 06/01/24 11:20 am Discharge Diet: Cardiac Patient Instructions: Metolazone (By mouth) (Zaroxolyn), Rivaroxaban (By mouth) (Xarelto, Xarelto Starter Pack), Dapagliflozin (By mouth) (Farxiga), Opioid Safety Activity Restrictions/Additional Instructions: Restrict fluid intake to less than 1500 cc, salt intake to less than 2 g daily. Advised to check his weight daily at home. Is advised that weight today would be the dry weight and if body weight increases by around 5 pounds, patient is to take an extra dose of Lasix daily till body weight comes down to weight today. If not able to come down to dry body weight in 1 week, then is to call cardiology office for further recommendations. Patient was counseled in detail to take medications regularly as prescribed. Discharge Attestations Time Spent in Discharge Care*: greater than 30 min Specific Discharge Activities: educating patient, discussing with pcp/other providers, discussing with rehabilitation caseworker/social workers/dc planners, documenting/other paperwork and evaluating patient/reviewing data Status at Discharge: Cognitive status at discharge: cognitively intact, Behavioral status at discharge: cooperative, Functional status at discharge: independent ambulation, Overall status at discharge: patient is back to baseline Quality Metrics Clinical Quality Measures [ No reported AMI, CVA or VTE this stay] Coding Level of Care Code Acute Code for Chg Fwd Diagnoses Heart failure with acute decompensation, type unknown I50.9 Acute on chronic renal insufficiency N28.9; N18.9 Physical deconditioning R53.81 Declining functional status R53.81
--- NOTE | 2024-05-29 13:09 | PC.NURSE ---
Patient discharged to home. Instruction provided regarding follow up appointment and medications. Patient verbalized complete understanding. Patient taken by wheelchair to private vehicle. Father at bedside.
[2024-06-01 04:46] LABS: Heparin Induced Platelet AB WEAK POSITIVE (NEGATIVE); Patient O.D 0.493
== END 2024-05-29 13:12 | disposition home or self-care (01) | DRG 292 ==
LOC: ER 19:45 → CSU 20:36
PROVIDERS: Family Medicine; Admitting Provider Internal Medicine; Emergency Provider Emergency Medicine; PCP Family Medicine; Visit Provider Student in an Organized Health Care Education/Training Program
DX: I13.0 Hypertensive heart and chronic kidney disease with heart failure and stage 1 through stage 4 chronic kidney disease, or unspecified chronic kidney disease (principal); B20 Human immunodeficiency virus [HIV] disease; N17.9 Acute kidney failure, unspecified; Z68.44 Body mass index [BMI] 60.0-69.9, adult; E11.22 Type 2 diabetes mellitus with diabetic chronic kidney disease; N18.9 Chronic kidney disease, unspecified; G47.33 Obstructive sleep apnea (adult) (pediatric); E66.01 Morbid (severe) obesity due to excess calories; F31.9 Bipolar disorder, unspecified; E78.5 Hyperlipidemia, unspecified; I48.91 Unspecified atrial fibrillation; I50.813 Acute on chronic right heart failure; D69.6 Thrombocytopenia, unspecified; Z87.891 Personal history of nicotine dependence; Z99.89 Dependence on other enabling machines and devices; Z99.81 Dependence on supplemental oxygen; Z91.199 Patient's noncompliance with other medical treatment and regimen due to unspecified reason; Z79.01 Long term (current) use of anticoagulants; Z79.899 Other long term (current) drug therapy; Z86.711 Personal history of pulmonary embolism
CPT/HCPCS: 36415; 36600; 71045; 71250; 80048; 80051; 80053; 80503; 82330; 82570; 82805; 83010; 83605; 83615; 83735; 83880; 84484; 84540; 85014; 85025; 85045; 93005; 94660; 94664; 96372; 96374; 96376; 97110; 97116; 97161; 99285; J1650; J1940; J3475

== ENCOUNTER 2025-07-29 20:29 | Inpatient (IN) | payer MEDICARE, MEDICAID, SELFPAY ==
[2023-07-12 08:16] VITALS: BP 132/87; BMI 60.8
[2025-07-29 20:30] VITALS: BP 136/74; PULSE 135; RESP 20; TEMP 36.5; O2SAT 96; BMI 58.1
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
--- OUTSIDE RECORDS SUMMARY | 2025-07-29 20:34 | XMS_ITS | Encounter Summary ---
Author Organization [facility] Address [address] [place] [address] Care Team Providers Care Leasing Consultant Name Role Phone Kinjal Ornelas Primary Care Provider [phone] Reason for Visit * Reason Comments Med Refill Encounter Details Date Type Department Care Team (Late st Contact Info) Description 07/22/[address] [facility] [address] [place] [address] [facility] [address] [place] [address] Encounter for pre-exposure prophylaxis for HIV Social History Tobacco Use Types Packs/Day Years [...] Sex Assigned at Male 08/11/2023 12:11 PM ERECTOR OPERATOR Legal Sex Male 12:49 AM ERECTOR OPERATOR Gender Identity Male 08/11/2023 12:11 PM ERECTOR OPERATOR Sexual Orientation Lesbian or Jacobsen 08/11/2023 12 :11 PM ERECTOR OPERATOR documented as of this encounter Miscellaneous Notes * Telephone Encounter - Cordelia Castro LPN - 07/23/2025 7:45 AM CST Medication Refill Request Last Fill Date:07/11/24 #90 with 3 RF ERI 02/20/25 Recent and Future Visits: Recent Visits Date Type Provider Dept 02/20/25 Office Visit Margarita Britt [facility] [place] 11/03/24 Video Visit Margarita Britt [facility] [place] 10/17/24 Office Visit Margarita Britt [facility] [place] 09/19/24 Office Visit Margarita Britt [facility] 07/19/24 Office Visit Margarita Britt [facility] 06/01/24 Video Visit Margarita Britt [facility] [place] 03/01/24 Office Visit Margarita Britt [facility] [place] Showing recent visits within past 540 days with a meds authorizing provider and meeting all other requirements Future Appointments Date Type Provider Dept 08/29/25 Appointment Margarita Britt [facility] 11/27/25 Appointment Margarita Britt [facility] [place] 02/26/26 Appointment Margarita Britt [facility] [place] Showing future appointments within next 365 days with a meds authorizing provider and meeting all other requirements Last Labs: Lab Results Component Value Date/Time HIV1X2 NON-REACTIVE 02/20/2025 03:37 PM Robert YBARRA - 1975 Check and review of the [place] PDMP performed on 07/23/2025 at 7:45 AM was TOR OPERATOR documented in this encounter Plan of Treatment Upcoming Encounters Date Type Department Care Team (Late st Contact Info) Description 08/29/2025 10:20 AM ERECTOR OPERATOR Office Visit [facility] [address] [place] [phone] Margarita Britt [facility] [address] [place] [phone] 11/27/2025 10:20 AM CDT Office Visit [facility] [address] [place] [phone] Margarita Britt Fran[place], [facility] [address] [place] [phone] 02/26/2026 10:20 AM CDT Office Visit [facility] [address] [place] [phone] Margarita Britt, [facility] [address] [place] [address] documented as of this encounter Visit Diagnoses Diagnosis Encounter for pre-exposure prophylaxis for HIV documented in this encounter Care Teams Leasing Consultant Relationship Specialty Start Date End Date Kinjal Ornelas DO [address] [place] [phone] PCP - General Family Practice 08/10/23 documented as of this encounter
--- OUTSIDE RECORDS SUMMARY | 2025-07-29 20:34 | XMS_ITS | Patient Health Record ---
Author Organization [facility] Address [address] [place] [address] Care Team Providers Care Commuter Pilot Name Role Phone Ana, Margaret Primary Care Provider Oleg Garcia Unavailable [phone] Allergies No Known Allergies Reason For Referral No Information Medications Medication SIG (Take, Route, Frequency, Duration) Notes Start Date End Date Status Furosemide 20 MG Tablet TAKE 3 TABLETS B Y MOUTH ONCE DAILY; Duration: 90 Active DULoxetine HCl 30 MG Capsule Delayed Release Particles 1 capsule along with 60 mg capsule to total 90 mg daily Orally Once a day Active acetaZOLAMIDE 250 MG Tablet 1/2 tablet O rally Once a day; Duration: 30 days Active Eliquis 5 MG Tablet TAKE 1 TABLET BY RENY TH TWICE A DAY; Duration: 30 Active Dilt-XR 240 MG Capsule Extended Release 24 Hour TAKE 1 CAPSULE BY MOUTH EVERY DAY FOR 30 DAYS; Duration: 30 Active Cymbalta 60 MG Capsule Delayed Release Particles 1 capsule along with 30 mg capsule to total 90mg daily Orally Once a day; Duration: 30 08/19/2011 Active Metoprolol Tartrate 100 MG Tablet TAKE 1 TABLET BY MOUTH AT 9AM AND 9PM TWICE A DAY; Duration: 90 Active Atorvastatin Calcium 20 MG Tablet TAKE 1 TABLET BY MOUTH EVERY DAY FOR 30 DAYS; Duration: 90 Active Spironolactone 25 MG Tablet TAKE 1/2 TAB LET BY MOUTH ONCE DAILY; Duration: 90 Active Amiodarone HCl 200 MG Tablet TAKE 1 TABL ET BY MOUTH EVERY DAY FOR 30 DAYS; Duration: 90 Active Social History Tobacco Use: Social History Observation Description Date Details (start date - stop date) Former Smoker NA - NA Social History Drugs/Alcohol: Social Info Question Answer Notes Alcohol Screen (Audit-C) Did you have a drink containing alcohol in the past year? No Points 0 Interpretation Negative Drugs Have you used drugs other than those for medical reasons in the past 12 months? No Tobacco Use: Social Info Question Answer Notes xTobacco Use/Smoking Are you a former smoker How long has it been since you last smoked? > 10 years Additional Details Category Social Info Options Details Drugs/Alcohol: Do you smoke marijuana? De nies zzMigrated Social History Migrated Social History Advance Directive: Current and Verified Signed on 09/21/2011, withhold mechanical ventilator Other All other Life Prolonging... Organ Donation: Patient refuses Organ Donation Accepted Portal User: User Name: [email or web address] Occupation:Disabled. Education - Grade 11 Problems Problem Type SNOMED Code ICD Code Onset Dates Problem Status W/U Status Risk Notes Problem Essential hypertension (83272077) Essential hypertension (I10) Active confirmed Problem Obstructive sleep apnea (04238267) Obstructive sleep apnea (G47.33) Active confirmed Problem Atrial fibrillation with rapid ventricular response (793214661752333 ) Atrial fibrillation with rapid ventricular response (I48.91) Active confirmed Problem Moderate recurrent major depression (04812625) Moderate episode of recurrent major depressive disorder (F33.1) Active confirmed Problem Atrial fibrillation (64494070) Atrial fibrillation, unspecified type (I48.91) Active confirmed Problem Lymphedema (82523120) Lymphedema (I89.0) Active confirmed Problem Skin ulcer (disorder) (42545938) Skin ulcer, limited to breakdown of skin (L98.491) Active confirmed Problem Lymphedema (533223155) Lymph edema (I89.0) Active confirmed Problem Heart failure (13988346) New onset of congestive heart failure (I50.9) Active confirmed Problem Abnormal sputum (698998623) Abnormal sputum (786.4) 10/02/19 14 Active confirmed [id number] 11- Problem Low back pain (871606615) Low back pain (724.2) 03/27/20 15 Active confirmed [id number] 11- Problem Moderate recurrent major depression (11597943) Major depression, recurrent episode, moderate (296.32) 01/21/20 17 Active confirmed [id number] 11- Problem Low back pain (621141644) Lower back pain (724.2) 09/25/19 14 Active confirmed [id number] 11- Problem Essential hypertension (66375560) Essential hypertension (401.1) 08/19/19 12 Active confirmed [id number] 11- Problem Type II diabetes mellitus without complication (987819265) NIDDM (250.00) 11/18/19 13 Active confirmed [id number] 11- Problem Possible STD exposure (V15.85) 08/19/19 17 Active confirmed [id number] 11- Problem Morbid obesity (921431194) Morbid obesity (278.01) 02/19/20 12 Problem resolved confirmed [id number] 11- Problem Obstructive sleep apnea syndrome (92380140) Obstructive sleep apnea (adult) (pediatric) (327.23) 02/23/20 17 Problem resolved confirmed [id number] 11- Problem Dental caries (24048786) Other dental caries (521.09) 07/01/20 12 Problem resolved confirmed [id number] 11- Problem Sleep apnea (31164675) Sleep apnea (780.57) 09/21/19 12 Problem resolved confirmed [id number] 11- Problem Neck pain (28882595) Neck pain (723.1) 05/01/20 15 Problem resolved confirmed [id number] 11- Problem Vitamin D deficiency (71845091) Vitamin D deficiency (268.9) 05/20/20 12 Problem resolved confirmed [id number] 11- Problem Onychomycosis caused by dermatophyte (954975573) Toe onychomycosis (110.1) 04/26/20 17 Problem resolved confirmed [id number] 11- Problem Allergic rhinitis due to allergen (15807281) Allergic rhinitis, other allergen-induced (477.8) 10/26/19 12 Problem resolved confirmed [id number] 11- Problem Sore throat (440506643) Sore Throat (462) 09/25/19 14 Problem resolved confirmed [id number] 11- Problem Congestive heart failure (87178386) Congestive heart failure (428.0) 03/25/20 17 Problem resolved confirmed [id number] 11- Problem Impaired fasting glycaemia (410845314) Elevated fasting glucose (790.21) 04/20/20 12 Problem resolved confirmed [id number] 11- Problem Osteomalacia (7670156) Osteomalacia, NOS (268.2) 10/12/19 12 Problem resolved confirmed [id number] 11- Problem Stiff neck (055694040) stiff neck (781.6) 01/21/20 17 Problem resolved confirmed [id number] 11- Problem Needs influenza immunization (203322333) Vaccination against other viral diseases, Influenza (V04.81) 06/19/20 13 Problem resolved confirmed [id number] 11- Problem Paresthesia (98900798) Paresthesia (782.0) 05/01/20 15 Problem resolved confirmed [id number] 11- Problem Acute otitis media (7191180) Acute otitis media (382.00) 05/01/20 15 Problem resolved confirmed [id number] 11- Problem Ankle pain (871311379) Ankle pain (719.47) 09/21/19 12 Problem resolved confirmed [id number] 11- Problem Folliculitis (10001856) Folliculitis (704.8) 07/02/20 16 Problem resolved confirmed [id number] 11- Problem Pedal edema (662970534) Pedal edema (782.3) 06/19/20 15 Problem resolved confirmed [id number] 11- Problem Convulsion (63143383) Seizure(s) (780.39) 08/19/19 12 Problem resolved confirmed [id number] 11- Problem Exposure to communicable disease (597923420) Contact with or exposure to communicable diseases, unspecified (V01.9) 06/01/20 16 Problem resolved confirmed [id number] 11- Problem Seborrheic dermatitis (60702567) Seborrheic dermatitis, other (690.18) 08/19/19 17 Problem resolved confirmed [id number] 11- Plan Of Treatment No Information Insurance Providers Payer Name Payer Address Payer Phone Subscriber Number Group Number Insured Name Patient Relationship to Insured Coverage Start Date Coverage End Date [employer] [place] [address] [place] [address] [phone] [id number] Robert Ruvalcaba Self - patient is the insured [place] Medicaid [address] [place] [address] [phone] [id number] Robert Post Self - patient is the insured Medical (General) History Medical History History ICD Code Hyperlipidemia Hypertension Sleep Apnea: (+) sleep study; non-compli ant with using c-pap Osteoarthritis Type 2 Diabetes: Testing Frankie quency n/; Is patient treated with insulin injections? Yes:Testing Frequency n/a; Is patient merna Is pt using an infusion pump to administer insulin No; Seizure disorder CURRENT MEDICAL PROVIDERS: Mark sychiatrist: Iesha Positive for Risky sexual behavior: anal intercourse; multiple partners Surgical History Surgery Date(Month/Year) NONE Hospitalization History Reason Date(Month/Year) a-fib, with fluid around heart 12/05
--- OUTSIDE RECORDS SUMMARY | 2025-07-29 20:35 | XMS_ITS | Encounter Summary ---
Author Organization [facility], [facility] Address [address] [place] [address] Phone Care Team Providers Care Veneer Production Machine Operator Name Role Phone Margarita Britt Primary Care Provider [phone] Encounter Details Date Type Department Care Team (Late st Contact Info) Description 07/12/2024 Orders Only [facility] [address] [place] [address] Stage 3a chronic kidney disease (HCC) Social History Tobacco Use Types Packs/Day Years Used Date Smoking Tobacco: Never Assessed Sex and Gender Information Value Date Recorded Sex Assigned at Not on file Legal Sex Male 12:15 PM EDT Gender Identity Not on file Sexual Orientation Not on file documented as of this encounter Plan of Treatment Not on file documented as of this encounter Visit Diagnoses Diagnosis Stage 3a chronic kidney disease (HCC) documented in this encounter Care Teams Veneer Production Machine Operator Relationship Specialty Start Date End Date Margarita Britt FNP [address] [place] [address] PCP - General 07/12/24 documented as of this encounter
--- OUTSIDE RECORDS SUMMARY | 2025-07-29 20:35 | XMS_ITS | Clinical Summary ---
Author Organization [facility], [facility] Address [address] [facility] [address] [place] [address] Phone Care Team Providers Care Drawing Operator Name Role Phone Margarita Britt [facility] Primary Care Provider [phone] Medications acetaZOLAMIDE (DIAMOX) 250 MG tablet Take 125 mg by mouth in the morning. 5 Active amiodarone (PACERONE) 200 MG tablet Take 200 mg by mouth 1 (one) time each day Active apixaban (Eliquis) 5 MG tablet Take 5 mg by mouth in the morning and 5 mg in the evening. Active atorvastatin (LIPITOR) 40 MG tablet Take 40 mg by mouth in the morning. Active Dapagliflozin Propanediol (Farxiga) 10 MG tablet Take 10 mg by mouth in the morning. 4 Active DULoxetine (CYMBALTA) [address] capsule Take 60 mg by mouth in the morning and 60 mg in the evening. 2 Active dilTIAZem XR (Dilt-XR) 240 MG 24 hr capsule Take 240 mg by mouth 1 (one) time each day Active dicyclomine (BENTYL) 20 MG tablet Take 20 mg by mouth every 6 (six) hours Active Emtricitabine-Te nofovir AF 200-25 MG tablet Take 1 tablet by mouth in the morning. 4 Active furosemide (LASIX) 40 MG tablet Take 40 mg by mouth in the morning and 40 mg in the evening. 5 Active metoprolol tartrate (LOPRESSOR) 50 MG tablet Take 50 mg by mouth in the morning and 50 mg in the evening. 4 Active potassium chloride (K-TAB) 20 MEQ CR tablet Take 20 mEq by mouth 1 (one) time each day 4 Active spironolactone (ALDACTONE) 25 MG tablet Take 25 mg by mouth 1 (one) time each day Active terbinafine (LamISIL) 1 % cream Apply topically in the morning and in the evening. 4 Active Family History Medical History Relation Comments Arthritis Father Obesity Father Diabetes Mother Obesity Mother Crohn's disease Sister Relation Status Comments Father Mother Sister Social History Tobacco Use Types Packs/Day Years Used Date Smoking Tobacco: Former Cigarettes Smokeless Tobacco: Never Tobacco Cessation:Counseling Given: Not Answered Sex and Gender Information Value Date Recorded Sex Assigned at Not on file Legal Sex Male 12:15 PM EDT Gender Identity Not on file Sexual Orientation Not on file Plan of Treatment Health Maintenance Due Date Last Done Comments Hepatitis B Vaccine (1 of 3 - 19+ 3-dose series) 10/07 Pneumococcal Vaccine: 50+ Years (1 of 2 - PCV) 994 Colorectal Cancer Screening: Annual FOBT 2023 Colorectal Cancer Screening: Colonoscopy 2023 Colorectal Cancer Screening: Sigmoidoscopy 2023 Diabetes: Hemoglobin A1C 12/14/2024 Diabetes: Ophthalmology Exam 12/14/2024 Diabetes: Pedal Pulse Checked 12/14/2024 Diabetes: Sensory Foot Exam 12/14/2024 Diabetes: Visual Foot Exam 12/14/2024 Influenza Vaccine (#1) 2025 Insurance [facility] Medicare Medicaid [place] ([facility]) Care Teams Drawing Operator Relationship Specialty Start Date End Date Margarita Britt FNP [address] [place] [address] PCP - General 07/12/24
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
--- OUTSIDE RECORDS SUMMARY | 2025-07-29 20:35 | XMS_ITS | Encounter Summary ---
Author Organization [facility], [facility] Address [address] [place] [address] Phone Care Team Providers Care Crystalizer Operator Name Role Phone Margarita Britt Primary Care Provider +1- [phone] Encounter Details Date Type Department Care Team (Late st Contact Info) Description 02/09/[address] [facility] [address] [place] [address] Chronic kidney disease stage 3A (HCC) Social History Tobacco Use Types Packs/Day Years Used Date Smoking Tobacco: Never Assessed Sex and Gender Information Value Date Recorded Sex Assigned at Not on file Legal Sex Male 12:15 PM EDT Gender Identity Not on file Sexual Orientation Not on file documented as of this encounter Plan of Treatment Not on file documented as of this encounter Visit Diagnoses Diagnosis Chronic kidney disease stage 3A (HCC) documented in this encounter Care Teams Crystalizer Operator Relationship Specialty Start Date End Date Margarita Britt FNP [address] [place] [address] PCP - General 07/12/24 documented as of this encounter
--- NOTE | 2025-07-29 20:40 | XRR_ITS ---
PROCEDURE INFORMATION: Exam: XR Chest Exam date and time: 07/29/2025 8:45 PM Age: 49 years old Clinical indication: Shortness of breath; C/O SOB. History of chf. TECHNIQUE: Imaging protocol: Radiologic exam of the chest. Views: 1 view. COMPARISON: CT chest rick alvarado [id number] 03/25/2024 20:01 FINDINGS: Lungs: Hazy increased density seen central to lower region question component of infiltrate. No consolidation. Pleural spaces: Obscuration of the right diaphragm and angle consistent with amxpqnbo-ad-ymwzzc right pleural effusion. No pneumothorax. Heart/Mediastinum: Vkmfkknh-yh-aywxsx cardiomegaly. Cephalization of flow is noted. Prominent central vascular engorgement similar to earlier studies. Bones/joints: Unremarkable. XR/XR chest 1V portable [id number] IMPRESSION: 1. Question central masslike infiltrate warranting PA and views as well as CT evaluation. 2. Prominent central vascular engorgement/cephalization of flow question component of CHF. 3. Kkbwwanj-es-zjtjyu right pleural effusion. 4. Glnsiawn-sc-zkjqbb cardiomegaly.
--- NOTE | 2025-07-29 20:43 | ECG_ITS ---
[facility] Test Date: 2025-07-29 Pat Name: Robert Juarez Department: Room: Gender: Male Ruffler: : 1975 Requested By: Hugo Solitario Order Number: [id number] Mayberry MD: Carmel Darby M.D. Measurements Intervals [place] Rate: 126 P: 0 WV: 0 QRS: 162 QRSD: 170 T: -9 QT: 384 QTc: 556 Interpretive Statements ATRIAL FIBRILLATION WITH RAPID VENTRICULAR RESPONSE INTRAVENTRICULAR CONDUCTION DELAY [130+ ms QRS DURATION] Compared to ECG 05/24/2024 00:54:37 Right-axis deviation no longer present Electronically Signed On 07-31-2025 21:39:44 ASSOCIATE PROGRAMMER ANALYST by Carmel Darby M.D. [email or web address]
[2025-07-29 21:03] LABS: ABG PCO2 51.4 mmHg (35-45); ABG PH Result 7.31 (7.35-7.45); Arterial Blood Gas Hematocrit 37.0 % (42-52); Blood Gas Allen Test Pos; Blood Gas LPM 2.0 %; Blood Gas Operator Identificat BD; Blood Gas Sample Site Radial, left; Blood Gas Sample Type Arterial; Carboxyhemoglobin 1.4 %THgb (0.4-20.1); HCO3 ABG 25.8 mmol/L (22-26); Methemoglobin 1.0 % (0.4-1.5); PO2 ABG 78.8 mmHg (80.0-100.0); PO2 FiO2 Ratio Arterial Blood 281
[2025-07-29] MEDS: dilTIAZem 5 mg/mL SDV 5 mL 20 MG IVP (21:03)
[2025-07-29] MEDS: FUROsemide 10 mg/mL SDV 10mL 80 MG IVP (21:04)
[2025-07-29 21:12] LABS: Lactic Sepsis W/Reflex 2.1 mmol/L (0.5-2.2)
[2025-07-29 21:21] LABS: Alanine Aminotransferase 425 U/L (0-41); Albumin Level 3.6 g/dL (3.5-5.2); Alkaline Phosphatase 128 U/L (40-130); Anion Gap 14.4 (5-19); Blood Urea Nitrogen 44 mg/dL (6-20); Calcium 9.3 mg/dL (8.5-10.5); Carbon Dioxide 29 mmol/L (22-29); Chloride 92 mmol/L (98-107); Globulin 3.4 g/dL (1.3-4.6); Glucose 104 mg/dL (65-115); Magnesium 2.3 mg/dL (1.7-2.3); Osmolality Calculated 283 mOsm/kg (285-295); Potassium 4.4 mmol/L (3.5-5.1); Sodium 131 mmol/L (136-145); Total Protein 7.0 g/dL (6.6-8.7)
[2025-07-29 21:25] LABS: NT Pro B Type Natriuretic Pept 6463 pg/mL (0-125)
[2025-07-29] MEDS: DILTIAZEM HCL/D5W 125 MG/125 ML BAG IV (21:25)
[2025-07-29 21:26] LABS: Troponin(5th) Baseline 643 ng/L (0-15)
[2025-07-29 21:27] VITALS: BP 136/74; PULSE 121; O2SAT 98
[2025-07-29 21:35] LABS: Hematocrit 43.6 % (37-53); Hemoglobin 11.80 g/dL (11.27-16.99); Mean Corpuscular HGB Conc 27.1 g/dL (30-55); Mean Corpuscular Hemoglobin 24.9 pg (27-33); Mean Corpuscular Volume 92.2 fl (82-101); Nucleated Red Blood Cells % 0.2 %; Platelet Count 52 10^3/cmm (157-399); Red Blood Count 4.73 10^6/uL (3.85-5.65); White Blood Count 20.22 10^3/uL (3.29-11.43)
[2025-07-29 21:35] LABS: Aspartate Amino Transferase 1011 U/L (0-40)
[2025-07-29 22:01] LABS: Reflex Lactate Order REFLEX LACTIC ORDERD
[2025-07-29 22:01] LABS: Respiratory Syncytial Virus Ce NEGATIVE (Negative); SARS-CoV-2 PCR NEGATIVE (Negative)
[2025-07-29 22:32] VITALS: BP 123/68; PULSE 126; O2SAT 93
--- NOTE | 2025-07-29 22:56 | W.ED.WEAKNES ---
HPI - Weakness General: Chief complaint: Weakness Stated complaint: SOB Time Seen by Provider: 07/29/25 20:30 History of Present Illness: Patient is a 49-year-old male presenting with complaints of difficulty breathing. He reports that he has been using his home oxygen more frequently than usual, typically at 2 liters. The patient states that his breathing has 'gotten worse a lot' recently. He denies cough, fever, or chest pain. The patient mentions that his PCP had previously adjusted his care plan, though specific details were not clearly articulated. He presents with lower extremity edema, noting his feet are 'anatoly red' and swollen. The patient denies using CPAP or BiPAP at night for sleep-disordered breathing. Related Data Home Medications ?Medication ?Instructions ?Recorded ?Confirmed multivitamin with minerals-folic 1 tab PO DAILY 10/07/22 05/24/24 acid 120 mcg chewable tablet (Centrum Adult 50 Plus Fresh-Fruity) acetazolamide 250 mg tablet 125 mg PO DAILY 11/02/23 05/24/24 amiodarone 200 mg tablet 200 mg PO DAILY 05/07/24 05/24/24 dicyclomine 20 mg tablet 20 mg PO QID 05/07/24 05/24/24 duloxetine 60 mg capsule,delayed 60 mg PO BID 05/07/24 05/24/24 release Previous Rx's ?Medication ?Instructions ?Recorded dapagliflozin propanediol 10 mg 10 mg PO DAILY #30 tabs 05/29/24 tablet (Farxiga) furosemide 20 mg tablet 40 mg (2 x 20 mg) PO DAILY 30 days 05/29/24 #60 tabs metolazone 5 mg tablet 5 mg PO EVERY OTHER DAY #30 tabs 05/29/24 rivaroxaban 10 mg tablet (Xarelto) 20 mg (2 x 10 mg) PO DAILY 30 days 05/29/24 #30 tabs atorvastatin 40 mg tablet See Rx Instructions .Route 06/20/24 .COMPLEX #30 tabs Allergies Allergy/AdvReac Type Severity Reaction Status Date / Time No Known Allergies Allergy Verified 11/02/23 14:55 [facility] ED PFS: Medical History PTSD (post-traumatic stress disorder) Lower urinary tract symptoms (LUTS) Morbid obesity with BMI of 70 and over, adult Candidal skin infection BONITA (obstructive sleep apnea) Hypertension Depression Anxiety Bipolar 1 disorder Restrictive lung disease Gout Dyslipidemia Generalized anxiety disorder Major depressive disorder, recurrent severe without psychotic features Surgical History No significant past surgical history Family History Mother Myocardial infarct Stroke Father Myocardial infarct Diabetes Other Cancer Dementia Hypertension Psychiatric illness Social History Smoking and tobacco/nicotine status: former use of tobacco/nicotine Quit status (tobacco/nicotine): has quit using Year quit tobacco: 2002 Second hand smoke exposure: No Alcohol intake: former Year of sobriety/quit date alcohol: 2019 Substance/Drug Use: never Adopted: No Caregiver/support person: Yes ([employer] at home agent 3 days per week 2.5 hours and a nurse once per week) Lives independently: No Household members: significant other Housing: Manufactured/Mobile home Marital status: Life Partner Number of children: 0 Number of grandchildren: 0 Highest education level completed: 12th Grade, No Diploma service: No Current occupational status: disabled Current occupational exposures/hazards: No Pets and animals: No Leisure activites: music, reading and other Leisure activities details: watches TV Sexually active: No Do you think of yourself as: Lesbian/Jacobsen/Homosexual Current gender identity: Male Jayne/Samaritan: None Special jayne needs: No Agree to transfusion: No Physical Exam Const: GENERAL APPEARANCE: cooperative and ill appearing ORIENTATION/CONSCIOUSNESS: Yes awake, Yes oriented to person, Yes oriented to place and Yes oriented to time HENMT: COMMON NORMALS: normocephalic, atraumatic and Normal external nose present HEAD & SCALP: normocephalic and atraumatic NOSE: Normal external nose present Eye: COMMON NORMALS: Equal, round and reactive pupils present and EOMs intact bilaterally PUPIL: Yes Equal, round and reactive pupils present Chest: CHEST: Yes Symmetrical chest wall rise Resp: COMMON NORMALS: clear to auscultation bilaterally EFFORT & INSPECTION: Yes tachypneic and Yes labored AUSCULTATION: clear to auscultation bilaterally and diminished lung sounds Cardio: RATE: tachycardic RHYTHM: abnormal rhythm irregularly irregular GI: COMMON NORMALS: Soft to palpation PALPATION: Yes Soft to palpation Extremity: NARRATIVE EXTREMITY EXAM: Bilateral edema. Changes of chronic cellulitis and stasis dermatitis with anterior ulcer on the right Neuro: SENSORIUM/ORIENTATION: Yes oriented to person, Yes oriented to place and Yes oriented to time Course Vital Signs: Vital signs: Vital Signs Temperature 97.7 F 07/29/25 20:30 Pulse Rate 116 H 07/30/25 00:53 Respiratory Rate 20 H 07/29/25 20:30 Blood Pressure 115/79 07/30/25 00:53 Pulse Oximetry 91 07/30/25 00:53 Oxygen Delivery Me thod Nasal Cannula 07/30/25 00:14 Oxygen Flow Rate 2 07/30/25 00:14 MDM - Weakness Medical Decision Making Patient is afebrile. Significantly tachycardic. He is given a bolus of diltiazem with drip. Rate is improved. CBC shows white blood cell count of 2088% neutrophils. Platelet count has dropped to 52. Hemoglobin is 12. Creatinine is 2.1 which is a bit above baseline. BMP otherwise not terribly remarkable. Liver enzymes are elevated ALT 425 AST 1011, alk phos 128. Bilirubin is 3.4. Chest x-ray reveals central masslike infiltrate. There is also prominent central vascular engorgement and cephalization likely CHF. He has a right pleural effusion. Swabs for flu COVID and RSV are negative. He is given 80 mg of Lasix. Blood cultures been drawn. He is covered with antibiotics. Spoke with the hospitalist regarding potential admission. He will see the patient in the ER. Consulted cardiology. Only recommendations are to wait for heparin drip given the patient is already on Xarelto until closer to time Xarelto would reach half-life. She will see the patient in the morning. Lab Data 07/29/25 21:15 07/29/25 20:41 Radiology Impressions Chest X-Ray 07/29/25 20:40 IMPRESSION: 1. Question central masslike infiltrate warranting PA and views as well as CT evaluation. 2. Prominent central vascular engorgement/cephalization of flow question component of CHF. 3. Jeuilnci-eb-jauwyd right pleural effusion. 4. Fqihucmw-nu-oqutws cardiomegaly. Laboratory Results WBC 20.22 10^3/uL (3.29-11.43) H 07/29/25 21:15 Corrected WBC Cancelled 07/29/25 20:41 RBC 4.73 10^6/uL (3.85-5.65) 07/29/25 21:15 Hgb 11.80 g/dL (11.27-16.99) 07/29/25 21:15 Hct 43.6 % (37-53) 07/29/25 21:15 MCV 92.2 fl (82-101) 07/29/25 21:15 MCH 24.9 pg (27-33) L 07/29/25 21:15 MCHC 27.1 g/dL (30-55) L 07/29/25 21:15 RDW 19.3 % (12.1-15.1) H 07/29/25 21:15 Plt Count 52 10^3/cmm (157-399) L 07/29/25 21:15 MPV Not Reportable 07/29/25 21:15 Gran % Cancelled 07/29/25 20:41 Neut % (Auto) 87.9 % 07/29/25 21:15 Lymph % (Auto) 2.8 % 07/29/25 21:15 Cottle % (Auto) 8.2 % 07/29/25 21:15 Eos % (Auto) 0.0 % 07/29/25 21:15 Baso % (Auto) 0.1 % 07/29/25 21:15 Neut # (Auto) 17.79 10^3/uL (1.8-7.7) H 07/29/25 21:15 Lymph # (Auto) 0.6 10^3/uL (0.8-4.8) L 07/29/25 21:15 Cottle # (Auto) 1.7 10^3/uL (0.2-0.9) H 07/29/25 21:15 Eos # (Auto) 0.0 10^3/uL (0.0-0.8) 07/29/25 21:15 Baso # (Auto) 0.0 10^3/uL (0.0-0.1) 07/29/25 21:15 Absolute Gran (auto) Cancelled 07/29/25 20:41 Nucleated RBC % (auto) 0.2 % 07/29/25 21:15 Nucleated RBCs # 0.1 /100WBC 07/29/25 21:15 Specimen Type Arterial 07/29/25 20:55 Sample Site Radial, left 07/29/25 20:55 ABG pH 7.31 (7.35-7.45) L 07/29/25 20:55 ABG pCO2 51.4 mmHg (35-45) H 07/29/25 20:55 ABG pO2 78.8 mmHg (80.0-100.0) L 07/29/25 20:55 ABG PO2/FiO2 Ratio 281 07/29/25 20:55 ABG HCO3 25.8 mmol/L (22-26) 07/29/25 20:55 ABG Base Excess -1.1 mmol/L (-2.0-2.0) 07/29/25 20:55 Joseph Test Pos 07/29/25 20:55 Hematocrit 37.0 % (42-52) L 07/29/25 20:55 Hgb O2 Saturation 91.6 % (95-100) L 07/29/25 20:55 Carboxyhemoglobin 1.4 %THgb (0.4-20.1) 07/29/25 20:55 Methemoglobin 1.0 % (0.4-1.5) 07/29/25 20:55 Total Hemoglobin 12.1 g/dL (14-18) L 07/29/25 20:55 O2 Delivery Device Nc 07/29/25 20:55 O2 Liters/Min 2.0 % 07/29/25 20:55 FiO2 28.0 % 07/29/25 20:55 Outer Diameter Grinder ID Bd 07/29/25 20:55 Sodium 131 mmol/L (136-145) L 07/29/25 20:41 Potassium 4.4 mmol/L (3.5-5.1) 07/29/25 20:41 Chloride 92 mmol/L (98-107) L 07/29/25 20:41 Carbon Dioxide 29 mmol/L (22-29) 07/29/25 20:41 Anion Gap 14.4 (5-19) 07/29/25 20:41 BUN 44 mg/dL (6-20) H 07/29/25 20:41 Creatinine 2.1 mg/dL (0.7-1.2) H 07/29/25 20:41 GFR Calculation 33.6 mL/min (90-130) L 07/29/25 20:41 Glucose 104 mg/dL (65-115) 07/29/25 20:41 Calculated Osmolality 283 mOsm/kg (285-295) L 07/29/25 20:41 Lactic Acid 2.1 mmol/L (0.5-2.2) 07/29/25 20:41 Calcium 9.3 mg/dL (8.5-10.5) 07/29/25 20:41 Phosphorus 4.1 mg/dL (2.5-4.5) 07/29/25 20:41 Magnesium 2.3 mg/dL (1.7-2.3) 07/29/25 20:41 Magnesium 2.4 mg/dL (1.7-2.3) H 07/29/25 20:41 Total Bilirubin 3.4 mg/dL (0.15-1.2) H 07/29/25 20:41 AST 1011 U/L (0-40) H 07/29/25 20:41 ALT 425 U/L (0-41) H 07/29/25 20:41 Alkaline Phosphatase 128 U/L (40-130) 07/29/25 20:41 Creatine Kinase 300 U/L (39-308) 07/29/25 20:41 Troponin T Baseline 643 ng/L (0-15) H* 07/29/25 20:41 Troponin T 60 Minute 676.8 ng/L (0-15) H 07/29/25 21:54 Delta Troponin T 33.8 ABS# (0-10) H* 07/29/25 21:54 NT-Pro-B Natriuret Pep 6463 pg/mL (0-125) H 07/29/25 20:41 Total Protein 7.0 g/dL (6.6-8.7) 07/29/25 20:41 Albumin 3.6 g/dL (3.5-5.2) 07/29/25 20:41 Globulin 3.4 g/dL (1.3-4.6) 07/29/25 20:41 Influenza A (PCR) Negative (Negative) 07/29/25 21:10 Influenza Type B (PCR) Negative (Negative) 07/29/25 21:10 RSV (PCR) Negative (Negative) 07/29/25 21:10 SARS-CoV-2 (PCR) Negative (Negative) 07/29/25 21:10 All radiology interpretation(s) finalized by discharge EKG Data EKG 1: Interpretation: EKG time 2042 read 2044. Atrial fibrillation, rate 125. QRS 458 right axis. Significant interventricular conduction delay with QRS 170. No acute ST wave changes. Critical Care Time Critical Care Time: Critical Care Time: Yes Total Critical Care Time: 42 Attestation: This case had a high probability of a clinically significant, sudden, or life threatening deterioration of this patient's condition which required my full and direct attention, intervention and personal management. Time is independent of any procedures performed Discharge Plan Discharge Patient Disposition: Admitted As Inpatient Admit Provider: Cuong Britt Clinical Impression: Acute respiratory failure, Pleural effusion, bilateral, Atrial fibrillation with rapid ventricular response Condition: Stable Coding Level of Care Code ED [employer] for Francisco Javier Ely
[2025-07-29 23:13] VITALS: BP 118/96; PULSE 125; O2SAT 91
[2025-07-29] MEDS: cefTRIAXone 1,000 mg SDV 1000 MG IVP (23:17)
[2025-07-29 23:35] LABS: Magnesium 2.4 mg/dL (1.7-2.3)
[2025-07-29 23:50] LABS: Lactic Acid level (Lactate) 2.1 mmol/L (0.5-2.2)
[2025-07-30] VITALS (61 sets, daily range): BP systolic 81–149; BP diastolic 55–112; PULSE 91–124; RESP 12–31; TEMP 36.4–36.9; O2SAT 81–100; BMI 58.8
[2025-07-30] MEDS: metoprolol tartrate 1 mg/1 mL SDV 5 mL 5 MG IVP (00:01)
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
--- NOTE | 2025-07-30 02:41 | ECG_ITS ---
[employer] tado Test Date: 2025-07-30 Pat Name: Robert Juarez Department: Room: [facility] Gender: Male Pot Feeder: : 1975 Requested By: Hugo Solitario Order Number: [id number] Shawanda MD: Carmel Darby M.D. Measurements Intervals [place] Rate: 113 P: 0 TN: 0 QRS: 163 QRSD: 176 T: -7 QT: 362 QTc: 498 Interpretive Statements ATRIAL FIBRILLATION WITH RAPID VENTRICULAR RESPONSE INTRAVENTRICULAR CONDUCTION DELAY [130+ ms QRS DURATION] Compared to ECG 07/29/2025 20:43:37 No significant changes Electronically Signed On 07-31-2025 21:55:28 RECEIVING INSPECTOR by Carmel Darby M.D. [email or web address]
[2025-07-30] MEDS: amiodarone 150 MG/100 ML PREMIX 400 MG IV (02:54)
[2025-07-30 03:45] LABS: Hematocrit 43.4 % (37-53); Hemoglobin 11.40 g/dL (11.27-16.99); Mean Corpuscular HGB Conc 26.3 g/dL (30-55); Mean Corpuscular Hemoglobin 24.2 pg (27-33); Mean Corpuscular Volume 92.1 fl (82-101); Nucleated Red Blood Cells % 0.3 %; Platelet Count 31 10^3/cmm (157-399); Red Blood Count 4.71 10^6/uL (3.85-5.65); White Blood Count 18.88 10^3/uL (3.29-11.43)
[2025-07-30 04:15] LABS: Alanine Aminotransferase 374 U/L (0-41); Albumin Level 3.6 g/dL (3.5-5.2); Alkaline Phosphatase 125 U/L (40-130); Blood Urea Nitrogen 45 mg/dL (6-20); Calcium 9.1 mg/dL (8.5-10.5); Carbon Dioxide 28 mmol/L (22-29); Chloride 94 mmol/L (98-107); Globulin 2.9 g/dL (1.3-4.6); Glucose 101 mg/dL (65-115); Osmolality Calculated 288 mOsm/kg (285-295); Sodium 133 mmol/L (136-145); Total Protein 6.5 g/dL (6.6-8.7)
[2025-07-30 04:24] LABS: Anion Gap 15.7 (5-19); Potassium 4.7 mmol/L (3.5-5.1)
[2025-07-30 04:25] LABS: Troponin 5 6HR Delta 8.3 ng/L (0-12)
[2025-07-30 04:33] LABS: Estmated Average Glucose 123; Hemoglobin A1C 5.9 % (4.0-6.0); INR 4.52 (0.8-1.2); Prothrombin Time 45.10 SECONDS (12.1-14.9)
[2025-07-30 04:35] LABS: Aspartate Amino Transferase 760 U/L (0-40)
[2025-07-30 04:56] LABS: Troponin 5 6HR 651.3 ng/L (0-15)
[2025-07-30] MEDS: DAPAGLIFLOZIN 10 MG TABLET PO (05:44)
[2025-07-30] MEDS: bumetanide 0.25 mg/mL SDV 10 mL 2 MG IVP ×2 (05:46→16:42)
[2025-07-30] MEDS: DILTIAZEM HCL/D5W 125 MG/125 ML BAG 15 MG IV (05:56)
[2025-07-30] MEDS: ondansetron 2 mg/ML SDV 2 mL 4 MG IVP ×2 (07:41→13:33)
--- NOTE | 2025-07-30 08:00 | USCV_ITS ---
Robert Juarez Age: 49 Gender: M : 1975 Exam Date: 07/30/2025 11:20 Ordering Phys: Cuong Britt MD Technologist: NILSA [place] [facility] [place]: Afib/Elevated Trop BP: 133 / 100 HR: 89 Rhythm: Sinus Technical Quality: Suboptimal MEASUREMENTS (Male / Female) Normal Values 2D ECHO LV Diastolic Diameter PLAX 7.4 cm 4.2 - 5.9 / 3.9 - 5.3 cm IVS Diastolic Thickness 0.8 cm 0.6 - 1.0 / 0.6 - 0.9 cm IVS Systolic Thickness 0.8 cm LVPW Diastolic Thickness 1.2 cm 0.6 - 1.0 / 0.6 - 0.9 cm LVPW Systolic Thickness 1.3 cm LVOT Diameter 2.2 cm LV Ejection Fraction 2D Teich 6.8 % LV Ejection Fraction MOD 4C 53.5 % LV Ejection Fraction MOD 2C 50.0 % LV Ejection Fraction 2C AL 49.9 % LA Diameter 4.5 cm RA Systolic Volume 4C AL 83.9 ml RA Systolic Volume 4C MOD 81.1 ml LA Sys Volume AL 96.3 cm cubed LA Sys Volume Index AL 28.7 cm cubed/m squared Aorta at Sinotubular Diameter 2.9 cm M-MODE LA Ao Ratio MM 1.6 AV Cusp Separation MM 1.4 cm DOPPLER AV Peak Velocity 122.0 cm/s LVOT Peak Velocity 88.0 cm/s AV Area Cont Eq vti 2.5 cm squared AV Area Cont Eq pk 2.8 cm squared MV Peak Velocity 117.0 cm/s MV Area PHT 5.9 cm squared Mitral E to A Ratio 2.0 TR Peak Velocity 96.0 cm/s TR Peak Gradient 3.7 mmHg TV Peak E Velocity 82.0 cm/s PV Peak Velocity 80.0 cm/s FINDINGS Left Ventricle Mildly increased left ventricular cavity size. Diffuse hypokinesia left ventricule with ejection fraction of around 30 to 35%. (Echo contrast - Optison was used to delineate the endocardium and to estimate the LV ejection fraction). But the study was still very suboptimal with poor visualization of borders. Right Ventricle Possibly of normal size with a slightly diminished ejection fraction. The right ventricle could not be visualized well Right Atrium Mildly increased right atrial size. Left Atrium Mildly increased left atrial size. IA Septum Could not be visualized well. Possibly intact Mitral Valve No gross morphologic abnormalities noted Aortic Valve Could not be visualized Tricuspid Valve Could not be visualized well Pulmonic Valve Pulmonic valve not well visualized. Pericardium No pericardial effusion. Aorta Normal aortic annulus size. IVC Inferior vena cava not visualized. CONCLUSIONS Mildly increased left ventricular cavity size. Diffuse hypokinesia left ventricule with ejection fraction of around 30 to 35%. (Echo contrast - Optison was used to delineate the endocardium and to estimate the LV ejection fraction). But the study was still very suboptimal with poor visualization of borders. Mild biatrial enlargement Right ventricle possibly of normal size with a slightly diminished ejection fraction Right atrium and the tricuspid valve valve not visualized very well Dr Carmel Darby MD FACC (Electronically Signed) Final Date: 30 July 2025 13:44 S
--- NOTE | 2025-07-30 09:51 | PM.CONSULT ---
Providers/Reason For Consult Consulting Physician/Specialty*: Dr ELIO Darby/ Cardiology Reason for Consult*: Patient with atrial fibrillation rapid ventricular rate Requesting Physician: Dr. Doe Attending Physician: Ezekiel Doe Primary Care Provider: Cornel Fuentes MD History of Present Illness History of Present Illness Robert Juarez is a 49 year old male with a history of chronic atrial fibrillation with intermittent rapid ventricular rate, apparently has been in his baseline state of health up until last Wednesday when he started having using palpitation and shortness of breath. He was found to be atrial fibrillation with rapid ventricular rate in the emergency room. He was started on IV amiodarone and beta-ryan for rate control. Heart rate still remains uncontrolled. Cardiology consult is requested for further cardiac evaluation recommendations. This patient is known to have morbid obesity, sleep apnea, atrial fibrillation with intermittent rapid ventricular rate, heart failure with preserved ejection fraction, chronic hypoxic respiratory failure, etc. According to the patient, he was told by his landlord that the apartment rent is going to be increased from August onwards . Patient got upset with this news. Since then, he has been having increasing palpitations and shortness of breath. s patient is admitted to hospital on 09/17/2023 with the features of decompensated heart failure, atrial fibrillation with rapid ventricular rate He might have had some chest discomfort with this. But nothing unusual. He shortness of breath has been getting worse. Patient has not been compliant his medications. He denies any fever or chills. No significant cough. No orthopnea PND. No unusual leg swelling. No other specific complaints. Patient was found to be thrombocytopenic in the hospital. So for that reason, he was taken off of the Xarelto. He also was found to have elevated liver enzymes and leukocytosis. Review of Systems Narrative: CONSTITUTIONAL: No fever or chills. EYES: No blurring of vision or other visual disturbances lately. ENT: No hoarseness of voice, auditory disturbances or sore throat. CARDIOVASCULAR: As mentioned above. RESPIRATORY: No significant cough. GASTROINTESTINAL: No hematemesis or melena. GENITOURINARY: No dysuria or hematuria. INTEGUMENTARY: No skin rashes or history of skin cancer. NEURO: No transient ischemic attacks or amaurosis. PSYCHIATRIC: No history of psychosis or major depression. HEMATOLOGIC: No bleeding disorders or significant anemia. ENDOCRINE: No history of polyuria or polydipsia. MUSCULOSKELETAL: No recent joint pain or swelling. ALLERGY/IMMUNOLOGY: As mentioned above. Medications/Allergies Home Medications ?Medication ?Instructions ?Recorded ?Confirmed ?Last Taken ?Type multivitamin with minerals-folic 1 tab PO DAILY 10/07/22 07/30/25 05/23/24 History acid 120 mcg chewable tablet (Centrum Adult 50 Plus Fresh-Fruity) acetazolamide 250 mg tablet 125 mg PO DAILY 11/02/23 07/30/25 05/23/24 History amiodarone 200 mg tablet 200 mg PO DAILY 05/07/24 07/30/25 05/23/24 History duloxetine 60 mg capsule,delayed 60 mg PO BID 05/07/24 07/30/25 05/06/24 History release dapagliflozin propanediol 10 mg 10 mg PO DAILY #30 tabs 05/29/24 07/30/25 Unknown Rx tablet (Farxiga) furosemide 20 mg tablet 40 mg (2 x 20 mg) PO DAILY 30 days 05/29/24 07/30/25 05/23/24 Rx #60 tabs metolazone 5 mg tablet 5 mg PO EVERY OTHER DAY #30 tabs 05/29/24 07/30/25 Unknown Rx rivaroxaban 10 mg tablet (Xarelto) 20 mg (2 x 10 mg) PO DAILY 30 days 05/29/24 07/30/25 Unknown Rx #30 tabs atorvastatin 40 mg tablet See Rx Instructions .Route 06/20/24 07/30/25 Unknown Rx .COMPLEX #30 tabs emtricitabine 200 mg-tenofovir See Rx Instructions .Route .COMPLEX 07/30/25 07/30/25 Unknown History alafenamide fumarate 25 mg tablet (Descovy) metoprolol tartrate 50 mg tablet 50 mg PO BID 07/30/25 07/30/25 Unknown History Allergies Allergy/AdvReac Type Severity Reaction Status Date / Time No Known Allergies Allergy Verified 11/02/23 14:55 Current Medications Generic Name Dose Route Start Last Admin Trade Name Freq PRN Reason Stop Dose Admin Acetazolamide 125 mg 07/30/25 05:00 07/30/25 05:44 Acetazolamide 250 Mg Tablet PO 125 mg DAILY NANETTE Administration Bumetanide 2 mg 07/30/25 05:00 07/30/25 05:46 Bumetanide 0.25 Mg/Ml Sdv 10 Ml IVP 2 mg BID NANETTE Administration Duloxetine HCl 60 mg 07/30/25 05:00 07/30/25 05:45 Duloxetine 60 Mg Capsule PO 60 mg BID NANETTE Administration DILTIAZEM HCL/D5W 125 mg in 125 mls @ 0 mls/hr 07/29/25 20:45 07/30/25 05:56 Cardizem IV 15 mg/hr .Q0M NANETTE 15 mls/hr Protocol Administration Per Protocol Metolazone 5 mg 07/30/25 05:00 07/30/25 05:43 Metolazone 5 Mg Tablet PO 5 mg DAILY NANETTE Administration Metoprolol Tartrate 25 mg 07/30/25 09:00 07/30/25 08:43 Metoprolol Tartrate 25 Mg Tablet PO 25 mg BID@0900,2100 NANETTE Administration Ondansetron HCl 4 mg 07/30/25 01:07 07/30/25 07:41 Ondansetron 2 Mg/Ml Sdv 2 Ml IVP 4 mg Q6H PRN Administration NAUSEA AND VOMITING Potassium Chloride 20 meq 07/30/25 05:00 07/30/25 05:46 Potassium Chloride Er 20 Meq Tablet PO 20 meq BID NANETTE Administration PFSH Acute PFSH: Medical History History of stage 3b chronic kidney disease History of pulmonary embolism Morbid obesity with BMI of 50.0-59.9, adult Drug-induced hepatitis PTSD (post-traumatic stress disorder) Lower urinary tract symptoms (LUTS) Morbid obesity with BMI of 70 and over, adult Candidal skin infection BONITA (obstructive sleep apnea) Hypertension Depression Anxiety Bipolar 1 disorder Restrictive lung disease Gout Dyslipidemia Generalized anxiety disorder Major depressive disorder, recurrent severe without psychotic features Surgical History No significant past surgical history Family History Mother Myocardial infarct Stroke Father Myocardial infarct Diabetes Other Cancer Dementia Hypertension Psychiatric illness Social History Smoking and tobacco/nicotine status: former use of tobacco/nicotine Quit status (tobacco/nicotine): has quit using Year quit tobacco: 2002 Second hand smoke exposure: No Alcohol intake: former Year of sobriety/quit date alcohol: 2019 Substance/Drug Use: never Additional social history: Tobacco he quit 2002 alcohol was quit 2019 he is hurtado and broke up with his boyfriend who cheated on him in 2023. He states he has lost interest in sex but is on PrEP which is an HIV preventative for the last 1 year. He states that he is no longer sexually active and has never had an STD. He also does not use street drugs or had any blood transfusions in the past year. Hepatitis panel was - 04/23/2024. Patient denies IV drug abuse ever no alcohol or cigarette use he wants full CODE STATUS as discussed with Cuong Britt MD on 07/30/2025 Adopted: No Caregiver/support person: Yes ([employer] weatherizing worker 3 days per week 2.5 hours and a nurse once per week) Lives independently: No Household members: significant other Housing: Manufactured/Mobile home Marital status: Life Partner Number of children: 0 Number of grandchildren: 0 Highest education level completed: 12th Grade, No Diploma service: No Current occupational status: disabled Current occupational exposures/hazards: No Pets and animals: No Leisure activites: music, reading and other Leisure activities details: watches TV Sexually active: No Do you think of yourself as: Lesbian/Hurtado/Homosexual Current gender identity: Male Jayne/Yazidi: None Special jayne needs: No Agree to transfusion: No Vitals/I&O/Wt Last Vital Signs Temp 97.6 F 07/30/25 08:00 Pulse 119 H 07/30/25 08:00 Resp 26 H 07/30/25 08:00 BP 130/100 07/30/25 08:00 Pulse Ox 93 07/30/25 08:00 O2 Del Method Nasal Cannula 07/30/25 08:00 O2 Flow Rate 4 07/30/25 08:00 FiO2 25 07/30/25 05:00 07/29/25 07/30/25 07/30/25 22:59 06:59 14:59 Intake Total 5.583 / 5.583 659.417 / 665.000 220 / 220 Output Total 650 / 650 Balance 5.583 / 5.583 9.417 / 15.000 220 / 220 Weight last 48 hrs Weight 449 lb 3.2 oz Weight 445 lb 12.8 oz Weight 441 lb Physical Exam Narrative: GENERAL: The patient is alert and oriented times three. Not in any acute distress. Morbidly obese HEENT: No significant pallor, icterus or lymphadenopathy.Oral cavity: There are no mucous membrane lesions. NECK: Trachea appears to be central. No masses noted. No JVD or thyromegaly appreciated. RESPIRATORY: Chest is symmetrical. No intercostals muscle retraction or any accessory muscle activation. There is no chest wall tenderness. Breath sounds are heard bilaterally. No rales or rhonchi heard. No evidence of any consolidation. BREASTS: Deferred. HEART: The heart sounds are normal. No S3 or S4. No significant murmurs. No pericardial rub ABDOMEN: Abdomen is obese. No vessel pulsations or distention. No tenderness. No organomegaly appreciated. Bowel sounds are normally heard. : Deferred. RECTAL: Deferred. LYMPHATIC: No lymphadenopathy noted in the neck. EXTREMITIES: Trace to 1+ edema. No cyanosis. Changes of chronic venous stasis MUSCULOSKELETAL: No acute joint deformities or swelling SKIN: There are no significant rashes or ecchymosis NEUROPSYCHIATRIC: The patient is alert and oriented x3. Appears to be in a good mood. No tremors or rigidity noted. Urinary Catheter Management: Fisher: Cath Placed During This Visit: yes Reason for Continuing Indwelling Catheter: Accurate Measurement of Urinary Output in Critically Ill Patients Urinary Catheter Date of Insertion: 07/30/25 Urinary Catheter Time of Insertion: 01:30 Data 07/31/25 04:29 07/31/25 04:29 Other Labs: Laboratory Last Values WBC 18.88 10^3/uL (3.29-11.43) H 07/30/25 02:58 Corrected WBC Cancelled 07/29/25 20:41 RBC 4.71 10^6/uL (3.85-5.65) 07/30/25 02:58 Hgb 11.40 g/dL (11.27-16.99) 07/30/25 02:58 Hct 43.4 % (37-53) 07/30/25 02:58 MCV 92.1 fl (82-101) 07/30/25 02:58 MCH 24.2 pg (27-33) L 07/30/25 02:58 MCHC 26.3 g/dL (30-55) L 07/30/25 02:58 RDW 19.3 % (12.1-15.1) H 07/30/25 02:58 Plt Count 31 10^3/cmm (157-399) L D 07/30/25 02:58 MPV Not Reportable 07/30/25 02:58 Gran % Cancelled 07/29/25 20:41 Neut % (Auto) 88.5 % 07/30/25 02:58 Lymph % (Auto) 2.1 % 07/30/25 02:58 [place] % (Auto) 8.2 % 07/30/25 02:58 Eos % (Auto) 0.0 % 07/30/25 02:58 Baso % (Auto) 0.1 % 07/30/25 02:58 Neut # (Auto) 16.71 10^3/uL (1.8-7.7) H 07/30/25 02:58 Lymph # (Auto) 0.4 10^3/uL (0.8-4.8) L 07/30/25 02:58 [place] # (Auto) 1.6 10^3/uL (0.2-0.9) H 07/30/25 02:58 Eos # (Auto) 0.0 10^3/uL (0.0-0.8) 07/30/25 02:58 Baso # (Auto) 0.0 10^3/uL (0.0-0.1) 07/30/25 02:58 Absolute Gran (auto) Cancelled 07/29/25 20:41 Nucleated RBC % (auto) 0.3 % 07/30/25 02:58 Nucleated RBCs # 0.1 /100WBC 07/30/25 02:58 PT 45.10 SECONDS (12.1-14.9) H 07/30/25 02:58 INR 4.52 (0.8-1.2) H 07/30/25 02:58 Specimen Type Arterial 07/29/25 20:55 Sample Site Radial, left 07/29/25 20:55 ABG pH 7.31 (7.35-7.45) L 07/29/25 20:55 ABG pCO2 51.4 mmHg (35-45) H 07/29/25 20:55 ABG pO2 78.8 mmHg (80.0-100.0) L 07/29/25 20:55 ABG PO2/FiO2 Ratio 281 07/29/25 20:55 ABG HCO3 25.8 mmol/L (22-26) 07/29/25 20:55 ABG Base Excess -1.1 mmol/L (-2.0-2.0) 07/29/25 20:55 Joseph Test Pos 07/29/25 20:55 Hematocrit 37.0 % (42-52) L 07/29/25 20:55 Hgb O2 Saturation 91.6 % (95-100) L 07/29/25 20:55 Carboxyhemoglobin 1.4 %THgb (0.4-20.1) 07/29/25 20:55 Methemoglobin 1.0 % (0.4-1.5) 07/29/25 20:55 Total Hemoglobin 12.1 g/dL (14-18) L 07/29/25 20:55 O2 Delivery Device Nc 07/29/25 20:55 O2 Liters/Min 2.0 % 07/29/25 20:55 FiO2 28.0 % 07/29/25 20:55 Cell Plasterer ID Bd 07/29/25 20:55 Sodium 133 mmol/L (136-145) L 07/30/25 02:58 Potassium 4.7 mmol/L (3.5-5.1) 07/30/25 02:58 Chloride 94 mmol/L (98-107) L 07/30/25 02:58 Carbon Dioxide 28 mmol/L (22-29) 07/30/25 02:58 Anion Gap 15.7 (5-19) 07/30/25 02:58 BUN 45 mg/dL (6-20) H 07/30/25 02:58 Creatinine 1.9 mg/dL (0.7-1.2) H 07/30/25 02:58 GFR Calculation 37.7 mL/min (90-130) L 07/30/25 02:58 Glucose 101 mg/dL (65-115) 07/30/25 02:58 POC Glucose 107 mg/dL (70-110) 07/30/25 00:50 Estimat Average Glucose 123 07/30/25 02:58 Hemoglobin A1c 5.9 % (4.0-6.0) 07/30/25 02:58 Calculated Osmolality 288 mOsm/kg (285-295) 07/30/25 02:58 Lactic Acid 2.1 mmol/L (0.5-2.2) 07/29/25 20:41 Lactic Acid (Sepsis) 2.1 mmol/L (0.5-2.2) 07/29/25 23:31 Calcium 9.1 mg/dL (8.5-10.5) 07/30/25 02:58 Phosphorus 4.1 mg/dL (2.5-4.5) 07/29/25 20:41 Magnesium 2.3 mg/dL (1.7-2.3) 07/29/25 20:41 Magnesium 2.4 mg/dL (1.7-2.3) H 07/29/25 20:41 Total Bilirubin 3.0 mg/dL (0.15-1.2) H 07/30/25 02:58 AST 760 U/L (0-40) H 07/30/25 02:58 ALT 374 U/L (0-41) H 07/30/25 02:58 Alkaline Phosphatase 125 U/L (40-130) 07/30/25 02:58 Creatine Kinase 300 U/L (39-308) 07/29/25 20:41 Troponin T Baseline 643 ng/L (0-15) H* 07/29/25 20:41 Troponin T 60 Minute 676.8 ng/L (0-15) H 07/29/25 21:54 Delta Troponin T 33.8 ABS# (0-10) H* 07/29/25 21:54 Troponin T Hi Sens 6Hr 651.3 ng/L (0-15) H 07/30/25 02:58 Troponin T Hi Sens 6Hr Delta 8.3 ng/L (0-12) 07/30/25 02:58 NT-Pro-B Natriuret Pep 6463 pg/mL (0-125) H 07/29/25 20:41 Total Protein 6.5 g/dL (6.6-8.7) L 07/30/25 02:58 Albumin 3.6 g/dL (3.5-5.2) 07/30/25 02:58 Globulin 2.9 g/dL (1.3-4.6) 07/30/25 02:58 Influenza A (PCR) Negative (Negative) 07/29/25 21:10 Influenza Type B (PCR) Negative (Negative) 07/29/25 21:10 RSV (PCR) Negative (Negative) 07/29/25 21:10 SARS-CoV-2 (PCR) Negative (Negative) 07/29/25 21:10 Micro: Microbiology 07/29/25 21:02 Blood Culture - Preliminary Blood SPECIMEN COLLECTED 07/29/25 20:41 Blood Culture - Preliminary Blood SPECIMEN COLLECTED A&P Assessment and plan 1. Atrial fibrillation with rapid ventricular response: This could be multifactorial. May be continued on the amiodarone and beta-ryan. May give digoxin on a as needed basis. A limited 2D echocardiogram would be helpful to evaluate the LV function and rule out any other pathology. 2. Acute on chronic diastolic (congestive) heart failure: Heart failure seems to be getting compensated. Patient may be treated with a careful IV diuresis. 3. Elevated troponin: Most likely this is the of type II MO. He has a significant delta at 2 hours. After reviewing the echocardiogram, further recommendations will be made. Since the patient is thrombocytopenic, may hold off on any anticoagulant at this time. 4. History of pulmonary embolism: Management as per the primary 5. Major depressive disorder, recurrent severe without psychotic features: Management as per the behavioral health provider. 6. Acute on chronic renal insufficiency: The renal function needs to be closely monitored. 7. Acute respiratory failure, unspecified whether with hypoxia or hypercapnia: May closely monitor the oxygenation. 8. BONITA (obstructive sleep apnea): Continue on the CPAP. 9. Aneurysm of left iliac artery: The patient was found to have the left iliac artery aneurysm, 3.0 cm in diameter, stable compared to the previous studies. 10. Neutrophilic leukocytosis: May need to look for a source of infection Plan: Limited 2D echo Consider Myocardial perfusion imaging to evaluate for any coronary ischemia, if he is weight and body habitus permits, after optimizing the heart failure treatment Based on the clinical progress and the results of the above, further recommendations will be made. Thank you for the opportunity to evaluate this patient and make these recommendations PDMP PDMP Reviewed: Not Reviewed Coding Level of Care Code 21501 Diagnoses Atrial fibrillation with rapid ventricular response I48.91 Acute on chronic diastolic (congestive) heart failure I50.33 Elevated troponin R79.89 History of pulmonary embolism Z86.711 Major depressive disorder, recurrent severe without psychotic features F33.2 Acute on chronic renal insufficiency N28.9; N18.9 Acute respiratory failure, unspecified whether with hypoxia or hypercapnia J96.00 Respiratory failure complication: unspecified whether with hypoxia or hypercapnia BONITA (obstructive sleep apnea) G47.33 Aneurysm of left iliac artery I72.3 Neutrophilic leukocytosis D72.828
--- NOTE | 2025-07-30 11:19 | P.PN_ITS ---
Subjective 2 Subjective: He reports he is feeling a bit better. Denies chest pain or pressure. Vitals/I&O/Wt Last Vital Signs Temp 97.6 F 07/30/25 08:00 Pulse 108 H 07/30/25 10:00 Resp 23 H 07/30/25 10:00 BP 133/100 07/30/25 10:00 Pulse Ox 97 07/30/25 10:00 O2 Del Method Nasal Cannula 07/30/25 10:00 O2 Flow Rate 4 07/30/25 10:00 FiO2 25 07/30/25 05:00 07/29/25 07/30/25 07/30/25 22:59 06:59 14:59 Intake Total 5.583 / 5.583 659.417 / 665.000 220 / 220 Output Total 650 / 650 Balance 5.583 / 5.583 9.417 / 15.000 220 / 220 Weight last 48 hrs Weight 203.754 kg Weight 202.211 kg Weight 200.034 kg Physical Exam 2 Const: COMMON NORMALS: patient oriented x3 and alert GENERAL APPEARANCE: c ooperative ORIENTATION/CONSCIOUSNESS: Yes awake HENMT: COMMON NORMALS: oropharynx normal Neck/C-Spine: COMMON NORMALS: no JVD Resp: COMMON NORMALS: normal respiratory effort and clear to auscultation bilaterally AUSCULTATION: clear to auscultation bilaterally Cardio: COMMON NORMALS: no JVD, regular rhythm, S1 normal heart sound present, S2 normal heart sound present and No murmurs present (Cardio) RATE: t achycardic RHYTHM: regular rhythm HEART SOUNDS: S1 normal heart sound present and S2 normal heart sound present GI: COMMON NORMALS: Normal to inspection, nondistended, normoactive bowel sounds present, Soft to palpation and non-tender PALPATION: Yes Soft to palpation Extremity: COMMON NORMALS: no joint enlargement and no pedal edema Neuro: COMMON NORMALS: patient oriented x3 and moves all extremities S ENSORIUM/ORIENTATION: Yes alert Skin: COMMON NORMALS: no rashes or lesions noted GENERAL SKIN EXAM: no rashes or lesions noted Urinary Catheter Management: Fisher: Cath Placed During This Visit: yes Reason for Continuing Indwelling Catheter: Accurate Measurement of Urinary Output in Critically Ill Patients Urinary Catheter Date of Insertion: 07/30/25 Urinary Catheter Time of Insertion: 01:30 Data 07/30/25 02:58 07/30/25 02:58 Micro: Microbiology 07/29/25 21:02 Blood Culture - Preliminary Blood SPECIMEN COLLECTED 07/29/25 20:41 Blood Culture - Preliminary Blood SPECIMEN COLLECTED A&P Assessment and plan 1. Acute on chronic diastolic (congestive) heart failure: Continues on Bumex. Metolazone. Monitor for risk of electrolyte deficiency. DILLAN. Reassess volume status, chemistry. Monitor on telemetry. Reviewed CMP. Troponin. Noted troponin elevation, discussed with cardiology. Obtain TTE. 2. Atrial fibrillation with rapid ventricular response: Persistent tachycardia, will increase metoprolol dose to 50 mg. Has been maintaining blood pressure. Continues on Cardizem drip. Will add oral Cardizem. Monitor for risk of hypotension. Continue amiodarone. Continue with rate control with diltiazem drip, and metoprolol. Increase amiodarone to 200 mg twice a day. Will give additional 150 mg IV bolus now 3. Thrombocytopenia: Complete the level 31,000. Xarelto has been held. Unexplained thrombocytopenia. He did not he states is aware of prior thrombocytopenia but states has not been delineated in terms of etiology. He denies history of HIV seropositivity. States that he takes Descovy prophylactically. Discussed with pharmacist, medications reviewed, acetazolamide may be causing platelet suppression, will not continue at this time. Send peripheral smear. Check B12, TSH. 4. Drug-induced hepatitis: LFTs appear to be improving. Patient has volume overload however his LFTs are markedly elevated and I think this may be related to his duloxetine. Duloxetine can cause drug-induced hepatitis and should be stopped. Additionally have held his statin for now. Consider psychiatry consult. 5. Morbid obesity with BMI of 50.0-59.9, adult: Patient was counseled regarding need for weight loss as well as treatment of his sleep apnea and is willing to be on a weight loss diet 6. BONITA (obstructive sleep apnea): Was to be started on BiPAP per nighttime physician 7. Declining functional status: Discussed with mental health case manager consideration disposition planning. SNF considered. He has been deconditioned. Will need to obtain PT evaluation once his heart rate is available better. He prefers to return home. Patient was counseled regarding his progression towards usp and counseled that he needs to make a change. Patient voices understanding and willing to make change 8. History of pulmonary embolism: Xarelto held with thrombocytopenia, 31,000. Discussed with him risk of bleeding. Follow-up platelet levels. Hold acetazolamide. Consider options of resuming partial coagulation, versus IVC filter as discussed. 9. History of stage 3b chronic kidney disease: Creatinine running 2. Follow kidney function with diuresis 10. Elevated troponin: Troponin over 600 and in 2023 was 25 this is suspicious for NSTEMI cardiology has been consulted he is not have any chest pain. Obtain TTE. Discussed with specialized language instructor at bedside. PDMP PDMP Reviewed: Not Reviewed Attestations 2 Medical Necessity Statement*: Continue admission for assessment and management of A-fib with RVR, acute CHF, NSTEMI, gentleman with worsening thrombocytopenia, chronically on anticoagulation with history of recent PE and High MDM includes amount and/or complexity of data reviewed/ordered [ resulted lab(s)/test(s), ordered lab(s)/test(s) and other healthcare professional discussion] and described risk of complication, morbidity or mortality of management as documented Diagnoses Acute on chronic diastolic (congestive) heart failure I50.33 Atrial fibrillation with rapid ventricular response I48.91 Thrombocytopenia D69.6 Drug-induced hepatitis K71.6; T50.905A Morbid obesity with BMI of 50.0-59.9, adult E66.01; Z68.43 BONITA (obstructive sleep apnea) G47.33 Declining functional status R53.81 History of pulmonary embolism Z86.711 History of stage 3b chronic kidney disease Z87.448 Elevated troponin R79.89
[2025-07-30 12:12] LABS: LAB Peripheral Smear Sent for Review
[2025-07-30 12:28] LABS: Thyroid Stimulating Hormone 1.53 uIU/mL (0.27-4.20)
--- NOTE | 2025-07-30 13:04 | PHA.VACGOAL ---
Vancomycin Goal - Goal Vancomycin Goal:: 15-20 mg/L Vancomycin Indication:: Other (BACTEREMIA) - Therapy Day of therpy:: Day []of [] . Actual body weight (kg): 449 lb 3.2 oz - Data Labs: WBC 18.88 10^3/uL (3.29-11.43) H 07/30/25 02:58 Corrected WBC Cancelled 07/29/25 20:41 RBC 4.71 10^6/uL (3.85-5.65) 07/30/25 02:58 Hgb 11.40 g/dL (11.27-16.99) 07/30/25 02:58 Hct 43.4 % (37-53) 07/30/25 02:58 MCV 92.1 fl (82-101) 07/30/25 02:58 MCH 24.2 pg (27-33) L 07/30/25 02:58 MCHC 26.3 g/dL (30-55) L 07/30/25 02:58 RDW 19.3 % (12.1-15.1) H 07/30/25 02:58 Sodium 133 mmol/L (136-145) L 07/30/25 02:58 Potassium 4.7 mmol/L (3.5-5.1) 07/30/25 02:58 Chloride 94 mmol/L (98-107) L 07/30/25 02:58 Carbon Dioxide 28 mmol/L (22-29) 07/30/25 02:58 Anion Gap 15.7 (5-19) 07/30/25 02:58 BUN 45 mg/dL (6-20) H 07/30/25 02:58 Creatinine 1.9 mg/dL (0.7-1.2) H 07/30/25 02:58 GFR Calculation 37.7 mL/min (90-130) L 07/30/25 02:58 Last dialysis session:: N/A Treatment plan:: new consult Regimen:: STARTED PATIENT ON 3000 MG LOADING DOSE FOLLOWED BY 2000 MG Q12H MAINTENANCE DOSE. SCHEDULED EARLY TROUGH FOR 1230 ON 07/31 TO ENSURE PATIENT DOES NOT SUPRATHERAPEUTIC LEVEL BASED ON WEIGHT AND DECREASED RENAL FUNCTION. CONTINUE TO MONITOR DAILY.
[2025-07-30] MEDS: DILTIAZEM HCL/D5W 125 MG/125 ML BAG IV (13:56)
[2025-07-30 14:41] LABS: Vitamin B12 > 2000 pg/mL (232-1245)
[2025-07-31] VITALS (49 sets, daily range): BP systolic 86–138; BP diastolic 54–102; PULSE 79–106; RESP 13–31; TEMP 35.9–36.7; O2SAT 88–99
[2025-07-31] MEDS: bumetanide 0.25 mg/mL SDV 10 mL 2 MG IVP ×2 (04:30→16:33)
[2025-07-31] MEDS: DAPAGLIFLOZIN 10 MG TABLET PO (04:32)
[2025-07-31 04:49] LABS: Hematocrit 41.1 % (37-53); Hemoglobin 11.10 g/dL (11.27-16.99); Mean Corpuscular HGB Conc 27.0 g/dL (30-55); Mean Corpuscular Hemoglobin 24.6 pg (27-33); Mean Corpuscular Volume 91.1 fl (82-101); Nucleated Red Blood Cells % 0 %; Platelet Count 63 10^3/cmm (157-399); Red Blood Count 4.51 10^6/uL (3.85-5.65); White Blood Count 12.33 10^3/uL (3.29-11.43)
[2025-07-31 05:02] LABS: INR 2.41 (0.8-1.2); Prothrombin Time 27.70 SECONDS (12.1-14.9)
[2025-07-31 05:10] LABS: Alanine Aminotransferase 293 U/L (0-41); Albumin Level 3.4 g/dL (3.5-5.2); Alkaline Phosphatase 147 U/L (40-130); Anion Gap 12.5 (5-19); Aspartate Amino Transferase 413 U/L (0-40); Blood Urea Nitrogen 49 mg/dL (6-20); Calcium 8.6 mg/dL (8.5-10.5); Carbon Dioxide 33 mmol/L (22-29); Chloride 90 mmol/L (98-107); Globulin 3.0 g/dL (1.3-4.6); Glucose 101 mg/dL (65-115); Osmolality Calculated 287 mOsm/kg (285-295); Potassium 3.5 mmol/L (3.5-5.1); Sodium 132 mmol/L (136-145); Total Protein 6.4 g/dL (6.6-8.7)
--- NOTE | 2025-07-31 17:08 | P.PN_ITS ---
Subjective 2 Subjective: Patient had a limited 2D echocardiogram yesterday. The left-ventricular was found with ejection fraction of 30 to 35% with a diffuse hypokinesia of the ventricle. He denies any chest pain. His shortness of breath is significantly improved. Telemetry shows atrial fibrillation with a controlled ventricular response rate. Vital signs seems to be stable. Medications: Medication Review Details: Current Medications Acetazolamide (Acetazolamide 250 Mg Tablet) 125 mg PO DAILY [facility] Last Admin: 07/31/25 04:32 Dose: 125 mg Amiodarone HCl (Amiodarone 200 Mg Tablet) 200 mg PO BID [facility] Last Admin: 07/31/25 16:33 Dose: 200 mg Bumetanide (Bumetanide 0.25 Mg/Ml Sdv 10 Ml) 2 mg IVP BID [facility] Last Admin: 07/31/25 16:33 Dose: 2 mg Diltiazem HCl (Diltiazem 30 Mg Tablet) 30 mg PO TID [facility] Last Admin: 07/31/25 13:35 Dose: 30 mg Duloxetine HCl (Duloxetine 60 Mg Capsule) 60 mg PO BID [facility] Last Admin: 07/31/25 16:33 Dose: 60 mg DILTIAZEM HCL/D5W (Cardizem) 125 mg in 125 mls @ 0 mls/hr IV .Q0M [facility]; Protocol Last Titration: 07/30/25 14:41 Dose: 0 mg/hr, 0 mls/hr Vancomycin HCl (Vancocin) 2,000 mg in 400 mls @ 200 mls/hr IV Q24H [facility] Lorazepam (Lorazepam 2 Mg/Ml Inj 1 Ml) 0.5 mg IVP Q6H PRN PRN Reason: ANXIETY Metolazone (Metolazone 5 Mg Tablet) 5 mg PO DAILY [facility] Last Admin: 07/31/25 04:31 Dose: 5 mg Metoprolol Tartrate (Metoprolol Tartrate 50 Mg Tablet) 50 mg PO BID@0900,2100 [facility] Last Admin: 07/31/25 08:00 Dose: 50 mg Ondansetron HCl (Ondansetron 2 Mg/Ml Sdv 2 Ml) 4 mg IVP Q6H PRN PRN Reason: NAUSEA AND VOMITING Last Admin: 07/30/25 13:33 Dose: 4 mg Potassium Chloride (Potassium Chloride Er 20 Meq Tablet) 20 meq PO BID [facility] Last Admin: 07/31/25 16:33 Dose: 20 meq Vitals/I&O/Wt Last Vital Signs Temp 96.6 F L 07/31/25 07:30 Pulse 89 07/31/25 16:30 Resp 20 H 07/31/25 16:30 BP 120/85 07/31/25 14:30 Pulse Ox 92 07/31/25 15:30 O2 Del Method BiPAP 07/31/25 03:00 O2 Flow Rate 4 07/30/25 20:00 FiO2 40 07/31/25 04:47 07/31/25 07/31/25 07/31/25 06:59 14:59 22:59 Intake Total 660 / 2557.334 480 / 480 240 / 720 Output Total 4100 / 6850 1900 / 1900 1800 / 3700 Balance -3440 / -4292.666 -1420 / -1420 -1560 / -2980 Weight last 48 hrs Weight 445 lb Weight 449 lb 3.2 oz Weight 445 lb 12.8 oz Weight 441 lb Physical Exam 2 Narrative: GENERAL: The patient is alert and oriented times three. Not in any acute distress. Morbidly obese HEENT: No significant pallor, icterus or lymphadenopathy.Oral cavity: There are no mucous membrane lesions. NECK: Trachea appears to be central. No masses noted. No JVD or thyromegaly appreciated. RESPIRATORY: Chest is symmetrical. No intercostals muscle retraction or any accessory muscle activation. There is no chest wall tenderness. Breath sounds are heard bilaterally. No rales or rhonchi heard. No evidence of any consolidation. BREASTS: Deferred. HEART: The heart sounds are normal. No S3 or S4. No significant murmurs. No pericardial rub ABDOMEN: Abdomen is obese. No vessel pulsations or distention. No tenderness. No organomegaly appreciated. Bowel sounds are normally heard. : Deferred. RECTAL: Deferred. LYMPHATIC: No lymphadenopathy noted in the neck. EXTREMITIES: Trace to 1+ edema. No cyanosis. Changes of chronic venous stasis MUSCULOSKELETAL: No acute joint deformities or swelling SKIN: There are no significant rashes or ecchymosis NEUROPSYCHIATRIC: The patient is alert and oriented x3. Appears to be in a good mood. No tremors or rigidity noted. Urinary Catheter Management: Fisher: Cath Placed During This Visit: yes Reason for Continuing Indwelling Catheter: Accurate Measurement of Urinary Output in Critically Ill Patients Urinary Catheter Date of Insertion: 07/30/25 Urinary Catheter Time of Insertion: 01:30 Data 08/01/25 03:01 08/01/25 03:01 Other Labs: Laboratory Last Values WBC 12.33 10^3/uL (3.29-11.43) H 07/31/25 04:29 Corrected WBC Cancelled 07/29/25 20:41 RBC 4.51 10^6/uL (3.85-5.65) 07/31/25 04:29 Hgb 11.10 g/dL (11.27-16.99) L 07/31/25 04:29 Hct 41.1 % (37-53) 07/31/25 04:29 MCV 91.1 fl (82-101) 07/31/25 04:29 MCH 24.6 pg (27-33) L 07/31/25 04:29 MCHC 27.0 g/dL (30-55) L 07/31/25 04:29 RDW 19.1 % (12.1-15.1) H 07/31/25 04:29 Plt Count 63 10^3/cmm (157-399) L D 07/31/25 04:29 MPV Not Reportable 07/31/25 04:29 Gran % Cancelled 07/29/25 20:41 Neut % (Auto) 87.6 % 07/31/25 04:29 Lymph % (Auto) 2.7 % 07/31/25 04:29 [place] % (Auto) 9.0 % 07/31/25 04:29 Eos % (Auto) 0.2 % 07/31/25 04:29 Baso % (Auto) 0.1 % 07/31/25 04:29 Neut # (Auto) 10.81 10^3/uL (1.8-7.7) H 07/31/25 04:29 Lymph # (Auto) 0.3 10^3/uL (0.8-4.8) L 07/31/25 04:29 [place] # (Auto) 1.1 10^3/uL (0.2-0.9) H 07/31/25 04:29 Eos # (Auto) 0.0 10^3/uL (0.0-0.8) 07/31/25 04:29 Baso # (Auto) 0.0 10^3/uL (0.0-0.1) 07/31/25 04:29 Absolute Gran (auto) Cancelled 07/29/25 20:41 Nucleated RBC % (auto) 0 % 07/31/25 04:29 Nucleated RBCs # 0.0 /100WBC 07/31/25 04:29 Peripher Smr Path Cons Sent for review 07/30/25 12:51 PT 27.70 SECONDS (12.1-14.9) H D 07/31/25 04:29 INR 2.41 (0.8-1.2) H 07/31/25 04:29 Specimen Type Arterial 07/29/25 20:55 Sample Site Radial, left 07/29/25 20:55 ABG pH 7.31 (7.35-7.45) L 07/29/25 20:55 ABG pCO2 51.4 mmHg (35-45) H 07/29/25 20:55 ABG pO2 78.8 mmHg (80.0-100.0) L 07/29/25 20:55 ABG PO2/FiO2 Ratio 281 07/29/25 20:55 ABG HCO3 25.8 mmol/L (22-26) 07/29/25 20:55 ABG Base Excess -1.1 mmol/L (-2.0-2.0) 07/29/25 20:55 Joseph Test Pos 07/29/25 20:55 Hematocrit 37.0 % (42-52) L 07/29/25 20:55 Hgb O2 Saturation 91.6 % (95-100) L 07/29/25 20:55 Carboxyhemoglobin 1.4 %THgb (0.4-20.1) 07/29/25 20:55 Methemoglobin 1.0 % (0.4-1.5) 07/29/25 20:55 Total Hemoglobin 12.1 g/dL (14-18) L 07/29/25 20:55 O2 Delivery Device Nc 07/29/25 20:55 O2 Liters/Min 2.0 % 07/29/25 20:55 FiO2 28.0 % 07/29/25 20:55 Roofing Foreman ID Bd 07/29/25 20:55 Sodium 132 mmol/L (136-145) L 07/31/25 04:29 Potassium 3.5 mmol/L (3.5-5.1) 07/31/25 04:29 Chloride 90 mmol/L (98-107) L 07/31/25 04:29 Carbon Dioxide 33 mmol/L (22-29) H 07/31/25 04:29 Anion Gap 12.5 (5-19) 07/31/25 04:29 BUN 49 mg/dL (6-20) H 07/31/25 04:29 Creatinine 2.2 mg/dL (0.7-1.2) H 07/31/25 04:29 GFR Calculation 31.8 mL/min (90-130) L 07/31/25 04:29 Glucose 101 mg/dL (65-115) 07/31/25 04:29 POC Glucose 107 mg/dL (70-110) 07/30/25 00:50 Estimat Average Glucose 123 07/30/25 02:58 Hemoglobin A1c 5.9 % (4.0-6.0) 07/30/25 02:58 Calculated Osmolality 287 mOsm/kg (285-295) 07/31/25 04:29 Lactic Acid 2.1 mmol/L (0.5-2.2) 07/29/25 20:41 Lactic Acid (Sepsis) 2.1 mmol/L (0.5-2.2) 07/29/25 23:31 Calcium 8.6 mg/dL (8.5-10.5) 07/31/25 04:29 Phosphorus 4.1 mg/dL (2.5-4.5) 07/29/25 20:41 Magnesium 2.3 mg/dL (1.7-2.3) 07/29/25 20:41 Magnesium 2.4 mg/dL (1.7-2.3) H 07/29/25 20:41 Total Bilirubin 2.8 mg/dL (0.15-1.2) H 07/31/25 04:29 AST 413 U/L (0-40) H 07/31/25 04:29 ALT 293 U/L (0-41) H 07/31/25 04:29 Alkaline Phosphatase 147 U/L (40-130) H 07/31/25 04:29 Creatine Kinase 300 U/L (39-308) 07/29/25 20:41 Troponin T Baseline 643 ng/L (0-15) H* 07/29/25 20:41 Troponin T 60 Minute 676.8 ng/L (0-15) H 07/29/25 21:54 Delta Troponin T 33.8 ABS# (0-10) H* 07/29/25 21:54 Troponin T Hi Sens 6Hr 651.3 ng/L (0-15) H 07/30/25 02:58 Troponin T Hi Sens 6Hr Delta 8.3 ng/L (0-12) 07/30/25 02:58 NT-Pro-B Natriuret Pep 6463 pg/mL (0-125) H 07/29/25 20:41 Total Protein 6.4 g/dL (6.6-8.7) L 07/31/25 04:29 Albumin 3.4 g/dL (3.5-5.2) L 07/31/25 04:29 Globulin 3.0 g/dL (1.3-4.6) 07/31/25 04:29 Vitamin B12 > 2000 pg/mL (232-1245) H 07/30/25 02:58 TSH 1.53 uIU/mL (0.27-4.20) 07/30/25 02:58 Vancomycin Trough 29.7 ug/mL (10-15) H* 07/31/25 12:32 Influenza A (PCR) Negative (Negative) 07/29/25 21:10 Influenza Type B (PCR) Negative (Negative) 07/29/25 21:10 RSV (PCR) Negative (Negative) 07/29/25 21:10 SARS-CoV-2 (PCR) Negative (Negative) 07/29/25 21:10 Micro: Microbiology 07/30/25 21:05 Blood Culture - Preliminary Blood SPECIMEN COLLECTED 07/30/25 20:56 Blood Culture - Preliminary Blood SPECIMEN COLLECTED 07/29/25 21:02 Blood Culture - Preliminary Blood NEGATIVE TO DATE 07/29/25 20:41 Blood Culture - Preliminary Blood SPECIMEN COLLECTED Other data: Echocardiogram from yesterday Mildly increased left ventricular cavity size. Diffuse hypokinesia left ventricule with ejection fraction of around 30 to 35%. (Echo contrast - Optison was used to delineate the endocardium and to estimate the LV ejection fraction). But the study was still very suboptimal with poor visualization of borders. Mild biatrial enlargement Right ventricle possibly of normal size with a slightly diminished ejection fraction Right atrium and the tricuspid valve valve not visualized very well A&P Assessment and plan 1. Cardiomyopathy, unspecified type: The etiology is not clear. It is possible that the patient may have underlying coronary disease. Ischemic cardiomyopathy is a consideration. 2. Atrial fibrillation with rapid ventricular response: Patient currently has atrial fibrillation with a controlled ventricular response rate. IV amiodarone is switched to p.o. This may be continued. He also is on beta-ryan and a calcium beta-ryan. We may continue on this cautiously. 3. Elevated troponin: Could be related to type I MN. He has a significant delta at 2 hours. After reviewing the echocardiogram, further recommendations will be made. Since the patient is thrombocytopenic, may hold off on any anticoagulant at this time. In view of the significantly elevated troponin T and the drop in the LV ejection fraction, underlying coronary ischemia is a strong consideration. However the patient does not have any chest pain. I may go ahead and do a Myocardial perfusion imaging, if the imaging table can handle of the weight 4. Thrombocytopenia: The platelet count seems to be improving. Need to discuss about the antiplatelet treatment 5. Drug-induced hepatitis: Management as per the primary 6. History of pulmonary embolism: Management as per the primary 7. Major depressive disorder, recurrent severe without psychotic features: Management as per the behavioral health provider. 8. Acute on chronic renal insufficiency: The renal function needs to be closely monitored. 9. Aneurysm of left iliac artery: The patient was found to have the left iliac artery aneurysm, 3.0 cm in diameter, stable compared to the previous studies. At this point, we may continue to observe. 10. Acute on chronic respiratory failure with hypoxia: Clinically improving. May continue on the current management. Plan: Possible Myocardial perfusion imaging tomorrow. The need for the study was discussed with the patient detail which is understood well and consented to proceed Based on the results, further recommendations will be made. May continue on the current management for the time being PDMP PDMP Reviewed: Not Reviewed Attestations 2 Medical Necessity Statement*: Patient requires continued hospital stay for close monitoring and further management Coding Level of Care Code 55036 Diagnoses Cardiomyopathy, unspecified type I42.9 Cardiomyopathy type: unspecified Atrial fibrillation with rapid ventricular response I48.91 Elevated troponin R79.89 Thrombocytopenia D69.6 Drug-induced hepatitis K71.6; T50.905A History of pulmonary embolism Z86.711 Major depressive disorder, recurrent severe without psychotic features F33.2 Acute on chronic renal insufficiency N28.9; N18.9 Aneurysm of left iliac artery I72.3 Acute on chronic respiratory failure with hypoxia J96.21 Chronicity: acute on chronic Respiratory failure complication: hypoxia
--- NOTE | 2025-07-31 17:27 | ECG_ITS ---
[employer] Test Date: 2025-08-01 Pat Name: Robert Juarez Department: Room: [facility] Gender: Male Shellfish Weigher: : 1975 Requested By: Carmel Darby Order Number: [id number] Shaw[place] MD: Carmel Darby M.D. Interpretive Statements Lung unchanged pre/post procedure; Intraprocedure shortess of breath; Symptoms resoled by discharge My. PROCEDURE: At the baseline, the EKG revealed atrial fibrillation with nonspecific IVCD. Poor R wave progression.. The baseline heart was 77 bpm with a blood pressue of 178/81 mm of Hg Lexiscan was infused over a period of 20 seconds. A total of 0.4 milligrams of Lexiscan was infused. The stress phase was continued for a total of 5 minutes. Heart rate at the end of the stress phase was 74 bpm with a blood pressure 108/78 mm of Hg. The EKG at the peak infusion revealed no significant changes. Sestamibi was injected 20 seconds after the Lexiscan infusion. Heart rate at the end of the recovery phase was 74 bpm with a blood pressure of 118/86 mm of Hg. CONCLUSION: 1. No significant EKG changes with the LexiScan infusion 2. No LexiScan induced chest pain or cardiac arrhythmia 3. Normal blood pressure and heart rate response 4. Sestamibi/sestamibi perfusion scan pending; see separate report. Electronically Signed On 08-01-2025 20:43:40 PATIENT SERVICE REPRESENTATIVE by Carmel Darby M.D. [email or web address]
--- NOTE | 2025-07-31 19:42 | PM.PN ---
Subjective Subjective: He is feeling a bit better today. Denies chest pain or pressure. Vitals/I&O/Wt Last Vital Signs Temp 96.6 F L 07/31/25 07:30 Pulse 88 07/31/25 18:00 Resp 18 07/31/25 18:00 BP 120/85 07/31/25 14:30 Pulse Ox 96 07/31/25 18:00 O2 Del Method BiPAP 07/31/25 03:00 O2 Flow Rate 4 07/30/25 20:00 FiO2 40 07/31/25 04:47 07/31/25 07/31/25 07/31/25 06:59 14:59 22:59 Intake Total 660 / 2557.334 480 / 480 240 / 720 Output Total 4100 / 6850 1900 / 1900 1800 / 3700 Balance -3440 / -4292.666 -1420 / -1420 -1560 / -2980 Weight last 48 hrs Weight 197.058 kg Weight 201.849 kg Weight 203.754 kg Weight 202.211 kg Weight 200.034 kg Physical Exam Const: COMMON NORMALS: patient oriented x3 and alert GENERAL APPEARANCE: cooperative ORIENTATION/CONSCIOUSNESS: Yes awake HENMT: COMMON NORMALS: oropharynx normal Neck/C-Spine: COMMON NORMALS: no JVD Resp: COMMON NORMALS: normal respiratory effort and clear to auscultation bilaterally AUSCULTATION: clear to auscultation bilaterally Cardio: COMMON NORMALS: no JVD, regular rhythm, S1 normal heart sound present, S2 normal heart sound present and No murmurs present (Cardio) RATE: tachycardic RHYTHM: regular rhythm HEART SOUNDS: S1 normal heart sound present and S2 normal heart sound present GI: COMMON NORMALS: Normal to inspection, nondistended, normoactive bowel sounds present, Soft to palpation and non-tender PALPATION: Yes Soft to palpation Extremity: COMMON NORMALS: no joint enlargement GENERAL: Yes edema (2+ bilateral LE edema) Neuro: COMMON NORMALS: patient oriented x3 and moves all extremities SENSORIUM/ORIENTATION: Yes alert Skin: COMMON NORMALS: no rashes or lesions noted GENERAL SKIN EXAM: no rashes or lesions noted Urinary Catheter Management: Fisher: Cath Placed During This Visit: yes Reason for Continuing Indwelling Catheter: Accurate Measurement of Urinary Output in Critically Ill Patients Urinary Catheter Date of Insertion: 07/30/25 Urinary Catheter Time of Insertion: 01:30 Data 07/31/25 04:29 07/31/25 04:29 Micro: Microbiology 07/30/25 21:05 Blood Culture - Preliminary Blood SPECIMEN COLLECTED 07/30/25 20:56 Blood Culture - Preliminary Blood SPECIMEN COLLECTED 07/29/25 21:02 Blood Culture - Preliminary Blood NEGATIVE TO DATE A&P Assessment and plan 1. Acute on chronic diastolic (congestive) heart failure: Continue Bumex. Reviewed intake and output, good urine output, -7 L. Continue to monitor. With CKD, reassessment function, with risk of DILLAN, electrolyte abnormality repeat chemistry. Continues on Bumex. Metolazone. Monitor on telemetry. Reviewed CMP. Troponin. Noted troponin elevation On TTE noted decreased EF, 35%. Reviewed prior echocardiograms, unfortunately they were not interpretable. Pending cardiology reassessment and further planning. Reviewed cardiology note. 2. Atrial fibrillation with rapid ventricular response: Weaned off Cardizem drip. Continue metoprolol, low-dose Cardizem. Amiodarone. DC Cardizem drip.Monitor on telemetry. Supplement potassium. Check magnesium. 3. Thrombocytopenia: Today with improvement up to 63,000. B12 greater than 2000. Peripheral smear reviewed, mild leukocytosis with thrombocytopenia. No blasts or nucleated red cells identified. Discussed with him trial of prophylactic anticoagulation. Reassess platelets. Continue to hold acetazolamide may be causing platelet suppression, will not continue at this time. 4. Drug-induced hepatitis: LFTs appear to be improving. Reviewed CMP. Patient has volume overload however his LFTs are markedly elevated and I think this may be related to his duloxetine. Duloxetine can cause drug-induced hepatitis and should be stopped. Additionally have held his statin for now. Consider psychiatry consult. 5. Morbid obesity with BMI of 50.0-59.9, adult: Patient was counseled regarding need for weight loss as well as treatment of his sleep apnea and is willing to be on a weight loss diet 6. BONITA (obstructive sleep apnea): Was to be started on BiPAP per nighttime physician 7. Declining functional status: Discussed with manager talent acquisition consideration disposition planning. SNF considered. He has been deconditioned. Will need to obtain PT evaluation once his heart rate is available better. He prefers to return home. Patient was counseled regarding his progression [facility] and counseled that he needs to make a change. Patient voices understanding and willing to make change 8. History of pulmonary embolism: Xarelto held with thrombocytopenia, 31,000. Discussed with him risk of bleeding. Follow-up platelet levels. Hold acetazolamide. Consider options of resuming partial coagulation, versus IVC filter as discussed. 9. History of stage 3b chronic kidney disease: Creatinine running 2. Follow kidney function with diuresis 10. Elevated troponin: Troponin over 600 and in 2023 was 25 this is suspicious for NSTEMI cardiology has been consulted he is not have any chest pain. Reviewed TTE. Reviewed cardiology note Plan: Abnormal blood culture on 09/30 reported to have 2/4 positive blood cultures for staph. Was started on linezolid, discussed with pharmacist, switched to vancomycin with risk of cytopenias. Of risk of DILLAN. Follow-up blood culture and repeat blood culture. PDMP PDMP Reviewed: Not Reviewed Attestations Medical Necessity Statement*: Continue admission for assessment and management of A-fib with RVR, acute CHF, NSTEMI, gentleman with worsening thrombocytopenia, chronically on anticoagulation with history of recent PE and High MDM includes amount and/or complexity of data reviewed/ordered [ previous or external records, resulted lab(s)/test(s), ordered lab(s)/test(s) and other healthcare professional discussion] and described risk of complication, morbidity or mortality of management as documented Diagnoses Acute on chronic diastolic (congestive) heart failure I50.33 Atrial fibrillation with rapid ventricular response I48.91 Thrombocytopenia D69.6 Drug-induced hepatitis K71.6; T50.905A Morbid obesity with BMI of 50.0-59.9, adult E66.01; Z68.43 BONITA (obstructive sleep apnea) G47.33 Declining functional status R53.81 History of pulmonary embolism Z86.711 History of stage 3b chronic kidney disease Z87.448 Elevated troponin R79.89
[2025-08-01] VITALS (23 sets, daily range): BP systolic 99–137; BP diastolic 65–104; PULSE 68–98; RESP 14–22; TEMP 35.7–36.6; O2SAT 83–100
[2025-08-01 04:04] LABS: Hematocrit 41.4 % (37-53); Hemoglobin 11.00 g/dL (11.27-16.99); Mean Corpuscular HGB Conc 26.6 g/dL (30-55); Mean Corpuscular Hemoglobin 23.9 pg (27-33); Mean Corpuscular Volume 90.0 fl (82-101); Nucleated Red Blood Cells % 0 %; Platelet Count 34 10^3/cmm (157-399); Red Blood Count 4.60 10^6/uL (3.85-5.65); White Blood Count 6.93 10^3/uL (3.29-11.43)
[2025-08-01 04:18] LABS: INR 1.65 (0.8-1.2); Prothrombin Time 20.60 SECONDS (12.1-14.9)
[2025-08-01 04:35] LABS: Magnesium 2.0 mg/dL (1.7-2.3)
[2025-08-01 04:36] LABS: Alanine Aminotransferase 235 U/L (0-41); Albumin Level 3.2 g/dL (3.5-5.2); Alkaline Phosphatase 159 U/L (40-130); Anion Gap 14.0 (5-19); Aspartate Amino Transferase 283 U/L (0-40); Blood Urea Nitrogen 50 mg/dL (6-20); Calcium 9.0 mg/dL (8.5-10.5); Carbon Dioxide 36 mmol/L (22-29); Chloride 88 mmol/L (98-107); Globulin 3.2 g/dL (1.3-4.6); Glucose 86 mg/dL (65-115); Osmolality Calculated 293 mOsm/kg (285-295); Potassium 3.0 mmol/L (3.5-5.1); Sodium 135 mmol/L (136-145); Total Protein 6.4 g/dL (6.6-8.7)
[2025-08-01] MEDS: bumetanide 0.25 mg/mL SDV 10 mL 2 MG IVP ×2 (05:31→16:15)
[2025-08-01] MEDS: DAPAGLIFLOZIN 10 MG TABLET PO (05:31)
--- NOTE | 2025-08-01 11:13 | PC.SOCIAL ---
IMM Updated Updated pt on IMM. No questions voiced. Provided pt a copy. Initialed, dated, & timed a copy & placed in chart.
--- NOTE | 2025-08-01 16:52 | P.PN_ITS ---
Subjective 2 Subjective: The patient is feeling okay. He has no chest pain. He is sitting up in the chair. Underwent a Myocardial perfusion imaging today. Was found to have moderately large area of fixed defects mostly in the distribution of the right coronary artery and the left anterior descending artery with very small areas of possible yunior-infarct ischemia. Hemodynamically seems to be stable Medications: Medication Review Details: Current Medications Acetazolamide (Acetazolamide 250 Mg Tablet) 125 mg PO DAILY [facility] Last Admin: 08/01/25 05:31 Dose: 125 mg Aminophylline (Aminophylline 25 Mg/Ml Sdv 20 Ml) 25 mg IVP Q2M PRN PRN Reason: see dose instructions Stop: 08/02/25 06:16 Amiodarone HCl (Amiodarone 200 Mg Tablet) 200 mg PO BID [facility] Last Admin: 08/01/25 16:15 Dose: 200 mg Bumetanide (Bumetanide 0.25 Mg/Ml Sdv 10 Ml) 2 mg IVP BID [facility] Last Admin: 08/01/25 16:15 Dose: 2 mg Diltiazem HCl (Diltiazem 30 Mg Tablet) 30 mg PO TID [facility] Last Admin: 08/01/25 12:59 Dose: 30 mg Vancomycin HCl (Vancocin) 1,500 mg in 300 mls @ 200 mls/hr IV Q24H [facility] Last Infusion: 08/01/25 14:30 Dose: Infused Lorazepam (Lorazepam 2 Mg/Ml Inj 1 Ml) 0.5 mg IVP Q6H PRN PRN Reason: ANXIETY Metolazone (Metolazone 5 Mg Tablet) 5 mg PO DAILY [facility] Last Admin: 08/01/25 05:30 Dose: 5 mg Metoprolol Tartrate (Metoprolol Tartrate 50 Mg Tablet) 50 mg PO BID@0900,2100 [facility] Last Admin: 08/01/25 08:56 Dose: 50 mg Nitroglycerin (Nitroglycerin 0.4 Mg Sublingual Tablet) 0.4 mg SUBLINGUAL Q5M PRN PRN Reason: CHEST PAIN Stop: 08/02/25 06:16 Ondansetron HCl (Ondansetron 2 Mg/Ml Sdv 2 Ml) 4 mg IVP Q6H PRN PRN Reason: NAUSEA AND VOMITING Last Admin: 07/30/25 13:33 Dose: 4 mg Ondansetron HCl (Ondansetron 2 Mg/Ml Sdv 2 Ml) 4 mg IVP Q2M PRN PRN Reason: NAUSEA Potassium Chloride (Potassium Chloride Er 20 Meq Tablet) 20 meq PO BID NANETTE Last Admin: 08/01/25 16:16 Dose: 20 meq Vitals/I&O/Wt Last Vital Signs Temp 97.9 F 08/01/25 13:54 Pulse 96 08/01/25 15:25 Resp 22 H 08/01/25 15:25 BP 99/68 08/01/25 15:25 Pulse Ox 97 08/01/25 15:25 O2 Del Method BiPAP 07/31/25 03:00 O2 Flow Rate 4 07/30/25 20:00 FiO2 40 08/01/25 03:56 08/01/25 08/01/25 08/01/25 06:59 14:59 22:59 Intake Total 360 / 1320 740 / 740 Output Total 5650 / 85579 1650 / 1650 Balance -5290 / -9630 -910 / -910 Weight last 48 hrs Weight 423 lb Weight 434 lb 7.016 oz Weight 445 lb Physical Exam 2 Narrative: GENERAL: The patient is alert and oriented times three. Not in any acute distress. Morbidly obese HEENT: No significant pallor, icterus or lymphadenopathy.Oral cavity: There are no mucous membrane lesions. NECK: Trachea appears to be central. No masses noted. No JVD or thyromegaly appreciated. RESPIRATORY: Chest is symmetrical. No intercostals muscle retraction or any accessory muscle activation. There is no chest wall tenderness. Breath sounds are heard bilaterally. No rales or rhonchi heard. No evidence of any consolidation. BREASTS: Deferred. HEART: The heart sounds are normal. No S3 or S4. No significant murmurs. No pericardial rub ABDOMEN: Abdomen is obese. No vessel pulsations or distention. No tenderness. No organomegaly appreciated. Bowel sounds are normally heard. : Deferred. RECTAL: Deferred. LYMPHATIC: No lymphadenopathy noted in the neck. EXTREMITIES: Trace to 1+ edema. No cyanosis. Changes of chronic venous stasis MUSCULOSKELETAL: No acute joint deformities or swelling SKIN: There are no significant rashes or ecchymosis NEUROPSYCHIATRIC: The patient is alert and oriented x3. Appears to be in a good mood. No tremors or rigidity noted. Urinary Catheter Management: Fisher: Cath Placed During This Visit: yes Reason for Continuing Indwelling Catheter: Accurate Measurement of Urinary Output in Critically Ill Patients Urinary Catheter Date of Insertion: 07/30/25 Urinary Catheter Time of Insertion: 01:30 Data 08/01/25 03:01 08/01/25 03:01 Other Labs: Laboratory Last Values WBC 6.93 10^3/uL (3.29-11.43) 08/01/25 03:01 Corrected WBC Cancelled 07/29/25 20:41 RBC 4.60 10^6/uL (3.85-5.65) 08/01/25 03:01 Hgb 11.00 g/dL (11.27-16.99) L 08/01/25 03:01 Hct 41.4 % (37-53) 08/01/25 03:01 MCV 90.0 fl (82-101) 08/01/25 03:01 MCH 23.9 pg (27-33) L 08/01/25 03:01 MCHC 26.6 g/dL (30-55) L 08/01/25 03:01 RDW 19.0 % (12.1-15.1) H 08/01/25 03:01 Plt Count 34 10^3/cmm (157-399) L D 08/01/25 03:01 MPV Not Reportable 08/01/25 03:01 Gran % Cancelled 07/29/25 20:41 Neut % (Auto) 82.6 % 08/01/25 03:01 Lymph % (Auto) 4.3 % 08/01/25 03:01 [place] % (Auto) 12.1 % 08/01/25 03:01 Eos % (Auto) 0.7 % 08/01/25 03:01 Baso % (Auto) 0.0 % 08/01/25 03:01 Neut # (Auto) 5.72 10^3/uL (1.8-7.7) 08/01/25 03:01 Lymph # (Auto) 0.3 10^3/uL (0.8-4.8) L 08/01/25 03:01 [place] # (Auto) 0.8 10^3/uL (0.2-0.9) 08/01/25 03:01 Eos # (Auto) 0.1 10^3/uL (0.0-0.8) 08/01/25 03:01 Baso # (Auto) 0.0 10^3/uL (0.0-0.1) 08/01/25 03:01 Absolute Gran (auto) Cancelled 07/29/25 20:41 Nucleated RBC % (auto) 0 % 08/01/25 03:01 Nucleated RBCs # 0.0 /100WBC 08/01/25 03:01 Peripher Smr Path Cons Sent for review 07/30/25 12:51 PT 20.60 SECONDS (12.1-14.9) H 08/01/25 03:01 INR 1.65 (0.8-1.2) H 08/01/25 03:01 Specimen Type Arterial 07/29/25 20:55 Sample Site Radial, left 07/29/25 20:55 ABG pH 7.31 (7.35-7.45) L 07/29/25 20:55 ABG pCO2 51.4 mmHg (35-45) H 07/29/25 20:55 ABG pO2 78.8 mmHg (80.0-100.0) L 07/29/25 20:55 ABG PO2/FiO2 Ratio 281 07/29/25 20:55 ABG HCO3 25.8 mmol/L (22-26) 07/29/25 20:55 ABG Base Excess -1.1 mmol/L (-2.0-2.0) 07/29/25 20:55 Joseph Test Pos 07/29/25 20:55 Hematocrit 37.0 % (42-52) L 07/29/25 20:55 Hgb O2 Saturation 91.6 % (95-100) L 07/29/25 20:55 Carboxyhemoglobin 1.4 %THgb (0.4-20.1) 07/29/25 20:55 Methemoglobin 1.0 % (0.4-1.5) 07/29/25 20:55 Total Hemoglobin 12.1 g/dL (14-18) L 07/29/25 20:55 O2 Delivery Device Nc 07/29/25 20:55 O2 Liters/Min 2.0 % 07/29/25 20:55 FiO2 28.0 % 07/29/25 20:55 Terminal Superintendent ID Bd 07/29/25 20:55 Sodium 135 mmol/L (136-145) L 08/01/25 03:01 Potassium 3.0 mmol/L (3.5-5.1) L 08/01/25 03:01 Chloride 88 mmol/L (98-107) L 08/01/25 03:01 Carbon Dioxide 36 mmol/L (22-29) H 08/01/25 03:01 Anion Gap 14.0 (5-19) 08/01/25 03:01 BUN 50 mg/dL (6-20) H 08/01/25 03:01 Creatinine 2.0 mg/dL (0.7-1.2) H 08/01/25 03:01 GFR Calculation 35.5 mL/min (90-130) L 08/01/25 03:01 Glucose 86 mg/dL (65-115) 08/01/25 03:01 POC Glucose 107 mg/dL (70-110) 07/30/25 00:50 Estimat Average Glucose 123 07/30/25 02:58 Hemoglobin A1c 5.9 % (4.0-6.0) 07/30/25 02:58 Calculated Osmolality 293 mOsm/kg (285-295) 08/01/25 03:01 Lactic Acid 2.1 mmol/L (0.5-2.2) 07/29/25 20:41 Lactic Acid (Sepsis) 2.1 mmol/L (0.5-2.2) 07/29/25 23:31 Calcium 9.0 mg/dL (8.5-10.5) 08/01/25 03:01 Phosphorus 4.1 mg/dL (2.5-4.5) 07/29/25 20:41 Magnesium 2.0 mg/dL (1.7-2.3) 08/01/25 03:01 Total Bilirubin 2.6 mg/dL (0.15-1.2) H 08/01/25 03:01 AST 283 U/L (0-40) H 08/01/25 03:01 ALT 235 U/L (0-41) H 08/01/25 03:01 Alkaline Phosphatase 159 U/L (40-130) H 08/01/25 03:01 Creatine Kinase 300 U/L (39-308) 07/29/25 20:41 Troponin T Baseline 643 ng/L (0-15) H* 07/29/25 20:41 Troponin T 60 Minute 676.8 ng/L (0-15) H 07/29/25 21:54 Delta Troponin T 33.8 ABS# (0-10) H* 07/29/25 21:54 Troponin T Hi Sens 6Hr 651.3 ng/L (0-15) H 07/30/25 02:58 Troponin T Hi Sens 6Hr Delta 8.3 ng/L (0-12) 07/30/25 02:58 NT-Pro-B Natriuret Pep 6463 pg/mL (0-125) H 07/29/25 20:41 Total Protein 6.4 g/dL (6.6-8.7) L 08/01/25 03:01 Albumin 3.2 g/dL (3.5-5.2) L 08/01/25 03:01 Globulin 3.2 g/dL (1.3-4.6) 08/01/25 03:01 Vitamin B12 > 2000 pg/mL (232-1245) H 07/30/25 02:58 TSH 1.53 uIU/mL (0.27-4.20) 07/30/25 02:58 Vancomycin Trough 20.0 ug/mL (10-15) H 08/01/25 06:47 Influenza A (PCR) Negative (Negative) 07/29/25 21:10 Influenza Type B (PCR) Negative (Negative) 07/29/25 21:10 RSV (PCR) Negative (Negative) 07/29/25 21:10 SARS-CoV-2 (PCR) Negative (Negative) 07/29/25 21:10 Micro: Microbiology 07/29/25 20:41 Blood Culture - Preliminary Blood Staphylococcus aureus 07/30/25 21:05 Blood Culture - Preliminary Blood NEGATIVE TO DATE 07/30/25 20:56 Blood Culture - Preliminary Blood NEGATIVE TO DATE A&P Assessment and plan 1. Ischemic dilated cardiomyopathy: The Myocardial perfusion imaging is suggestive of extensive myocardial scarring in the distribution of the left and descending artery and the right coronary artery with a various small areas of possible yunior-infarction ischemia. The LV ejection fraction was around 30% by the SPECT imaging. Because of the patient's abnormal kidney function and the fact that he has no chest pain or any ischemic symptoms, it would be appropriate to optimize her medical treatment. 2. Atrial fibrillation with rapid ventricular response: The current medication seems to be controlling the heartbeat. I may discontinue the Cardizem and keep on the metoprolol. The amiodarone also may be continued. 3. Elevated troponin: Most likely from the type I [place]. Patient has no chest pain or any specific cardiac symptoms except for the shortness of breath. May continue on the current management. Because of the thrombocytopenia and elevated liver enzymes, antiplatelet medications are on hold. Patient also was found to have heparin antibodies 4. Thrombocytopenia: The platelet count seems to be going down again. 5. Drug-induced hepatitis: The liver enzymes are slowly getting down. 6. History of pulmonary embolism: Management as per the primary. May consider IVC filter and possible Watchman procedure later on 7. Major depressive disorder, recurrent severe without psychotic features: Management as per the behavioral health provider. 8. Acute on chronic renal insufficiency: There are renal function seems to be slowly getting worse. 9. Aneurysm of left iliac artery: The patient was found to have the left iliac artery aneurysm, 3.0 cm in diameter, stable compared to the previous studies. At this point, we may continue to observe. 10. Acute on chronic respiratory failure with hypoxia: Clinically improving. May continue on the current management. Plan: I discussed with the patient about the LifeVest. Patient is wanting to go ahead with this. Because of the worsening kidney function, I may go ahead start him on losartan 25 mg daily and watch the kidney function closely Discontinue the Cardizem. Based on clinical response, further recommendations will be made PDMP PDMP Reviewed: Not Reviewed Attestations 2 Medical Necessity Statement*: Deferred to the primary Coding Level of Care Code 79154 Diagnoses Ischemic dilated cardiomyopathy I25.5; I42.0 Atrial fibrillation with rapid ventricular response I48.91 Elevated troponin R79.89 Thrombocytopenia D69.6 Drug-induced hepatitis K71.6; T50.905A History of pulmonary embolism Z86.711 Major depressive disorder, recurrent severe without psychotic features F33.2 Acute on chronic renal insufficiency N28.9; N18.9 Aneurysm of left iliac artery I72.3 Acute on chronic respiratory failure with hypoxia J96.21 Chronicity: acute on chronic Respiratory failure complication: hypoxia
--- NOTE | 2025-08-01 17:27 | NMCV_ITS ---
NM karol perf SPECT r/s* [id number] Robert Juarez Age: 49 Gender: M : 1975 Exam Date: 08/01/2025 07:19 Ordering Phys: Carmel Darby MD ([email or web address]) Technologist: AAKASH Santos Exam Location: [facility] Indications: CP STRESS TEST [facility] IMAGE PROTOCOL Rest/Stress 1 Lexiscan Day Radiopharmaceutical Dose (mCi) Administration Site Administered by Rest: Tc-99m 11 IV AAKASH Santos Sestamibi Stress:Tc-99m 33 IV AAKASH Bhatia Sestamibi Rest: 01-Aug-2025 60 Discovery 630 Stress: 01-Aug-2025 30 Discovery 630 0.4mg Lexiscan. Supine position only as patient was unable to lay prone. SPECT RESULTS Technical Quality: Good Raw Data Analysis: Soft tissue attenuation Image Corrections: No attenuation or motion correction applied Summed Stress Score: 18 Summed Rest Score: 17 Summed Difference Score: 3 PERFUSION FINDINGS Moderate to large area of moderate to moderately severe decreased tracer uptake involving the basal mid and apical anterior, mid anteroseptal, mid inferoseptal, mid inferior, mid anterolateral and all the apical segments. Minimal reversibility was noted in this area. FUNCTIONAL RESULTS (calculated via Gated SPECT) Stress Image LV EF (%): 30 Stress EDV (mL):241 TID: 1.02 Stress ESV (mL):169 FUNCTIONAL FINDINGS: Segmental wall motion analysis revealing severe diffuse hypokinesia of the left ventricle with an ejection fraction of 30% IMPRESSIONS 1. Myocardial perfusion imaging revealing a large area of persistent decreased tracer uptake involving the anterior, and septal, inferoseptal, inferior and all the apical segments with the minimal reversibility, suggesting extensive myocardial scarring in the distribution of the Left anterior descending artery and right coronary artery with a very small areas of possible yunior-infarction ischemia 2. Markedly diminished LV ejection fraction of 30%. 3. LV wall motion analysis revealing severe diffuse hypokinesia of the left ventricle. 4. Moderate dilated LV cavity with an end-systolic volume of 169 mL No similar previous studies are available for comparison Dr Carmel Darby MD [facility] (Electronically Signed) Final Date: 01 August 2025 09:12 S
--- NOTE | 2025-08-01 19:20 | P.PN_ITS ---
Subjective 2 Subjective: She is feeling better. In negative balance. Vitals/I&O/Wt Last Vital Signs Temp 97.9 F 08/01/25 13:54 Pulse 96 08/01/25 15:25 Resp 22 H 08/01/25 15:25 BP 99/68 08/01/25 15:25 Pulse Ox 97 08/01/25 15:25 O2 Del Method BiPAP 07/31/25 03:00 O2 Flow Rate 4 07/30/25 20:00 FiO2 40 08/01/25 03:56 08/01/25 08/01/25 08/01/25 06:59 14:59 22:59 Intake Total 360 / 1320 740 / 740 480 / 1220 Output Total 5650 / 99264 1650 / 1650 1200 / 2850 Balance -5290 / -9630 -910 / -910 -720 / -1630 Weight last 48 hrs Weight 191.87 kg Weight 197.058 kg Weight 201.849 kg Physical Exam 2 Const: COMMON NORMALS: patient oriented x3 and alert GENERAL APPEARANCE: c ooperative ORIENTATION/CONSCIOUSNESS: Yes awake HENMT: COMMON NORMALS: oropharynx normal Neck/C-Spine: COMMON NORMALS: no JVD Resp: COMMON NORMALS: normal respiratory effort and clear to auscultation bilaterally AUSCULTATION: clear to auscultation bilaterally Cardio: COMMON NORMALS: no JVD, regular rhythm, S1 normal heart sound present, S2 normal heart sound present and No murmurs present (Cardio) RATE: t achycardic RHYTHM: regular rhythm HEART SOUNDS: S1 normal heart sound present and S2 normal heart sound present GI: COMMON NORMALS: Normal to inspection, nondistended, normoactive bowel sounds present, Soft to palpation and non-tender PALPATION: Yes Soft to palpation Extremity: COMMON NORMALS: no joint enlargement and no pedal edema GENERAL: Yes edema (2+ bilateral LE edema) Neuro: COMMON NORMALS: patient oriented x3 and moves all extremities S ENSORIUM/ORIENTATION: Yes alert Skin: COMMON NORMALS: no rashes or lesions noted GENERAL SKIN EXAM: no rashes or lesions noted Urinary Catheter Management: Fisher: Cath Placed During This Visit: yes Reason for Continuing Indwelling Catheter: Accurate Measurement of Urinary Output in Critically Ill Patients Urinary Catheter Date of Insertion: 07/30/25 Urinary Catheter Time of Insertion: 01:30 Data 08/01/25 03:01 08/01/25 03:01 Micro: Microbiology 07/29/25 20:41 Blood Culture - Preliminary Blood Staphylococcus aureus 07/30/25 21:05 Blood Culture - Preliminary Blood NEGATIVE TO DATE 07/30/25 20:56 Blood Culture - Preliminary Blood NEGATIVE TO DATE A&P Assessment and plan 1. Acute on chronic diastolic (congestive) heart failure: Continue Bumex. Reviewed intake and output, good urine output, -8 L. Continue to monitor. With CKD, reassessment function, with risk of DILLAN, electrolyte abnormality repeat chemistry. Underwent stress testing today. Reviewed results, discussed with cardiology. Without evidence of acute ischemia. Noted areas of hypoperfusion without reversibility likely prior UT. Continues on Bumex. Metolazone. Monitor on telemetry. Reviewed CMP, magnesium. Repeat. On TTE noted decreased EF, 35%. Reviewed prior echocardiograms, unfortunately they were not interpretable. Pending cardiology reassessment and further planning. Reviewed cardiology note. 2. Thrombocytopenia: Platelets down again today to 34,000. 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 Discontinued prophylactic Lovenox. Discussed with him options going forward, consideration of reassessment of blood counts, in case improving with withholding acetazolamide consider at some point restarting anticoagulation. Otherwise if not tolerate anticoagulation may have to consider IVC filter, possibly Watchman device. B12 greater than 2000. Peripheral smear reviewed, mild leukocytosis with thrombocytopenia. No blasts or nucleated red cells identified. Discussed with him trial of prophylactic anticoagulation. Reassess platelets. Continue to hold acetazolamide may be causing platelet suppression, will not continue at this time. 3. Atrial fibrillation with rapid ventricular response: Heart rates improved. Continue on oral medications, Toprol, low-dose Cardizem. Amiodarone. Supplement potassium. Reviewed magnesium. 4. Drug-induced hepatitis: LFTs appear to be improving. Reviewed CMP. Patient has volume overload however his LFTs are markedly elevated and I think this may be related to his duloxetine. Duloxetine can cause drug-induced hepatitis and should be stopped. Additionally have held his statin for now. Consider psychiatry consult. 5. Morbid obesity with BMI of 50.0-59.9, adult: Patient was counseled regarding need for weight loss as well as treatment of his sleep apnea and is willing to be on a weight loss diet 6. BONITA (obstructive sleep apnea): Was to be started on BiPAP 7. Declining functional status: Discussed with mattress spring encaser consideration disposition planning. SNF considered. He has been deconditioned. Will need to obtain PT evaluation once his heart rate is available better. He prefers to return home. Patient was counseled regarding his progression towards senior living and counseled that he needs to make a change. Patient voices understanding and willing to make change 8. History of pulmonary embolism: Xarelto held with thrombocytopenia, 31,000. Discussed with him risk of bleeding. Follow-up platelet levels. Hold acetazolamide. Consider options of resuming partial coagulation, versus IVC filter as discussed. 9. History of stage 3b chronic kidney disease: Creatinine running 2. Follow kidney function with diuresis 10. Elevated troponin: Troponin over 600 and in 2023 was 25 this is suspicious for NSTEMI cardiology has been consulted he is not have any chest pain. Reviewed TTE. Reviewed cardiology note Plan: Abnormal blood culture on 09/30 reported to have 2/4 positive blood cultures for staph. Was started on linezolid, discussed with pharmacist, switched to vancomycin with risk of cytopenias. Of risk of IDLLAN. Follow-up blood culture and repeat blood culture. PDMP PDMP Reviewed: Not Reviewed Attestations 2 Medical Necessity Statement*: Continue admission for assessment and management of acute CHF, gentleman with worsening thrombocytopenia, chronically on anticoagulation with history of recent PE, A-fib and High MDM includes amount and/or complexity of data reviewed/ordered [ resulted lab(s)/test(s), ordered lab(s)/test(s) and other healthcare professional discussion] and described risk of complication, morbidity or mortality of management as documented Diagnoses Acute on chronic diastolic (congestive) heart failure I50.33 Thrombocytopenia D69.6 Atrial fibrillation with rapid ventricular response I48.91 Drug-induced hepatitis K71.6; T50.905A Morbid obesity with BMI of 50.0-59.9, adult E66.01; Z68.43 BONITA (obstructive sleep apnea) G47.33 Declining functional status R53.81 History of pulmonary embolism Z86.711 History of stage 3b chronic kidney disease Z87.448 Elevated troponin R79.89
[2025-08-01] MEDS: LORazepam 2 mg/mL INJ 1 mL 0.5 MG IVP (21:00)
[2025-08-02] VITALS (25 sets, daily range): BP systolic 67–114; BP diastolic 26–81; PULSE 62–109; RESP 12–30; TEMP 36.3–36.7; O2SAT 80–98
[2025-08-02 05:31] LABS: Hematocrit 41.2 % (37-53); Hemoglobin 11.40 g/dL (11.27-16.99); Mean Corpuscular HGB Conc 27.7 g/dL (30-55); Mean Corpuscular Hemoglobin 24.6 pg (27-33); Mean Corpuscular Volume 88.8 fl (82-101); Nucleated Red Blood Cells % 0 %; Platelet Count 55 10^3/cmm (157-399); Red Blood Count 4.64 10^6/uL (3.85-5.65); White Blood Count 6.19 10^3/uL (3.29-11.43)
[2025-08-02 05:50] LABS: Slide Review Slide Review Perform
[2025-08-02 05:55] LABS: Anion Gap 8.5 (5-19); Blood Urea Nitrogen 40 mg/dL (6-20); Calcium 9.3 mg/dL (8.5-10.5); Chloride 84 mmol/L (98-107); Glucose 87 mg/dL (65-115); Osmolality Calculated 295 mOsm/kg (285-295); Sodium 138 mmol/L (136-145)
[2025-08-02 05:58] LABS: Magnesium 1.8 mg/dL (1.7-2.3)
[2025-08-02] MEDS: LOSARTAN 25 MG TABLET PO (05:58)
[2025-08-02] MEDS: bumetanide 0.25 mg/mL SDV 10 mL 2 MG IVP (05:58)
[2025-08-02] MEDS: DAPAGLIFLOZIN 10 MG TABLET PO (05:58)
[2025-08-02 05:59] LABS: INR 1.37 (0.8-1.2); Prothrombin Time 17.80 SECONDS (12.1-14.9)
[2025-08-02 06:05] LABS: Carbon Dioxide 48 mmol/L (22-29); Potassium 2.5 mmol/L (3.5-5.1)
--- NOTE | 2025-08-02 13:52 | PC.NURSE ---
Informed Dr Doe of patient's decrease in BP with decreased MAP. Patient feels slightly dizzy but denies other symptoms.
[2025-08-02] MEDS: albumin 25 G/100 ML BAG 60 G IV ×2 (14:27→17:14)
--- NOTE | 2025-08-02 15:13 | P.PN_ITS ---
<Statement entered by Azeem Weinstein M.D - 08/09/25 10:53> Patient was cared for in conjunction with an advanced practice practitioner.? I reviewed the chart and all pertinent data including imaging, telemetry, and laboratory results.? I discussed the patient in detail with the advanced practice practitioner.? Please see? their documentation for progress note, testing results and agreed upon plan of care for the patient. Subjective 2 Subjective: Patient doing well today no complaints. Stress test showed no ischemia and scarring present. Potassium low at 2.5 and creatinine improved at 1.6. Diuretics are on hold at this time. -6530 over 24 hours. Vitals/I&O/Wt Last Vital Signs Temp 98.0 F 08/02/25 08:00 Pulse 81 08/02/25 13:55 Resp 15 08/02/25 08:00 BP 80/36 08/02/25 13:41 Pulse Ox 96 08/02/25 08:00 O2 Del Method Nasal Cannula 08/02/25 07:49 O2 Flow Rate 2 08/02/25 07:49 FiO2 40 08/01/25 23:15 08/02/25 08/02/25 08/02/25 06:59 14:59 22:59 Intake Total 540 / 540 Output Total 4500 / 7900 1300 / 1300 Balance -4500 / -6680 -760 / -760 Weight last 48 hrs Weight 402 lb 9.025 oz Weight 423 lb Weight 434 lb 7.016 oz Physical Exam 2 Narrative: General: No apparent distress Neck: No carotid bruit bilaterally Respiratory: Normal respiratory effort, clear to auscultation bilaterally throughout all lung cotter, no use of accessory muscles Cardio: No JVD, regular rate, regular rhythm, S1 S2 normal, no murmurs, peripheral pulses 2+ radial palpated bilaterally Extremities: Full ROM, normal, normal capillary refill, no cyanosis or edema Neuro: Alert and oriented x4 Psych: Affect normal Skin: No rashes or lesions noted, no wounds Urinary Catheter Management: Fisher: Cath Placed During This Visit: yes Reason for Continuing Indwelling Catheter: Acute Urinary Retention or Obstruction Urinary Catheter Date of Insertion: 07/30/25 Urinary Catheter Time of Insertion: 01:30 Data 08/02/25 05:16 08/02/25 05:16 Micro: Microbiology 07/29/25 20:41 Blood Culture - Final Blood Staphylococcus aureus A&P Assessment and plan 1. Ischemic dilated cardiomyopathy: Stress test showed extensive scarring in the LAD and the RCA with small areas of yunior-infarct ischemia. LV function was 30%. Because of patient's abnormal kidney function and he is asymptomatic we will optimize his medical treatment. Beta-ryan and blood pressure medications on hold at this time due to bradycardia. 2. Atrial fibrillation with rapid ventricular response: Patient's heart rate is well-controlled. Continue metoprolol if tolerated and blood pressure is at least 100/60. Continue amiodarone. 3. Elevated troponin: No active chest pain. Most likely demand ishcemia. Antiplatelet medications on hold due to acute thrombocytopenia. 4. Thrombocytopenia: Antiplatelets on hold. May nee d watchman device in future if anticoagulants cannot be tolerated 5. Acute on chronic renal insufficiency: Hold diuretics for now. Patient is euvolemic, bicarb increased. 6. Aneurysm of left iliac artery: Continue to monitor. No growth at 3 cm. Plan: As stated above, plan is to hold diuretics, as patient is alkalotic with increase in bicarb. Continue to monitor strict I&Os. Once renal function and bp improves, will initiate GDMT. Live vest is being placed. Continue beta ryan if pressure tolerates. PDMP PDMP Reviewed: Not Reviewed Attestations 2 Medical Necessity Statement*: Deferred to primary Coding Level of Care Code Acute Code for g Fwd Diagnoses Ischemic dilated cardiomyopathy I25.5; I42.0 Atrial fibrillation with rapid ventricular response I48.91 Elevated troponin R79.89 Thrombocytopenia D69.6 Acute on chronic renal insufficiency N28.9; N18.9 Aneurysm of left iliac artery I72.3
--- NOTE | 2025-08-02 15:20 | P.PN_ITS ---
Subjective 2 Subjective: This morning he reports he is feeling better overall. Breathing has been improving. He has lost water weight. This afternoon feeling a little lightheaded. Blood pressure low. Vitals/I&O/Wt Last Vital Signs Temp 98.0 F 08/02/25 08:00 Pulse 87 08/02/25 15:14 Resp 15 08/02/25 08:00 BP 96/66 08/02/25 15:14 Pulse Ox 96 08/02/25 08:00 O2 Del Method Nasal Cannula 08/02/25 07:49 O2 Flow Rate 2 08/02/25 07:49 FiO2 40 08/01/25 23:15 08/02/25 08/02/25 08/02/25 06:59 14:59 22:59 Intake Total 540 / 540 Output Total 4500 / 7900 1300 / 1300 Balance -4500 / -6680 -760 / -760 Weight last 48 hrs Weight 182.6 kg Weight 191.87 kg Weight 197.058 kg Physical Exam 2 Const: COMMON NORMALS: patient oriented x3 and alert GENERAL APPEARANCE: c ooperative ORIENTATION/CONSCIOUSNESS: Yes awake HENMT: COMMON NORMALS: oropharynx normal Neck/C-Spine: COMMON NORMALS: no JVD Resp: COMMON NORMALS: normal respiratory effort and clear to auscultation bilaterally AUSCULTATION: clear to auscultation bilaterally Cardio: COMMON NORMALS: no JVD, regular rhythm, S1 normal heart sound present, S2 normal heart sound present and No murmurs present (Cardio) RATE: t achycardic RHYTHM: regular rhythm HEART SOUNDS: S1 normal heart sound present and S2 normal heart sound present GI: COMMON NORMALS: Normal to inspection, nondistended, normoactive bowel sounds present, Soft to palpation and non-tender PALPATION: Yes Soft to palpation Extremity: COMMON NORMALS: no joint enlargement and no pedal edema GENERAL: Yes edema (2+ bilateral LE edema) Neuro: COMMON NORMALS: patient oriented x3 and moves all extremities S ENSORIUM/ORIENTATION: Yes alert Skin: COMMON NORMALS: no rashes or lesions noted GENERAL SKIN EXAM: no rashes or lesions noted Urinary Catheter Management: Fisher: Cath Placed During This Visit: yes Reason for Continuing Indwelling Catheter: Acute Urinary Retention or Obstruction Urinary Catheter Date of Insertion: 07/30/25 Urinary Catheter Time of Insertion: 01:30 Data 08/02/25 05:16 12/18/25 05:16 Micro: Microbiology 07/29/25 20:41 Blood Culture - Final Blood Staphylococcus aureus A&P Assessment and plan 1. Hypotension: This morning doing well, but blood pressure given down as low as 80/36 this afternoon. Received losartan this morning, metoprolol, and has been in negative balance with diuresis. Held losartan, given a bolus of 500 cc fluid and albumin. Blood pressure with improvement 96/66. Bedrest requested. Reassess blood pressures. Hold off further diuresis for now. 2. Acute on chronic diastolic (congestive) heart failure: Hold Bumex with hypotension. Reviewed intake and output, good urine output, - 6 L. Continue to monitor. With CKD, reassessment function, with risk of DILLAN, electrolyte abnormality repeat chemistry. Underwent stress testing today. Reviewed results, discussed with cardiology. Without evidence of acute ischemia. Noted areas of hypoperfusion without reversibility likely prior NE. Stop metolazone. Monitor on telemetry. Reviewed CMP, magnesium. Repeat. On TTE noted decreased EF, 35%. Reviewed prior echocardiograms, unfortunately they were not interpretable. Pending cardiology reassessment and further planning. Reviewed cardiology note. 3. Thrombocytopenia: Reviewed platelets, 55K discussed with him. Repeat platelets in the morning. I noticed as discussed with him acetazolamide had been ordered by a different provider. Discontinued medication. Reassess platelet levels. 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 Discontinued prophylactic Lovenox. Discussed with him options going forward, consideration of reassessment of blood counts, in case improving with withholding acetazolamide consider at some point restarting anticoagulation. Otherwise if not tolerate anticoagulation may have to consider IVC filter, possibly Watchman device. B12 greater than 2000. Peripheral smear reviewed, mild leukocytosis with thrombocytopenia. No blasts or nucleated red cells identified. Discussed with him trial of prophylactic anticoagulation. Reassess platelets. Continue to hold acetazolamide may be causing platelet suppression, will not continue at this time. 4. Atrial fibrillation with rapid ventricular response: Heart rates improved. Continue on oral medications, metoprolol, he is off Cardizem. Amiodarone. Supplement potassium. Reviewed magnesium. 5. Drug-induced hepatitis: LFTs appear to be improving. Reviewed CMP. Patient has volume overload however his LFTs are markedly elevated and I think this may be related to his duloxetine. Duloxetine can cause drug-induced hepatitis and should be stopped. Additionally have held his statin for now. Consider psychiatry consult. 6. Morbid obesity with BMI of 50.0-59.9, adult: Patient was counseled regarding need for weight loss as well as treatment of his sleep apnea and is willing to be on a weight loss diet 7. BONITA (obstructive sleep apnea): Was to be started on BiPAP 8. Declining functional status: Discussed with trimming caser consideration disposition planning. SNF considered. He has been deconditioned. Will need to obtain PT evaluation once his heart rate is available better. He prefers to return home. Patient was counseled regarding his progression towards shelter and counseled that he needs to make a change. Patient voices understanding and willing to make change 9. History of pulmonary embolism: Xarelto held with thrombocytopenia, 31,000. Discussed with him risk of bleeding. Follow-up platelet levels. Hold acetazolamide. Consider options of resuming partial coagulation, versus IVC filter as discussed. 10. History of stage 3b chronic kidney disease: Creatinine running 2. Follow kidney function with diuresis 11. Elevated troponin: Troponin over 600 and in 2023 was 25 this is suspicious for NSTEMI cardiology has been consulted he is not have any chest pain. Reviewed TTE. Reviewed cardiology note Plan: Abnormal blood culture on 09/30 reported to have 2/4 positive blood cultures for staph. Was started on linezolid, discussed with pharmacist, switched to vancomycin with risk of cytopenias. Of risk of DILLAN. Follow-up blood culture and repeat blood culture. PDMP PDMP Reviewed: Not Reviewed Attestations 2 Medical Necessity Statement*: Continue admission for assessment and management of acute hypotension, cardiomyopathy, CHF, gentleman with worsening thrombocytopenia, chronically on anticoagulation with history of recent PE, A-fib and High MDM includes amount and/or complexity of data reviewed/ordered [ resulted lab(s)/test(s), ordered lab(s)/test(s) and other healthcare professional discussion] and described risk of complication, morbidity or mortality of management as documented Diagnoses Hypotension I95.9 Acute on chronic diastolic (congestive) heart failure I50.33 Thrombocytopenia D69.6 Atrial fibrillation with rapid ventricular response I48.91 Drug-induced hepatitis K71.6; T50.905A Morbid obesity with BMI of 50.0-59.9, adult E66.01; Z68.43 BONITA (obstructive sleep apnea) G47.33 Declining functional status R53.81 History of pulmonary embolism Z86.711 History of stage 3b chronic kidney disease Z87.448 Elevated troponin R79.89
--- NOTE | 2025-08-02 17:00 | PC.OT ---
Skilled OT treatment on hold due to patient's decrease in BP with decreased MAP.
[2025-08-02] MEDS: magnesium sulfate premix 2 GM/50 ML PIGGYBACK IV (17:19)
[2025-08-02] MEDS: norepinephrine 4 MG/250 ML BAG 7.5 MG IV (17:39)
--- NOTE | 2025-08-02 17:40 | PC.NURSE ---
Report received from TERRY Overton. Patient transferred to ICU 4 via bed. Blood pressure 55/42. Levophed started at 2mcg/min. No reports of arana or discomfort.
--- NOTE | 2025-08-02 18:08 | PC.NURSE ---
patient continued to have low BP. Reporting slight dizziness and blurred vision. Informed Dr Doe of BP and MD placed orders to transfer to ICU. Report called TERRY Kuhn. Instructed patient on need for move. Patient verbalized complete understanding. Patient taken by bed to ICU 4.
[2025-08-02 21:19] LABS: Anion Gap 9.3 (5-19); Blood Urea Nitrogen 46 mg/dL (6-20); Calcium 8.5 mg/dL (8.5-10.5); Chloride 83 mmol/L (98-107); Glucose 141 mg/dL (65-115); Osmolality Calculated 294 mOsm/kg (285-295); Potassium 3.3 mmol/L (3.5-5.1); Sodium 135 mmol/L (136-145)
[2025-08-02 21:20] LABS: Carbon Dioxide 46 mmol/L (22-29)
[2025-08-03] VITALS (35 sets, daily range): BP systolic 85–160; BP diastolic 50–102; PULSE 81–115; RESP 14–38; TEMP 36.8–36.9; O2SAT 85–100
[2025-08-03 04:02] LABS: Hematocrit 42.7 % (37-53); Hemoglobin 11.50 g/dL (11.27-16.99); Mean Corpuscular HGB Conc 26.9 g/dL (30-55); Mean Corpuscular Hemoglobin 24.5 pg (27-33); Mean Corpuscular Volume 91.0 fl (82-101); Nucleated Red Blood Cells % 0 %; Red Blood Count 4.69 10^6/uL (3.85-5.65); White Blood Count 6.68 10^3/uL (3.29-11.43)
[2025-08-03 04:15] LABS: Platelet Count 27 10^3/cmm (157-399)
[2025-08-03 04:20] LABS: Alanine Aminotransferase 122 U/L (0-41); Albumin Level 3.4 g/dL (3.5-5.2); Alkaline Phosphatase 146 U/L (40-130); Blood Urea Nitrogen 43 mg/dL (6-20); Calcium 8.9 mg/dL (8.5-10.5); Chloride 84 mmol/L (98-107); Globulin 2.8 g/dL (1.3-4.6); Glucose 99 mg/dL (65-115); Osmolality Calculated 293 mOsm/kg (285-295); Sodium 136 mmol/L (136-145); Total Protein 6.2 g/dL (6.6-8.7)
[2025-08-03 04:29] LABS: Anion Gap 8.2 (5-19); Aspartate Amino Transferase 100 U/L (0-40); Potassium 3.2 mmol/L (3.5-5.1)
[2025-08-03 04:38] LABS: Carbon Dioxide 47 mmol/L (22-29)
[2025-08-03] MEDS: norepinephrine 4 MG/250 ML BAG 22.5 MG IV (04:50)
[2025-08-03] MEDS: DAPAGLIFLOZIN 10 MG TABLET PO (04:50)
--- NOTE | 2025-08-03 08:35 | PC.SOCIAL ---
IMM Updated Updated pt on IMM. No questions voiced. Provided pt a copy. Initialed, dated, & timed copy in chart.
[2025-08-03] MEDS: potassium chloride premix 100 ML 50 MEQ IV (10:38)
--- NOTE | 2025-08-03 11:10 | PC.NURSE ---
Non-invasive bioreactance hemodynamic monitoring completed. SVI CI HR 11:00 baseline 28 2.8 101 started 26 2.5 100 11:02 25 2.5 101 11:03 26 2.6 101 11:04 28 2.8 101 11:05 PLR 26 2.5 100 11:06 25 2.5 101 11:07 26 2.6 101 11:08 29 2.9 100 11:09 27 2.7 100 11:09 30 2.9 98 SVI change of 16.8% Pt is fluid responsive.
--- NOTE | 2025-08-03 12:40 | P.PN_ITS ---
Subjective 2 Subjective: He states he is doing all right. Denies chest pain or pressure. Vitals/I&O/Wt Last Vital Signs Temp 98.2 F 08/03/25 07:30 Pulse 109 H 08/03/25 10:00 Resp 23 H 08/03/25 10:00 BP 100/59 08/03/25 10:00 Pulse Ox 91 08/03/25 10:00 O2 Del Method Nasal Cannula 08/03/25 10:00 O2 Flow Rate 2 08/03/25 10:00 FiO2 40 08/03/25 07:50 08/02/25 08/03/25 08/03/25 22:59 06:59 14:59 Intake Total 966.75 / 1506.75 450.375 / 1375.309 6701.313 / 1155.313 Output Total 300 / 1600 2950 / 4550 1125 / 1125 Balance 666.75 / -93.25 -2499.625 / -2592.875 30.313 / 30.313 Weight last 48 hrs Weight 183 kg Weight 182.6 kg Physical Exam 2 Const: COMMON NORMALS: patient oriented x3 and alert GENERAL APPEARANCE: c ooperative ORIENTATION/CONSCIOUSNESS: Yes awake HENMT: COMMON NORMALS: oropharynx normal Neck/C-Spine: COMMON NORMALS: no JVD Resp: COMMON NORMALS: normal respiratory effort and clear to auscultation bilaterally AUSCULTATION: clear to auscultation bilaterally Cardio: COMMON NORMALS: no JVD, regular rhythm, S1 normal heart sound present, S2 normal heart sound present and No murmurs present (Cardio) RATE: t achycardic RHYTHM: regular rhythm HEART SOUNDS: S1 normal heart sound present and S2 normal heart sound present GI: COMMON NORMALS: Normal to inspection, nondistended, normoactive bowel sounds present, Soft to palpation and non-tender PALPATION: Yes Soft to palpation Extremity: COMMON NORMALS: no joint enlargement and no pedal edema GENERAL: Yes edema (2+ bilateral LE edema) Neuro: COMMON NORMALS: patient oriented x3 and moves all extremities S ENSORIUM/ORIENTATION: Yes alert Skin: COMMON NORMALS: no rashes or lesions noted GENERAL SKIN EXAM: no rashes or lesions noted Urinary Catheter Management: Fisher: Cath Placed During This Visit: yes Reason for Continuing Indwelling Catheter: Accurate Measurement of Urinary Output in Critically Ill Patients Urinary Catheter Date of Insertion: 07/30/25 Urinary Catheter Time of Insertion: 01:30 Data 08/03/25 03:34 08/03/25 03:34 Micro: Microbiology 07/29/25 21:02 Blood Culture - Preliminary Blood Staphylococcus aureus 07/29/25 20:41 Blood Culture - Final Blood Staphylococcus aureus A&P Assessment and plan 1. Hypotension: Diuretics have been held. Blood pressure gradually improving. Weaning of pressor. Continue to wean off Levophed as tolerating. Discussed with him started on midodrine. Discussed with nursing, watch caser. Hold losartan, metoprolol, and has been in negative balance with diuresis. Held losartan, given a bolus of 500 cc fluid and albumin. Blood pressure with improvement 96/66. Bedrest requested. Reassess blood pressures. Hold off further diuresis for now. 2. MSSA bacteremia: 09/19 bottle GPC, identified as MSSA today. Resistant to penicillin, intermediate sensitivity to clindamycin. Unclear source of bacteremia. Without any known devices. Does have some chronic cracks/wounds of his feet/toes, however, without signs of infection, drainage. Afebrile, without leukocytosis. Chest x- ray with congestive changes, possible infiltrate. Pleural effusions. Repeat blood culture from 07/30 so far negative. Follow-up. Appreciate infectious disease provider consultation. 3. Acute on chronic diastolic (congestive) heart failure: Hold Bumex with hypotension. Reviewed chemistry. Mild hypokalemia. Replace. With CKD, reassessment function, with risk of DILLAN, electrolyte abnormality repeat chemistry. Underwent stress testing today. Reviewed results, discussed with cardiology. Without evidence of acute ischemia. Noted areas of hypoperfusion without reversibility likely prior NC. Stopped metolazone. Monitor on telemetry. Reviewed CMP. Repeat. On TTE noted decreased EF, 35%. Reviewed prior echocardiograms, unfortunately they were not interpretable. Pending cardiology reassessment and further planning. Reviewed cardiology note. 4. Thrombocytopenia: Reviewed platelets, thrombocytopenia worse again today down to 27. Unclear if possibly secondary to fluid resuscitation or another cause. Previously on acetazolamide, discontinued. Anticoagulation has been held. Repeat CBC. 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 Discontinued prophylactic Lovenox. Discussed with him options going forward, consideration of reassessment of blood counts, in case improving with withholding acetazolamide consider at some point restarting anticoagulation. Otherwise if not tolerate anticoagulation may have to consider IVC filter, possibly Watchman device. B12 greater than 2000. Peripheral smear reviewed, mild leukocytosis with thrombocytopenia. No blasts or nucleated red cells identified. Discussed with him trial of prophylactic anticoagulation. Reassess platelets. Continue to hold acetazolamide may be causing platelet suppression, will not continue at this time. 5. Atrial fibrillation with rapid ventricular response: Heart rates improved. Continue on oral medications, metoprolol, he is off Cardizem. Amiodarone. Supplement potassium. Reviewed magnesium. 6. Drug-induced hepatitis: LFTs appear to be improving. Reviewed CMP. Patient has volume overload however his LFTs are markedly elevated and I think this may be related to his duloxetine. Duloxetine can cause drug-induced hepatitis and should be stopped. Additionally have held his statin for now. Consider psychiatry consult. 7. Morbid obesity with BMI of 50.0-59.9, adult: Patient was counseled regarding need for weight loss as well as treatment of his sleep apnea and is willing to be on a weight loss diet 8. BONITA (obstructive sleep apnea): Was to be started on BiPAP 9. Declining functional status: Discussed with watch caser consideration disposition planning. SNF considered. He has been deconditioned. Will need to obtain PT evaluation once his heart rate is available better. He prefers to return home. Patient was counseled regarding his progression towards prison and counseled that he needs to make a change. Patient voices understanding and willing to make change 10. History of pulmonary embolism: Xarelto held with thrombocytopenia, 27,000. Discussed with him risk of bleeding. Follow-up platelet levels. Hold acetazolamide. Consider options of resuming partial coagulation, versus IVC filter as discussed. 11. History of stage 3b chronic kidney disease: Creatinine running 2. Follow kidney function with diuresis 12. Elevated troponin: Troponin over 600 and in 2023 was 25 this is suspicious for NSTEMI cardiology has been consulted he is not have any chest pain. Reviewed TTE. Reviewed cardiology note Reviewed stress test. Discussed with him. PDMP PDMP Reviewed: Not Reviewed Attestations 2 Medical Necessity Statement*: Continue admission for assessment and management of staph bacteremia, acute hypotension, cardiomyopathy, CHF, gentleman with worsening thrombocytopenia, chronically on anticoagulation with history of recent PE, A-fib Coding Level of Care Code Critical Care >/= 30 minutes Critical care time (in minutes): 35 The high probability of a clinically significant, sudden or life threatening deterioration, as referenced in this documentation, required my full and direct attention, intervention and personal management. The critical care time shown is in addition to time spent performing any reported separately billable procedures and includes the following: [x] Data and vital sign review and interpretation [x ] Patient assessment, examination and intervention [x] Medication orders and management [x] Patient/Family updates as able [x] Care Coordination and Documentation. Diagnoses Hypotension I95.9 MSSA bacteremia R78.81; B95.61 Acute on chronic diastolic (congestive) heart failure I50.33 Thrombocytopenia D69.6 Atrial fibrillation with rapid ventricular response I48.91 Drug-induced hepatitis K71.6; T50.905A Morbid obesity with BMI of 50.0-59.9, adult E66.01; Z68.43 BONITA (obstructive sleep apnea) G47.33 Declining functional status R53.81 History of pulmonary embolism Z86.711 History of stage 3b chronic kidney disease Z87.448 Elevated troponin R79.89
--- NOTE | 2025-08-03 13:46 | P.PN_ITS ---
<Statement entered by Azeem Weinstein M.D - 08/09/25 11:01> Patient was cared for in conjunction with an advanced practice practitioner.? I reviewed the chart and all pertinent data including imaging, telemetry, and laboratory results.? I discussed the patient in detail with the advanced practice practitioner.? Please see? their documentation for progress note, testing results and agreed upon plan of care for the patient. Subjective 2 Subjective: Patient had low blood pressure. He was transferred to the ICU and placed on Levophed. Was on 3 on my assessment. Was -1302 over 24 hours. Appears euvolemic at this time. Platelet count still low at 27. Creatinine improved to 2.2. Denies any chest pain or shortness of breath at this time. Vitals/I&O/Wt Last Vital Signs Temp 98.3 F 08/03/25 13:34 Pulse 97 08/03/25 13:00 Resp 24 H 08/03/25 13:00 BP 98/62 08/03/25 13:00 Pulse Ox 98 08/03/25 13:00 O2 Del Method Nasal Cannula 08/03/25 13:00 O2 Flow Rate 2 08/03/25 13:00 FiO2 40 08/03/25 07:50 08/02/25 08/03/25 08/03/25 22:59 06:59 14:59 Intake Total 966.75 / 1506.75 450.375 / 8250.508 2515.313 / 1655.313 Output Total 300 / 1600 2950 / 4550 1125 / 1125 Balance 666.75 / -93.25 -2499.625 / -2592.875 530.313 / 530.313 Weight last 48 hrs Weight 403 lb 7.135 oz Weight 402 lb 9.025 oz Physical Exam 2 Narrative: General: No apparent distress Respiratory: Normal respiratory effort, clear to auscultation bilaterally throughout all lung cotter, no use of accessory muscles Cardio: No JVD, regular rate, regular rhythm, S1 S2 normal, no murmurs, peripheral pulses 2+ radial palpated bilaterally Extremities: Full ROM, normal, normal capillary refill, no cyanosis or edema Neuro: Alert and oriented x4 Psych: Affect normal Skin: No rashes or lesions noted, no wounds Urinary Catheter Management: Fisher: Cath Placed During This Visit: yes Reason for Continuing Indwelling Catheter: Accurate Measurement of Urinary Output in Critically Ill Patients Urinary Catheter Date of Insertion: 07/30/25 Urinary Catheter Time of Insertion: 01:30 Data 08/03/25 03:34 08/03/25 03:34 Micro: Microbiology 07/29/25 21:02 Blood Culture - Preliminary Blood Staphylococcus aureus 07/29/25 20:41 Blood Culture - Final Blood Staphylococcus aureus A&P Assessment and plan 1. Ischemic dilated cardiomyopathy: Stress test showed extensive scarring in the LAD and the RCA with small areas of yunior-infarct ischemia. LV function was 30%. Because of patient's abnormal kidney function and he is asymptomatic we will optimize his medical treatment. Beta-ryan and blood pressure medications on hold at this time due to bradycardia. 2. Atrial fibrillation with rapid ventricular response: Patient's heart rate is well-controlled. Continue metoprolol if tolerated and blood pressure is at least 100/60. Continue amiodarone. 3. Elevated troponin: No active chest pain. Most likely demand ishcemia. Antiplatelet medications on hold due to acute thrombocytopenia. 4. Thrombocytopenia: Antiplatelets on hold. May nee d watchman device in future if anticoagulants cannot be tolerated 5. Acute on chronic renal insufficiency: Hold diuretics for now. Patient is euvolemic, bicarb increased. 6. Aneurysm of left iliac artery: Continue to monitor. No growth at 3 cm. Plan: As stated above, plan is to hold diuretics, as patient is alkalotic with increase in bicarb. He has diuresed -[id number] over the whole stay. Now hypotensive requiring levophed. Patient was fluid responsive on cheetah. Hold losartan and metoprolol. Continue to wean levo to keep map of 65. Continue to monitor strict I&Os. Once renal function and bp improves, will initiate GDMT. Live vest is being placed. Beta ryan on hold. PDMP PDMP Reviewed: Not Reviewed Attestations 2 Medical Necessity Statement*: Deferred to primary. Coding Level of Care Code Acute Code for [facility] Diagnoses Ischemic dilated cardiomyopathy I25.5; I42.0 Atrial fibrillation with rapid ventricular response I48.91 Elevated troponin R79.89 Thrombocytopenia D69.6 Acute on chronic renal insufficiency N28.9; N18.9 Aneurysm of left iliac artery I72.3
--- NOTE | 2025-08-03 17:07 | PC.NURSE ---
Home meds: Removed from room, listed. Locked up in ICU #4 locker.
--- NOTE | 2025-08-03 18:56 | PC.NURSE ---
Shift summary: Pt rested in bed throughout shift. Started the shift with Levophed infusing at 6mcg/min. It has been off since 1130. He was started on Midodrine 5mg TID today. Two peripheral IVs removed today . New Iv start to left wrist. He has ate his meals well. He has had 1800 in urine output . He reported a sore bottom but stated lying on his side relived it. He does have some excoriation bila buttocks.
--- NOTE | 2025-08-03 19:01 | ECG_ITS ---
Gravity Test Date: 2025-08-03 Pat Name: Robert Juarez Department: Room: ICU04 Gender: Male Coding Analyst: : 1975 Requested By: Ezekiel Doe Order Number: [id number] Reading MD: BUSTER ODONNELL Measurements Intervals [place] Rate: 113 P: 0 RI: 0 QRS: 156 QRSD: 174 T: -13 QT: 396 QTc: 544 Interpretive Statements ATRIAL FIBRILLATION WITH RAPID VENTRICULAR RESPONSE INTRAVENTRICULAR CONDUCTION DELAY [130+ ms QRS DURATION] Compared to ECG 07/30/2025 04:34:56 No significant changes Electronically Signed On 08-07-2025 12:08:34 ACCOUNTING COORDINATOR by BUSTER ODONNELL [email or web address]
[2025-08-04] VITALS (23 sets, daily range): BP systolic 83–127; BP diastolic 46–93; PULSE 71–134; RESP 14–25; TEMP 36.1; O2SAT 88–99
[2025-08-04] MEDS: DAPAGLIFLOZIN 10 MG TABLET PO (04:25)
[2025-08-04 04:43] LABS: Hematocrit 41.3 % (37-53); Hemoglobin 10.70 g/dL (11.27-16.99); Mean Corpuscular HGB Conc 25.9 g/dL (30-55); Mean Corpuscular Hemoglobin 23.5 pg (27-33); Mean Corpuscular Volume 90.8 fl (82-101); Nucleated Red Blood Cells % 0 %; Platelet Count 53 10^3/cmm (157-399); Red Blood Count 4.55 10^6/uL (3.85-5.65); White Blood Count 7.49 10^3/uL (3.29-11.43)
[2025-08-04 05:00] LABS: Magnesium 2.2 mg/dL (1.7-2.3)
[2025-08-04 05:03] LABS: Alanine Aminotransferase 91 U/L (0-41); Albumin Level 3.3 g/dL (3.5-5.2); Alkaline Phosphatase 132 U/L (40-130); Anion Gap 8.1 (5-19); Aspartate Amino Transferase 64 U/L (0-40); Blood Urea Nitrogen 35 mg/dL (6-20); Calcium 9.1 mg/dL (8.5-10.5); Chloride 85 mmol/L (98-107); Globulin 2.6 g/dL (1.3-4.6); Glucose 85 mg/dL (65-115); Osmolality Calculated 289 mOsm/kg (285-295); Potassium 3.1 mmol/L (3.5-5.1); Sodium 136 mmol/L (136-145); Total Protein 5.9 g/dL (6.6-8.7)
[2025-08-04 05:14] LABS: Carbon Dioxide 46 mmol/L (22-29)
--- NOTE | 2025-08-04 08:37 | P.CONIM_ITS ---
Providers/Reason For Consult 2 Consulting Physician/Specialty*: Dionne Meng MD/ Infectious Disease Reason for Consult*: MSSA bacteremia Requesting Physician: Ezekiel Doe MD Attending Physician: Ezekiel Doe Primary Care Provider: Cornel Fuentes MD History of Present Illness History of Present Illness Robert Juarez is a 49 year old male usually on 2 L nasal cannula oxygen, nightly CPAP for BONITA, h/o CHF, CKD, A fib, on chronic anticoagulation currently admitted to the hospital since 07/30 after presenting with LE edema and A fib with RVR. LAb abnormalities on admission included leukocytosis at 20,000, thrombocytopenia (chronic dating back to at least 2023 however worsened now), DILLAN on CKD, transmainitis currently improving, elevated tropnins in 600 range with positive delta. Afebrile since admission. On descovy for PrEP. Hiv screening negative 6 months ago. Blood cx from 07/29 has returned positive for MSSA(2/ one set; / second set). 07/30 thus far negative to date. UDS N/A. Denies any IVDU CXR with central mass like infiltration, no further imaging available , moderate to marked right pleural effusion. Echo EF 30-35% Has eschar on the right mid tibia with crusting, 2 cuts on the base of his right plantar aspect, great toe and mid foot. Blister on back of the calf. B/L legs with stasis dermatitis. no cardiac hardware ROS + chills, dry cough prior to admission Review of Systems 2 General: Reports: 10 or more systems reviewed and unremarkable except in HPI and below Const: Reports: chills and body aches; Denies: fever(s) Eyes: Denies: change in vision, blurry vision or photophobia ENMT: Reports: hoarseness; Denies: throat pain, enlarged tonsils, odynophagia or nasal congestion Card: Denies: chest pain, palpitations, irregular heart rhythm, edema, swelling of feet/ankles, lightheadedness, pre-syncope, dyspnea on exertion or orthopnea Resp: Denies: dyspnea, productive cough, non-productive cough, wheezing, stridor, pain on inspiration, change in phlegm color, hemoptysis or chest congestion GI: Denies: abdominal pain, nausea, vomiting, hematemesis, coffee ground emesis, dysphagia, heartburn, diarrhea, constipation, GI cramping, change in stool character, hematochezia or melena : Denies: flank pain, dysuria, urinary frequency, urinary urgency, urinary hesitancy or hematuria Musc: Denies: neck pain, back pain, extremity pain, joint swelling, joint warmth or deformity Neuro: Denies: headache(s), numbness in extremities, weakness in extremities, sensory changes, difficulty walking, frequent falls, dizziness, vertigo, behavioral changes, Slurred speech present or seizure-like activity Psych: Denies: anxiety, depression, suicidal ideation or homicidal ideation Endo: Denies: polyuria, polydipsia, tired all the time, cold intolerance or hot flashes Kishan/Lymph: Denies: easy bruising or easy bleeding Medications/Allergies Home Medications ?Medication ?Instructions ?Recorded ?Confirmed ?Last Taken ?Type multivitamin with minerals-folic 1 tab PO DAILY 07/30/25 05/23/24 History acid 120 mcg chewable tablet (Centrum Adult 50 Plus Fresh-Fruity) acetazolamide 250 mg tablet 125 mg PO DAILY 11/02/23 1 09/30/24 05/23/24 History amiodarone 200 mg tablet 200 mg PO DAILY 05/07/2405/23/24 History duloxetine 60 mg capsule,delayed 60 mg PO BID 05/07/24 07/30/25 05/06/24 History release dapagliflozin propanediol 10 mg 10 mg PO DAILY #30 tab s 05/29/24 07/30/25 Unknown Rx tablet (Farxiga) furosemide 20 mg tablet 40 mg (2 x 20 mg) PO DAILY 3 0 days 05/29/24 07/30/25 05/23/24 Rx #60 tabs metolazone 5 mg tablet 5 mg PO EVERY OTHER DAY #30 tabs 05/29/24 07/30/25 Unknown Rx rivaroxaban 10 mg tablet (Xarelto) 20 mg (2 x 10 mg) P O DAILY 30 days 05/29/24 07/30/25 Unknown Rx #30 tabs atorvastatin 40 mg tablet See Rx Instructions .Route 1 08/20/23 07/30/25 Unknown Rx .COMPLEX #30 tabs emtricitabine 200 mg-tenofovir See Rx Instructions .Ro [place] .COMPLEX 07/30/25 07/30/25 Unknown History alafenamide fumarate 25 mg tablet (Descovy) metoprolol tartrate 50 mg tablet 50 mg PO BID 07/30/25 07/30/25 Unknown History Allergies Allergy/AdvReac Type Severity Reaction Status Date / Time none Allergy Unknown Uncoded 08/01/25 16:03 Current Medications Generic Name Dose Route Start Last Admin Trade Name Freq PRN Reason Stop Dose Admin Amiodarone HCl 200 mg 07/30/25 17:00 08/04/25 04:25 Amiodarone 200 Mg Tablet PO 200 mg BID NANETTE Administration Vancomycin HCl 1,500 mg in 300 mls @ 200 mls/hr 08/01/25 12:00 08/03/25 14:40 Vancocin IV Infused Q24H NANETTE Infusion Norepinephrine Bitartrate 4 mg in 250 mls @ 0 mls/hr 08/02/25 17:32 08/03/25 11:40 Levophed IV 0 mcg/min .Q0M NANETTE 0 mls/hr Protocol Titration Per Protocol Losartan Potassium 25 mg 08/02/25 05:00 08/02/25 05:58 Losartan 25 Mg Tablet PO 25 mg On Hold: 08/02/25 14:18 DAILY NANETTE Administration Metoprolol Tartrate 50 mg 07/30/25 21:00 08/02/25 07:51 Metoprolol Tartrate 50 Mg Tablet PO 50 mg On Hold: 08/02/25 18:15 BID@0900,2100 NANETTE Administration Midodrine 5 mg 08/03/25 13:00 08/04/25 04:25 Midodrine 5 Mg Tablet PO 5 mg TID NANETTE Administration Ondansetron HCl 4 mg 07/30/25 01:07 07/30/25 13:33 Ondansetron 2 Mg/Ml Sdv 2 Ml IVP 4 mg Q6H PRN Administration NAUSEA AND VOMITING Potassium Chloride 20 meq 07/30/25 05:00 08/04/25 04:25 Potassium Chloride Er 20 Meq Tablet PO 20 meq BID NANETTE Administration PFSH Acute 2 PFSH: Medical History History of stage 3b chronic kidney disease History of pulmonary embolism Morbid obesity with BMI of 50.0-59.9, adult Drug-induced hepatitis PTSD (post-traumatic stress disorder) Lower urinary tract symptoms (LUTS) Morbid obesity with BMI of 70 and over, adult Candidal skin infection BONITA (obstructive sleep apnea) Hypertension Depression Anxiety Bipolar 1 disorder Restrictive lung disease Gout Dyslipidemia Generalized anxiety disorder Major depressive disorder, recurrent severe without psychotic features Surgical History No significant past surgical history Family History Mother Myocardial infarct Stroke Father Myocardial infarct Diabetes Other Cancer Dementia Hypertension Psychiatric illness Social History Smoking and tobacco/nicotine status: former use of tobacco/nicotine Quit status (tobacco/nicotine): has quit using Year quit tobacco: 2002 Second hand smoke exposure: No Alcohol intake: former Year of sobriety/quit date alcohol: 2019 Substance/Drug Use: never Additional social history: Tobacco he quit 2002 alcohol was quit 2019 he is hurtado and broke up with his boyfriend who cheated on him in 2023. He states he has lost interest in sex but is on PrEP which is an HIV preventative for the last 1 year. He states that he is no longer sexually active and has never had an STD. He also does not use street drugs or had any blood transfusions in the past year. Hepatitis panel was - 04/23/2024. Patient denies IV drug abuse ever no alcohol or cigarette use he wants full CODE STATUS as discussed with Cuong Britt MD on 07/30/2025 Adopted: No Caregiver/support person: Yes (Blanc at home companion 3 days per week 2.5 hours and a nurse once per week) Lives independently: No Household members: significant other Housing: Manufactured/Mobile home Marital status: Life Partner Number of children: 0 Number of grandchildren: 0 Highest education level completed: 12th Grade, No Diploma service: No Current occupational status: disabled Current occupational exposures/hazards: No Pets and animals: No Leisure activites: music, reading and other Leisure activities details: watches TV Sexually active: No Do you think of yourself as: Lesbian/Hurtado/Homosexual Current gender identity: Male Jayne/Cheondoism: None Special jayne needs: No Agree to transfusion: No Vitals/I&O/Wt Last Vital Signs Temp 98.5 F 08/03/25 17:00 Pulse 71 08/04/25 06:00 Resp 15 08/04/25 05:30 BP 120/68 08/04/25 05:30 Pulse Ox 98 08/04/25 05:30 O2 Del Method Nasal Cannula 08/03/25 19:00 O2 Flow Rate 2 08/03/25 19:00 FiO2 40 08/04/25 03:23 08/03/25 08/04/25 08/04/25 22:59 06:59 14:59 Intake Total 590 / 2657.813 360 / 3017.813 Output Total 675 / 1800 3100 / 4900 Balance -85 / 857.813 -2740 / -1882.187 Weight last 48 hrs Weight 183.5 kg Weight 183 kg Physical Exam 2 Narrative: Seen Via telehealth in ICU Gen: awake, alert, no acute distress Neuro: no gross focal deficits Chest: mild tachypnea in conversation Ext: B/L stasis dermatitis over calves, eschar with crusting over the right tibial mendez , shallow ulcer with scalded appearance posteriorly, skin breaks and cuts involving plantar aspect of the foot, no surrouding cellulitis or drainage at this time Urinary Catheter Management: Fisher: Cath Placed During This Visit: yes Reason for Continuing Indwelling Catheter: Accurate Measurement of Urinary Output in Critically Ill Patients Urinary Catheter Date of Insertion: 07/30/25 Urinary Catheter Time of Insertion: 01:30 Data 08/05/25 04:07 08/05/25 04:07 Micro: Microbiology 07/29/25 21:02 Blood Culture - Preliminary Blood Staphylococcus aureus NAME: Robert Juarez LOC: [facility] U #: [id number] AGE/SX: 49/M ROOM: 111 R E07/29/[address]: Ezekiel Doe MD : 1975 BED: 2 D IS: FAX #: STATUS: ADM IN TLOC: Spec #: [id number] Danica: 07/29/25 Status: COMP Req #: [id number] Recd: 07/29/[address]: Hugo Jacome, Src: Blood SpDesc: Ordered: Bcult Procedure Result Verified Site Blood Culture Final 08/02/25-1458 2 OF 4 BOTTLES POSITIVE DIRECT GRAM STAIN RESULTS: GRAM POSITIVE COCCI IN CLUSTERS IDENTIFICATION BY DIRECT PCR Organism 1 Staphylococcus aureus Growth 2 BOTTLES Gram Stain Charge Charge for Gram Stain CRITICAL RESULT YES/NO: YES CRITICAL CALLED BY: RT TO AND READ BACK BY: [facility] DATE: 07/30/25 TIME: 1528 S aureus M.I.C. RX --------- ------ * Ciprofloxacin <=1 S * Clindamycin 1 I * Erythromycin <=0.5 S * Levofloxacin <=1 S * Linezolid 4 S * Moxifloxacin <=0.5 S * Oxacillin 1 S * Penicillin >8 R * Rifampin <=1 S * Tetracycline <=4 S * Trimethoprim/Sulfamethoxazole <=0.5/9.5 S Vancomycin 2 S Daptomycin 1 S Blood Culture Preliminary (changed) 08/01/25 2 OF 4 BOTTLES POSITIVE DIRECT GRAM STAIN RESULTS: GRAM POSITIVE COCCI IN CLUSTERS IDENTIFICATION BY DIRECT PCR RESULTS TO FOLLOW Organism 1 Staphylococcus aureus Growth 2 BOTTLES CRITICAL RESULT YES/NO: YES CRITICAL CALLED BY: RT TO AND READ BACK BY: [facility] DATE: 07/30/25 TIME: 1528 S aureus M.I.C. RX --------- ------ * Ciprofloxacin <=1 S * Clindamycin 1 I * Erythromycin <=0.5 S * Levofloxacin <=1 S * Linezolid 4 S * Moxifloxacin <=0.5 S * Oxacillin 1 S * Penicillin >8 R * Rifampin <=1 S * Tetracycline <=4 S * Trimethoprim/Sulfamethoxazole <=0.5/9.5 S Vancomycin 2 S Daptomycin 1 S Blood Culture Preliminary (changed) 07/30/25-1244 SPECIMEN COLLECTED Blood Culture Preliminary (changed) 07/29/25-2054 SPECIMEN COLLECTED NAME: Robert Juarez LOC: [facility] #: [id number] AGE/SX: 49/M ROOM: 111 R E07/29/[address]: Ezekiel Doe MD : 1975 BED: 2 D IS: FAX #: STATUS: ADM IN TLOC: Spec #: [id number] Danica: 07/29/25 Status: RES Req #: [id number] Recd: 07/29/[address]: Hugo Jacome DO Src: Blood SpDesc: Ordered: Bcult Procedure Result Verified Site Blood Culture Preliminary 08/03/25-1130 ONE OF SIX BOTTLES POSITIVE DIRECT GRAM STAIN RESULTS: GRAM POSITIVE COCCI IN CLUSTERS IDENTIFICATION BY DIRECT PCR RESULTS TO FOLLOW Organism 1 Staphylococcus aureus Growth 1 BOTTLE Gram Stain Charge Charge for Gram Stain CRITICAL RESULT YES/NO: YES CRITICAL CALLED BY: CLAUDE TO AND READ BACK BY: JOSE FRANCISCO DATE: 08/03/25 TIME: 0503 2ND CRITICAL RES YES/NO: YES 2ND CRITICAL CALLED BY: JAIR 2ND TO AND READ BACK BY: AMISH DATE: 08/03/25 2ND CRITICAL TIME: 1131 Blood Culture Preliminary (changed) 08/03/25-502 ONE OF SIX BOTTLES POSITIVE DIRECT GRAM STAIN RESULTS: GRAM POSITIVE COCCI IN CLUSTERS IDENTIFICATION BY DIRECT PCR RESULTS TO FOLLOW CRITICAL RESULT YES/NO: YES CRITICAL CALLED BY: CLAUDE TO AND READ BACK BY: JOSE FRANCISCO DATE: 08/03/25 TIME: 0503 Blood Culture Preliminary (changed) 07/30/25 NEGATIVE TO DATE Blood Culture Preliminary (changed) 07/29/[address]: Ezekiel Doe MD : 1975 BED: 2 D IS: FAX #: STATUS: ADM IN TLOC: Spec #: [id number] Danica: 07/30/25 Status: COMP Req #: [id number] Recd: 07/30/[address]: Ezekiel Doe MD Src: Blood SpDesc: Ordered: Bcult Procedure Result Verified Site Blood Culture Final 08/04/25 NO GROWTH AFTER 5 DAYS Blood Culture Preliminary (changed) 07/31/25 NEGATIVE TO DATE Blood Culture Preliminary (changed) 07/30/25 SPECIMEN COLLECTED [facility] [address] [place] [id number] MARTI DE LA TORRE, ELDERLY COMPANION NAME: EdinmariRobert Tatyana LOC: [facility] U #: [id number] AGE/SX: 49/M ROOM: 111 R E07/29/[address]: Ezekiel Doe MD : 1975 BED: 2 D IS: FAX #: STATUS: ADM IN TLOC: Spec #: [id number] Danica: 07/30/25 Status: COMP Req #: [id number] Recd: 07/30/[address]: Ezekiel Doe MD Src: Blood SpDesc: Ordered: Bcult Procedure Result Verified Site Blood Culture Final 08/04/25 NO GROWTH AFTER 5 DAYS Blood Culture Preliminary (changed) 07/31/25 NEGATIVE TO DATE Blood Culture Preliminary (changed) 07/30/25 SPECIMEN COLLECTED Other data: Radiology Impressions Chest X-Ray 07/29/25 20:40 IMPRESSION: 1. Question central masslike infiltrate warranting PA and views as well as CT evaluation. 2. Prominent central vascular engorgement/cephalization of flow question component of CHF. 3. Voxpzads-hc-wifzlm right pleural effusion. 4. Trvsrahm-qd-ubspfm cardiomegaly. Laboratory Results WBC 7.49 10^3/uL (3.29-11.43) 08/04/25 03:16 Corrected WBC Cancelled 07/29/25 20:41 RBC 4.55 10^6/uL (3.85-5.65) 08/04/25 03:16 Hgb 10.70 g/dL (11.27-16.99) L 08/04/25 03:16 Hct 41.3 % (37-53) 08/04/25 03:16 MCV 90.8 fl (82-101) 08/04/25 03:16 MCH 23.5 pg (27-33) L 08/04/25 03:16 MCHC 25.9 g/dL (30-55) L 08/04/25 03:16 RDW 19.9 % (12.1-15.1) H 08/04/25 03:16 Plt Count 53 10^3/cmm (157-399) L D 08/04/25 03:16 MPV Not Reportable 08/04/25 03:16 Gran % Cancelled 07/29/25 20:41 Neut % (Auto) 75.0 % 08/04/25 03:16 Lymph % (Auto) 5.5 % 08/04/25 03:16 [place] % (Auto) 17.8 % 08/04/25 03:16 Eos % (Auto) 1.2 % 08/04/25 03:16 Baso % (Auto) 0.1 % 08/04/25 03:16 Neut # (Auto) 5.62 10^3/uL (1.8-7.7) 08/04/25 03:16 Lymph # (Auto) 0.4 10^3/uL (0.8-4.8) L 08/04/25 03:16 [place] # (Auto) 1.3 10^3/uL (0.2-0.9) H 08/04/25 03:16 Eos # (Auto) 0.1 10^3/uL (0.0-0.8) 08/04/25 03:16 Baso # (Auto) 0.0 10^3/uL (0.0-0.1) 08/04/25 03:16 Absolute Gran (auto) Cancelled 07/29/25 20:41 Nucleated RBC % (auto) 0 % 08/04/25 03:16 Nucleated RBCs # 0.0 /100WBC 08/04/25 03:16 Peripher Smr Path Cons Sent for review 07/30/25 12:51 PT 17.80 SECONDS (12.1-14.9) H 08/02/25 05:16 INR 1.37 (0.8-1.2) H 08/02/25 05:16 Specimen Type Arterial 07/29/25 20:55 Sample Site Radial, left 07/29/25 20:55 ABG pH 7.31 (7.35-7.45) L 07/29/25 20:55 ABG pCO2 51.4 mmHg (35-45) H 07/29/25 20:55 ABG pO2 78.8 mmHg (80.0-100.0) L 07/29/25 20:55 ABG PO2/FiO2 Ratio 281 07/29/25 20:55 ABG HCO3 25.8 mmol/L (22-26) 07/29/25 20:55 ABG Base Excess -1.1 mmol/L (-2.0-2.0) 07/29/25 20:55 Joseph Test Pos 07/29/25 20:55 Hematocrit 37.0 % (42-52) L 07/29/25 20:55 Hgb O2 Saturation 91.6 % (95-100) L 07/29/25 20:55 Carboxyhemoglobin 1.4 %THgb (0.4-20.1) 07/29/25 20:55 Methemoglobin 1.0 % (0.4-1.5) 07/29/25 20:55 Total Hemoglobin 12.1 g/dL (14-18) L 07/29/25 20:55 O2 Delivery Device Nc 07/29/25 20:55 O2 Liters/Min 2.0 % 07/29/25 20:55 FiO2 28.0 % 07/29/25 20:55 Radio Dispatcher ID Bd 07/29/25 20:55 Sodium 136 mmol/L (136-145) 08/04/25 03:16 Potassium 3.1 mmol/L (3.5-5.1) L 08/04/25 03:16 Chloride 85 mmol/L (98-107) L 08/04/25 03:16 Carbon Dioxide 46 mmol/L (22-29) H* 08/04/25 03:16 Anion Gap 8.1 (5-19) 08/04/25 03:16 BUN 35 mg/dL (6-20) H 08/04/25 03:16 Creatinine 1.7 mg/dL (0.7-1.2) H 08/04/25 03:16 GFR Calculation 42.9 mL/min (90-130) L 08/04/25 03:16 Glucose 85 mg/dL (65-115) 08/04/25 03:16 POC Glucose 107 mg/dL (70-110) 07/30/25 00:50 Estimat Average Glucose 123 07/30/25 02:58 Hemoglobin A1c 5.9 % (4.0-6.0) 07/30/25 02:58 Calculated Osmolality 289 mOsm/kg (285-295) 08/04/25 03:16 Lactic Acid 2.1 mmol/L (0.5-2.2) 07/29/25 20:41 Lactic Acid (Sepsis) 2.1 mmol/L (0.5-2.2) 07/29/25 23:31 Calcium 9.1 mg/dL (8.5-10.5) 08/04/25 03:16 Phosphorus 4.1 mg/dL (2.5-4.5) 07/29/25 20:41 Magnesium 2.2 mg/dL (1.7-2.3) 08/04/25 03:16 Total Bilirubin 2.1 mg/dL (0.15-1.2) H 08/04/25 03:16 AST 64 U/L (0-40) H 08/04/25 03:16 ALT 91 U/L (0-41) H 08/04/25 03:16 Alkaline Phosphatase 132 U/L (40-130) H 08/04/25 03:16 Creatine Kinase 300 U/L (39-308) 07/29/25 20:41 Troponin T Baseline 643 ng/L (0-15) H* 07/29/25 20:41 Troponin T 60 Minute 676.8 ng/L (0-15) H 07/29/25 21:54 Delta Troponin T 33.8 ABS# (0-10) H* 07/29/25 21:54 Troponin T Hi Sens 6Hr 651.3 ng/L (0-15) H 07/30/25 02:58 Troponin T Hi Sens 6Hr Delta 8.3 ng/L (0-12) 07/30/25 02:58 NT-Pro-B Natriuret Pep 6463 pg/mL (0-125) H 07/29/25 20:41 Total Protein 5.9 g/dL (6.6-8.7) L 08/04/25 03:16 Albumin 3.3 g/dL (3.5-5.2) L 08/04/25 03:16 Globulin 2.6 g/dL (1.3-4.6) 08/04/25 03:16 Vitamin B12 > 2000 pg/mL (232-1245) H 07/30/25 02:58 TSH 1.53 uIU/mL (0.27-4.20) 07/30/25 02:58 Vancomycin Trough 16.8 ug/mL (10-15) H 08/02/25 10:55 Influenza A (PCR) Negative (Negative) 07/29/25 21:10 Influenza Type B (PCR) Negative (Negative) 07/29/25 21:10 RSV (PCR) Negative (Negative) 07/29/25 21:10 SARS-CoV-2 (PCR) Negative (Negative) 07/29/25 21:10 A&P Assessment and plan 1. MSSA (methicillin susceptible Staphylococcus aureus) septicemia: 49M with systolic heart failure, admitted with worsening anasarca, transminitis, DILLAN on CKD, Systolic heart failure exacerbation and found to have MSSA septicemia. Lower extremity ulceration may be potential source no recent procedures, no known cardiac hardware Blood cx currently clear as of 07/30/25 D/c Vancomycin, change to organism directed therapy for MSSA with Cefazolin 2 g iv every 8 hrs CXR upon admission with mass like central consolidation right lung- check CT chest Additionally given transaminitis , recommend RUQ imaging. Given thrombocytopenia, assess splenomegaly CT CAP w/o contrast ordered for above information 2. On pre-exposure prophylaxis for HIV: last HIV screen negative 6 months ago per verbal history Consents for HIV screening today 3. Elevated liver enzymes: Check acute hepatitis screening RUQ imaging ordered as above 4. Atrial fibrillation with rapid ventricular response: per primary 5. Thrombocytopenia: ? cause ? ITP Check for splenomegaly , screen for hep C , HIV 6. Systolic heart failure: management per cardiology 7. Stasis dermatitis: with LE ulceration 8. Eschar of lower leg: mupirocin application locally PDMP PDMP Reviewed: Not Reviewed Consult Attestations 2 Medical Necessity Statement: per admitting note Coding Level of Care Code Acute Code for Chg Fwd High MDM includes number and complexity of problems actively addressed during encounter, amount and/or complexity of data reviewed/ordered and described risk of complication, morbidity or mortality of management as documented Diagnoses MSSA (methicillin susceptible Staphylococcus aureus) septicemia A41.01 On pre-exposure prophylaxis for HIV Z79.899 Elevated liver enzymes R74.8 Atrial fibrillation with rapid ventricular response I48.91 Thrombocytopenia D69.6 Systolic heart failure I50.20 Stasis dermatitis I87.2 Eschar of lower leg R23.4
--- NOTE | 2025-08-04 08:57 | CTR_ITS ---
PROCEDURE INFORMATION: Exam: CT Chest Without Contrast; Diagnostic Exam date and time: 08/04/2025 11:01 AM Age: 49 years old Clinical indication: Other: Assess consolidation, mssa bacteremia, cxr with mass like consolidation, evaluate TECHNIQUE: Imaging protocol: Diagnostic computed tomography of the chest without contrast. Radiation optimization: All CT scans at this facility use at least one of these dose optimization techniques: automated exposure control; mA and/or kV adjustment per patient size (includes targeted exams where dose is matched to clinical indication); or iterative reconstruction. COMPARISON: CT chest wo con [id number] 05/23/2024 8:01 PM RADIATION DOSE METRICS: Total DLP (mGy-cm): 1695.65 FINDINGS: Lungs: Near complete atelectasis of the right middle lobe. Pleural spaces: Large right-sided pleural effusion. Compressive atelectasis in the right lower lobe. Heart: Cardiomegaly is seen. Coronary arteries: No coronary calcification. Lymph nodes: Unremarkable. No enlarged lymph nodes. Vasculature: Mild calcified atherosclerotic changes are seen in the thoracic aorta. Bones/joints: Unremarkable. No acute fracture. Soft tissues: Unremarkable. PROCEDURE INFORMATION: Exam: CT Abdomen And Pelvis Without Contrast Exam date and time: 08/04/2025 11:01 AM Age: 49 years old Clinical indication: Other: Assess consolidation, mssa bacteremia, cxr with mass like consolidation, evaluate TECHNIQUE: Imaging protocol: Computed tomography of the abdomen and pelvis without contrast. Radiation optimization: All CT scans at this facility use at least one of these dose optimization techniques: automated exposure control; mA and/or kV adjustment per patient size (includes targeted exams where dose is matched to clinical indication); or iterative reconstruction. COMPARISON: CT abdomen pelvis w con* [id number] 11/06/2021 6:56 PM RADIATION DOSE METRICS: Total DLP (mGy-cm): 1695.65 FINDINGS: Liver: Normal. No mass. Gallbladder and biliary ducts: Normal. No calcified stones. No ductal dilation. Pancreas: Normal. No ductal dilation. Spleen: Normal. No splenomegaly. Adrenal glands: Normal. No mass. Kidneys and ureters: Left renal 4 mm stone. Bilateral renal simple cysts. Stomach and bowel: No small bowel loop dilatation. Appendix: Appendix is normal. Intraperitoneal space: Unremarkable. No free air. No significant fluid collection. 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 Lymph nodes: Unremarkable. No enlarged lymph nodes. Urinary bladder: Fisher in the bladder. Reproductive: Unremarkable as visualized. Bones/joints: Mild lumbar spine degenerative changes. Soft tissues: Chronic skin thickening involving the lower anterior abdominal wall. CT/[place] [id number] IMPRESSION: 1. Large right-sided pleural effusion. Compressive atelectasis in the right lower lobe. 2. Near complete atelectasis of the right middle lobe. 3. Cardiomegaly. IMPRESSION: 1. 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 2. Left renal 4 mm stone. COMMENTS: Consistent with the [employer]'s Incidental Findings Committee white paper (J Am Danica Radiol 2018): Any incidental renal lesion less than 1 cm or classified as too small to characterize, or any incidental cystic renal lesion characterized as simple-appearing, is likely benign. No follow-up imaging is recommended for these lesions per consensus recommendations based on imaging criteria.
[2025-08-04] MEDS: ceFAZolin 2,000 mg SDV 2000 MG IVP ×2 (09:21→17:09)
--- NOTE | 2025-08-04 09:56 | PC.NURSE ---
Life vest placement and instruction occurring at this time.
--- NOTE | 2025-08-04 10:10 | PC.NURSE ---
Report called to TERRY Aceves on CSU.
--- NOTE | 2025-08-04 10:52 | CTR_ITS ---
PROCEDURE INFORMATION: Exam: CT Right Lower Extremity Without Contrast, right Leg Exam date and time: 08/04/2025 11:05 AM Age: 49 years old Clinical indication: Other: Tibial eschar, mssa bacteremia, tibial eschar, assess for osteomyelitis TECHNIQUE: Imaging protocol: CT of the right lower extremity without contrast was performed. Exam focused on the lower leg. Radiation optimization: All CT scans at this facility use at least one of these dose optimization techniques: automated exposure control; mA and/or kV adjustment per patient size (includes targeted exams where dose is matched to clinical indication); or iterative reconstruction. COMPARISON: No relevant prior studies available. RADIATION DOSE METRICS: Total DLP (mGy-cm): 1430.12 FINDINGS: Bones/joints: No dislocation. No periosteal reaction. Suspected mildly-comminuted nondisplaced/microtrabecular fracture lines involving posterior talus with fracture lines extending into the posterior facet of the subtalar joint (series /). Patchy osteopenia surrounding the fracture lines at the medial talus suggest that these are pathologic fractures. Mildly displaced fracture through the base of the sustentaculum talus, with prominent surrounding cortical erosions (at the level of the medial facet of the subtalar joint) suggesting that this is an age-indeterminate pathologic fracture. Mildly displaced fracture of the anterior process of the calcaneus, with cortical erosions surrounding the fracture line suggesting that this is an age-indeterminate pathologic fracture. 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 Prominent navicular bone subchondral cysts. Small right knee effusion. Small right ankle effusion; can not exclude infectious complication Soft tissues: Distal Achilles tendon shows thickening intrasubstance heterogeneity compatible with tendinosis; induration of the adjacent Kager's fat compatible with Achilles peritendinitis. Associated bony erosions of the calcaneal attachment site of the Achilles tendon. Diffuse swelling and induration of the superficial and deep soft tissue planes with associated skin thickening, compatible with diffuse myositis and cellulitis. Other findings: Lack of IV contrast limits the evaluation. CT/CT lower leg RT wo con* [id number] IMPRESSION: 1. Age-indeterminate suspected pathologic fractures of the talus and calcaneus as above, with associated patchy osteopenia/cortical erosions that could represent changes of osteomyelitis in the appropriate clinical setting. If further clinical concern enhanced MRI can better characterize. 2. Diffuse swelling and induration of the superficial and deep soft tissue planes with associated skin thickening, compatible with diffuse myositis and cellulitis. 3. Small right ankle effusion; can not exclude infectious complication 4. 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 5. Evidence of Achilles tendinosis and Achilles peritendinitis as above 6. Small right knee effusion
--- NOTE | 2025-08-04 11:27 | PC.NURSE ---
ROunded with Dr Meng via Ipad. Then pt to CT. Pt then transfered to CSU All belongings with pt. TERRY Aceves updated.
--- NOTE | 2025-08-04 11:28 | PC.NURSE ---
Home meds: transferred to CSU with pt.
[2025-08-04 12:30] LABS: HIV 1 & 2 Antigen Non-Reactive (Non-Reactiv)
[2025-08-04 12:47] LABS: Hepatitis A Antibody IgM Non-Reactive (Nonreactive); Hepatitis B Surface Antigen Non-Reactive (Nonreactive)
--- NOTE | 2025-08-04 18:12 | PC.NURSE ---
The patient's heart rate has been staying in the 120-140s this afternoon. PO amiodarone given and Dr Doe notified via voalte.
--- NOTE | 2025-08-04 18:46 | P.PN_ITS ---
Subjective 2 Subjective: This evening worsening heart rate. States he feels all right. No pain or discomfort. No trouble breathing. States that LifeVest was not an option for him, however, he is considering a support dog. Vitals/I&O/Wt Last Vital Signs Temp 97 F L 08/04/25 08:00 Pulse 111 H 08/04/25 15:18 Resp 19 H 08/04/25 15:18 BP 95/63 08/04/25 15:18 Pulse Ox 92 08/04/25 15:18 O2 Del Method Nasal Cannula 08/04/25 09:00 O2 Flow Rate 2 08/04/25 09:00 FiO2 40 08/04/25 03:23 08/04/25 08/04/25 08/04/25 06:59 14:59 22:59 Intake Total 360 / 3017.813 980 / 980 480 / 1460 Output Total 3100 / 4900 1000 / 1000 Balance -2740 / -1882.187 980 / 980 -520 / 460 Weight last 48 hrs Weight 183.5 kg Weight 183 kg Physical Exam 2 Const: COMMON NORMALS: patient oriented x3 and alert GENERAL APPEARANCE: c ooperative ORIENTATION/CONSCIOUSNESS: Yes awake HENMT: COMMON NORMALS: oropharynx normal Neck/C-Spine: COMMON NORMALS: no JVD Resp: COMMON NORMALS: normal respiratory effort and clear to auscultation bilaterally AUSCULTATION: clear to auscultation bilaterally Cardio: COMMON NORMALS: no JVD, regular rhythm, S1 normal heart sound present, S2 normal heart sound present and No murmurs present (Cardio) RATE: t achycardic RHYTHM: regular rhythm HEART SOUNDS: S1 normal heart sound present and S2 normal heart sound present GI: COMMON NORMALS: Normal to inspection, nondistended, normoactive bowel sounds present, Soft to palpation and non-tender PALPATION: Yes Soft to palpation Extremity: COMMON NORMALS: no joint enlargement and no pedal edema GENERAL: Yes edema (2+ bilateral LE edema) Neuro: COMMON NORMALS: patient oriented x3 and moves all extremities S ENSORIUM/ORIENTATION: Yes alert Skin: COMMON NORMALS: no rashes or lesions noted GENERAL SKIN EXAM: no rashes or lesions noted Urinary Catheter Management: Fisher: Cath Placed During This Visit: yes Reason for Continuing Indwelling Catheter: Accurate Measurement of Urinary Output in Critically Ill Patients Urinary Catheter Date of Insertion: 07/30/25 Urinary Catheter Time of Insertion: 01:30 Data 08/04/25 03:16 08/04/25 19:45 A&P Assessment and plan 1. Atrial fibrillation with rapid ventricular response: Worsening A-fib with RVR. Blood pressure soft, 95/63. Give a bolus of Amio 150 mg. Increase oral Amio dose to 400 mg twice daily. Give a push of dig 0.25 mg and repeat. Monitor on telemetry with risk of heart block. Recheck chemistry. Received replacement potassium, repeat level. Magnesium reviewed and is okay. Resume low dose metoprolol if BP allows, 2. Hypotension: Treat AFib w RVR as above. Midodrine. Repeat albumin. Holding losartan, metoprolol, and has been in negative balance with diuresis. Bedrest for now. 3. MSSA bacteremia: MSSA. Resistant to penicillin, intermediate sensitivity to clindamycin. Unclear source of bacteremia. Without any known devices. Does have some chronic cracks/wounds of his feet/toes, however, without signs of infection, drainage. Afebrile, without leukocytosis. Chest x-ray with congestive changes, possible infiltrate. Pleural effusions. Repeat blood culture from 07/30 so far negative. Follow-up. Appreciate infectious disease provider consultation and workup. Repeat cultures so far negative. 4. Acute on chronic diastolic (congestive) heart failure: LifeVest could not be fitted due to size limitations. In negative balance. Blood pressure soft. Renal function is improving. Hypoalbuminemia, repeat albumin. Repeat chemistry. If blood pressure allows resume diuresis. Persistent right-sided pleural effusion, would benefit from further diuresis if blood pressure allows. Hold Bumex with hypotension. Reviewed chemistry. Mild hypokalemia. Replace. With CKD, reassessment function, with risk of DILLAN, electrolyte abnormality repeat chemistry. Underwent stress testing. Without evidence of acute ischemia. Noted areas of hypoperfusion without reversibility likely prior [place]. Reviewed CMP. Repeat. On TTE noted decreased EF, 35%. Reviewed prior echocardiograms, unfortunately they were not interpretable. Pending cardiology reassessment and further planning. Reviewed cardiology note. 5. Thrombocytopenia: Platelets with improvement today up to 53. Repeat CBC. If maintaining consider restarting low-dose anticoagulation. Follow-up with hematology. Would discontinue acetazolamide at discharge. 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 Discontinued prophylactic Lovenox. Discussed with him options going forward, consideration of reassessment of blood counts, in case improving with withholding acetazolamide consider at some point restarting anticoagulation. Otherwise if not tolerate anticoagulation may have to consider IVC filter, possibly Watchman device. B12 greater than 2000. Peripheral smear reviewed, mild leukocytosis with thrombocytopenia. No blasts or nucleated red cells identified. Discussed with him trial of prophylactic anticoagulation. Reassess platelets. Continue to hold acetazolamide may be causing platelet suppression, will not continue at this time. 6. Drug-induced hepatitis: Resolving. LFTs appear to be improving. Reviewed CMP. Patient has volume overload however his LFTs are markedly elevated and I think this may be related to his duloxetine. Duloxetine can cause drug-induced hepatitis and should be stopped. Additionally have held his statin for now. Consider alternative agent at discharge, psychiatry consult and/or follow-up. 7. Morbid obesity with BMI of 50.0-59.9, adult: Patient was counseled regarding need for weight loss as well as treatment of his sleep apnea and is willing to be on a weight loss diet 8. BONITA (obstructive sleep apnea): Was to be started on BiPAP 9. Declining functional status: Discussed with case consultant consideration disposition planning. SNF considered. He has been deconditioned. Will need to obtain PT evaluation once his heart rate is available better. He prefers to return home. 10. History of pulmonary embolism: Xarelto held with thrombocytopenia on presentation. Discussed with him risk of bleeding. Follow-up platelet levels. Hold acetazolamide. Consider options of resuming partial coagulation, versus IVC filter as discussed. 11. History of stage 3b chronic kidney disease: Creatinine running 2. Follow kidney function with diuresis 12. Elevated troponin: Troponin over 600 and in 2023 was 25 this is suspicious for NSTEMI cardiology has been consulted he is not have any chest pain. Reviewed TTE. Reviewed cardiology note Reviewed stress test. Discussed with him. PDMP PDMP Reviewed: Not Reviewed Attestations 2 Medical Necessity Statement*: Continue admission for assessment and management of staph bacteremia, A-fib with RVR, hypotension, cardiomyopathy, CHF, thrombocytopenia, previously chronically on anticoagulation with history of recent PE, A-fib and High MDM includes amount and/or complexity of data reviewed/ordered [ resulted lab(s)/test(s), ordered lab(s)/test(s) and other healthcare professional discussion] and described risk of complication, morbidity or mortality of management as documented Diagnoses Atrial fibrillation with rapid ventricular response I48.91 Hypotension I95.9 MSSA bacteremia R78.81; B95.61 Acute on chronic diastolic (congestive) heart failure I50.33 Thrombocytopenia D69.6 Drug-induced hepatitis K71.6; T50.905A Morbid obesity with BMI of 50.0-59.9, adult E66.01; Z68.43 BONITA (obstructive sleep apnea) G47.33 Declining functional status R53.81 History of pulmonary embolism Z86.711 History of stage 3b chronic kidney disease Z87.448 Elevated troponin R79.89
[2025-08-04] MEDS: digoxin 250 mcg/ml INJ 2 mL IVP (18:52)
[2025-08-04] MEDS: amiodarone 50 mg/mL SDV 3 mL 150 MG IVP (18:54)
[2025-08-04] MEDS: albumin 25 G/100 ML BAG 60 G IV (19:47)
[2025-08-04 20:07] LABS: Potassium 3.6 mmol/L (3.5-5.1)
[2025-08-04] MEDS: amiodarone 150 MG/100 ML PREMIX 400 MG IV (22:11)
[2025-08-05] VITALS (10 sets, daily range): BP systolic 97–132; BP diastolic 55–82; PULSE 98–117; RESP 12–28; TEMP 35.7–36.9; O2SAT 93–97
[2025-08-05] MEDS: amiodarone 150 MG/100 ML PREMIX 400 MG IV (00:09)
[2025-08-05] MEDS: ceFAZolin 2,000 mg SDV 2000 MG IVP ×3 (00:12→18:25)
[2025-08-05] MEDS: digoxin 250 mcg/ml INJ 2 mL IVP (02:23)
--- NOTE | 2025-08-05 03:18 | PC.NURSE ---
1956- Patient HR still in 110-120 despite receiving IVP meds from day shift RN. Dr. Britt notified and MD to place orders for potassium. 2037- Patient HR 120-130's and lab results back with K 3.6 and phos at 3. Dr. Britt notified and MD to place orders for amiodarone 150 mg and encourgae patient to wear bipap. Patient only was able to tolerate bipap till 2205. 2341- HR started increasing after amio bolus and is back into 120-130's. Dr. britt notified and received orders to repeat amio bolus.
[2025-08-05 04:27] LABS: Hematocrit 37.9 % (37-53); Hemoglobin 10.10 g/dL (11.27-16.99); Mean Corpuscular HGB Conc 26.6 g/dL (30-55); Mean Corpuscular Hemoglobin 24.5 pg (27-33); Mean Corpuscular Volume 91.8 fl (82-101); Nucleated Red Blood Cells % 0 %; Platelet Count 47 10^3/cmm (157-399); Red Blood Count 4.13 10^6/uL (3.85-5.65); White Blood Count 7.26 10^3/uL (3.29-11.43)
[2025-08-05 04:59] LABS: Alanine Aminotransferase 55 U/L (0-41); Albumin Level 3.3 g/dL (3.5-5.2); Alkaline Phosphatase 125 U/L (40-130); Anion Gap 7.1 (5-19); Aspartate Amino Transferase 42 U/L (0-40); Blood Urea Nitrogen 30 mg/dL (6-20); Calcium 9.0 mg/dL (8.5-10.5); Chloride 88 mmol/L (98-107); Globulin 2.8 g/dL (1.3-4.6); Glucose 119 mg/dL (65-115); Osmolality Calculated 289 mOsm/kg (285-295); Potassium 3.1 mmol/L (3.5-5.1); Sodium 136 mmol/L (136-145); Total Protein 6.1 g/dL (6.6-8.7)
[2025-08-05] MEDS: DAPAGLIFLOZIN 10 MG TABLET PO (05:27)
[2025-08-05 05:42] LABS: Carbon Dioxide 44 mmol/L (22-29)
--- NOTE | 2025-08-05 08:31 | P.PN_ITS ---
Subjective 2 Subjective: ID progress note Assessed via telehealth Noted CT leg, no drainable abscess. Several pathologic appearing fractures of the foot. Mild joint effusions, favored reactive vs inflammatory Afberile Medications: Medication Review Details: Current Medications Acetazolamide (Acetazolamide 250 Mg Tablet) 125 mg PO DAILY [facility] Last Admin: 08/01/25 05:31 Dose: 125 mg Aminophylline (Aminophylline 25 Mg/Ml Sdv 20 Ml) 25 mg IVP Q2M PRN PRN Reason: see dose instructions Stop: 08/02/25 06:16 Amiodarone HCl (Amiodarone 200 Mg Tablet) 200 mg PO BID [facility] Last Admin: 08/01/25 16:15 Dose: 200 mg Bumetanide (Bumetanide 0.25 Mg/Ml Sdv 10 Ml) 2 mg IVP BID [facility] Last Admin: 08/01/25 16:15 Dose: 2 mg Diltiazem HCl (Diltiazem 30 Mg Tablet) 30 mg PO TID [facility] Last Admin: 08/01/25 12:59 Dose: 30 mg Vancomycin HCl (Vancocin) 1,500 mg in 300 mls @ 200 mls/hr IV Q24H [facility] Last Infusion: 08/01/25 14:30 Dose: Infused Lorazepam (Lorazepam 2 Mg/Ml Inj 1 Ml) 0.5 mg IVP Q6H PRN PRN Reason: ANXIETY Metolazone (Metolazone 5 Mg Tablet) 5 mg PO DAILY [facility] Last Admin: 08/01/25 05:30 Dose: 5 mg Metoprolol Tartrate (Metoprolol Tartrate 50 Mg Tablet) 50 mg PO BID@0900,2100 [facility] Last Admin: 08/01/25 08:56 Dose: 50 mg Nitroglycerin (Nitroglycerin 0.4 Mg Sublingual Tablet) 0.4 mg SUBLINGUAL Q5M PRN PRN Reason: CHEST PAIN Stop: 08/02/25 06:16 Ondansetron HCl (Ondansetron 2 Mg/Ml Sdv 2 Ml) 4 mg IVP Q6H PRN PRN Reason: NAUSEA AND VOMITING Last Admin: 07/30/25 13:33 Dose: 4 mg Ondansetron HCl (Ondansetron 2 Mg/Ml Sdv 2 Ml) 4 mg IVP Q2M PRN PRN Reason: NAUSEA Potassium Chloride (Potassium Chloride Er 20 Meq Tablet) 20 meq PO BID [facility] Last Admin: 08/01/25 16:16 Dose: 20 meq Vitals/I&O/Wt Last Vital Signs Temp 98.4 F 08/05/25 07:24 Pulse 115 H 08/05/25 07:24 Resp 28 H 08/05/25 07:24 BP 100/60 08/05/25 07:24 Pulse Ox 95 08/05/25 07:24 O2 Del Method Nasal Cannula 08/05/25 05:24 O2 Flow Rate 3 08/05/25 05:24 FiO2 40 08/04/25 20:30 08/04/25 08/05/25 08/05/25 22:59 06:59 14:59 Intake Total 680 / 1660 1060 / 2720 Output Total 1000 / 1000 2200 / 3200 Balance -320 / 660 -1140 / -480 Weight last 48 hrs Weight 181.6 kg Weight 183.5 kg Physical Exam 2 Narrative: Assessed via telehealth General: No acute distress, AO x3 Neuro: No focal deficits, no facial deformity, AO x3 EXT: unchanged extremity exam compared to previous day Urinary Catheter Management: Fisher: Cath Placed During This Visit: yes Reason for Continuing Indwelling Catheter: Accurate Measurement of Urinary Output in Critically Ill Patients Urinary Catheter Date of Insertion: 07/30/25 Urinary Catheter Time of Insertion: 01:30 Data 08/06/25 02:54 08/06/25 04:31 Micro: Microbiology 07/30/25 21:05 Blood Culture - Final Blood NO GROWTH AFTER 5 DAYS 07/30/25 20:56 Blood Culture - Final Blood NO GROWTH AFTER 5 DAYS A&P Assessment and plan 1. MSSA (methicillin susceptible Staphylococcus aureus) septicemia: 49M with systolic heart failure, admitted with worsening anasarca, transminitis, DILLAN on CKD, Systolic heart failure exacerbation and found to have MSSA septicemia. Lower extremity ulceration may be potential source no recent procedures, no known cardiac hardware Blood cx currently clear as of 07/30/25 D/c Vancomycin, change to organism directed therapy for MSSA with Cefazolin 2 g iv every 8 hrs CXR upon admission with mass like central consolidation right lung- check CT chest Additionally given transaminitis , recommend RUQ imaging. Given thrombocytopenia, assess splenomegaly CT CAP w/o contrast ordered for above information 2. On pre-exposure prophylaxis for HIV: last HIV screen negative 6 months ago per verbal history Consents for HIV screening today 3. Elevated liver enzymes: Check acute hepatitis screening RUQ imaging ordered as above 4. Atrial fibrillation with rapid ventricular response: per primary 5. Thrombocytopenia: ? cause ? ITP Check for splenomegaly , screen for hep C , HIV 6. Systolic heart failure: management per cardiology 7. Stasis dermatitis: with LE ulceration 8. Eschar of lower leg: mupirocin application locally Plan: 08/05/25: CT chest with large pleural effusion with atelactasis, no abdominal pathology. No splenomegaly. CT Leg without any abscess, noted joint fluid in the foot supect reactive, no clinical co relate for a septic joint .Incidentally noted pathological fractures of the foot, age indeterminate. patient reports he hasnt been able to bear weight for months, likely related to these fractures. Last + Blood cx from 07/29. All blood cx from 07/30 remain negative to date. Ideally would recommend a MILO to assess for vegetations. If negative, potentially a 4 week course of abx may be adequate, however defer to cardiology if feasible to perform with his thrombocytopenia. In the absence of MILO, will proceed with 6 week course of iv cefazolin 2g iv TID (07/30-09/10). Patient prefers to have home infusion at this time, states he has family members who can help. Case management consult to arrange home health for iv abx. Weekly labs incl CBC, LFT, creat to be faxded to ID clinic PDMP PDMP Reviewed: Not Reviewed Attestations 2 Medical Necessity Statement*: per admitting note Coding Level of Care Code Acute Code for [employer] Diagnoses MSSA (methicillin susceptible Staphylococcus aureus) septicemia A41.01 On pre-exposure prophylaxis for HIV Z79.899 Elevated liver enzymes R74.8 Atrial fibrillation with rapid ventricular response I48.91 Thrombocytopenia D69.6 Systolic heart failure I50.20 Stasis dermatitis I87.2 Eschar of lower leg R23.4
--- NOTE | 2025-08-05 12:39 | PC.NURSE ---
per Dr Weinstein's verbal order, add 12.5 metoprolol BID. Order entered by nurse.
--- NOTE | 2025-08-05 14:52 | XRR_ITS ---
PROCEDURE INFORMATION: Exam: XR Chest Exam date and time: 08/05/2025 3:14 PM Age: 49 years old Clinical indication: Device placement; Picc; Additional info: Picc line placement TECHNIQUE: Imaging protocol: Radiologic exam of the chest. Views: 1 view. COMPARISON: CT chest abdpel [id number] 08/04/2025 11:01 AM FINDINGS: Tubes, catheters and devices: Right PICC line tip over the atrial caval junction. Lungs: [id number] pneumonia in the right mid lung field. Pleural spaces: Unremarkable. No pleural effusion. No pneumothorax. Heart/Mediastinum: Mild to moderate globular cardiomegaly consistent with 4-chamber enlargment and/or pericardial effusion. Bones/joints: Unremarkable. XR/XR chest 1V portable [id number] IMPRESSION: 1. Right PICC line tip over the atrial caval junction. 2. Mild to moderate globular cardiomegaly consistent with 4-chamber enlargment and/or pericardial effusion. 3. [id number] pneumonia in the right mid lung field.
--- NOTE | 2025-08-05 19:28 | P.PN_ITS ---
Subjective 2 Subjective: Patient resting comfortably, tolerating CPAP at night. Discussed with infectious disease today. MSSA to be treated with 6 weeks of IV cefazolin upon discharge to home, anticipate a home health care. Discussed with cardiology today, increase digoxin to 250 mcg daily, continue amiodarone. Heart rate well- controlled. Blood cultures have been clear. Vitals/I&O/Wt Last Vital Signs Temp 98.4 F 08/05/25 07:24 Pulse 98 08/05/25 15:44 Resp 16 08/05/25 15:44 BP 132/75 08/05/25 15:44 Pulse Ox 97 08/05/25 17:04 O2 Del Method Nasal Cannula 08/05/25 05:24 O2 Flow Rate 3 08/05/25 17:04 FiO2 40 08/04/25 20:30 08/05/25 08/05/25 08/05/25 06:59 14:59 22:59 Intake Total 1060 / 2720 960 / 960 Output Total 2200 / 3200 1300 / 1300 550 / 1850 Balance -1140 / -480 -340 / -340 -550 / -890 Weight last 48 hrs Weight 181.6 kg Weight 183.5 kg Physical Exam 2 Const: COMMON NORMALS: patient oriented x3 and alert GENERAL APPEARANCE: c ooperative ORIENTATION/CONSCIOUSNESS: Yes awake HENMT: COMMON NORMALS: oropharynx normal Neck/C-Spine: COMMON NORMALS: no JVD Resp: COMMON NORMALS: normal respiratory effort and clear to auscultation bilaterally AUSCULTATION: clear to auscultation bilaterally Cardio: COMMON NORMALS: no JVD, regular rhythm, S1 normal heart sound present, S2 normal heart sound present and No murmurs present (Cardio) RATE: t achycardic RHYTHM: regular rhythm HEART SOUNDS: S1 normal heart sound present and S2 normal heart sound present GI: COMMON NORMALS: Normal to inspection, nondistended, normoactive bowel sounds present, Soft to palpation and non-tender PALPATION: Yes Soft to palpation Extremity: COMMON NORMALS: no joint enlargement and no pedal edema GENERAL: Yes edema (2+ bilateral LE edema) Neuro: COMMON NORMALS: patient oriented x3 and moves all extremities S ENSORIUM/ORIENTATION: Yes alert Skin: COMMON NORMALS: no rashes or lesions noted GENERAL SKIN EXAM: no rashes or lesions noted Urinary Catheter Management: Fisher: Cath Placed During This Visit: yes Reason for Continuing Indwelling Catheter: Accurate Measurement of Urinary Output in Critically Ill Patients Urinary Catheter Date of Insertion: 07/30/25 Urinary Catheter Time of Insertion: 01:30 Data 08/05/25 04:07 08/05/25 04:07 Micro: Microbiology 07/29/25 21:02 Blood Culture - Preliminary Blood Staphylococcus aureus 07/30/25 21:05 Blood Culture - Final Blood NO GROWTH AFTER 5 DAYS 07/30/25 20:56 Blood Culture - Final Blood NO GROWTH AFTER 5 DAYS A&P Assessment and plan 1. Atrial fibrillation with rapid ventricular response: Blood pressure better controlled today, continues in A-fib. Maintain digoxin 250 mcg daily. Continue amiodarone. Monitor heart rate. 2. Hypotension: Treat AFib w RVR as above. Midodrine. Repeat albumin. Holding losartan, metoprolol, and has been in negative balance with diuresis. Bedrest for now. 3. MSSA bacteremia: MSSA. Resistant to penicillin, intermediate sensitivity to clindamycin. Unclear source of bacteremia. Without any known devices. Does have some chronic cracks/wounds of his feet/toes, however, without signs of infection, drainage. Afebrile, without leukocytosis. Chest x-ray with congestive changes, possible infiltrate. Pleural effusions. Repeat blood culture from 07/30 so far negative. Follow-up. ID recommendation for discharge home with cefazolin every 8 hours IV, Home with home health. 4. Acute on chronic diastolic (congestive) heart failure: LifeVest could not be fitted due to size limitations. In negative balance. Blood pressure soft. Renal function is improving. Hypoalbuminemia, repeat albumin. Repeat chemistry. If blood pressure allows resume diuresis. Persistent right-sided pleural effusion, would benefit from further diuresis if blood pressure allows. Hold Bumex with hypotension. Reviewed chemistry. Mild hypokalemia. Replace. With CKD, reassessment function, with risk of DILLAN, electrolyte abnormality repeat chemistry. Underwent stress testing. Without evidence of acute ischemia. Noted areas of hypoperfusion without reversibility likely prior ND. Reviewed CMP. Repeat. On TTE noted decreased EF, 35%. Reviewed prior echocardiograms, unfortunately they were not interpretable. Cardiology recommends rate control for now. 5. Thrombocytopenia: Platelets with improvement today up to 53. Repeat CBC. If maintaining consider restarting low-dose anticoagulation. Follow-up with hematology. Would discontinue acetazolamide at discharge. 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 Discontinued prophylactic Lovenox. Discussed with him options going forward, consideration of reassessment of blood counts, in case improving with withholding acetazolamide consider at some point restarting anticoagulation. Otherwise if not tolerate anticoagulation may have to consider IVC filter, possibly Watchman device. B12 greater than 2000. Peripheral smear reviewed, mild leukocytosis with thrombocytopenia. No blasts or nucleated red cells identified. Discussed with him trial of prophylactic anticoagulation. Reassess platelets. Continue to hold acetazolamide may be causing platelet suppression, will not continue at this time. 6. Drug-induced hepatitis: Resolving. LFTs appear to be improving. Reviewed CMP. Patient has volume overload however his LFTs are markedly elevated and I think this may be related to his duloxetine. Duloxetine can cause drug-induced hepatitis and should be stopped. Additionally have held his statin for now. Consider alternative agent at discharge, psychiatry consult and/or follow-up. 7. Morbid obesity with BMI of 50.0-59.9, adult: Patient was counseled regarding need for weight loss as well as treatment of his sleep apnea and is willing to be on a weight loss diet. Also might consider GLP-1 agonist. 8. BONITA (obstructive sleep apnea): Continue positive pressure ventilation, noninvasive at night. 9. Declining functional status: Discussed with top case assembler consideration disposition planning. SNF considered. He has been deconditioned. Will need to obtain PT evaluation once his heart rate is available better. He prefers to return home. 10. History of pulmonary embolism: Xarelto held with thrombocytopenia on presentation. Discussed with him risk of bleeding. Follow-up platelet levels. Hold acetazolamide. Consider options of resuming partial coagulation, versus IVC filter as discussed. 11. History of stage 3b chronic kidney disease: Creatinine running 2. Follow kidney function with diuresis 12. Elevated troponin: Troponin over 600 and in 2023 was 25 this is suspicious for NSTEMI cardiology has been consulted he is not have any chest pain. Reviewed TTE. Reviewed cardiology note Reviewed stress test. Discussed with him. PDMP PDMP Reviewed: Not Reviewed Attestations 2 Medical Necessity Statement*: Continue medical admission for placement to home health with 6 weeks of IV antibiotics, treatment of A-fib RVR with medication management. Diagnoses Atrial fibrillation with rapid ventricular response I48.91 Hypotension I95.9 MSSA bacteremia R78.81; B95.61 Acute on chronic diastolic (congestive) heart failure I50.33 Thrombocytopenia D69.6 Drug-induced hepatitis K71.6; T50.905A Morbid obesity with BMI of 50.0-59.9, adult E66.01; Z68.43 BONITA (obstructive sleep apnea) G47.33 Declining functional status R53.81 History of pulmonary embolism Z86.711 History of stage 3b chronic kidney disease Z87.448 Elevated troponin R79.89
[2025-08-06] VITALS (7 sets, daily range): BP systolic 103–136; BP diastolic 65–85; PULSE 102–125; RESP 18–30; TEMP 36.3–36.8; O2SAT 94–96
[2025-08-06] MEDS: ceFAZolin 2,000 mg SDV 2000 MG IVP ×3 (01:54→17:19)
[2025-08-06 03:33] LABS: Hematocrit 38.4 % (37-53); Hemoglobin 10.10 g/dL (11.27-16.99); Mean Corpuscular HGB Conc 26.3 g/dL (30-55); Mean Corpuscular Hemoglobin 24.3 pg (27-33); Mean Corpuscular Volume 92.5 fl (82-101); Nucleated Red Blood Cells % 0 %; Red Blood Count 4.15 10^6/uL (3.85-5.65); White Blood Count 7.74 10^3/uL (3.29-11.43)
[2025-08-06 04:05] LABS: Platelet Count 22 10^3/cmm (157-399)
[2025-08-06 05:05] LABS: Alanine Aminotransferase 30 U/L (0-41); Albumin Level 3.1 g/dL (3.5-5.2); Alkaline Phosphatase 111 U/L (40-130); Aspartate Amino Transferase 37 U/L (0-40); Blood Urea Nitrogen 22 mg/dL (6-20); Calcium 9.1 mg/dL (8.5-10.5); Carbon Dioxide 40 mmol/L (22-29); Chloride 89 mmol/L (98-107); Globulin 3.4 g/dL (1.3-4.6); Glucose 99 mg/dL (65-115); Magnesium 1.8 mg/dL (1.7-2.3); Osmolality Calculated 285 mOsm/kg (285-295); Sodium 136 mmol/L (136-145); Total Protein 6.5 g/dL (6.6-8.7)
[2025-08-06] MEDS: DAPAGLIFLOZIN 10 MG TABLET PO (05:06)
[2025-08-06 05:11] LABS: Anion Gap 10.5 (5-19); Potassium 3.5 mmol/L (3.5-5.1)
[2025-08-06] MEDS: ferrous sulfate EC 325 mg Tablet PO (08:32)
[2025-08-06] MEDS: mupirocin oint 22 gm 1 APPLIC TOPICAL ×2 (08:41→17:20)
--- NOTE | 2025-08-06 13:15 | PC.SOCIAL ---
IMM Update pg 2 of IMM updated and reviewed w/ patient. Copy provided and copy dated, initialed and placed in chart.
--- NOTE | 2025-08-06 15:03 | P.PN_ITS ---
<Statement entered by Azeem Weinstein M.D - 08/12/25 11:02> Patient was cared for in conjunction with an advanced practice practitioner.? I reviewed the chart and all pertinent data including imaging, telemetry, and laboratory results.? I discussed the patient in detail with the advanced practice practitioner.? Please see? their documentation for progress note, testing results and agreed upon plan of care for the patient. Subjective 2 Subjective: Patient could not fit in the life vest. Patient has positive blood cultures including Staphylococcus aureus. Platelets still low. Denies shortness of breath. Continues to diurese well. -1760. No diuretics have been given. Patient still in afib with uncontrolled rates. Digoxin has been increased to 250 mcg. Vitals/I&O/Wt Last Vital Signs Temp 98.0 F 08/06/25 08:00 Pulse 105 H 08/06/25 12:00 Resp 20 H 08/06/25 12:00 BP 108/69 08/06/25 12:00 Pulse Ox 96 08/06/25 12:00 O2 Del Method Nasal Cannula 08/05/25 05:24 O2 Flow Rate 3 08/05/25 17:04 FiO2 40 08/04/25 20:30 08/06/25 08/06/25 08/06/25 06:59 14:59 22:59 Intake Total 240 / 240 Output Total 1450 / 3300 Balance -1450 / -2340 240 / 240 Weight last 48 hrs Weight 397 lb 7.895 oz Weight 400 lb 5.751 oz Physical Exam 2 Narrative: General: No apparent distress Respiratory: Normal respiratory effort, clear to auscultation bilaterally throughout all lung cotter, no use of accessory muscles Cardio: No JVD, regular rate, regular rhythm, S1 S2 normal, no murmurs, peripheral pulses 2+ radial palpated bilaterally Extremities: Full ROM, normal, normal capillary refill, no cyanosis or edema Neuro: Alert and oriented x4 Psych: Affect normal Skin: No rashes or lesions noted, no wounds Urinary Catheter Management: Fisher: Cath Placed During This Visit: yes Reason for Continuing Indwelling Catheter: Accurate Measurement of Urinary Output in Critically Ill Patients Urinary Catheter Date of Insertion: 07/30/25 Urinary Catheter Time of Insertion: 01:30 Data 08/06/25 02:54 08/06/25 04:31 Micro: Microbiology 07/29/25 21:02 Blood Culture - Preliminary Blood Staphylococcus aureus A&P Assessment and plan 1. Ischemic dilated cardiomyopathy: 2. Atrial fibrillation with rapid ventricular response: 3. Elevated troponin: 4. Thrombocytopenia: 5. Acute on chronic renal insufficiency: 6. Aneurysm of left iliac artery: Plan: Continue to hold diuretics, as patient continues to diurese well on his own. He is euvolemic at this time. Continue digoxin 250 mcg. Metoproll 12.5 BID has been started for rate control. Will observe patient for now as his rates have come down in the low 100s. Continue Midodrine 10 mg TID. Recheck digoxin level in the AM. If patient's rates increase, will consider re bolusing with amio and placing on a drip. Once BP allows and rate is controlled, initiate GDMT. PDMP PDMP Reviewed: Not Reviewed Attestations 2 Medical Necessity Statement*: Deferred to primary Coding Level of Care Code Acute Code for [facility] Diagnoses Ischemic dilated cardiomyopathy I25.5; I42.0 Atrial fibrillation with rapid ventricular response I48.91 Elevated troponin R79.89 Thrombocytopenia D69.6 Acute on chronic renal insufficiency N28.9; N18.9 Aneurysm of left iliac artery I72.3
--- NOTE | 2025-08-06 18:36 | P.PN_ITS ---
Subjective 2 Subjective: Heart rate remains uncontrolled, modify medication management by cardiology. Patient complains of lack of hemin of occasion making it difficult to use the BiPAP at night. Vitals/I&O/Wt Last Vital Signs Temp 97.8 F 08/06/25 16:00 Pulse 109 H 08/06/25 16:00 Resp 30 H 08/06/25 16:00 BP 136/79 08/06/25 16:00 Pulse Ox 95 08/06/25 16:00 O2 Del Method Nasal Cannula 08/05/25 05:24 O2 Flow Rate 3 08/05/25 17:04 FiO2 40 08/04/25 20:30 08/06/25 08/06/25 08/06/25 06:59 14:59 22:59 Intake Total 240 / 240 118 / 358 Output Total 1450 / 3300 900 / 900 Balance -1450 / -2340 240 / 240 -782 / -542 Weight last 48 hrs Weight 180.3 kg Weight 181.6 kg Physical Exam 2 Urinary Catheter Management: Fisher: Cath Placed During This Visit: yes Reason for Continuing Indwelling Catheter: Accurate Measurement of Urinary Output in Critically Ill Patients Urinary Catheter Date of Insertion: 07/30/25 Urinary Catheter Time of Insertion: 01:30 Data 08/06/25 02:54 08/06/25 04:31 Micro: Microbiology 07/29/25 21:02 Blood Culture - Preliminary Blood Staphylococcus aureus A&P Assessment and plan 1. Atrial fibrillation with rapid ventricular response: Blood pressure better controlled today, continues in A-fib. Maintain digoxin 250 mcg daily. Continue amiodarone. Continue metoprolol to tartrate 12.5 mg twice daily per cardiology. Monitor heart rate. Check digoxin level 12 hours after last infusion, 9 PM. Magnesium, potassium, CMP in a.m. 2. Hypotension: Resolved, discontinued midodrine due to HR effects 3. MSSA bacteremia: MSSA. Resistant to penicillin, intermediate sensitivity to clindamycin. Unclear source of bacteremia. Without any known devices. Does have some chronic cracks/wounds of his feet/toes, however, without signs of infection, drainage. Afebrile, without leukocytosis. Chest x-ray with congestive changes, possible infiltrate. Pleural effusions. Repeat blood culture from 07/30 so far negative. Follow-up. ID recommendation for discharge home with cefazolin every 8 hours IV, Home with home health. 4. Acute on chronic diastolic (congestive) heart failure: LifeVest could not be fitted due to size limitations. In negative balance. Blood pressure soft. Renal function is improving. Hypoalbuminemia, repeat albumin. Repeat chemistry. If blood pressure allows resume diuresis. Persistent right-sided pleural effusion, would benefit from further diuresis if blood pressure allows. Hold Bumex with hypotension. Reviewed chemistry. Mild hypokalemia. Replace. With CKD, reassessment function, with risk of DILLAN, electrolyte abnormality repeat chemistry. Underwent stress testing. Without evidence of acute ischemia. Noted areas of hypoperfusion without reversibility likely prior MA. Reviewed CMP. Repeat. On TTE noted decreased EF, 35%. Reviewed prior echocardiograms, unfortunately they were not interpretable. Cardiology recommends rate control for now. Patient does have bilateral edema, no crackles. Consider diuresis tomorrow starting tomorrow and rate better controlled 5. Thrombocytopenia: Platelets with improvement today up to 53. Repeat CBC. If maintaining consider restarting low-dose anticoagulation. Follow-up with hematology. Would discontinue acetazolamide at discharge. 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 Discontinued prophylactic Lovenox. Discussed with him options going forward, consideration of reassessment of blood counts, in case improving with withholding acetazolamide consider at some point restarting anticoagulation. Otherwise if not tolerate anticoagulation may have to consider IVC filter, possibly Watchman device. B12 greater than 2000. Peripheral smear reviewed, mild leukocytosis with thrombocytopenia. No blasts or nucleated red cells identified. Discussed with him trial of prophylactic anticoagulation. Reassess platelets. Continue to hold acetazolamide may be causing platelet suppression, will not continue at this time. 6. Drug-induced hepatitis: Resolving. LFTs appear to be improving. Reviewed CMP. Patient has volume overload however his LFTs are markedly elevated and I think this may be related to his duloxetine. Duloxetine can cause drug-induced hepatitis and should be stopped. Additionally have held his statin for now. Consider alternative agent at discharge, psychiatry consult and/or follow-up. 7. Morbid obesity with BMI of 50.0-59.9, adult: Patient was counseled regarding need for weight loss as well as treatment of his sleep apnea and is willing to be on a weight loss diet. Also might consider GLP-1 agonist. 8. BONITA (obstructive sleep apnea): Continue positive pressure ventilation, noninvasive at night. Add humidification to BiPAP 9. Declining functional status: Discussed with business case analyst consideration disposition planning. SNF considered. He has been deconditioned. Will need to obtain PT evaluation once his heart rate is available better. He prefers to return home. 10. History of pulmonary embolism: Xarelto held with thrombocytopenia on presentation. Discussed with him risk of bleeding. Follow-up platelet levels. Hold acetazolamide. Consider options of resuming partial coagulation, versus IVC filter as discussed. 11. History of stage 3b chronic kidney disease: Creatinine running 2. Follow kidney function with diuresis. DILLAN improved with resolution of A-fib 12. Elevated troponin: Troponin over 600 and in 2023 was 25 this is suspicious for NSTEMI cardiology has been consulted he is not have any chest pain. Reviewed TTE. Reviewed cardiology note Reviewed stress test. Discussed with him. PDMP PDMP Reviewed: Not Reviewed Attestations 2 Medical Necessity Statement*: Continue medical admission for placement to home health with 6 weeks of IV antibiotics, treatment of A-fib RVR with medication management. Underlying decompensated heart failure, hospitalization for euvolemia. Diagnoses Atrial fibrillation with rapid ventricular response I48.91 Hypotension I95.9 MSSA bacteremia R78.81; B95.61 Acute on chronic diastolic (congestive) heart failure I50.33 Thrombocytopenia D69.6 Drug-induced hepatitis K71.6; T50.905A Morbid obesity with BMI of 50.0-59.9, adult E66.01; Z68.43 BONITA (obstructive sleep apnea) G47.33 Declining functional status R53.81 History of pulmonary embolism Z86.711 History of stage 3b chronic kidney disease Z87.448 Elevated troponin R79.89
[2025-08-06 20:29] LABS: Digoxin 0.8 ng/mL (0.6-1.2)
[2025-08-07] VITALS (7 sets, daily range): BP systolic 94–143; BP diastolic 60–86; PULSE 100–118; RESP 19–28; TEMP 36.4–36.9; O2SAT 93–97
[2025-08-07] MEDS: ceFAZolin 2,000 mg SDV 2000 MG IVP ×3 (02:02→16:50)
[2025-08-07] MEDS: DAPAGLIFLOZIN 10 MG TABLET PO (05:14)
[2025-08-07] MEDS: mupirocin oint 22 gm 1 APPLIC TOPICAL ×2 (05:17→16:49)
[2025-08-07 06:45] LABS: Hematocrit 40.7 % (37-53); Hemoglobin 10.60 g/dL (11.27-16.99); Mean Corpuscular HGB Conc 26.0 g/dL (30-55); Mean Corpuscular Hemoglobin 24.5 pg (27-33); Mean Corpuscular Volume 94.2 fl (82-101); Nucleated Red Blood Cells % 0 %; Platelet Count 80 10^3/cmm (157-399); Red Blood Count 4.32 10^6/uL (3.85-5.65); White Blood Count 8.28 10^3/uL (3.29-11.43)
[2025-08-07 06:51] LABS: Digoxin 1.9 ng/mL (0.6-1.2)
[2025-08-07 07:15] LABS: Alanine Aminotransferase 13 U/L (0-41); Albumin Level 3.3 g/dL (3.5-5.2); Alkaline Phosphatase 103 U/L (40-130); Anion Gap 10.8 (5-19); Aspartate Amino Transferase 29 U/L (0-40); Blood Urea Nitrogen 23 mg/dL (6-20); Calcium 8.8 mg/dL (8.5-10.5); Carbon Dioxide 39 mmol/L (22-29); Chloride 90 mmol/L (98-107); Globulin 2.9 g/dL (1.3-4.6); Glucose 103 mg/dL (65-115); Magnesium 1.8 mg/dL (1.7-2.3); Osmolality Calculated 286 mOsm/kg (285-295); Potassium 3.8 mmol/L (3.5-5.1); Sodium 136 mmol/L (136-145); Total Protein 6.2 g/dL (6.6-8.7)
--- NOTE | 2025-08-07 07:29 | PM.PN ---
Subjective Subjective: ID progress note No acute interim events Platelets improving at 80K today HH unable to be arranged,weekly PICC line dressing changes and labs to be obtained at the infusion center Picc placed 08/06 Medications: Reviewed: Yes Medication Review Details: Current Medications Acetazolamide (Acetazolamide 250 Mg Tablet) 125 mg PO DAILY [facility] Last Admin: 08/01/25 05:31 Dose: 125 mg Aminophylline (Aminophylline 25 Mg/Ml Sdv 20 Ml) 25 mg IVP Q2M PRN PRN Reason: see dose instructions Stop: 08/02/25 06:16 Amiodarone HCl (Amiodarone 200 Mg Tablet) 200 mg PO BID [facility] Last Admin: 08/01/25 16:15 Dose: 200 mg Bumetanide (Bumetanide 0.25 Mg/Ml Sdv 10 Ml) 2 mg IVP BID [facility] Last Admin: 08/01/25 16:15 Dose: 2 mg Diltiazem HCl (Diltiazem 30 Mg Tablet) 30 mg PO TID [facility] Last Admin: 08/01/25 12:59 Dose: 30 mg Vancomycin HCl (Vancocin) 1,500 mg in 300 mls @ 200 mls/hr IV Q24H [facility] Last Infusion: 08/01/25 14:30 Dose: Infused Lorazepam (Lorazepam 2 Mg/Ml Inj 1 Ml) 0.5 mg IVP Q6H PRN PRN Reason: ANXIETY Metolazone (Metolazone 5 Mg Tablet) 5 mg PO DAILY [facility] Last Admin: 08/01/25 05:30 Dose: 5 mg Metoprolol Tartrate (Metoprolol Tartrate 50 Mg Tablet) 50 mg PO BID@0900,2100 [facility] Last Admin: 08/01/25 08:56 Dose: 50 mg Nitroglycerin (Nitroglycerin 0.4 Mg Sublingual Tablet) 0.4 mg SUBLINGUAL Q5M PRN PRN Reason: CHEST PAIN Stop: 08/02/25 06:16 Ondansetron HCl (Ondansetron 2 Mg/Ml Sdv 2 Ml) 4 mg IVP Q6H PRN PRN Reason: NAUSEA AND VOMITING Last Admin: 07/30/25 13:33 Dose: 4 mg Ondansetron HCl (Ondansetron 2 Mg/Ml Sdv 2 Ml) 4 mg IVP Q2M PRN PRN Reason: NAUSEA Potassium Chloride (Potassium Chloride Er 20 Meq Tablet) 20 meq PO BID [facility] Last Admin: 08/01/25 16:16 Dose: 20 meq Vitals/I&O/Wt Last Vital Signs Temp 98.5 F 08/07/25 04:00 Pulse 118 H 08/07/25 05:14 Resp 28 H 08/07/25 04:00 BP 100/60 08/07/25 04:00 Pulse Ox 97 08/07/25 04:00 O2 Del Method Room Air 08/06/25 20:00 O2 Flow Rate 3 08/05/25 17:04 FiO2 40 08/04/25 20:30 08/06/25 08/07/25 08/07/25 22:59 06:59 14:59 Intake Total 478 / 718 240 / 958 Output Total 1350 / 1350 400 / 1750 Balance -872 / -632 -160 / -792 Weight last 48 hrs Weight 180.9 kg Weight 180.3 kg Physical Exam Narrative: Assessed via telehealth feels improved, awake alert and oriented, no new complaints today Urinary Catheter Management: Fisher: Cath Placed During This Visit: yes Reason for Continuing Indwelling Catheter: Accurate Measurement of Urinary Output in Critically Ill Patients Urinary Catheter Date of Insertion: 07/30/25 Urinary Catheter Time of Insertion: 01:30 Data 08/07/25 06:27 08/07/25 06:27 A&P Assessment and plan 1. MSSA (methicillin susceptible Staphylococcus aureus) septicemia: 49M with systolic heart failure, admitted with worsening anasarca, transminitis, DILLAN on CKD, Systolic heart failure exacerbation and found to have MSSA septicemia. Lower extremity ulceration may be potential source no recent procedures, no known cardiac hardware Blood cx currently clear as of 07/30/25 D/c Vancomycin, change to organism directed therapy for MSSA with Cefazolin 2 g iv every 8 hrs CXR upon admission with mass like central consolidation right lung- check CT chest Additionally given transaminitis , recommend RUQ imaging. Given thrombocytopenia, assess splenomegaly CT CAP w/o contrast ordered for above information 2. On pre-exposure prophylaxis for HIV: last HIV screen negative 6 months ago per verbal history Consents for HIV screening today 3. Elevated liver enzymes: Check acute hepatitis screening RUQ imaging ordered as above 4. Atrial fibrillation with rapid ventricular response: per primary 5. Thrombocytopenia: ? cause ? ITP Check for splenomegaly , screen for hep C , HIV 6. Systolic heart failure: management per cardiology 7. Stasis dermatitis: with LE ulceration 8. Eschar of lower leg: mupirocin application locally Plan: 08/05/25: CT chest with large pleural effusion with atelactasis, no abdominal pathology. No splenomegaly. CT Leg without any abscess, noted joint fluid in the foot supect reactive, no clinical co relate for a septic joint .Incidentally noted pathological fractures of the foot, age indeterminate. patient reports he hasnt been able to bear weight for months, likely related to these fractures. Last + Blood cx from 07/29. All blood cx from 07/30 remain negative to date. Ideally would recommend a MILO to assess for vegetations. If negative, potentially a 4 week course of abx may be adequate, however defer to cardiology if feasible to perform with his thrombocytopenia. In the absence of MILO, will proceed with 6 week course of iv cefazolin 2g iv TID (07/30-09/10). Patient prefers to have home infusion at this time, states he has family members who can help. Case management consult to arrange home health for iv abx. Weekly labs incl CBC, LFT, creat to be faxed to ID clinic 08/07/25: No acute interim events. Picc line placed on 08/06. HIV and Hepatitis B and C screening non reactive. Home health unable to be arranged in spite of multiple referrals. Patient will come to infusion center once a week for Picc line dressing changes and labs. Recommend discharge with cefazolin 2 g iv TID until 09/10(6 weeks total) with weekly labs as above. TTE without gross vegetations, MILO deferred due to thrombocytopenia. F/up ID clinic on Aug PDMP PDMP Reviewed: Not Reviewed Attestations Medical Necessity Statement*: per admitting note Coding Level of Care Code Acute Code for [facility] Fwd Diagnoses MSSA (methicillin susceptible Staphylococcus aureus) septicemia A41.01 On pre-exposure prophylaxis for HIV Z79.899 Elevated liver enzymes R74.8 Atrial fibrillation with rapid ventricular response I48.91 Thrombocytopenia D69.6 Systolic heart failure I50.20 Stasis dermatitis I87.2 Eschar of lower leg R23.4
--- NOTE | 2025-08-07 12:05 | P.PN_ITS ---
<Statement entered by Azeem Weinstein M.D - 08/12/25 11:40> Patient was cared for in conjunction with an advanced practice practitioner.? I reviewed the chart and all pertinent data including imaging, telemetry, and laboratory results.? I discussed the patient in detail with the advanced practice practitioner.? Please see? their documentation for progress note, testing results and agreed upon plan of care for the patient. Subjective 2 Subjective: Patient doing well today. No complaints. BP has improved. HR still elevated in the 100s. Platelet count improved but they are quite labile. Vitals/I&O/Wt Last Vital Signs Temp 97.6 F 08/07/25 08:00 Pulse 103 H 08/07/25 08:00 Resp 27 H 08/07/25 08:00 BP 119/72 08/07/25 08:00 Pulse Ox 96 08/07/25 08:00 O2 Del Method Room Air 08/06/25 20:00 O2 Flow Rate 3 08/05/25 17:04 FiO2 40 08/04/25 20:30 08/06/25 08/07/25 08/07/25 22:59 06:59 14:59 Intake Total 478 / 718 240 / 958 360 / 360 Output Total 1350 / 1350 400 / 1750 450 / 450 Balance -872 / -632 -160 / -792 -90 / -90 Weight last 48 hrs Weight 398 lb 13.059 oz Weight 397 lb 7.895 oz Physical Exam 2 Narrative: General: No apparent distress Respiratory: Normal respiratory effort, clear to auscultation bilaterally throughout all lung cotter, no use of accessory muscles Cardio: No JVD, regular rate, regular rhythm, S1 S2 normal, no murmurs, peripheral pulses 2+ radial palpated bilaterally Extremities: Full ROM, normal, normal capillary refill, no cyanosis or edema Neuro: Alert and oriented x4 Psych: Affect normal Skin: No rashes or lesions noted, no wounds Urinary Catheter Management: Fisher: Cath Placed During This Visit: yes, but has since been removed by the nurse Reason for Continuing Indwelling Catheter: Accurate Measurement of Urinary Output in Critically Ill Patients Urinary Catheter Date of Insertion: 07/30/25 Urinary Catheter Time of Insertion: 01:30 Date Urinary Catheter Removed: 08/07/25 Time Urinary Catheter Discontinued: 09:35 Data 08/07/25 06:27 08/07/25 06:27 A&P Assessment and plan 1. Ischemic dilated cardiomyopathy: 2. Atrial fibrillation with rapid ventricular response: 3. Elevated troponin: 4. Thrombocytopenia: 5. Acute on chronic renal insufficiency: 6. Aneurysm of left iliac artery: Plan: Patient doing well. Blood pressures improved. Will increase metoprolol to 25 mg p.o. twice daily for rate control. Dig level was high at 0.9. Recommend holding Digoxin in the AM, recheck in 1 day, then decrease to 125 mcg daily if digoxin level is normal. F/U in the clinic in 1 week. May give lasix 40 PO PRN weight gain of 3 pounds in a day or 5 pounds in a week with prn potassium 20 meq as well. PDMP PDMP Reviewed: Not Reviewed Attestations 2 Medical Necessity Statement*: May be discharged from cardiology standpoint. Coding Level of Care Code Acute Code for [facility] Fwd Diagnoses Ischemic dilated cardiomyopathy I25.5; I42.0 Atrial fibrillation with rapid ventricular response I48.91 Elevated troponin R79.89 Thrombocytopenia D69.6 Acute on chronic renal insufficiency N28.9; N18.9 Aneurysm of left iliac artery I72.3
--- NOTE | 2025-08-07 12:46 | PC.NURSE ---
Irasema MarinFELT HOOKER is notified that Robert would not be able to get here tomorrow (Aug 08) for a digoxin level and his home healthcare nurse would not be able to draw this level for him per case management. He is scheduled for labs and a PICC line dressing change on 08/13, so his digoxin level can be drawn at that time. Per Irasema he is hold his digoxin until labs are drawn and the clinic contacts him to restart.
--- NOTE | 2025-08-07 15:13 | PC.NURSE ---
Per Irasema a digoxin level is ordered for 08/08 with morning labs.
--- NOTE | 2025-08-07 20:07 | P.PN_ITS ---
Subjective 2 Subjective: Pulse rate stable at 103 this morning Patient tells me that he has difficult social situation at home, cannot afford to pay his rent Wheelchair has been provided Plan changed to discharge patient to SNF Outpatient medications, including cefazolin have been set up, discussed with ID Fisher indwelling has been removed, patient reports spontaneous urination Spoke with infectious disease, concerned about closed fractures of the foot on x-ray. Recommend follow-up with podiatry Vitals/I&O/Wt Last Vital Signs Temp 97.6 F 08/07/25 08:00 Pulse 117 H 08/07/25 16:00 Resp 21 H 08/07/25 16:00 BP 143/74 08/07/25 16:00 Pulse Ox 95 08/07/25 16:00 O2 Del Method Room Air 08/06/25 20:00 O2 Flow Rate 3 08/05/25 17:04 FiO2 40 08/04/25 20:30 08/07/25 08/07/25 08/07/25 06:59 14:59 22:59 Intake Total 240 / 958 600 / 600 840 / 1440 Output Total 400 / 1750 550 / 550 225 / 775 Balance -160 / -792 50 / 50 615 / 665 Weight last 48 hrs Weight 180.9 kg Weight 180.3 kg Physical Exam 2 Const: COMMON NORMALS: patient oriented x3 and alert GENERAL APPEARANCE: c ooperative ORIENTATION/CONSCIOUSNESS: Yes awake HENMT: COMMON NORMALS: oropharynx normal Neck/C-Spine: COMMON NORMALS: no JVD Resp: COMMON NORMALS: normal respiratory effort and clear to auscultation bilaterally AUSCULTATION: clear to auscultation bilaterally Cardio: COMMON NORMALS: no JVD, regular rhythm, S1 normal heart sound present, S2 normal heart sound present and No murmurs present (Cardio) RATE: t achycardic RHYTHM: regular rhythm HEART SOUNDS: S1 normal heart sound present and S2 normal heart sound present GI: COMMON NORMALS: Normal to inspection, nondistended, normoactive bowel sounds present, Soft to palpation and non-tender PALPATION: Yes Soft to palpation Extremity: COMMON NORMALS: no joint enlargement and no pedal edema GENERAL: Yes edema (2+ bilateral LE edema) Neuro: COMMON NORMALS: patient oriented x3 and moves all extremities S ENSORIUM/ORIENTATION: Yes alert Skin: COMMON NORMALS: no rashes or lesions noted GENERAL SKIN EXAM: no rashes or lesions noted Urinary Catheter Management: Fisher: Cath Placed During This Visit: yes, but has since been removed by the nurse Reason for Continuing Indwelling Catheter: Accurate Measurement of Urinary Output in Critically Ill Patients Urinary Catheter Date of Insertion: 07/30/25 Urinary Catheter Time of Insertion: 01:30 Date Urinary Catheter Removed: 08/07/25 Time Urinary Catheter Discontinued: 09:35 Data 08/07/25 06:27 08/07/25 06:27 A&P Assessment and plan 1. Systolic heart failure: Plan: Atrial fibrillation with rapid ventricular response, stable MSSA bacteremia, stable, unclear source, empiric treatment with cefazolin Acute decompensated heart failure, stable, cannot be fitted for LifeVest Thrombocytopenia, improved, stable Hepatitis, with elevated LFTs, congestive hepatopathy that the versus drug- induced hepatitis, resolving Morbid obesity with BMI greater than 50 Obstructive sleep apnea, tolerating CPAP during hospitalization Chronic PE, prior previously treated with Xarelto CKD stage IIIb Type II [place], likely due to acute decompensated heart failure, stable, no chest pain Discharged to SNF with ID recommendation for cefazolin every 8 hours IV for total of 6 weeks Advance GDMT with increase of metoprolol, continue digoxin reduced dose, follow- up digoxin levels outpatient Romulo mason he has very low BMI okay little protein calorie malnutrition continue amiodarone 400 mg twice daily Hold digoxin, defer to cardiology Metoprolol to tartrate 25 mg twice daily Plan for discharge to detention facility, follow-up with podiatry for close foot/ankle fracture, cardiology for GDMT and heart rate control, titration of digoxin, PT/OT. Plan for discharge pending authorization for SNF DVT prophylaxis?held due to thrombocytopenia GI prophylaxis?not indicated PDMP PDMP Reviewed: Not Reviewed Attestations 2 Medical Necessity Statement*: Continue medical admission for placement to home health with 6 weeks of IV antibiotics, treatment of A-fib RVR with medication management. Underlying decompensated heart failure, hospitalization for euvolemia. Diagnoses Systolic heart failure I50.20
[2025-08-08] VITALS (8 sets, daily range): BP systolic 125–152; BP diastolic 86–102; PULSE 98–122; RESP 19–29; TEMP 36.6–36.9; O2SAT 95–97
[2025-08-08] MEDS: ceFAZolin 2,000 mg SDV 2000 MG IVP ×3 (01:27→16:29)
[2025-08-08] MEDS: mupirocin oint 22 gm 1 APPLIC TOPICAL ×2 (05:36→16:30)
[2025-08-08] MEDS: DAPAGLIFLOZIN 10 MG TABLET PO (05:36)
[2025-08-08 05:53] LABS: Hematocrit 40.4 % (37-53); Hemoglobin 10.50 g/dL (11.27-16.99); Mean Corpuscular HGB Conc 26.0 g/dL (30-55); Mean Corpuscular Hemoglobin 24.4 pg (27-33); Mean Corpuscular Volume 94.0 fl (82-101); Nucleated Red Blood Cells % 0 %; Positive M 1; Red Blood Count 4.30 10^6/uL (3.85-5.65); White Blood Count 10.57 10^3/uL (3.29-11.43)
[2025-08-08 06:23] LABS: Platelet Count 86 10^3/cmm (157-399)
[2025-08-08 07:32] LABS: Alanine Aminotransferase 7 U/L (0-41); Albumin Level 3.4 g/dL (3.5-5.2); Alkaline Phosphatase 110 U/L (40-130); Anion Gap 12.8 (5-19); Aspartate Amino Transferase 29 U/L (0-40); Blood Urea Nitrogen 24 mg/dL (6-20); Calcium 9.0 mg/dL (8.5-10.5); Carbon Dioxide 37 mmol/L (22-29); Chloride 92 mmol/L (98-107); Digoxin 0.8 ng/mL (0.6-1.2); Globulin 3.4 g/dL (1.3-4.6); Glucose 105 mg/dL (65-115); Osmolality Calculated 290 mOsm/kg (285-295); Potassium 3.8 mmol/L (3.5-5.1); Sodium 138 mmol/L (136-145); Total Protein 6.8 g/dL (6.6-8.7)
[2025-08-08] MEDS: ferrous sulfate EC 325 mg Tablet PO (08:14)
--- NOTE | 2025-08-08 09:04 | PC.NURSE ---
This person called Mariusz Ramachandran to schedule f/u. Clinic is closed due to Holiday.
--- NOTE | 2025-08-08 09:49 | PC.CHAP ---
Pastoral Care Encounter/Spiritual Assessment Type of Contact [] Declined podiatry doctor visit [] Patient/Family/Request visit [] Outpatient visit [] Follow-up visit [] Physician referral [] Code/Alert [x] Routine visit [] Staff referral [] Actively dying [] Patient sleeping [] Family support [] [] Out of room [] Palliative care [] [] Receiving care in room [] Pre-surgical visit [] Trauma [] Long length of stay [] ICU visit [] Other: Relational/Emotional Strength [x] Patient feels connected with others/family/visitors/staff [] Distress [] Loneliness/isolation [] Abandonment Spirituality of Patient [x] Person of Jayne [] Attends Quaker of their Jayne [x] Believes in Prayer [] Reads Bible or Quaker materials [] There are Spiritual issues to be addressed Central Office Worker 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 [x] Prayer [x] Active listening [x] Non-anxious presence [x] Spiritual/emotional support [] Crisis/trauma care [] Spiritual counseling [] Bereavement support [] Provided bereavement packet [] Provided Bible/devotional materials [] Provided toy/stuffed animal, coloring book to patient or family member [] Provided Communion [] Anointing/[place] [] Salvation [x] Completed spiritual assessment [] Other: Impact on Illness or Injury [] Angry [] Fearful [] Anxious [] Often cries [] Exhaustion [] Unable to work [] Unable to attend taoist [] Unable to walk/stand [] Unable to read [] Unable to drive [] Unable to eat/drink [] Unable to sleep [] Unable to be with family [] Patient intubated [] Other: Summary Time spent with patient 5 min
--- NOTE | 2025-08-08 12:39 | PC.SOCIAL ---
IMM Update pg 2 of IMM updated and reviewed w/ patient. Copy provided and copy dated, initialed and placed in chart.
--- NOTE | 2025-08-08 15:13 | P.PN_ITS ---
<Statement entered by Azeem Weinstein M.D - 08/12/25 12:14> Patient was cared for in conjunction with an advanced practice practitioner.? I reviewed the chart and all pertinent data including imaging, telemetry, and laboratory results.? I discussed the patient in detail with the advanced practice practitioner.? Please see? their documentation for progress note, testing results and agreed upon plan of care for the patient. Subjective 2 Subjective: Patient doing well today. No complaints. HR staying around 110. Appears euvolemic. Vitals/I&O/Wt Last Vital Signs Temp 97.8 F 08/08/25 08:00 Pulse 111 H 08/08/25 12:00 Resp 29 H 08/08/25 12:00 BP 138/101 08/08/25 12:00 Pulse Ox 96 08/08/25 12:00 O2 Del Method Room Air 08/08/25 04:00 O2 Flow Rate 2 08/08/25 01:00 FiO2 40 08/04/25 20:30 08/08/25 08/08/25 08/08/25 06:59 14:59 22:59 Intake Total 480 / 1920 840 / 840 Output Total 200 / 1375 300 / 300 Balance 280 / 545 540 / 540 Weight last 48 hrs Weight 398 lb 13.059 oz Weight 398 lb 13.059 oz Physical Exam 2 Narrative: General: No apparent distress Respiratory: Normal respiratory effort, clear to auscultation bilaterally throughout all lung cotter, no use of accessory muscles Cardio: No JVD, regular rate, regular rhythm, S1 S2 normal, no murmurs, peripheral pulses 2+ radial palpated bilaterally Extremities: Full ROM, normal, normal capillary refill, no cyanosis or edema Neuro: Alert and oriented x4 Psych: Affect normal Skin: No rashes or lesions noted, no wounds Urinary Catheter Management: Fisher: Cath Placed During This Visit: yes, but has since been removed by the nurse Reason for Continuing Indwelling Catheter: Accurate Measurement of Urinary Output in Critically Ill Patients Urinary Catheter Date of Insertion: 07/30/25 Urinary Catheter Time of Insertion: 01:30 Date Urinary Catheter Removed: 08/07/25 Time Urinary Catheter Discontinued: 09:35 Data 08/08/25 05:35 08/08/25 06:47 Micro: Microbiology 07/29/25 21:02 Blood Culture - Final Blood Staphylococcus aureus A&P Assessment and plan 1. Ischemic dilated cardiomyopathy: 2. Atrial fibrillation with rapid ventricular response: 3. Elevated troponin: 4. Thrombocytopenia: 5. Acute on chronic renal insufficiency: 6. Aneurysm of left iliac artery: Plan: Patient doing well. Blood pressures improved. He is tolerating Metoprolol to 25 mg p.o. twice daily for rate control. Dig level was normal. Recommend starting 125 mcg daily. Recheck level in a couple of day. F/U in the clinic in 1 week. May give lasix 40 PO PRN weight gain of 3 pounds in a day or 5 pounds in a week with prn potassium 20 meq as well. At this time, anticoagulation contraindicated due to low platelet count and anemia. May need to consider watchman in the near future, as patient will be at increased risk of stroke with the heart failure. [id number] is 2 PDMP PDMP Reviewed: Not Reviewed Attestations 2 Medical Necessity Statement*: Deferred to primary Coding Level of Care Code Acute Code for [facility] Fwd Diagnoses Ischemic dilated cardiomyopathy I25.5; I42.0 Atrial fibrillation with rapid ventricular response I48.91 Elevated troponin R79.89 Thrombocytopenia D69.6 Acute on chronic renal insufficiency N28.9; N18.9 Aneurysm of left iliac artery I72.3
--- NOTE | 2025-08-08 18:41 | P.PN_ITS ---
Subjective 2 Subjective: Pulse rate is now normalized, stable from 80 to 90 bpm on digoxin 0.25 mcg daily, amiodarone 400 mg p.o. twice daily. Patient has no complaints. Tolerating Ancef. Labs stable with magnesium, potassium supplement. Still complains of mild leg swelling bilaterally. Vitals/I&O/Wt Last Vital Signs Temp 97.6 F 08/10/25 04:00 Pulse 90 08/10/25 04:00 Resp 18 08/10/25 04:00 BP 107/70 08/10/25 04:00 Pulse Ox 93 08/10/25 04:00 O2 Del Method Room Air 08/10/25 04:00 O2 Flow Rate 2 08/09/25 08:54 FiO2 40 08/04/25 20:30 08/09/25 08/09/25 08/10/25 14:59 22:59 06:59 Intake Total 949 / 949 360 / 1309 Output Total 335 / 335 375 / 710 350 / 1060 Balance 614 / 614 -15 / 599 -350 / 249 Weight last 48 hrs Weight 180.3 kg Physical Exam 2 Const: COMMON NORMALS: patient oriented x3 and alert GENERAL APPEARANCE: c ooperative ORIENTATION/CONSCIOUSNESS: Yes awake HENMT: COMMON NORMALS: oropharynx normal Neck/C-Spine: COMMON NORMALS: no JVD Resp: COMMON NORMALS: normal respiratory effort and clear to auscultation bilaterally AUSCULTATION: clear to auscultation bilaterally Cardio: COMMON NORMALS: no JVD, regular rhythm, S1 normal heart sound present, S2 normal heart sound present and No murmurs present (Cardio) RATE: t achycardic RHYTHM: regular rhythm HEART SOUNDS: S1 normal heart sound present and S2 normal heart sound present GI: COMMON NORMALS: Normal to inspection, nondistended, normoactive bowel sounds present, Soft to palpation and non-tender PALPATION: Yes Soft to palpation Extremity: COMMON NORMALS: no joint enlargement and no pedal edema GENERAL: Yes edema (2+ bilateral LE edema) Neuro: COMMON NORMALS: patient oriented x3 and moves all extremities S ENSORIUM/ORIENTATION: Yes alert Skin: COMMON NORMALS: no rashes or lesions noted GENERAL SKIN EXAM: no rashes or lesions noted Urinary Catheter Management: Fisher: Cath Placed During This Visit: yes, but has since been removed by the nurse Reason for Continuing Indwelling Catheter: Accurate Measurement of Urinary Output in Critically Ill Patients Urinary Catheter Date of Insertion: 07/30/25 Urinary Catheter Time of Insertion: 01:30 Date Urinary Catheter Removed: 08/07/25 Time Urinary Catheter Discontinued: 09:35 Data 08/08/25 05:35 08/08/25 06:47 A&P Assessment and plan 1. Systolic heart failure: Plan: Atrial fibrillation with rapid ventricular response, stable MSSA bacteremia, stable, unclear source, empiric treatment with cefazolin Acute decompensated heart failure, stable, cannot be fitted for LifeVest Thrombocytopenia, improved, stable Hepatitis, with elevated LFTs, congestive hepatopathy that the versus drug- induced hepatitis, resolving Morbid obesity with BMI greater than 50 Obstructive sleep apnea, tolerating CPAP during hospitalization Chronic PE, prior previously treated with Xarelto CKD stage IIIb Type II CT, likely due to acute decompensated heart failure, stable, no chest pain Discharged to SNF with ID recommendation for cefazolin every 8 hours IV for total of 6 weeks Advance GDMT with increase of metoprolol, continue digoxin reduced dose, follow- up digoxin levels outpatient continue amiodarone 400 mg twice daily Digoxin resumed by cardiology, Noted metoprolol 12 tartrate increased to 50 mg twice daily, patient tolerating. Plan for discharge to half-way facility, follow-up with podiatry for close foot/ankle fracture, cardiology for GDMT and heart rate control, titration of digoxin, PT/OT. Plan for discharge pending authorization for SNF Patient tells me that he has difficult social situation at home, cannot afford to pay his rent Wheelchair has been provided Plan changed to discharge patient to SNF Outpatient medications, including cefazolin have been set up, discussed with ID Fisher indwelling has been removed, patient reports spontaneous urination Spoke with infectious disease, concerned about closed fractures of the foot on x-ray. Recommend follow-up with podiatry DVT prophylaxis?held due to thrombocytopenia GI prophylaxis?not indicated PDMP PDMP Reviewed: Not Reviewed Attestations 2 Medical Necessity Statement*: Continue medical admission for placement to home health with 6 weeks of IV antibiotics, treatment of A-fib RVR with medication management. Underlying decompensated heart failure, hospitalization for euvolemia. Coding Level of Care Code Acute Code for [facility] Fwd Diagnoses Systolic heart failure I50.20
[2025-08-09] VITALS (7 sets, daily range): BP systolic 94–143; BP diastolic 79–96; PULSE 93–105; RESP 16–28; TEMP 36.4–36.8; O2SAT 92–97
[2025-08-09] MEDS: ceFAZolin 2,000 mg SDV 2000 MG IVP ×3 (01:26→17:07)
[2025-08-09] MEDS: mupirocin oint 22 gm 1 APPLIC TOPICAL ×2 (05:17→17:10)
[2025-08-09] MEDS: DAPAGLIFLOZIN 10 MG TABLET PO (05:17)
--- NOTE | 2025-08-09 18:40 | P.PN_ITS ---
Subjective 2 Subjective: Patient resting comfortably, no complaints. Awaiting SNF. Making good urine, Fisher removal 3 days ago. Tolerating medications. Vitals/I&O/Wt Last Vital Signs Temp 97.6 F 08/10/25 04:00 Pulse 90 08/10/25 04:00 Resp 18 08/10/25 04:00 BP 107/70 08/10/25 04:00 Pulse Ox 93 08/10/25 04:00 O2 Del Method Room Air 08/10/25 04:00 O2 Flow Rate 2 08/09/25 08:54 FiO2 40 08/04/25 20:30 08/09/25 08/09/25 08/10/25 14:59 22:59 06:59 Intake Total 949 / 949 360 / 1309 Output Total 335 / 335 375 / 710 350 / 1060 Balance 614 / 614 -15 / 599 -350 / 249 Weight last 48 hrs Weight 180.3 kg Physical Exam 2 Const: COMMON NORMALS: patient oriented x3 and alert GENERAL APPEARANCE: c ooperative ORIENTATION/CONSCIOUSNESS: Yes awake HENMT: COMMON NORMALS: oropharynx normal Neck/C-Spine: COMMON NORMALS: no JVD Resp: COMMON NORMALS: normal respiratory effort and clear to auscultation bilaterally AUSCULTATION: clear to auscultation bilaterally Cardio: COMMON NORMALS: no JVD, regular rhythm, S1 normal heart sound present, S2 normal heart sound present and No murmurs present (Cardio) RATE: t achycardic RHYTHM: regular rhythm HEART SOUNDS: S1 normal heart sound present and S2 normal heart sound present GI: COMMON NORMALS: Normal to inspection, nondistended, normoactive bowel sounds present, Soft to palpation and non-tender PALPATION: Yes Soft to palpation Extremity: COMMON NORMALS: no joint enlargement and no pedal edema GENERAL: Yes edema (2+ bilateral LE edema) Neuro: COMMON NORMALS: patient oriented x3 and moves all extremities S ENSORIUM/ORIENTATION: Yes alert Skin: COMMON NORMALS: no rashes or lesions noted GENERAL SKIN EXAM: no rashes or lesions noted Urinary Catheter Management: Fisher: Cath Placed During This Visit: yes, but has since been removed by the nurse Reason for Continuing Indwelling Catheter: Accurate Measurement of Urinary Output in Critically Ill Patients Urinary Catheter Date of Insertion: 07/30/25 Urinary Catheter Time of Insertion: 01:30 Date Urinary Catheter Removed: 08/07/25 Time Urinary Catheter Discontinued: 09:35 Data 08/08/25 05:35 08/08/25 06:47 A&P Assessment and plan 1. Systolic heart failure: Plan: Atrial fibrillation with rapid ventricular response, stable MSSA bacteremia, stable, unclear source, empiric treatment with cefazolin Acute decompensated heart failure, stable, cannot be fitted for LifeVest Thrombocytopenia, improved, stable Hepatitis, with elevated LFTs, congestive hepatopathy that the versus drug- induced hepatitis, resolving Morbid obesity with BMI greater than 50 Obstructive sleep apnea, tolerating CPAP during hospitalization Chronic PE, prior previously treated with Xarelto CKD stage IIIb Type II [place], likely due to acute decompensated heart failure, stable, no chest pain Discharged to SNF with ID recommendation for cefazolin every 8 hours IV for total of 6 weeks Advance GDMT with increase of metoprolol, continue digoxin reduced dose, follow- up digoxin levels outpatient continue amiodarone 400 mg twice daily Digoxin resumed by cardiology, Continue metoprolol tartrate 50 mg twice daily, patient tolerating. Plan for discharge to longterm facility, follow-up with podiatry for close foot/ankle fracture, cardiology for GDMT and heart rate control, titration of digoxin, PT/OT. Plan for discharge pending authorization for SNF Patient tells me that he has difficult social situation at home, cannot afford to pay his rent Wheelchair has been provided Plan changed to discharge patient to SNF Outpatient medications, including cefazolin have been set up, discussed with ID Fisher indwelling has been removed, patient reports spontaneous urination Spoke with infectious disease, concerned about closed fractures of the foot on x-ray. Recommend follow-up with podiatry DVT prophylaxis?held due to thrombocytopenia GI prophylaxis?not indicated PDMP PDMP Reviewed: Not Reviewed Attestations 2 Medical Necessity Statement*: Continue medical admission for placement to home health with 6 weeks of IV antibiotics, treatment of A-fib RVR with medication management. Underlying decompensated heart failure, hospitalization for euvolemia. Patient is now medically stable, plan for discharge to longterm facility pending authorization. Diagnoses Systolic heart failure I50.20
[2025-08-10] VITALS: BP 106/63; PULSE 102; RESP 20; TEMP 36.6
[2025-08-10] MEDS: ceFAZolin 2,000 mg SDV 2000 MG IVP ×2 (01:12→08:08)
[2025-08-10 04:00] VITALS: BP 107/70; PULSE 90; RESP 18; TEMP 36.4; O2SAT 93
[2025-08-10] MEDS: DAPAGLIFLOZIN 10 MG TABLET PO (05:27)
[2025-08-10] MEDS: mupirocin oint 22 gm 1 APPLIC TOPICAL (06:40)
[2025-08-10] MEDS: ferrous sulfate EC 325 mg Tablet PO (08:09)
[2025-08-10 08:29] VITALS: BP 133/97; PULSE 105; RESP 17; TEMP 37.2
--- NOTE | 2025-08-10 11:33 | P.DS_ITS ---
Discharge Providers Date of Admission: 07/29/25 22:56 Date of Discharge: August 10, 2025 Attending Provider at Admission: Cuong Britt MD Attending Provider at Discharge: Vahid Zayas MD Primary Care Provider: Cornel Fuentes MD Diagnoses at Discharge Discharge Diagnosis 1. Systolic heart failure: Reason for Visit Reason for Visit: SOB Brief History: Robert Juarez is a 49 year old male lives at home alone. He uses oxygen intermittently at home. His legs have been swollen. Patient has sleep apnea but does not use CPAP because he cannot sleep with it. Patient has had dyspnea on exertion and came in with A-fib RVR now on diltiazem drip. Patient is on amiodarone and Xarelto at home. He is noted to have low platelets. Patient had PE in May along with elevated LFTs. Was not 100% certain that he was taking his Eliquis but it was considered Eliquis failure and he was briefly on heparin here in the hospital then put on Xarelto for discharge. He has echocardiograms in 2021 and 2023 were limited by no windows were able to be found. Patient also has elevated creatinine at 2 with CKD. Patient denies chest pain Patient had elevated LFTs April 2024 and he was also on duloxetine then. He has had abdominal pain and loss of appetite the last 2 months Dad has cancer unknown type and is a smoker mom of diabetes Hospital Course Hospital Course Plan: Atrial fibrillation with rapid ventricular response, stable MSSA bacteremia, stable, unclear source, empiric treatment with cefazolin Acute decompensated heart failure, stable, cannot be fitted for LifeVest Thrombocytopenia, improved, stable Hepatitis, with elevated LFTs, congestive hepatopathy that the versus drug- induced hepatitis, resolving Morbid obesity with BMI greater than 50 Obstructive sleep apnea, tolerating CPAP during hospitalization Chronic PE, prior previously treated with Xarelto CKD stage IIIb Type II SD, likely due to acute decompensated heart failure, stable, no chest pain Discharged to SNF with ID recommendation for cefazolin every 8 hours IV for total of 6 weeks Advance GDMT with increase of metoprolol, continue digoxin reduced dose, follow- up digoxin levels outpatient continue amiodarone 400 mg twice daily Digoxin resumed by cardiology, Continue metoprolol tartrate 75 mg twice daily, patient tolerating. Plan for discharge to snf facility, follow-up with podiatry for close foot/ankle fracture, cardiology for GDMT and heart rate control, titration of digoxin, PT/OT. Plan for discharge pending authorization for SNF Patient tells me that he has difficult social situation at home, cannot afford to pay his rent Wheelchair has been provided Plan changed to discharge patient to SNF Outpatient medications, including cefazolin have been set up, discussed with ID Fisher indwelling has been removed, patient reports spontaneous urination Spoke with infectious disease, concerned about closed fractures of the foot on x-ray. Recommend follow-up with podiatry Physical Exam Const: COMMON NORMALS: patient oriented x3 and alert GENERAL APPEARANCE: cooperative ORIENTATION/CONSCIOUSNESS: Yes awake HENMT: COMMON NORMALS: oropharynx normal Neck/C-Spine: COMMON NORMALS: no JVD Resp: COMMON NORMALS: normal respiratory effort and clear to auscultation bilaterally AUSCULTATION: clear to auscultation bilaterally Cardio: COMMON NORMALS: no JVD, regular rhythm, S1 normal heart sound present, S2 normal heart sound present and No murmurs present (Cardio) RATE: tachycardic RHYTHM: regular rhythm HEART SOUNDS: S1 normal heart sound present and S2 normal heart sound present GI: COMMON NORMALS: Normal to inspection, nondistended, normoactive bowel sounds present, Soft to palpation and non-tender PALPATION: Yes Soft to palpation Extremity: COMMON NORMALS: no joint enlargement and no pedal edema GENERAL: Yes edema (2+ bilateral LE edema) Neuro: COMMON NORMALS: patient oriented x3 and moves all extremities SENSORIUM/ORIENTATION: Yes alert Skin: COMMON NORMALS: no rashes or lesions noted GENERAL SKIN EXAM: no rashes or lesions noted Urinary Catheter Management: Fisher: Cath Placed During This Visit: yes, but has since been removed by the nurse Reason for Continuing Indwelling Catheter: Accurate Measurement of Urinary Output in Critically Ill Patients Urinary Catheter Date of Insertion: 07/30/25 Urinary Catheter Time of Insertion: 01:30 Date Urinary Catheter Removed: 08/07/25 Time Urinary Catheter Discontinued: 09:35 Discharge Data Studies Completed and Pending Completed Studies During Hospitalization Category Date Time Status CT chest abdomen pelvis [[place] [id number] Cat Scan 08/04/25 08:57 Completed ] Routine CT lower leg RT wo con* 10002 Routine Cat Scan 08/04/25 10:52 Completed Cardiac Stress Test MIBI [Sestamibi Stress Test Request Exams 07/31/25 17:27 Completed ] Routine XR chest 1V portable [id number] Routine Exams 08/05/25 14:52 Completed XR chest 1V portable [id number] Stat Exams 07/29/25 20:40 Completed NM karol perf SPECT r/s* [id number] Routine Nuc Med 08/01/25 17:27 Completed CV. echo wo/w contrast [id number] Routine Ultrasound 07/30/25 08:00 Completed Radiology Impressions Chest/Abdomen/Pelvis CT 08/04/25 08:57 IMPRESSION: 1. Large right-sided pleural effusion. Compressive atelectasis in the right lower lobe. 2. Near complete atelectasis of the right middle lobe. 3. Cardiomegaly. IMPRESSION: 1. 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 2. Left renal 4 mm stone. COMMENTS: Consistent with the [employer]'s Incidental Findings Committee white paper (J Am Danica Radiol 2018): Any incidental renal lesion less than 1 cm or classified as too small to characterize, or any incidental cystic renal lesion characterized as simple-appearing, is likely benign. No follow-up imaging is recommended for these lesions per consensus recommendations based on imaging criteria. Lower Extremity CT 08/04/25 10:52 IMPRESSION: 1. Age-indeterminate suspected pathologic fractures of the talus and calcaneus as above, with associated patchy osteopenia/cortical erosions that could represent changes of osteomyelitis in the appropriate clinical setting. If further clinical concern enhanced MRI can better characterize. 2. Diffuse swelling and induration of the superficial and deep soft tissue planes with associated skin thickening, compatible with diffuse myositis and cellulitis. 3. Small right ankle effusion; can not exclude infectious complication 4. 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 5. Evidence of Achilles tendinosis and Achilles peritendinitis as above 6. Small right knee effusion Chest X-Ray 08/05/25 14:52 IMPRESSION: 1. Right PICC line tip over the atrial caval junction. 2. Mild to moderate globular cardiomegaly consistent with 4-chamber enlargment and/or pericardial effusion. 3. [id number]-[id number] pneumonia in the right mid lung field. Laboratory Results WBC 10.57 10^3/uL (3.29-11.43) 08/08/25 05:35 Corrected WBC Cancelled 08/07/25 03:57 RBC 4.30 10^6/uL (3.85-5.65) 08/08/25 05:35 Hgb 10.50 g/dL (11.27-16.99) L 08/08/25 05:35 Hct 40.4 % (37-53) 08/08/25 05:35 MCV 94.0 fl (82-101) 08/08/25 05:35 MCH 24.4 pg (27-33) L 08/08/25 05:35 MCHC 26.0 g/dL (30-55) L 08/08/25 05:35 RDW 20.9 % (12.1-15.1) H 08/08/25 05:35 Plt Count 86 10^3/cmm (157-399) L 08/08/25 05:35 MPV Not Reportable 08/08/25 05:35 Gran % Cancelled 08/07/25 03:57 Neut % (Auto) 77.6 % 08/08/25 05:35 Lymph % (Auto) 7.5 % 08/08/25 05:35 [place] % (Auto) 12.8 % 08/08/25 05:35 Eos % (Auto) 0.9 % 08/08/25 05:35 Baso % (Auto) 0.6 % 08/08/25 05:35 Neut # (Auto) 8.21 10^3/uL (1.8-7.7) H 08/08/25 05:35 Lymph # (Auto) 0.8 10^3/uL (0.8-4.8) 08/08/25 05:35 [place] # (Auto) 1.4 10^3/uL (0.2-0.9) H 08/08/25 05:35 Eos # (Auto) 0.1 10^3/uL (0.0-0.8) 08/08/25 05:35 Baso # (Auto) 0.1 10^3/uL (0.0-0.1) 08/08/25 05:35 Absolute Gran (auto) Cancelled 08/07/25 03:57 Nucleated RBC % (auto) 0 % 08/08/25 05:35 Nucleated RBCs # 0.0 /100WBC 08/08/25 05:35 Peripher Smr Path Cons Sent for review 07/30/25 12:51 PT 17.80 SECONDS (12.1-14.9) H 08/02/25 05:16 INR 1.37 (0.8-1.2) H 08/02/25 05:16 Specimen Type Arterial 07/29/25 20:55 Sample Site Radial, left 07/29/25 20:55 ABG pH 7.31 (7.35-7.45) L 07/29/25 20:55 ABG pCO2 51.4 mmHg (35-45) H 07/29/25 20:55 ABG pO2 78.8 mmHg (80.0-100.0) L 07/29/25 20:55 ABG PO2/FiO2 Ratio 281 07/29/25 20:55 ABG HCO3 25.8 mmol/L (22-26) 07/29/25 20:55 ABG Base Excess -1.1 mmol/L (-2.0-2.0) 07/29/25 20:55 Joseph Test Pos 07/29/25 20:55 Hematocrit 37.0 % (42-52) L 07/29/25 20:55 Hgb O2 Saturation 91.6 % (95-100) L 07/29/25 20:55 Carboxyhemoglobin 1.4 %THgb (0.4-20.1) 07/29/25 20:55 Methemoglobin 1.0 % (0.4-1.5) 07/29/25 20:55 Total Hemoglobin 12.1 g/dL (14-18) L 07/29/25 20:55 O2 Delivery Device Nc 07/29/25 20:55 O2 Liters/Min 2.0 % 07/29/25 20:55 FiO2 28.0 % 07/29/25 20:55 Furniture Upholsterer Apprentice ID Bd 07/29/25 20:55 Sodium 138 mmol/L (136-145) 08/08/25 06:47 Potassium 3.8 mmol/L (3.5-5.1) 08/08/25 06:47 Chloride 92 mmol/L (98-107) L 08/08/25 06:47 Carbon Dioxide 37 mmol/L (22-29) H 08/08/25 06:47 Anion Gap 12.8 (5-19) 08/08/25 06:47 BUN 24 mg/dL (6-20) H 08/08/25 06:47 Creatinine 1.1 mg/dL (0.7-1.2) 08/08/25 06:47 GFR Calculation 70.9 mL/min (90-130) L 08/08/25 06:47 Glucose 105 mg/dL (65-115) 08/08/25 06:47 POC Glucose 107 mg/dL (70-110) 07/30/25 00:50 Estimat Average Glucose 123 07/30/25 02:58 Hemoglobin A1c 5.9 % (4.0-6.0) 07/30/25 02:58 Calculated Osmolality 290 mOsm/kg (285-295) 08/08/25 06:47 Lactic Acid 2.1 mmol/L (0.5-2.2) 07/29/25 20:41 Lactic Acid (Sepsis) 2.1 mmol/L (0.5-2.2) 07/29/25 23:31 Calcium 9.0 mg/dL (8.5-10.5) 08/08/25 06:47 Phosphorus 2.9 mg/dL (2.5-4.5) 08/08/25 06:47 Magnesium 1.8 mg/dL (1.7-2.3) 08/07/25 06:27 Total Bilirubin 2.0 mg/dL (0.15-1.2) H 08/08/25 06:47 AST 29 U/L (0-40) 08/08/25 06:47 ALT 7 U/L (0-41) 08/08/25 06:47 Alkaline Phosphatase 110 U/L (40-130) 08/08/25 06:47 Creatine Kinase 300 U/L (39-308) 07/29/25 20:41 Troponin T Baseline 643 ng/L (0-15) H* 07/29/25 20:41 Troponin T 60 Minute 676.8 ng/L (0-15) H 07/29/25 21:54 Delta Troponin T 33.8 ABS# (0-10) H* 07/29/25 21:54 Troponin T Hi Sens 6Hr 651.3 ng/L (0-15) H 07/30/25 02:58 Troponin T Hi Sens 6Hr Delta 8.3 ng/L (0-12) 07/30/25 02:58 NT-Pro-B Natriuret Pep 6463 pg/mL (0-125) H 07/29/25 20:41 Total Protein 6.8 g/dL (6.6-8.7) 08/08/25 06:47 Albumin 3.4 g/dL (3.5-5.2) L 08/08/25 06:47 Globulin 3.4 g/dL (1.3-4.6) 08/08/25 06:47 Vitamin B12 > 2000 pg/mL (232-1245) H 07/30/25 02:58 TSH 1.53 uIU/mL (0.27-4.20) 07/30/25 02:58 Vancomycin Trough 16.8 ug/mL (10-15) H 08/02/25 10:55 Digoxin 0.8 ng/mL (0.6-1.2) 08/08/25 06:47 Hepatitis A IgM Ab Non-reactive (Nonreactive) 08/04/25 11:39 Hep Bs Antigen Non-reactive (Nonreactive) 08/04/25 11:39 Hep Bs Antibody < 3.5 (11.5-1000) L 08/04/25 11:39 Hep B Core Total Ab Non-reactive (Nonreactive) 08/04/25 11:39 Hepatitis C Antibody Non-reactive (Nonreactive) 08/04/25 11:39 HIV 1&2 Ab & HIV 1 Ag Non-reactive (Non-Reactiv) 08/04/25 11:39 HIV 1&2 Antibody Non-reactive (Non-Reactiv) 08/04/25 11:39 Influenza A (PCR) Negative (Negative) 07/29/25 21:10 Influenza Type B (PCR) Negative (Negative) 07/29/25 21:10 RSV (PCR) Negative (Negative) 07/29/25 21:10 SARS-CoV-2 (PCR) Negative (Negative) 07/29/25 21:10 Vitals Last Vital Signs Temp 99 F 08/10/25 08:29 Pulse 105 H 08/10/25 08:29 Resp 17 08/10/25 08:29 BP 133/97 08/10/25 08:29 Pulse Ox 93 08/10/25 04:00 O2 Del Method Room Air 08/10/25 04:00 O2 Flow Rate 2 08/09/25 08:54 FiO2 40 08/04/25 20:30 Discharge Plan Discharge Patient Disposition: Xfer SNF Condition: Stable Prescriptions: New digoxin 125 mcg (0.125 mg) tablet 125 mcg PO DAILY Qty: 30 0RF Rx Instructions: Hold for one day and do not start until physician calls you cefazolin 2 gram Recon Soln 2,000 mg IVP Q8H Qty: 25 0RF amiodarone [Pacerone] 200 mg Tablet 400 mg PO BID Qty: 30 0RF ferrous sulfate 325 mg (65 mg iron) Tablet,Delayed Release (Dr/Ec) 325 mg PO Q48H Qty: 30 0RF digoxin 250 mcg (0.25 mg) Tablet 125 mcg PO DAILY Qty: 30 0RF Zepbound 5 mg/0.5 mL pen injector 5 mg SUBCUT .qweek Qty: 2 4RF potassium chloride [Klor-Con M20] 20 mEq Tablet,Er Particles/Crystals 20 meq PO BID Qty: 30 0RF metoprolol tartrate 50 mg Tablet 75 mg PO BID@0900,2100 Qty: 90 0RF Continued Centrum Adult 50 Fresh-Fruity 120 mcg tablet,chewable 1 tab PO DAILY acetazolamide 250 mg tablet 125 mg PO DAILY Patient Comments: 1/2 tab daily atorvastatin 40 mg tablet See Rx Instructions .ROUTE .COMPLEX Qty: 30 6RF Dose Instruction: TAKE 1/2 (ONE-HALF) TABLET BY MOUTH AT BEDTIME Rx Instructions: TAKE 1/2 (ONE-HALF) TABLET BY MOUTH AT BEDTIME duloxetine 60 mg Capsule,Delayed Release(Dr/Ec) 60 mg PO BID furosemide 20 mg tablet 40 mg PO DAILY 30 Days Qty: 60 0RF dapagliflozin propanediol [Farxiga] 10 mg tablet 10 mg PO DAILY Qty: 30 0RF Descovy 200-25 mg tablet See Rx Instructions .ROUTE .COMPLEX Rx Instructions: 200/25 Changed Xarelto 10 mg Tablet 20 mg PO BEDTIME 30 Days Qty: 30 3RF Discontinued amiodarone 200 mg tablet 200 mg PO DAILY metolazone 5 mg tablet 5 mg PO EVERY OTHER DAY Qty: 30 0RF metoprolol tartrate 50 mg tablet 50 mg PO BID Program Advocate OK for DC: Cardiology and Infectious Disease Discharge Order = DC NOW: Discharge Order (Routine); Ordered 08/10/25 Ordered By: Vahid Zayas Other Ambulatory Orders: DME: Wheelchair (Order) Location: None Selected Ordered By: Vahid Zayas Miscellaneous Procedure (Order) Location: None Selected Ordered By: Vahid Zayas Complete Blood Count w/Auto (Routine) Timeframe: 1 Week Location: Determined by Patient Ordered By: Vahid Zayas Comprehensive Metabolic Panel (Routine) Timeframe: 1 Week Facility: [facility] - Location: Lab - Main Lab Ordered By: Vahid Zayas Digoxin (Routine) Timeframe: 1 Week Facility: [facility] - Location: Lab - Main Lab Ordered By: Vahid Zayas Magnesium (Routine) Timeframe: 1 Week Facility: [facility] - Location: Lab - Main Lab Ordered By: Vahid Zayas Referrals: Infectious Disease Group [facility] [Provider Group, Infectious Disease] - 08/30/25 12:00 pm [facility] [Outside] Referral Note: This is the company that is supplying your IV antibiotic. If you have any questions or concerns please contact them @ [phone] [facility] Infusion Center [Outside] - 08/13/25 12:00 pm Referral Note: This is your appointment to have your PICC line dressing changed and labs drawn. If unable to keep appointment please call to reschedule. Cornel Fuentes MD [Primary Care Provider, [facility]] - 4-7 days Referral Note: Please call for an follow-up appointment with 4 to 7 days. The clinic is cosed for Miley. Azeem Weinstein M.D [Physician, Cardiology] - 1 week Dionne Meng MD [Hospitalist, Hospitalist] - 1 week Discharge Diet: Advance as tolerated Discharge Activity: Resume usual activity Patient Instructions: A-fib (Atrial Fibrillation) (DC), Bacteremia (DC), Opioid Safety Discharge Attestations Time Spent in Discharge Care*: greater than 30 min Status at Discharge: Cognitive status at discharge: cognitively intact , Behavioral status at discharge: cooperative , Quality Metrics Clinical Quality Measures [ No reported AMI, CVA or VTE this stay] Coding Level of Care Code 10888 Diagnoses Systolic heart failure I50.20
--- NOTE | 2025-08-10 11:54 | PC.SOCIAL ---
IMM Update pg 2 of IMM updated and reviewed w/ patient. Copy provided and copy dated, initialed and placed in chart.
[2025-08-10 13:07] VITALS: BP 136/95; PULSE 84; O2SAT 95
[2025-08-10 13:10] VITALS: BP 136/95; PULSE 87; O2SAT 96
--- NOTE | 2025-08-10 13:59 | PC.NURSE ---
discharge to snf report called to staff. transport anisha came to pick him up. discharge packet provided.
== END 2025-08-10 13:59 | disposition skilled nursing facility (03) | DRG 280 ==
LOC: ER 22:59 → ER IP 23:40 → ICU 07-30 00:15 → CSU 08-01 13:43 → ICU 08-02 17:22 → CSU 08-04 11:04
PROVIDERS: Internal Medicine; Student in an Organized Health Care Education/Training Program; Admitting Provider Internal Medicine; Emergency Provider Emergency Medicine; PCP Family Medicine; Visit Provider Internal Medicine
DX: I13.0 Hypertensive heart and chronic kidney disease with heart failure and stage 1 through stage 4 chronic kidney disease, or unspecified chronic kidney disease (principal); I50.33 Acute on chronic diastolic (congestive) heart failure; I21.A1 Myocardial infarction type 2; J96.21 Acute and chronic respiratory failure with hypoxia; R78.81 Bacteremia; Z68.43 Body mass index [BMI] 50.0-59.9, adult; F33.2 Major depressive disorder, recurrent severe without psychotic features; Z16.11 Resistance to penicillins; N17.9 Acute kidney failure, unspecified; L97.219 Non-pressure chronic ulcer of right calf with unspecified severity; I48.91 Unspecified atrial fibrillation; B95.61 Methicillin susceptible Staphylococcus aureus infection as the cause of diseases classified elsewhere; D69.6 Thrombocytopenia, unspecified; E66.01 Morbid (severe) obesity due to excess calories; G47.33 Obstructive sleep apnea (adult) (pediatric); N18.32 Chronic kidney disease, stage 3b; K71.6 Toxic liver disease with hepatitis, not elsewhere classified; T43.215A Adverse effect of selective serotonin and norepinephrine reuptake inhibitors, initial encounter; Y92.9 Unspecified place or not applicable; Z79.01 Long term (current) use of anticoagulants; E78.5 Hyperlipidemia, unspecified; F43.10 Post-traumatic stress disorder, unspecified; Z87.891 Personal history of nicotine dependence; I72.3 Aneurysm of iliac artery; Z86.711 Personal history of pulmonary embolism; I25.5 Ischemic cardiomyopathy; I95.9 Hypotension, unspecified; R74.01 Elevation of levels of liver transaminase levels; I87.2 Venous insufficiency (chronic) (peripheral)
CPT/HCPCS: 36415; 36416; 36573; 36592; 36600; 51702; 51798; 71045; 71250; 73700; 74176; 78452; 80048; 80053; 80162; 80202; 80503; 82550; 82607; 82805; 82962; 83036; 83605; 83735; 83880; 84100; 84132; 84443; 84484; 85025; 85610; 86705; 86706; 86709; 86803; 87040; 87077; 87150; 87186; 87205; 87340; 87637; 87806; 93005; 93017; 94660; 94664; 96365; 96366; 96372; 96375; 97110; 97116; 97162; 97167; 97530; 97535; 99285; A4222; A9500; C8929; J0282; J0283; J0690; J0696; J1160; J1650; J1938; J2060; J2405; J2785; J3372; J3373; J3475; J3480; J3490; J7040; J9999; P9046; Q3014